=== PATIENT | male | born 1970 | race Caucasian/White ===

== ENCOUNTER 2020-07-15 08:51 | Inpatient (IN) | payer OTHER ==
[~2020-07-15] VITALS: Ht 177.8 cm; Wt 129.4 kg
[2020-07-15] MEDS ORDERED: FLEET ENEMA ADULT 1 EA BTL PR PRN (10:15)
[2020-07-15] MEDS ORDERED: MELATONIN 3 MG TABLET PO PRN (10:15)
[2020-07-15] MEDS ORDERED: LACTULOSE SYRUP 10GM/15ML (ENULOSE) 30ML UDC PO PRN ×2 (10:15→16:30)
[2020-07-15] MEDS ORDERED: ONDANSETRON 4 MG (ZOFRAN) ORAL DISSOLVE TAB PO PRN (10:15)
[2020-07-15] MEDS ORDERED: ALPRAZolam 0.25 MG (XANAX) TAB PO PRN (10:15)
[2020-07-15] MEDS ORDERED: BISACODYL 10 MG SUPP (DULCOLAX) PR PRN (10:15)
[2020-07-15] MEDS ORDERED: diphenhydrAMINE 25 MG TAB (BENADRYL) PO PRN (10:15)
[2020-07-15] MEDS ORDERED: guaiFENesin/CODEINE (ROBITUSSIN AC) 10ML UDC PO PRN (10:15)
[2020-07-15] MEDS ORDERED: ENOXAPARIN 40 MG/0.4 ML (LOVENOX) SYR SC SCH (10:15)
[2020-07-15] MEDS ORDERED: CALCIUM CARBONATE 500 MG (TUMS) TAB.CHEW PO PRN ×2 (10:15→16:00)
[2020-07-15] MEDS ORDERED: LOPERAMIDE 2 MG (IMODIUM) TABLET PO PRN (10:15)
[2020-07-15 12:20] VITALS: BP 133/70
[2020-07-15] MEDS ORDERED: GLUC1VIA4 IM (12:48)
[2020-07-15] MEDS ORDERED: DEXT38GE12 PO (12:48)
[2020-07-15] MEDS ORDERED: ATOR20TA66 PO (12:48)
[2020-07-15] MEDS ORDERED: MELA5TAB14 PO (12:48)
[2020-07-15] MEDS ORDERED: ACET-2650 PO (12:48)
[2020-07-15] MEDS ORDERED: AMLO10TA4 PO (12:48)
[2020-07-15] MEDS ORDERED: PHEN-639 PO (12:48)
[2020-07-15] MEDS ORDERED: IPRA3AMP31 IH (12:48)
[2020-07-15] MEDS ORDERED: APIX2.5T PO (12:48)
[2020-07-15] MEDS ORDERED: LACT1CAP76 PO (12:48)
[2020-07-15] MEDS ORDERED: LISI20TA26 PO (12:48)
[2020-07-15] MEDS ORDERED: AMIO200T6 PO (12:48)
[2020-07-15] MEDS ORDERED: SIME80TA16 PO (12:48)
[2020-07-15] MEDS ORDERED: ASCO100024 PO (12:48)
[2020-07-15] MEDS ORDERED: CHOL500050 PO (12:48)
[2020-07-15] MEDS ORDERED: INSU100V39 SQ (12:48)
[2020-07-15] MEDS ORDERED: CALC-308 PO (12:48)
[2020-07-15] MEDS ORDERED: PANT40TA52 PO (12:48)
[2020-07-15] MEDS ORDERED: LACT10SO3 PO (12:48)
[2020-07-15] MEDS ORDERED: ACHD5005 PO (13:37)
--- NOTE | 2020-07-15 14:08 | Physical Therapy Evaluation ---
PT Evaluation-General Medical Diagnosis Admission Date July 15, 2020 at 13:02 Medical Diagnosis: covid 19 PNA myopathy Onset Date: Jun 10, 2020 Therapy Diagnosis Therapy Diagnosis: impaired mobility, strength, endurance Precautions Precautions/Isolations: Fall Prevention, Standard Precautions Referral Physician: Mai Parry DO Reason for Referral: Evaluation/Treatment Social History Home: Single Level Current Living Status: Significant Other Entry Into Home: Stairs With Railing PT Steps Into Home: 2 Prior Prior Level of Function SCALE: Activities may be completed with or without assistive devices. 7-Akbwseipjn-ooniztu completes the activity by him/herself with no assistance from a helper. 5-Set-up or Clean-up Assistance-helper sets up or cleans up; patient completes activity. [place] assists only prior to or following the activity. 4-Supervision or Touching Assistance-helper provides verbal cues and/or touching/steadying and/or contact guard assistance as patient completes activity. Assistance may be provided throughout the activity or intermittently. 3-Partial/Moderate Assistance-helper does LESS THAN HALF the effort. [place] lifts, holds or supports trunk or limbs, but provides less than half the effort. 2-Substantial/Maximal Assistance-helper does MORE THAN HALF the effort. [place] lifts or holds trunk or limbs and provides more than half the effort. 8-Tdnhroobx-bssnoh does ALL the effort. Patient does none of the effort to complete the activity. Or, the assistance of 2 or more helpers is required for the patient to complete the activity. If activity was not attempted, code reason: 7-Patient Refused. 9-Not Applicable-not attempted and the patient did not perform the activity before the current illness, exacerbation or injury. 10-Not Attempted due to Environmental Limitations-(lack of equipment, weather restraints, etc.). 88-Not Attempted due to Medical Conditions or Safety Concerns. Bed Mobility: 6 Transfers (B,C,W/C): 6 Gait: 6 Stairs: 6 Indoor Mobility (Ambulation): Independent Stairs: Independent PT Evaluation-Current Subjective Patient in bed pre tx, agrees to PT, has no complaints of pain. Will be co- treating with OT due to severe debility, endurance, mobility, coordinate UE and LE during activity, safety and reduce risk of falls. Pt/Family Goals "to get stronger" Objective Patient Orientation: Person, Place, Situation, Normal For Age Attachments: Oxygen ROM/Strength ROM Lower Extremities WNL, dorsiflexion is tight on both sides but he can achieve neutral bilaterally Strength Lower Extremities LLE (hip flexion 2/5, knee flexion 3-/5, knee extension 3/5, dorsiflexion 0/5), RLE (hip flexion 2/5, knee flexion 3-/5, knee extension 3/5, dorsiflexion 3/5) Sensory Vision: Functional Hearing: Functional Sensation Right Lower Extremit: Impaired Sensation Left Lower Extremity: Impaired Transfers Roll Left & Right (QC): 3 Sit to Lying (QC): 2 Lying to Sitting/Side of Bed(Q: 2 Sit to Stand (QC): 1 Chair/Uip-bv-Qjmjj Xfer(QC): 1 Toilet Transfer (QC): 1 Car Transfer (QC): 1 Patient performs bed mobility with mod assist, supine <-> sit max assist, dependent with sit to stand and transfers using a sit to stand machine. Cues for positioning and safety. Patient needed to use the commode and performed a transfer to it with sit to stand machine and then to WC. Propelled WC and then another sit to stand machine transfer to bed. Patient needs min assist for s itting balance until he is positioned correctly and then he can maintain balance on his own. Gait Does the Patient Walk?: No and Walking Goal NOT indicated Walk 10 feet (QC): 88 Walk 50 ft with 2 Turns(QC): 88 Walk 150 ft (QC): 88 Walking 10ft/uneven surface-QC: 88 Wheelchair Training Does the Pt Use a Wheelchair?: Yes Distance: 80' Wheel 50 ft with 2 turns (QC): 3 Wheel 150 ft (QC): 88 Type of Wheelchair: Manual Patient propels WC with both arms, needs frequent rest breaks, very fatigued after 80' Stairs 1 Step (curb) (QC): 88 4 Steps (QC): 88 12 Steps (QC): 88 Balance Sitting Static: Fair Sitting Dynamic: Fair Standing Static: Poor Standing Dynamic: Poor Picking up an Object (QC): 88 Treatment PT performed bed mobility and transfer training, WC mobility, positioning and safety during toileting, OT worked on toileting, UE positioning and safety during activity. Assessment/Needs Patient has impaired mobility, strength, endurance. He requires the sit to stand machine for transfers. Rehab Potential: Fair PT Short Term Goals Short Term Goals Time Frame: July 22, 2020 Roll Left & Right: 4 Sit to lyin Lying to sitting on side of be: 3 PT Dry Cleaning Checker Goals Mcfp Goals PT Dry Cleaning Checker Goals Time Frame: Aug 05, 2020 Roll Left & Right (QC): 4 Sit to Lying (QC): 4 Lying-Sitting on Side/Bed(QC): 4 Sit to Stand (QC): 3 Chair/Vpy-sk-Xbhyr Xfer(QC): 3 Toilet Transfer (QC): 3 Car Transfer (QC): 3 Does the Patient Walk: No and Walking Goal IS indicated Walk 10 feet (QC): 3 Walk 50ft with 2 Turns (QC): 88 Walk 150 ft (QC): 88 Walking 10ft on Uneven Surface: 88 1 Step (curb) (QC): 88 4 Steps (QC): 88 12 Steps (QC): 88 Picking up an Object (QC): 88 Wheel 50 feet with 2 turns (QC: 6 Wheel 150 feet: 6 PT Plan Problem List Problem List: Activity Tolerance, Functional Strength, Safety, Balance, Gait, Transfer, Bed Mobility, ROM Treatment/Plan Treatment Plan: Continue Plan of Care Treatment Plan: Bed Mobility, Education, Functional Activity Cierra, Functional Strength, Group Therapy, Gait, Safety, Therapeutic Exercise, Transfers Treatment Duration: Aug 05, 2020 Frequency: Modified Program (IRF) Estimated Hrs Per Day: 1 hour per day Patient and/or Family Agrees t: Yes Due to a covid 19 viral infection, the patient has deficits that warrant inpatient acute rehab. The patient will clearly benefit from intensive PT and OT, however, due to patient's observed endurance and therapy considerations, he may not be able to tolerate the full 3 hours of scheduled therapy. Therefore, he will be scheduled for as much therapy as he can tolerate with intentional rest breaks, shortened sessions, including providing therapy across 6 to 7 days. As the patient tolerates, the intensity, frequency, and duration of his therapy program will be increased. Safety Risks/Education Patient Education: Transfer Techniques, Correct Positioning, W/C Management, Safety Issues Teaching Recipient: Patient Teaching Methods: Demonstration, Discussion Response to Teaching: Reinforcement Needed Discharge Recommendations Plan Patient will perform bed mobility and transfer training, balance and endurance training, functional strengthening, gait training, and education, to improve functional mobility and independence at home. Therapy Discharge Recommendati: Scheduled Assistance, Home & Family, Post Acute PT Time/GCodes Time In: 1300 Time Out: 1400 Total Billed Treatment Time: 60 Total Billed Treatment 1 visit EVM 10' FA 50' PT eval from [id number], co-treat from [id number] LIZ MI PT July 15, 2020 14:08
--- NOTE | 2020-07-15 14:32 | Occupational Therapy Eval ---
OT Evaluation-General/PLF Medical Diagnosis Admission Date July 15, 2020 at 13:02 Medical Diagnosis: critical illness myopathy Onset Date: Jun 10, 2020 Therapy Diagnosis Therapy Diagnosis: weakness, decreased ADL Status, debility Precautions Precautions/Isolations: Fall Prevention, Standard Precautions Referral Physician: Mai Parry DO Referral Reason: Evaluation/Treatment Medical History Additional Medical History acute respiratory failure, COVID-19, hematuria, hypoxia, obesity, sleep apnea, vitamin D deficiency Current History Presented to the hospital (diagnosed with COVID-19 1 week prior), he was intubated 06/11/20, received PEG/trach. Transferred to [place] for ventilator and medication management. Dx with DM at [place]. transfer to [facility] 07/15/20 for continued medication management and skilled therapy. Social History Home: Single Level Current Living Status: Significant Other Entry Into Home: Stairs With Railing Steps Into Home: 2 ADL-Prior Level of Function SCALE: Activities may be completed with or without assistive devices. 0-Klljavpxqm-xwvpdnu completes the activity by him/herself with no assistance from a helper. 5-Set-up or Clean-up Assistance-helper sets up or cleans up; patient completes activity. [place] assists only prior to or following the activity. 4-Supervision or Touching Assistance-helper provides verbal cues and/or touching/steadying and/or contact guard assistance as patient completes activity. Assistance may be provided throughout the activity or intermittently. 3-Partial/Moderate Assistance-helper does LESS THAN HALF the effort. [place] lifts, holds or supports trunk or limbs, but provides less than half the effort. 2-Substantial/Maximal Assistance-helper does MORE THAN HALF the effort. [place] lifts or holds trunk or limbs and provides more than half the effort. 9-Jcvpaqkxm-thzyuy does ALL the effort. Patient does none of the effort to complete the activity. Or, the assistance of 2 or more helpers is required for the patient to complete the activity. If activity was not attempted, code reason: 7-Patient Refused. 9-Not Applicable-not attempted and the patient did not perform the activity before the current illness, exacerbation or injury. 10-Not Attempted due to Environmental Limitations-(lack of equipment, weather restraints, etc.). 88-Not Attempted due to Medical Conditions or Safety Concerns. ADL PLOF Comments Pt reports IND with all ADLs and functional mobility at PLOF, no AD/AE. 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 Upper Extremity Coordination decreased due to weakness Upper Extremity Sensation WFL Upper Extremity Strength grossly 3/5 BUEs ADL-Treatment Eating (QC): 5 (set up per pt report) Oral Hygiene (QC): 5 (based on clincial judgement) Shower/Bathe Self (QC): 1 (Based on clincial judgement, pt would require use of sit to stand machine to wash buttocks and pericare.) Upper Body Dressing (QC): 2 (based on clinical judgement) Lower Body Dressing (QC): 1 (Based on clincial judgement, pt would requires use of sit to stand transfer in order to complete LE dressing, assist threading over legs and assist with pant hike.) On/Off Footwear (QC): 1 (total assist donning bilateral gripper socks.) Toileting Hygiene (QC): 1 (total assist, assist with hygiene and clothing managment) Other Treatments OT evaluation complete, then OT/PT cotreat due to skill of 2 clinicians required which a cnc technician could not perform in order to coordinate UE/LEs and due to pt's limitations in strength, activity tolerance, mobility, endurance, and transfers. OT focused on UE placement, assist with transfers, ADLs, PT focused on LE placement, transfers/mobility, and overall gross movement. Pt laying supine, transferred supine to sit EOB. At EOB, O2 sat 91% on 1L O2 and BP 150/87. Pt states need to toilet, sit to stand transfer performed from EOB to BSC. Pt completed toileting, assist with managing clothing and with hygiene, then sit to stand transfer to w/c. Pt performed w/c mobility around [facility] common area, then back to room, transferred back to bed using sit to stand machine. Post tx, pt laying in bed, call light in reach and all needs met. Please refer to PT note for QC scores associated with transfers and functional mobility. Education OT Patient Education: Correct positioning, Modified ADL techniques, Progress toward Goal/Update tx plan, Purpose of tx/functional activities, Rehab process, Safety issues, Transfer techniques Teaching Recipient: Patient Teaching Methods: Discussion Response to Teaching: Verbalize Understanding OT Short Term Goals Short Term Goals Time Frame: Aug 05, 2020 Toileting hygiene: 2 Upper body dressin Lower body dressin Putting on/taking off footwear: 2 OT Mcfp Goals Mcfp Goals Time Frame: Aug 13, 2020 Eating (QC): 6 Oral Hygiene (QC): 6 Toileting Hygiene (QC): 6 Shower/Bathe Self (QC): 6 Upper Body Dressing (QC): 6 Lower Body Dressing (QC): 6 On/Off Footwear (QC): 6 Additional Goals: 1-Demonstrate ADL Tasks, 2-Verbalize Understanding, 3- ImproveStrength/Cierra 1=Demonstrate adherence to instructed precautions during ADL tasks. 2=Patient will verbalize/demonstrate understanding of assistive devices/modifications for ADL. 3=Patient will improve strength/tolerance for activity to enable patient to perform ADL's. OT Education/Plan Problem List/Assessment Assessment: Decreased Activ Tolerance, Decreased UE Strength, Dependent Trans fers, Impaired Coordination, Impaired Funct Balance, Impaired I ADL's, Impaired Self-Care Skills, Restricted Funct UE ROM Discharge Recommendations Plan/Recommendations: Continue POC Therapy Discharge Recommendati: Post Acute OT Treatment Plan/Plan of Care Patient would benefit from OT for education, treatment and training to promote independence in ADL's, mobility, safety and/or upper extremity function for ADL's. Plan of Care: ADL Retraining, Functional Mobility, Group Exercise/Act as Ind, UE Funct Exercise/Act Treatment Duration: Aug 13, 2020 Frequency: Modified Program (IRF) Estimated Hrs Per Day: 1 hour per day Rehab Potential: Fair Due to a COVID-19 viral infection, the patient has deficits that warrant inpatient [facility]. The patient will clearly benefit from intensive PT and OT, however, due to patient's observed endurance and therapy considerations, he may not be able to tolerate the full 3 hours of scheduled therapy. Therefore, he will be scheduled for as much therapy as he can tolerate with intentional rest breaks, shortened session, including providing therapy across 6 to 7 days. As the patient tolerates, the intensity, frequency, and duration of his therapy program will be increased. Time/GCodes Start Time: 12:50 Stop Time: 14:00 Total Time Billed (hr/min): 60 Billed Treatment Time [id number] OT evaluation, [id number] PT evaluation, [id number] OT/PT cotreat 1, EVH (10'), ADL 2 (30'), FA (20') HEAVENLY MARQUEZ OT July 15, 2020 14:32
--- NOTE | 2020-07-15 15:49 | PM&R Post Admission Assessment ---
PM&R HP Date of Visit: July 15, 2020 Time of Visit: 13:00 History of Present Illness CC: COVID-19 PNA debility HPI: This is a 49yoWM clinic patient of Dr Vo in [place], [place] who presents from [facility] following a complicated course from respiratory failure from COVID-19 requiring residential vent support with trach placement now in need of recovery and strengthening in order to return to independent living. 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 Patient has very poor reserve currently. 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 He was dx with new onset DM so we will monitor that with insulin. The patient was admitted to the ARU during this COVID-19 emergency. The ARU is the best and most appropriate post-acute setting for this patient at this current time. Patient meets an inpatient Acute Rehab admission criteria, however will be unable to tolerate 3 hours of therapy/5 days per week. This patient's individiualized intensive rehabilitation plan is to receive 2 hours of therapy per day, by receiving 1 hour of PT and 1 hours of OT 5 out of 7 days per the patient's week. As an interdisciplinary team, we will discuss this patient's ability to tolerate an increase in the intensity of thearpy to be provided throughout the patient's stay. 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 Drive Self: Yes Current Level of Fuctioning Roll Left to Right: 3 Sit to Lyin Lying to Sitting/Side of Bed: 2 Sit to Stand: 1 Chair/Iaj-rj-Bollz Xfer: 1 Car Transfer: 1 Does the Patient Walk: No and Walking Goal NOT indicated Walk 10 feet: 88 Walk 50 ft with 2 Turns: 88 Walk 150 ft: 88 Walking 10ft on uneven surface: 88 Does the Pt Use a Wheelchair: Yes Wheelchair Distance: 80' Wheel 50 ft with 2 turns: 3 Wheel 150 ft: 88 Type of Wheelchair: Manual 1 Step (curb): 88 4 Steps: 88 12 Steps: 88 Eatin (set up per pt report) Oral Hygiene: 5 (based on clincial judgement) Shower/Bathe Self: 1 (Based on clincial judgement, pt would require use of sit to stand machine to wash buttocks and pericare.) Upper Body Dressin (based on clinical judgement) Lower Body Dressin (Based on clincial judgement, pt would requires use of sit to stand transfer in order to complete LE dressing, assist threading over legs and assist with pant hike.) On/Off Footwear: 1 (total assist donning bilateral gripper socks.) Toileting Hygiene: 1 (total assist, assist with hygiene and clothing managment) PM&R Allergy/Meds/Data Review Allergies Coded Allergies: No Known Drug Allergies (Unverified , 07/15/20) Home Medications Scheduled Amiodarone HCl (Amiodarone HCl), 200 MG PO DAILY, (Reported) Amlodipine Besylate (Norvasc), 10 MG PO DAILY, (Reported) Apixaban (Eliquis), 2.5 MG PO BID, (Reported) Ascorbic Acid (Vitamin C), 1,000 MG PO DAILY, (Reported) Atorvastatin Calcium (Atorvastatin Calcium), 20 MG PO HS, (Reported) Cholecalciferol (Vitamin D3) (Vitamin D3), 125 MCG PO DAILY, (Reported) Insulin Lispro (Insulin Lispro), UNIT SQ ACHS, (Reported) Lactobacillus Acidophilus/Pect (Acidophilus-Pectin Capsule), 1 EACH PO BID, (Reported) Lisinopril (Lisinopril), 20 MG PO DAILY, (Reported) Melatonin (Melatonin), 5 MG PO HS, (Reported) Pantoprazole Sodium (Pantoprazole Sodium), 40 MG PO DAILY, (Reported) Scheduled PRN Acetaminophen (Tylenol Arthritis), 650 MG PO Q6H PRN for PAIN-MILD (1-4) OR TEMPATURE, (Reported) Calcium Carbonate (Calcium), 500 MG PO Q4H PRN for INDIGESTION, (Reported) Dextrose (Glucose Gel), 15 GM PO PRN PRN for BLOOD GLUCOSE 40-70, (Reported) Hydrocodone/Acetaminophen (Hydrocodone-Acetamin 5-325 mg), 1 TAB PO Q6H PRN for PAIN-MODERATE (5-7), (Reported) Ipratropium/Albuterol Sulfate (Iprat-Albut 0.5-3(2.5) mg/3 ml), 3 ML IH Q4H PRN for SHORTNESS OF BREATH, (Reported) Lactulose (Lactulose), 15 ML PO TID PRN for CONSTIPATION-3RD LINE, (Reported) Phenazopyridine HCl (Pyridium), 200 MG PO Q8H PRN for URINARY PAIN, (Reported) Simethicone (Simethicone), 160 MG PO Q8H PRN for GAS PAIN, (Reported) glucagon HCL (glucagon HCL), 1 MG IM PRN PRN for BG LESS THAN OR EQUAL TO 40, (Reported) Current Medications Current Medications Reviewed Laboratory Data Laboratory Tests 07/15/20 15:45: Glucometer 191H Review of Systems Constitutional: see HPI, dizziness, malaise, weakness EENTM: no symptoms reported Respiratory: dyspnea on exertion, short of breath, wheezing Cardiovascular: no symptoms reported Gastrointestinal: no symptoms reported Genitourinary: no symptoms reported Musculoskeletal: back pain, joint pain Skin: no symptoms reported Psychiatric/Neurological: Anxiety, Depressed, Weakness All Other Systems Reviewed Negative Unless Noted: Yes Physical Exam Physical Exam Vital Signs Vital Signs - First Documented 07/15/20 12:20 Temp 36.6 Pulse 75 Resp 20 B/P (MAP) 133/70 (91) Pulse Ox 93 O2 Delivery Room Air Capillary Refill : Height, Weight, BMI Height: '" Weight: lbs. oz. kg; 40.17 BMI Method: General Appearance: No Apparent Distress, WD/WN, Obese Eyes: Bilateral Eye Normal Inspection, Bilateral Eye PERRL HEENT: PERRL/EOMI, Normal ENT Inspection, Pharynx Normal Neck: Full Range of Motion, Normal Inspection, Non Tender, Supple, Carotid Bruit Respiratory: Chest Non Tender, Lungs Clear, No Accessory Muscle Use, No Respiratory Distress, Decreased Breath Sounds Cardiovascular: Regular Rate, Rhythm, No Edema, No Gallop, No JVD, No Murmur, Normal Peripheral Pulses Gastrointestinal: Normal Bowel Sounds, No Organomegaly, No Pulsatile Mass, Non Tender, Soft Back: Normal Inspection, No CVA Tenderness, No Vertebral Tenderness Extremity: Normal Capillary Refill, Normal Inspection, Normal Range of Motion, Non Tender, No Calf Tenderness, No Pedal Edema Neurologic/Psychiatric: Alert, Oriented x3, No Motor/Sensory Deficits, Normal Mood/Affect, vitamin manager II-XII Norm as Tested, Abnormal Gait (can't ambulate), Motor Weakness (severe 1/5 strength all extremities) Skin: Normal Color, Warm/Dry Lymphatic: No Adenopathy PM&R Medical Assessment & Plan REHAB/MEDICAL ASSESSMENT AND PLAN: REHAB IMPAIRMENT GROUP: COVID-19 PNA ETIOLOGIC DIAGNOSIS: COVID-19 PNA The comorbidities that impact the patients function and/or functional outcome by: severe respiratory compromise, inability to perform any ADL's, obesity, new DM REHAB PLAN: The patient is being admitted to our comprehensive inpatient rehabilitation facility and can tolerate the intensity of service consisting of at least: 180 minutes of therapy a day, 5 out of 7 days a week Rehab treatment will consist of: PT OT will focus on regaining function and ambulatory function while strengthening lungs from COVID The patient/family has a good understanding of our discharge process and will benefit from an interdisciplinary inpatient rehabilitation program. The patient has potential to make improvement and is in need of at least two of the following multidisciplinary therapies including but not limited to physical, occupational, speech, and prosthetics and orthotics. Additionally the patient will need services from respiratory, nutritional services, wound care, psychology, etc. (Customize this to each patient). Given the patients complex condition and risk of further medical complications, rehabilitation services cannot be safely or effectively provided at a lower level of care such as a residential facility. BARRIERS TO DISCHARGE: Severe respiratory compromise from COVID ESTIMATED LOS: 20 days DISPOSITION: Home RELEVANT CHANGES SINCE PREADMISSION SCREENING: I have compared the patients medical and functional status at the time of the preadmission screening and there are: no changes PROGNOSIS: Guarded REHABILITATION GOALS: 1. PT OT will focus on regaining function and ambulatory function while strengthening lungs from COVID All the above goals were reviewed with the patient and he/she is in agreement. By signing this document, I acknowledge that I have personally performed a full physical examination on this patient within 24 hours of admission to this inpatient rehabilitation facility and have determined the patient to be able to tolerate the above course of treatment at an intensive level for a reasonable period of time. I will be completing a detailed individualized Plan of Care for this patient by day #4 of the patients stay based upon the Preadmission Screen, the Post-Admission Evaluation, and the therapy evaluations. Admission Dx/Comorbidities: (1) Myopathy ICD Codes: G72.9 - Myopathy, unspecified (2) COVID-19 ICD Codes: U07.1 - COVID-19 (3) Obesity ICD Codes: E66.9 - Obesity, unspecified (4) Diabetes mellitus ICD Codes: E11.9 - Type 2 diabetes mellitus without complications Assessment/Plan Assessment and Plan Assess & Plan/Chief Complaint Assessment: COVID-19 PNA myopathy Severe poor lung reserve Obesity New onset DM AF? Plan: Insulin Monitor lung function Cardiology consult NATHANAEL HOWE DO July 15, 2020 15:49
[2020-07-15] MEDS ORDERED: LACTULOSE 10 GM/15 ML 30 ML POUR BOTTLE FOR ENEMA PO PRN (16:00)
[2020-07-15] MEDS ORDERED: RT-ALBUTEROL/IPRATROPIUM 3 ML (DUONEB) VIAL IH PRN (16:00)
[2020-07-15] MEDS ORDERED: HYDROcodone/APAP 5 MG/325 MG (LORTAB) TAB PO PRN (16:00)
[2020-07-15] MEDS ORDERED: SIMETHICONE 80 MG (MYLICON) CHEW PO PRN (16:00)
--- NOTE | 2020-07-15 16:27 | Diagnostic Imaging Report ---
INDICATION: Respiratory distress Portable chest 4:13 PM There is diffuse interstitial infiltrate in both lungs with some focal areas of alveolar consolidation. There are no effusions or pneumothoraces. IMPRESSION: Diffuse interstitial infiltrates with focal areas of alveolar consolidation consistent with pneumonia. Dictated by: Dictated on workstation # [id number]
[2020-07-15] MEDS ORDERED: ACETAMINOPHEN 325 MG TABLET PO PRN (16:45)
[2020-07-15 20:30] VITALS: BP 117/75
[2020-07-15] MEDS: inSUlin ASPART (NovoLOG) 1 UNIT/0.01 ML (CHARGE PER UNIT) SC SCH (21:02)
[2020-07-15] MEDS: MELATONIN 10 MG TABLET PO SCH (21:02)
[2020-07-15] MEDS: LACTOBACILLUS ACIDOPHILUS (PROBIOTIC) CAPSULE PO SCH (21:02)
[2020-07-15] MEDS: APIXABAN 2.5 MG (ELIQUIS) TABLET PO SCH (21:03)
[2020-07-15] MEDS: PHENAZOPYRIDINE 100 MG (PYRIDIUM) TABLET PO PRN (21:05)
[2020-07-15] MEDS: DOCUSATE SODIUM 100 MG (COLACE) CAP PO SCH (21:21)
[2020-07-15] MEDS: polyethylene glycoL POWDER 17 GM (MIRALAX) PACK PO SCH (21:22)
[2020-07-15] MEDS: SENNA W/DOCUSATE (SENOKOT S) TABLET PO SCH (21:22)
[2020-07-16] MEDS: inSUlin ASPART (NovoLOG) 1 UNIT/0.01 ML (CHARGE PER UNIT) SC SCH ×4 (04:58→21:49)
[2020-07-16 05:37] LABS: BASOPHILS % (AUTO) 0 % (0-10); EOSINOPHILS # (AUTO) 0.1 10^3/uL (0.0-0.3); EOSINOPHILS % (AUTO) 1 % (0-10); HEMATOCRIT 42 % (40-54); HEMOGLOBIN 13.4 g/dL (13.3-17.7); LYMPHOCYTES # (AUTO) 1.4 10^3/uL (1.0-4.0); LYMPHOCYTES % (AUTO) 16 % (12-44); MEAN CORPUSCULAR HEMOGLOBIN 29 pg (25-34); MEAN CORPUSCULAR HGB CONC 32 g/dL (32-36); MEAN CORPUSCULAR VOLUME 90 fL (80-99); MEAN PLATELET VOLUME 10.6 fL (9.0-12.2); MONOCYTES # (AUTO) 0.6 10^3/uL (0.0-1.0); MONOCYTES % (AUTO) 7 % (0-12); NEUTROPHILS # (AUTO) 6.2 10^3/uL (1.8-7.8); NEUTROPHILS % (AUTO) 74 % (42-75); PLATELET COUNT 237 10^3/uL (130-400); WHITE BLOOD COUNT 8.3 10^3/uL (4.3-11.0)
--- NOTE | 2020-07-16 05:51 | PM&R Progress Note ---
Subjective HPI/CC On Admission Date Seen by Provider: July 16, 2020 Time Seen by Provider: 11:30 Subjective/Events-last exam 07/16/20: Pt doing pretty well Potassium of 2.7 so will initiate supplement Dr. Rinaldi is seeing him in consultation EKG obtained and normal sinus rhythm noted UA ordered for burning sensation on urination Pt very debilitated Review of Systems General: Fatigue, Malaise Genitourinary: Dysuria, Frequency Objective Exam Vital Signs Vital Signs Date Time Temp Pulse Resp B/P (MAP) Pulse Ox O2 Delivery O2 Flow Rate FiO2 07/16/20 21:46 Nasal Cannula 1.00 07/16/20 21:00 97 07/16/20 20:00 36.6 78 18 130/71 (90) Capillary Refill : General Appearance: No Apparent Distress, WD/WN, Obese HEENT: PERRL/EOMI, Normal ENT Inspection, Pharynx Normal Neck: Full Range of Motion, Normal Inspection, Non Tender, Supple, Carotid Bruit Respiratory: Chest Non Tender, Lungs Clear, No Accessory Muscle Use, No Respiratory Distress, Decreased Breath Sounds Cardiovascular: Regular Rate, Rhythm, No Edema, No Gallop, No JVD, No Murmur, Normal Peripheral Pulses Gastrointestinal: Normal Bowel Sounds, No Organomegaly, No Pulsatile Mass, Non Tender, Soft Back: Normal Inspection, No CVA Tenderness, No Vertebral Tenderness Extremity: Normal Capillary Refill, Normal Inspection, Normal Range of Motion, Non Tender, No Calf Tenderness, No Pedal Edema Neurologic/Psychiatric: Alert, Oriented x3, No Motor/Sensory Deficits, Normal Mood/Affect, 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 FIM Transfers Therapy Code Descriptions/Definitions Functional Gaines Measure: 0=Not Assessed/NA 4=Minimal Assistance 1=Total Assistance 5=Supervision or Setup 2=Maximal Assistance 6=Modified Gaines 3=Moderate Assistance 7=Complete IndependenceSCALE: Activities may be completed with or without assistive devices. 5-Dryshfxqjj-zmkpmqo completes the activity by him/herself with no assistance from a helper. 5-Set-up or Clean-up Assistance-helper sets up or cleans up; patient completes activity. Lachine assists only prior to or following the activity. 4-Supervision or Touching Assistance-helper provides verbal cues and/or touching/steadying and/or contact guard assistance as patient completes activity. Assistance may be provided throughout the activity or intermittently. 3-Partial/Moderate Assistance-helper does LESS THAN HALF the effort. Lachine lifts, holds or supports trunk or limbs, but provides less than half the effort. 2-Substantial/Maximal Assistance-helper does MORE THAN HALF the effort. Lachine l ifts or holds trunk or limbs and provides more than half the effort. 1-Yquavmcxq-rjpkln does ALL the effort. Patient does none of the effort to complete the activity. Or, the assistance of 2 or more helpers is required for the patient to complete the activity. If activity was not attempted, code reason: 7-Patient Refused. 9-Not Applicable-not attempted and the patient did not perform the activity before the current illness, exacerbation or injury. 10-Not Attempted due to Environmental Limitations-(lack of equipment, weather restraints, etc.). 88-Not Attempted due to Medical Conditions or Safety Concerns. Roll Left to Right (QC): 3 Sit to Lying (QC): 2 Sit to Stand (QC): 1 Chair/Nqa-ca-Ptmda Xfer(QC): 1 Car Transfer (QC): 1 Gait Training Does the Patient Walk?: No and Walking Goal NOT indicated Walk 10 feet (QC): 88 Walk 50 ft with 2 Turns(QC): 88 Walk 150 ft (QC): 88 Walking 10ft/uneven surface-QC: 88 Wheelchair Training Does the Pt Use a Wheelchair?: Yes Distance: 80' Wheel 50 ft with 2 turns (QC): 3 Wheel 150 ft (QC): 88 Type of Wheelchair: Manual Stair Training 1 Step (curb) (QC): 88 4 Steps (QC): 88 12 Steps (QC): 88 ADL-Treatment Eating (QC): 5 (set up per pt report) Oral Hygiene (QC): 5 (based on clincial judgement) Shower/Bathe Self (QC): 1 (Based on clincial judgement, pt would require use of sit to stand machine to wash buttocks and pericare.) Upper Body Dressing (QC): 2 (based on clinical judgement) Lower Body Dressing (QC): 1 (Based on clincial judgement, pt would requires use of sit to stand transfer in order to complete LE dressing, assist threading over legs and assist with pant hike.) On/Off Footwear (QC): 1 (total assist donning bilateral gripper socks.) Toileting Hygiene (QC): 1 (total assist, assist with hygiene and clothing managment) Assessment/Plan Assessment and Plan Assess & Plan/Chief Complaint Assessment: COVID-19 PNA myopathy Severe poor lung reserve Obesity New onset DM AF? Plan: Insulin Monitor lung function Cardiology consult 07/16/20: UA Replace potassium Slow recovery (1) Myopathy (2) COVID-19 (3) Obesity (4) Diabetes mellitus NATHANAEL HOWE DO July 16, 2020 05:51
--- NOTE | 2020-07-16 05:52 | Individualized Plan of Care ---
Individualized Plan of Care Rehab Nursing IPOC Order Admission Date July 15, 2020 at 13:02 Current Orders Orders Admission Order(Inpt,Obs,Sdc) (07/15/20 10:09) Vital Signs: Per Unit Policy ( ,16,00 (07/15/20 10:09) Tyree Lefty (07/15/20 10:09) Sequential Compression Device .admit (07/15/20 10:09) Liquor Inspector-Inpt Rehab Con (07/15/20 10:09) Rehab Nursing Orders-Ipoc (07/15/20 10:09) Physical Therapy Rehab Orders (07/15/20 10:09) Occupational Therapy Rehab Ord (07/15/20 10:09) Speech Therapy Rehab Orders (07/15/20 10:09) Cbc With Automated Diff (07/16/20 06:00) Comprehensive Metabolic Panel (07/16/20 06:00) Precautions (Aru) (07/15/20 10:09) Rehab-Intensity Of Therapy (07/15/20 10:09) Initiate Admission Nursing Pro .admission (07/15/20 10:09) Acetaminophen Tablet/Caplet (Tylenol T (07/15/20 10:15) Alprazolam Tablet (Xanax Tablet) (07/15/20 10:15) Calcium Carbonate Chew Tablet (Antacid C (07/15/20 10:15) Diphenhydramine Tablet (Benadryl Tablet) (07/15/20 10:15) Docusate Sodium Capsule (Colace Capsule) (07/15/20 21:00) Docusate Sodium Capsule (Colace Capsule) (07/15/20 10:15) Bisacodyl Suppository (Dulcolax Supposit (07/15/20 10:15) Lactulose Oral Solution (Enulose Oral So (07/15/20 10:15) Na Phos/Na Biphos Enema (Fleet Enema Andrzej (07/15/20 10:15) Guaifenesin/Codeine Syrup (Robitussin Ac (07/15/20 10:15) Loperamide Tablet (Imodium Tablet) (07/15/20 10:15) Melatonin Tablet (Melatonin Tablet) (07/15/20 10:15) Polyethylene Glycol Powder Pkt (Miralax (07/15/20 21:00) Ondansetron Oral Dissolve Tab (Zofran (07/15/20 10:15) Senna S Tablet (Senokot S Tablet) (07/15/20 21:00) Code/Resuscitation (07/15/20 10:09) Initiate Admission Nursing Pro .admission (07/15/20 10:09) Admission Arrival Bed Request (07/15/20 12:30) Cho 75g/M 0snack (21-2400 Silver) (07/15/20 Lunch) Patient Visit (07/15/20 ) Pt Eval Moderate Complexity (07/15/20 ) Functional Activities, Ea 15 (07/15/20 ) Amiodarone Tablet (Cordarone Tablet) (07/16/20 09:00) Amlodipine Tablet (Norvasc Tablet) (07/16/20 09:00) Apixaban Tablet (Eliquis Tablet) (07/15/20 21:00) Atorvastatin Tablet (Lipitor Tablet) (07/15/20 21:00) Hydrocodone/Apap 5/325 Tablet (Lortab 5 (07/15/20 16:00) Albuterol/Ipra Inhalation Soln (Duoneb I (07/15/20 16:00) Lactobacillus Acidophilus Cap (Acidophil (07/15/20 21:00) Lactulose Syrup (Pour Bottle) (Cephulac (07/15/20 16:00) Lisinopril Tablet (Zestril Tablet) (07/16/20 09:00) Pantoprazole Tablet (Protonix Tablet) (07/16/20 09:00) Phenazopyridine Tablet (Pyridium Tablet) (07/15/20 16:00) Simethicone Tablet (Mylicon Chewable Tab (07/15/20 16:00) Acetaminophen Tablet/Caplet (Tylenol T (07/15/20 16:45) Ascorbic Acid Tablet (Vitamin C Tablet) (07/16/20 09:00) Calcium Carbonate Chew Tablet (Antacid C (07/15/20 16:00) Cholecalciferol Capsule/Tablet (Vitamin (07/16/20 09:00) Melatonin Tablet (Melatonin Tablet) (07/15/20 21:00) Consult Cardiology (07/15/20 15:49) Ekg Tracing (07/15/20 15:49) Chest 1 View, Ap/Pa Only (07/15/20 15:49) Lactulose Oral Solution (Enulose Oral So (07/15/20 16:30) Accucheck Achs ACHS (07/15/20 18:58) Insulin Aspart (Novolog) (Novolog (Charg (07/15/20 21:00) Insulin Determir (Per Unit) (Levemir (Pe (07/15/20 21:00) Hemoglobin A1c (07/16/20 05:30) Potassium Chloride (Tablet) (K Dur Table (07/16/20 13:00) Potassium Chloride (Tablet) (Klor Con Ta (07/16/20 18:00) Patient Visit (07/16/20 ) Speech Sound Lang Comp (07/16/20 ) Patient Visit (07/16/20 ) Functional Activities, Ea 15 (07/16/20 ) Urinalysis (07/17/20 06:00) Rehab Nursing Orders: Ongoing Assess. of Function Status, Bladder Management, Bladder Scan, Bladder Training, Bowel Management, Bowel Training, Disease Management & Educaiton, DVT Prophylaxis, Fall Prevention, Fluid/Electroly te/Nutrition Mgmt, Infection Prevention, Medication Management & Education, Management of Risks & Complications, Nutrition Management, Pain Management, Patient/Family Support, Safety Management Intensity of Therapy to be met Patient to be seen: Min.3h per day/5 of 7d PT IPOC Problem List: Activity Tolerance, Functional Strength, Safety, Balance, Gait, Transfer, Bed Mobility, ROM Treatment Plan: Continue Plan of Care Bed Mobility, Education, Functional Activity Cierra, Functional Strength, Group Therapy, Gait, Safety, Therapeutic Exercise, Transfers Treatment Duration: Aug 05, 2020 Frequency: Modified Program (IRF) Estimated Hrs Per Day: 1 hour per day OT IPOC Problems: Decreased Activ Tolerance, Decreased UE Strength, Dependent Transfers, Impaired Coordination, Impaired Funct Balance, Impaired I ADL's, Impaired Self-Care Skills, Restricted Funct UE ROM OT Treatment, Training and Edu: Yes Plan of Care: ADL Retraining, Functional Mobility, Group Exercise/Act as Ind, UE Funct Exercise/Act Treatment Duration: Aug 13, 2020 Frequency: Modified Program (IRF) Estimated Hrs Per Day: [address] IPOC Speech Therapy Treatment Plan: Discontinue ST Treatment Duration: July 16, 2020 Frequency: Modified Program (IRF) Estimated Hrs Per Day: Other Liquor Inspector/Case Mgmt Liquor Inspector/Case Managemen: Discharge Planning Dietitian/Brand Ambassador Promotional Model Dietitian/Brand Ambassador Promotional Model to monitor nutritional status and make changes and/or recommendations as needed and work with speech pathology on dietary upgrades as the occur. Physician IPOC Medical Issues being managed closely and that require the 24 hour availability of a physician: Recent COVID-19 PNA with severe debility will require close monitoring for respiratory decompensation Medical Issues: Bowel/Bladder Function, DVT Prophylaxis, Falls Precautions, Fluid/Electrolyte/Nutrition Balance, Infection Protection, Pain Management Brief Synthesis of Preadmission Screen, Post-Admission Evaluation, and Therapy Evaluations: PT OT will focus on regaining stamina and helping ambulation and increase ADL independence in order to recover Medical Prognosis: Guarded Anticipated Length of Stay: 28 days NATHANAEL HOWE DO July 16, 2020 05:52
[2020-07-16 06:09] LABS: ALBUMIN 3.2 GM/DL (3.2-4.5); CHLORIDE 105 MMOL/L (98-107); POTASSIUM 2.7 MMOL/L (3.6-5.0); SODIUM 145 MMOL/L (135-145)
[2020-07-16 06:10] LABS: CALCIUM 8.9 MG/DL (8.5-10.1)
[2020-07-16 06:11] LABS: GLUCOSE 125 MG/DL (70-105)
[2020-07-16 06:12] LABS: TOTAL PROTEIN 5.6 GM/DL (6.4-8.2)
[2020-07-16 06:13] LABS: BILIRUBIN,TOTAL 0.9 MG/DL (0.1-1.0); CARBON DIOXIDE 27 MMOL/L (21-32)
[2020-07-16 06:15] LABS: ALKALINE PHOSPHATASE 101 U/L (40-136); CREATININE SERUM 0.61 MG/DL (0.60-1.30); GFR ESTIMATED > 60
[2020-07-16 06:16] LABS: BUN/CREATININE RATIO 34
[2020-07-16 06:18] LABS: ALANINE AMINOTRANSFERASE 81 U/L (0-55)
[2020-07-16 08:02] VITALS: BP 136/83
[2020-07-16] MEDS: LACTOBACILLUS ACIDOPHILUS (PROBIOTIC) CAPSULE PO SCH ×2 (09:13→21:19)
[2020-07-16] MEDS: VITAMIN D3 125 MCG (5,000 UNITS) CAPSULE PO SCH (09:13)
[2020-07-16] MEDS: lisINopril 20 MG (PRINIVIL) TABLET PO SCH (09:13)
[2020-07-16] MEDS: SENNA W/DOCUSATE (SENOKOT S) TABLET PO SCH ×2 (09:13→21:49)
[2020-07-16] MEDS: PANTOPRAZOLE 40 MG (PROTONIX) TAB PO SCH (09:14)
[2020-07-16] MEDS: amLODIPine 10 MG (NORVASC) TAB PO SCH (09:14)
[2020-07-16] MEDS: ASCORBIC ACID (VIT C) 500 MG TABLET PO SCH (09:14)
[2020-07-16] MEDS: AMIODARONE 200 MG (CORDARONE) TAB PO SCH (09:14)
[2020-07-16] MEDS: DOCUSATE SODIUM 100 MG (COLACE) CAP PO SCH ×2 (09:14→21:48)
[2020-07-16] MEDS: APIXABAN 2.5 MG (ELIQUIS) TABLET PO SCH ×2 (09:18→21:19)
[2020-07-16] MEDS: polyethylene glycoL POWDER 17 GM (MIRALAX) PACK PO SCH ×2 (09:18→21:49)
--- NOTE | 2020-07-16 10:13 | ST Cognitive Linguistic Eval ---
Speech Evaluation-General Medical Diagnosis covid 19 PNA myopathy Onset Date: Jun 10, 2020 Therapy Diagnosis Therapy Diagnosis: Cognitive-communication Precautions Precautions/Isolations: Fall Prevention, Standard Precautions Referral Referring Physician: Dr. 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 Subjective Patient was pleasant and cooperative with the cognitive assessment. Language Eval: Auditory Comprehends Simple Yes/No Ques: Functional Indent/Objects Multiple Dodd: Functional Ident/Pics in Multiple Dodd: Functional Follows 1-Step Commands: Functional Follows Complex Directions: Functional Follows General Conversations: Functional Language Eval: Verbal Language Completes Spontaneous Greeting: Functional Produces Auto, Serial Info: Functional Imitates Simple Words/Phrases: Functional Word Finding: Functional Requests Basic Needs: Functional States Basic Personal Info: Functional Expresses Complex Ideas: Functional Objective Cognitive Domain Attention: WNL Memory: WNL Problem Solving: Functional Executive Functions: WNL Visuospatial Skills: WNL Composite Severity Rating: WNL Clock Drawing Severity Rating: WNL Objective Formal/Standardized Tests [facility] Mental Status ([facility]) Results 29/30, within normal range of function Oral Motor/Speech Production Within Normal Limits Impression The patient is a pleasant 49 y/o male who was admitted to the ARU for continuing COVID 19 recovery. The patient was given the SLUMS at bedside with a score of 29/30 obtained. This score is within the normal range of function and does not indicate the need for further ST services. Speech Patient Assess Expression of Ideas/Wants: Expression (4) Understanding Verbal Content: Understands (4) Brief Interview-Mental Status: Yes Repetition of Three Words: Three (3) Temporal Orientation: Year: Correct (3) Temporal Orientation: Month: Accurate within 5 days(2) Temporal Orientation: Day: Correct (1) Recall : Wear to say "Sock": Yes, no cue required (2) Recall : Color: Yes, no cue required (2) Recall : Bed: Yes, no cue required (2) Memory/Recall Ability: Current season, That he or she is in a hsp/hsp unit Speech-Plan Patient/Family Goals Patient/Family Goals: Patient plans on returning to his home where he lives with his girlfriend. He plans on returning to work [employer]. Treatment Plan Speech Therapy Treatment Plan: Discontinue ST Treatment Duration: July 16, 2020 Frequency: 1 time per week Estimated Hrs Per Day: .5 hour per day Rehab Potential: Fair Barriers to Learning: Patient's medical status Pt/Family Agrees to Plan: Yes Safety Risks/Education Teaching Recipient: Patient Teaching Methods: Discussion Response to Teaching: Verbalize Understanding Education Topics Provided: Safety within his room and communication of wants/needs Time Speech Therapy Time In: 09:30 Speech Therapy Time Out: 10:00 Total Billed Time: 30 Billed Treatment Time 1, SPSNDCOMP SINDI Saldivar July 16, 2020 10:13
--- NOTE | 2020-07-16 10:58 | Physical Therapy Daily Note ---
PT Daily Note-Current Subjective Patient in bed pre tx, agrees to PT, voices no complaints of pain. Will be co- treating with OT due to poor patient mobility, strength, endurance, severe debility, coordinate UE and LE during activity, safety and reduce risk of falls. Appearance Patient in bed post tx with nurse call, phone, tray, all needs met. Mental Status Patient Orientation: Person, Place, Situation Attachments: Oxygen Transfers SCALE: Activities may be completed with or without assistive devices. 5-Wiewejjtzy-pchinwm completes the activity by him/herself with no assistance from a helper. 5-Set-up or Clean-up Assistance-helper sets up or cleans up; patient completes activity. [place] assists only prior to or following the activity. 4-Supervision or Touching Assistance-helper provides verbal cues and/or touching/steadying and/or contact guard assistance as patient completes activity. Assistance may be provided throughout the activity or intermittently. 3-Partial/Moderate Assistance-helper does LESS THAN HALF the effort. [place] lifts, holds or supports trunk or limbs, but provides less than half the effort. 2-Substantial/Maximal Assistance-helper does MORE THAN HALF the effort. [place] lifts or holds trunk or limbs and provides more than half the effort. 6-Xvwejpgdx-nhukkz does ALL the effort. Patient does none of the effort to complete the activity. Or, the assistance of 2 or more helpers is required for the patient to complete the activity. If activity was not attempted, code reason: 7-Patient Refused. 9-Not Applicable-not attempted and the patient did not perform the activity before the current illness, exacerbation or injury. 10-Not Attempted due to Environmental Limitations-(lack of equipment, weather restraints, etc.). 88-Not Attempted due to Medical Conditions or Safety Concerns. Roll Left & Right (QC): 3 Sit to Lying (QC): 2 Lying to Sitting/Side of Bed(Q: 2 Sit to Stand (QC): 1 Chair/Gkb-fd-Yeibn Xfer(QC): 1 Toilet Transfer (QC): 1 Max assist for supine to sit, use sit to stand machine to transfer to shower chair, patient states he has to have a BM, shower chair is set up for a commode so place bucket and patient is able to have a small BM, nurse notified also patient finds shower chair very uncomfortable so he has to stand using the sit to stand machine a couple of times to make changes to shower chair. Transport patient to shower room, showers, transport back to room and sit to stand machine to bed. Treatments PT performed bed mobility and transfers, safety and positioning during bathing and dressing, OT performed bathing and dressing, UE positioning and safety during mobility. Assessment Current Status: Poor Progress no change in functional mobility PT Short Term Goals Short Term Goals Time Frame: July 22, 2020 Roll Left & Right: 4 Sit to lyin Lying to sitting on side of be: 3 PT Detention Goals Wire Tester Goals PT Detention Goals Time Frame: Aug 05, 2020 Roll Left & Right (QC): 4 Sit to Lying (QC): 4 Lying-Sitting on Side/Bed(QC): 4 Sit to Stand (QC): 3 Chair/Vnz-ss-Yggnv Xfer(QC): 3 Toilet Transfer (QC): 3 Car Transfer (QC): 3 Does the Patient Walk: No and Walking Goal IS indicated Walk 10 feet (QC): 3 Walk 50ft with 2 Turns (QC): 88 Walk 150 ft (QC): 88 Walking 10ft on Uneven Surface: 88 1 Step (curb) (QC): 88 4 Steps (QC): 88 12 Steps (QC): 88 Picking up an Object (QC): 88 Wheel 50 feet with 2 turns (QC: 6 Wheel 150 feet: 6 PT Plan Problem List Problem List: Activity Tolerance, Functional Strength, Safety, Balance, Gait, Transfer, Bed Mobility, ROM Treatment/Plan Treatment Plan: Continue Plan of Care Treatment Plan: Bed Mobility, Education, Functional Activity Cierra, Functional Strength, Group Therapy, Gait, Safety, Therapeutic Exercise, Transfers Treatment Duration: Aug 05, 2020 Frequency: Modified Program (IRF) Estimated Hrs Per Day: 1 hour per day Patient and/or Family Agrees t: Yes Safety Risks/Education Patient Education: Steps, Correct Positioning, Safety Issues Teaching Recipient: Patient Teaching Methods: Demonstration, Discussion Response to Teaching: Reinforcement Needed Time/GCodes Time In: 1000 Time Out: 1100 Total Billed Treatment Time: 60 Total Billed Treatment 1 visit FA 60' co-treat with OT for 60' LIZ MI PT July 16, 2020 10:58
--- NOTE | 2020-07-16 12:50 | Occupational Ther Daily Note ---
OT Current Status-Daily Note Subjective Pt alert, lying in bed. Pt agrees to therapy. C/o pain only with sitting on shower chair. Co-treat with PT ([phone]), skills of 2 clinicians due to poor patient mobility, strength, endurance, severe debility, coordinate UE and LE during activity, safety and reduce risk of falls. Mental Status/Objective Patient Orientation: Person, Place, Time, Situation Attachments: Telemetry ADL-Treatment Pt agrees to shower. See PT notes for transfers and bed mobility. Using sit to stand lift, pt transferred to shower chair with cutout. Transported pt to large shower room for shower. Pt able to complete upper body by self, assist to cleanse under abdomen, kasi area and buttocks. Pt used LH sponge to reach B LE's and feet, would not be able to reach without sponge. Pt had BM while on shower chair, assist to cleanse and dependent for transfer. After session, pt lying in bed with call light/phone in reach. Pt increased fatigue during session. Therapy Code Descriptions/Definitions Functional [place] Measure: 0=Not Assessed/NA 4=Minimal Assistance 1=Total Assistance 5=Supervision or Setup 2=Maximal Assistance 6=Modified [place] 3=Moderate Assistance 7=Complete IndependenceSCALE: Activities may be completed with or without assistive devices. 3-Jgrfsqeosk-hvsmdud completes the activity by him/herself with no assistance from a helper. 5-Set-up or Clean-up Assistance-helper sets up or cleans up; patient completes activity. [place] assists only prior to or following the activity. 4-Supervision or Touching Assistance-helper provides verbal cues and/or touching/steadying and/or contact guard assistance as patient completes activity. Assistance may be provided throughout the activity or intermittently. 3-Partial/Moderate Assistance-helper does LESS THAN HALF the effort. [place] lifts, holds or supports trunk or limbs, but provides less than half the effort. 2-Substantial/Maximal Assistance-helper does MORE THAN HALF the effort. [place] lifts or holds trunk or limbs and provides more than half the effort. 7-Awgwemenq-uydqxs does ALL the effort. Patient does none of the effort to complete the activity. Or, the assistance of 2 or more helpers is required for the patient to complete the activity. If activity was not attempted, code reason: 7-Patient Refused. 9-Not Applicable-not attempted and the patient did not perform the activity before the current illness, exacerbation or injury. 10-Not Attempted due to Environmental Limitations-(lack of equipment, weather restraints, etc.). 88-Not Attempted due to Medical Conditions or Safety Concerns. Shower/Bathe Self (QC): 2 Upper Body Dressing (QC): 2 (Assist to doff shirt) Lower Body Dressing (QC): 1 (Using sit to stand lift to manipulate clothing over hips then assist to thread over feet.) On/Off Footwear: 2 (Assist to don/doff socks) Toileting Hygiene (QC): 1 Toilet Transfer (QC): 1 OT Short Term Goals Short Term Goals Time Frame: Aug 05, 2020 Toileting hygiene: 2 Upper body dressin Lower body dressin Putting on/taking off footwear: 2 OT Learning Specialist Goals Senior Care Goals Time Frame: Aug 13, 2020 Eating (QC): 6 Oral Hygiene (QC): 6 Toileting Hygiene (QC): 6 Shower/Bathe Self (QC): 6 Upper Body Dressing (QC): 6 Lower Body Dressing (QC): 6 On/Off Footwear (QC): 6 Additional Goals: 1-Demonstrate ADL Tasks, 2-Verbalize Understanding, 3-Improve Strength/Cierra 1=Demonstrate adherence to instructed precautions during ADL tasks. 2=Patient will verbalize/demonstrate understanding of assistive devices/modifications for ADL. 3=Patient will improve strength/tolerance for activity to enable patient to pe rform ADL's. OT Education/Plan Problem List/Assessment Assessment: Decreased Activ Tolerance, Dependent Transfers, Impaired Coordination, Impaired Self-Care Skills, Restricted Funct UE ROM Discharge Recommendations Plan/Recommendations: Continue POC Treatment Plan/Plan of Care Patient would benefit from OT for education, treatment and training to promote independence in ADL's, mobility, safety and/or upper extremity function for ADL's. Plan of Care: ADL Retraining, Functional Mobility, Group Exercise/Act as Ind, UE Funct Exercise/Act Treatment Duration: Aug 13, 2020 Frequency: Modified Program (IRF) Estimated Hrs Per Day: 1 hour per day Rehab Potential: Fair Time/GCodes Start Time: 10:00 Stop Time: 11:00 Total Time Billed (hr/min): 60 Billed Treatment Time 1 visit-ADL 4 (60 min) TYSON FISHER July 16, 2020 12:50
[2020-07-16] MEDS ORDERED: KCL 20 MEQ TAB (K-DUR) PO NR (13:00)
[2020-07-16] MEDS: PHENAZOPYRIDINE 100 MG (PYRIDIUM) TABLET PO PRN (15:06)
[2020-07-16] MEDS: DOCUSATE SODIUM 100 MG (COLACE) CAP PO PRN (15:07)
[2020-07-16] MEDS ORDERED: IBUP-2473 PO (15:19)
[2020-07-16] MEDS ORDERED: ASPI325T32 PO (15:19)
[2020-07-16] MEDS ORDERED: HYDR25TA4 PO (15:21)
[2020-07-16] MEDS: KCL 10 MEQ TAB (MICRO K) PO SCH (17:40)
[2020-07-16 20:00] VITALS: BP 130/71
[2020-07-16] MEDS: MELATONIN 10 MG TABLET PO SCH (21:49)
[2020-07-17] MEDS: PHENAZOPYRIDINE 100 MG (PYRIDIUM) TABLET PO PRN (03:25)
[2020-07-17] MEDS: inSUlin ASPART (NovoLOG) 1 UNIT/0.01 ML (CHARGE PER UNIT) SC SCH ×4 (06:00→21:00)
--- NOTE | 2020-07-17 06:48 | PM&R Progress Note ---
Subjective HPI/CC On Admission Date Seen by Provider: July 17, 2020 Time Seen by Provider: 12:00 Subjective/Events-last exam 07/17/20: Patient doing well No complaints Awaiting UCx Empiric abx maintained Aunt at bedside O2 at 1L/min Sugar improved 07/16/20: Pt doing pretty well Potassium of 2.7 so will initiate supplement Dr. Rinaldi is seeing him in consultation EKG obtained and normal sinus rhythm noted UA ordered for burning sensation on urination Pt very debilitated Review of Systems General: Fatigue, Malaise Neurological: Weakness, Incoordination Focused Exam Lactate Level 07/17/20 09:29: Lactic Acid Level 1.61 Objective Exam Vital Signs Vital Signs Date Time Temp Pulse Resp B/P (MAP) Pulse Ox O2 Delivery O2 Flow Rate FiO2 07/17/20 20:48 Nasal Cannula 1.50 07/17/20 20:02 36.3 84 17 126/76 (93) 93 Capillary Refill : General Appearance: No Apparent Distress, WD/WN, Obese HEENT: PERRL/EOMI, Normal ENT Inspection, Pharynx Normal Neck: Full Range of Motion, Normal Inspection, Non Tender, Supple, Carotid Bruit Respiratory: Chest Non Tender, Lungs Clear, No Accessory Muscle Use, No Respiratory Distress, Decreased Breath Sounds Cardiovascular: Regular Rate, Rhythm, No Edema, No Gallop, No JVD, No Murmur, Normal Peripheral Pulses Gastrointestinal: Normal Bowel Sounds, No Organomegaly, No Pulsatile Mass, Non Tender, Soft Back: Normal Inspection, No CVA Tenderness, No Vertebral Tenderness Extremity: Normal Capillary Refill, Normal Inspection, Normal Range of Motion, Non Tender, No Calf Tenderness, No Pedal Edema Neurologic/Psychiatric: Alert, Oriented x3, No Motor/Sensory Deficits, Normal Mood/Affect, supervisor area II-XII Norm as Tested, Abnormal Gait (can't ambulate), Motor Weakness (severe 1/5 strength all extremities) Skin: Normal Color, Warm/Dry Lymphatic: No Adenopathy Results/Procedures Lab Laboratory Tests 07/17/20 09:29 Patient resulted labs reviewed. FIM Transfers Therapy Code Descriptions/Definitions Functional [place] Measure: 0=Not Assessed/NA 4=Minimal Assistance 1=Total Assistance 5=Supervision or Setup 2=Maximal Assistance 6=Modified [place] 3=Moderate Assistance 7=Complete IndependenceSCALE: Activities may be completed with or without assistive devices. 5-Rxiremueqd-diofskp completes the activity by him/herself with no assistance from a helper. 5-Set-up or Clean-up Assistance-helper sets up or cleans up; patient completes activity. [place] assists only prior to or following the activity. 4-Supervision or Touching Assistance-helper provides verbal cues and/or touching/steadying and/or contact guard assistance as patient completes activity. Assistance may be provided throughout the activity or intermittently. 3-Partial/Moderate Assistance-helper does LESS THAN HALF the effort. [place] lifts, holds or supports trunk or limbs, but provides less than half the effort. 2-Substantial/Maximal Assistance-helper does MORE THAN HALF the effort. [place] lifts or holds trunk or limbs and provides more than half the effort. 2-Jitjlaoqt-qaztxz does ALL the effort. Patient does none of the effort to complete the activity. Or, the assistance of 2 or more helpers is required for the patient to complete the activity. If activity was not attempted, code reason: 7-Patient Refused. 9-Not Applicable-not attempted and the patient did not perform the activity before the current illness, exacerbation or injury. 10-Not Attempted due to Environmental Limitations-(lack of equipment, weather restraints, etc.). 88-Not Attempted due to Medical Conditions or Safety Concerns. Roll Left to Right (QC): 3 Sit to Lying (QC): 2 Sit to Stand (QC): 1 Chair/Tbu-kc-Ymcra Xfer(QC): 1 Car Transfer (QC): 1 Gait Training Does the Patient Walk?: No and Walking Goal NOT indicated Walk 10 feet (QC): 88 Walk 50 ft with 2 Turns(QC): 88 Walk 150 ft (QC): 88 Walking 10ft/uneven surface-QC: 88 Wheelchair Training Does the Pt Use a Wheelchair?: Yes Distance: 80' Wheel 50 ft with 2 turns (QC): 3 Wheel 150 ft (QC): 88 Type of Wheelchair: Manual Stair Training 1 Step (curb) (QC): 88 4 Steps (QC): 88 12 Steps (QC): 88 Balance Picking up an Object (QC): 88 ADL-Treatment Eating (QC): 5 (set up per pt report) Oral Hygiene (QC): 5 (based on clincial judgement) Shower/Bathe Self (QC): 2 Upper Body Dressing (QC): 2 (Assist to doff shirt) Lower Body Dressing (QC): 1 (Using sit to stand lift to manipulate clothing over hips then assist to thread over feet.) On/Off Footwear (QC): 2 (Assist to don/doff socks) Toileting Hygiene (QC): 1 Toilet Transfer (QC): 1 Assessment/Plan Assessment and Plan Assess & Plan/Chief Complaint Assessment: COVID-19 PNA myopathy Severe poor lung reserve Obesity New onset DM AF? Plan: Insulin Monitor lung function Cardiology consult 07/16/20: UA Replace potassium Slow recovery 07/17/20: IV abx Suspect resistant UTI (1) Myopathy (2) COVID-19 (3) Obesity (4) Diabetes mellitus NATHANAEL HOWE DO July 17, 2020 06:48
[2020-07-17 07:30] VITALS: BP 142/80
[2020-07-17 08:19] LABS: CLARITY,URINE CLOUDY; COLOR,URINE ORANGE; GLUCOSE, URINE (UA) TRACE (NEGATIVE); KETONES,URINE NEGATIVE (NEGATIVE); LEUKOCYTE ESTERASE ,URINE 3+ (NEGATIVE); NITRITE,URINE POSITIVE (NEGATIVE); PROTEIN,URINE 3+ (NEGATIVE)
[2020-07-17 08:27] LABS: BACTERIA,URINE TRACE /HPF; BILIRUBIN,URINE 1+ (NEGATIVE); WBC,URINE TNTC /HPF
[2020-07-17] MEDS: lisINopril 20 MG (PRINIVIL) TABLET PO SCH (08:27)
[2020-07-17] MEDS: amLODIPine 10 MG (NORVASC) TAB PO SCH (08:27)
[2020-07-17] MEDS: LACTOBACILLUS ACIDOPHILUS (PROBIOTIC) CAPSULE PO SCH ×2 (08:27→21:32)
[2020-07-17] MEDS: PANTOPRAZOLE 40 MG (PROTONIX) TAB PO SCH (08:27)
[2020-07-17] MEDS: VITAMIN D3 125 MCG (5,000 UNITS) CAPSULE PO SCH (08:27)
[2020-07-17] MEDS: KCL 10 MEQ TAB (MICRO K) PO SCH ×2 (08:27→18:04)
[2020-07-17] MEDS: APIXABAN 2.5 MG (ELIQUIS) TABLET PO SCH ×2 (08:28→21:32)
[2020-07-17] MEDS: AMIODARONE 200 MG (CORDARONE) TAB PO SCH (08:28)
[2020-07-17] MEDS: ASCORBIC ACID (VIT C) 500 MG TABLET PO SCH (08:28)
[2020-07-17] MEDS: CEFEPIME INJECTION 1,000 MG in WATER (STERILE) FOR INJECTION 10 ML IV SCH ×3 (09:30→17:51)
[2020-07-17] MEDS: DOCUSATE SODIUM 100 MG (COLACE) CAP PO SCH ×2 (09:30→21:00)
[2020-07-17] MEDS: polyethylene glycoL POWDER 17 GM (MIRALAX) PACK PO SCH ×2 (09:30→21:00)
[2020-07-17] MEDS: SENNA W/DOCUSATE (SENOKOT S) TABLET PO SCH ×2 (09:30→21:00)
[2020-07-17 09:39] LABS: BASOPHILS % (AUTO) 0 % (0-10); EOSINOPHILS # (AUTO) 0.1 10^3/uL (0.0-0.3); EOSINOPHILS % (AUTO) 1 % (0-10); HEMATOCRIT 40 % (40-54); HEMOGLOBIN 12.6 g/dL (13.3-17.7); LYMPHOCYTES % (AUTO) 12 % (12-44); MEAN CORPUSCULAR HEMOGLOBIN 28 pg (25-34); MEAN CORPUSCULAR HGB CONC 31 g/dL (32-36); MEAN CORPUSCULAR VOLUME 91 fL (80-99); MEAN PLATELET VOLUME 10.4 fL (9.0-12.2); MONOCYTES # (AUTO) 0.5 10^3/uL (0.0-1.0); MONOCYTES % (AUTO) 6 % (0-12); NEUTROPHILS # (AUTO) 6.4 10^3/uL (1.8-7.8); NEUTROPHILS % (AUTO) 79 % (42-75); PLATELET COUNT 234 10^3/uL (130-400); WHITE BLOOD COUNT 8.1 10^3/uL (4.3-11.0)
[2020-07-17 09:45] LABS: ALBUMIN 3.1 GM/DL (3.2-4.5); CHLORIDE 106 MMOL/L (98-107); POTASSIUM 2.9 MMOL/L (3.6-5.0); SODIUM 145 MMOL/L (135-145)
[2020-07-17 09:47] LABS: CALCIUM 8.8 MG/DL (8.5-10.1)
[2020-07-17 09:48] LABS: GLUCOSE 152 MG/DL (70-105); TOTAL PROTEIN 5.4 GM/DL (6.4-8.2)
[2020-07-17 09:49] LABS: CARBON DIOXIDE 30 MMOL/L (21-32)
[2020-07-17 09:50] LABS: BILIRUBIN,TOTAL 0.8 MG/DL (0.1-1.0)
[2020-07-17 09:51] LABS: ALKALINE PHOSPHATASE 94 U/L (40-136); CREATININE SERUM 0.61 MG/DL (0.60-1.30); GFR ESTIMATED > 60
[2020-07-17 09:52] LABS: BUN/CREATININE RATIO 26
[2020-07-17 09:54] LABS: ALANINE AMINOTRANSFERASE 70 U/L (0-55); MAGNESIUM 1.6 MG/DL (1.6-2.4)
--- NOTE | 2020-07-17 11:23 | Physical Therapy Daily Note ---
PT Daily Note-Current Subjective Pt requests not to get out of bed. He feels like might have GI issues if he gets up. Mental Status Patient Orientation: Normal For Age Attachments: Oxygen Transfers SCALE: Activities may be completed with or without assistive devices. 9-Rqnbymmkah-cwejkhe completes the activity by him/herself with no assistance from a helper. 5-Set-up or Clean-up Assistance-helper sets up or cleans up; patient completes activity. [place] assists only prior to or following the activity. 4-Supervision or Touching Assistance-helper provides verbal cues and/or touching/steadying and/or contact guard assistance as patient completes activity. Assistance may be provided throughout the activity or intermittently. 3-Partial/Moderate Assistance-helper does LESS THAN HALF the effort. [place] lifts, holds or supports trunk or limbs, but provides less than half the effort. 2-Substantial/Maximal Assistance-helper does MORE THAN HALF the effort. [place] lifts or holds trunk or limbs and provides more than half the effort. 0-Wbbdaxpdz-eoyppc does ALL the effort. Patient does none of the effort to complete the activity. Or, the assistance of 2 or more helpers is required for the patient to complete the activity. If activity was not attempted, code reason: 7-Patient Refused. 9-Not Applicable-not attempted and the patient did not perform the activity before the current illness, exacerbation or injury. 10-Not Attempted due to Environmental Limitations-(lack of equipment, weather restraints, etc.). 88-Not Attempted due to Medical Conditions or Safety Concerns. Exercises Supine Ex: Bridging, Ankle pumps, Quad Set, Rolling, Glut sets, Lower trunk rotation, Heel Slides, Knee to chest, Short Arc Quads, Scooting, Resisted fl ex/ext, Hip abd/add Supine Reps: 20 Supine ex 2 sets of 10 reps ea exercise with manual resistance applied to SAQ and hip extension. Passive stretching of gastrocs. Assessment pt showing improved active LE motion. Able to tolerate moderate resistance to glutes. Unable to make a full bridge movement to clear hips for sliding sideways in bed. PT Short Term Goals Short Term Goals Time Frame: July 22, 2020 Roll Left & Right: 4 Sit to lyin Lying to sitting on side of be: 3 PT Technical Services Representative Goals Technical Services Representative Goals PT Longterm Goals Time Frame: Aug 05, 2020 Roll Left & Right (QC): 4 Sit to Lying (QC): 4 Lying-Sitting on Side/Bed(QC): 4 Sit to Stand (QC): 3 Chair/Spz-kb-Efhyl Xfer(QC): 3 Toilet Transfer (QC): 3 Car Transfer (QC): 3 Does the Patient Walk: No and Walking Goal IS indicated Walk 10 feet (QC): 3 Walk 50ft with 2 Turns (QC): 88 Walk 150 ft (QC): 88 Walking 10ft on Uneven Surface: 88 1 Step (curb) (QC): 88 4 Steps (QC): 88 12 Steps (QC): 88 Picking up an Object (QC): 88 Wheel 50 feet with 2 turns (QC: 6 Wheel 150 feet: 6 PT Plan Treatment/Plan Treatment Plan: Continue Plan of Care Treatment Plan: Bed Mobility, Education, Functional Activity Cierra, Functional Strength, Group Therapy, Gait, Safety, Therapeutic Exercise, Transfers Treatment Duration: Aug 05, 2020 Frequency: Modified Program (IRF) Estimated Hrs Per Day: 1 hour per day Patient and/or Family Agrees t: Yes Time/GCodes Time In: 1100 Time Out: 1115 Total Billed Treatment Time: 15 Total Billed Treatment visit, exercise 15 minutes ROGER YOUNG PT July 17, 2020 11:23
[2020-07-17 20:02] VITALS: BP 126/76
[2020-07-17] MEDS: MELATONIN 10 MG TABLET PO SCH (21:00)
[2020-07-18] MEDS: CEFEPIME INJECTION 1,000 MG in WATER (STERILE) FOR INJECTION 10 ML IV SCH ×5 (00:11→23:56)
[2020-07-18] MEDS: inSUlin ASPART (NovoLOG) 1 UNIT/0.01 ML (CHARGE PER UNIT) SC SCH ×4 (06:17→21:39)
--- NOTE | 2020-07-18 06:40 | PM&R Progress Note ---
Subjective HPI/CC On Admission Date Seen by Provider: July 18, 2020 Time Seen by Provider: 11:30 Subjective/Events-last exam 07/18/20: Patient doing well Diarrhea noted UTI treated with IV abx UCx pending 07/17/20: Patient doing well No complaints Awaiting UCx Empiric abx maintained Aunt at bedside O2 at 1L/min Sugar improved 07/16/20: Pt doing pretty well Potassium of 2.7 so will initiate supplement Dr. Rinaldi is seeing him in consultation EKG obtained and normal sinus rhythm noted UA ordered for burning sensation on urination Pt very debilitated Review of Systems General: Fatigue, Malaise Neurological: Weakness Focused Exam Lactate Level 07/17/20 09:29: Lactic Acid Level 1.61 Objective Exam Vital Signs Vital Signs Date Time Temp Pulse Resp B/P (MAP) Pulse Ox O2 Delivery O2 Flow Rate FiO2 07/18/20 19:52 37.1 96 20 130/70 (90) 91 Nasal Cannula 1.50 Capillary Refill : General Appearance: No Apparent Distress, WD/WN, Obese HEENT: PERRL/EOMI, Normal ENT Inspection, Pharynx Normal Neck: Full Range of Motion, Normal Inspection, Non Tender, Supple, Carotid Bruit Respiratory: Chest Non Tender, Lungs Clear, No Accessory Muscle Use, No Respiratory Distress, Decreased Breath Sounds Cardiovascular: Regular Rate, Rhythm, No Edema, No Gallop, No JVD, No Murmur, Normal Peripheral Pulses Gastrointestinal: Normal Bowel Sounds, No Organomegaly, No Pulsatile Mass, Non Tender, Soft Back: Normal Inspection, No CVA Tenderness, No Vertebral Tenderness Extremity: Normal Capillary Refill, Normal Inspection, Normal Range of Motion, Non Tender, No Calf Tenderness, No Pedal Edema Neurologic/Psychiatric: Alert, Oriented x3, No Motor/Sensory Deficits, Normal Mood/Affect, kettle girl II-XII Norm as Tested, Abnormal Gait (can't ambulate), Motor Weakness (severe 1/5 strength all extremities) Skin: Normal Color, Warm/Dry Lymphatic: No Adenopathy Results/Procedures Lab Patient resulted labs reviewed. FIM Transfers Therapy Code Descriptions/Definitions Functional [place] Measure: 0=Not Assessed/NA 4=Minimal Assistance 1=Total Assistance 5=Supervision or Setup 2=Maximal Assistance 6=Modified [place] 3=Moderate Assistance 7=Complete IndependenceSCALE: Activities may be completed with or without assistive devices. 4-Hmofwvubye-bpcwlab completes the activity by him/herself with no assistance from a helper. 5-Set-up or Clean-up Assistance-helper sets up or cleans up; patient completes activity. [place] assists only prior to or following the activity. 4-Supervision or Touching Assistance-helper provides verbal cues and/or touching/steadying and/or contact guard assistance as patient completes activity. Assistance may be provided throughout the activity or intermittently. 3-Partial/Moderate Assistance-helper does LESS THAN HALF the effort. [place] lifts, holds or supports trunk or limbs, but provides less than half the effort. 2-Substantial/Maximal Assistance-helper does MORE THAN HALF the effort. [place] lifts or holds trunk or limbs and provides more than half the effort. 8-Qatvxhiqi-wwqltg does ALL the effort. Patient does none of the effort to complete the activity. Or, the assistance of 2 or more helpers is required for the patient to complete the activity. If activity was not attempted, code reason: 7-Patient Refused. 9-Not Applicable-not attempted and the patient did not perform the activity before the current illness, exacerbation or injury. 10-Not Attempted due to Environmental Limitations-(lack of equipment, weather restraints, etc.). 88-Not Attempted due to Medical Conditions or Safety Concerns. Roll Left to Right (QC): 3 Sit to Lying (QC): 2 Sit to Stand (QC): 1 Chair/Row-pg-Dcbza Xfer(QC): 1 Car Transfer (QC): 1 Gait Training Does the Patient Walk?: No and Walking Goal NOT indicated Walk 10 feet (QC): 88 Walk 50 ft with 2 Turns(QC): 88 Walk 150 ft (QC): 88 Walking 10ft/uneven surface-QC: 88 Wheelchair Training Does the Pt Use a Wheelchair?: Yes Distance: 80' Wheel 50 ft with 2 turns (QC): 3 Wheel 150 ft (QC): 88 Type of Wheelchair: Manual Stair Training 1 Step (curb) (QC): 88 4 Steps (QC): 88 12 Steps (QC): 88 Balance Picking up an Object (QC): 88 ADL-Treatment Eating (QC): 5 (set up per pt report) Oral Hygiene (QC): 5 (based on clincial judgement) Shower/Bathe Self (QC): 2 Upper Body Dressing (QC): 2 (Assist to doff shirt) Lower Body Dressing (QC): 1 (Using sit to stand lift to manipulate clothing over hips then assist to thread over feet.) On/Off Footwear (QC): 2 (Assist to don/doff socks) Toileting Hygiene (QC): 1 Toilet Transfer (QC): 1 Assessment/Plan Assessment and Plan Assess & Plan/Chief Complaint Assessment: COVID-19 PNA myopathy Severe poor lung reserve Obesity New onset DM AF? Plan: Insulin Monitor lung function Cardiology consult 07/16/20: UA Replace potassium Slow recovery 07/17/20: IV abx Suspect resistant UTI 07/18/20: Monitor closely Await Ucx (1) Myopathy (2) COVID-19 (3) Obesity (4) Diabetes mellitus NATHANAEL HOWE DO July 18, 2020 06:40
[2020-07-18 07:30] VITALS: BP 128/75
[2020-07-18] MEDS: APIXABAN 2.5 MG (ELIQUIS) TABLET PO SCH ×2 (07:31→21:38)
[2020-07-18] MEDS: KCL 10 MEQ TAB (MICRO K) PO SCH ×2 (07:31→17:39)
[2020-07-18] MEDS: AMIODARONE 200 MG (CORDARONE) TAB PO SCH (07:31)
[2020-07-18] MEDS: amLODIPine 10 MG (NORVASC) TAB PO SCH (07:31)
[2020-07-18] MEDS: VITAMIN D3 125 MCG (5,000 UNITS) CAPSULE PO SCH (07:31)
[2020-07-18] MEDS: lisINopril 20 MG (PRINIVIL) TABLET PO SCH (07:31)
[2020-07-18] MEDS: LACTOBACILLUS ACIDOPHILUS (PROBIOTIC) CAPSULE PO SCH ×2 (07:31→21:38)
[2020-07-18] MEDS: ASCORBIC ACID (VIT C) 500 MG TABLET PO SCH (07:31)
[2020-07-18] MEDS: PANTOPRAZOLE 40 MG (PROTONIX) TAB PO SCH (07:31)
[2020-07-18] MEDS: DOCUSATE SODIUM 100 MG (COLACE) CAP PO SCH ×2 (08:29→20:09)
[2020-07-18] MEDS: SENNA W/DOCUSATE (SENOKOT S) TABLET PO SCH ×2 (08:29→20:09)
[2020-07-18] MEDS: polyethylene glycoL POWDER 17 GM (MIRALAX) PACK PO SCH ×2 (08:29→20:09)
[2020-07-18] MEDS ORDERED: SALINE NASAL SPRAY (OCEAN) 45 ML BTL PRN (12:00)
[2020-07-18] MEDS ORDERED: ZINC OXIDE 16% OINT (BUTT PASTE) 57 GM TUBE TOP PRN (15:30)
[2020-07-18 19:52] VITALS: BP 130/70
[2020-07-18] MEDS ORDERED: CATHETER FLUSH 10 ML SYR IV PRN (20:30)
[2020-07-18] MEDS: MELATONIN 10 MG TABLET PO SCH (21:38)
[2020-07-18] MEDS: CATHETER FLUSH 10 ML SYR IV SCH (21:39)
[2020-07-19 05:49] LABS: BASOPHILS % (AUTO) 1 % (0-10); EOSINOPHILS # (AUTO) 0.1 10^3/uL (0.0-0.3); EOSINOPHILS % (AUTO) 2 % (0-10); HEMATOCRIT 40 % (40-54); HEMOGLOBIN 12.6 g/dL (13.3-17.7); LYMPHOCYTES % (AUTO) 15 % (12-44); MEAN CORPUSCULAR HEMOGLOBIN 28 pg (25-34); MEAN CORPUSCULAR HGB CONC 31 g/dL (32-36); MEAN CORPUSCULAR VOLUME 91 fL (80-99); MEAN PLATELET VOLUME 10.7 fL (9.0-12.2); MONOCYTES # (AUTO) 0.5 10^3/uL (0.0-1.0); MONOCYTES % (AUTO) 7 % (0-12); NEUTROPHILS # (AUTO) 5.1 10^3/uL (1.8-7.8); NEUTROPHILS % (AUTO) 74 % (42-75); PLATELET COUNT 224 10^3/uL (130-400); WHITE BLOOD COUNT 6.8 10^3/uL (4.3-11.0)
[2020-07-19 06:15] LABS: ALANINE AMINOTRANSFERASE 50 U/L (0-55); ALKALINE PHOSPHATASE 101 U/L (40-136); BILIRUBIN,TOTAL 0.7 MG/DL (0.1-1.0); BUN/CREATININE RATIO 25; CALCIUM 8.5 MG/DL (8.5-10.1); CARBON DIOXIDE 29 MMOL/L (21-32); CHLORIDE 107 MMOL/L (98-107); CREATININE SERUM 0.63 MG/DL (0.60-1.30); GFR ESTIMATED > 60; GLUCOSE 134 MG/DL (70-105); SODIUM 145 MMOL/L (135-145); TOTAL PROTEIN 5.4 GM/DL (6.4-8.2)
[2020-07-19] MEDS: inSUlin ASPART (NovoLOG) 1 UNIT/0.01 ML (CHARGE PER UNIT) SC SCH ×4 (06:15→21:07)
[2020-07-19] MEDS: CEFEPIME INJECTION 1,000 MG in WATER (STERILE) FOR INJECTION 10 ML IV SCH (06:41)
[2020-07-19] MEDS: CATHETER FLUSH 10 ML SYR IV SCH ×3 (06:41→21:47)
--- NOTE | 2020-07-19 07:45 | PM&R Progress Note ---
Subjective HPI/CC On Admission Date Seen by Provider: July 19, 2020 Time Seen by Provider: 09:00 Subjective/Events-last exam 07/19/20: Pt doing pretty well Respiratory therapy tried to wean him off and he became very hypoxic Weakness in hands are a challenge for him to shave DC Cefepime and starting Omnicef Doesnt really like IVs and lab checks and made that pretty clear to me 07/18/20: Patient doing well Diarrhea noted UTI treated with IV abx UCx pending 07/17/20: Patient doing well No complaints Awaiting UCx Empiric abx maintained Aunt at bedside O2 at 1L/min Sugar improved 07/16/20: Pt doing pretty well Potassium of 2.7 so will initiate supplement Dr. Rinaldi is seeing him in consultation EKG obtained and normal sinus rhythm noted UA ordered for burning sensation on urination Pt very debilitated Review of Systems General: Fatigue Pulmonary: Dyspnea Neurological: Weakness Focused Exam Lactate Level 07/17/20 09:29: Lactic Acid Level 1.61 Objective Exam Vital Signs Vital Signs Date Time Temp Pulse Resp B/P (MAP) Pulse Ox O2 Delivery O2 Flow Rate FiO2 07/19/20 20:30 Nasal Cannula 1.50 07/19/20 20:00 36.8 79 20 130/71 (90) 93 Capillary Refill : General Appearance: No Apparent Distress, WD/WN, Obese HEENT: PERRL/EOMI, Normal ENT Inspection, Pharynx Normal Neck: Full Range of Motion, Normal Inspection, Non Tender, Supple, Carotid Bruit Respiratory: Chest Non Tender, Lungs Clear, No Accessory Muscle Use, No Res piratory Distress, Decreased Breath Sounds Cardiovascular: Regular Rate, Rhythm, No Edema, No Gallop, No JVD, No Murmur, Normal Peripheral Pulses Gastrointestinal: Normal Bowel Sounds, No Organomegaly, No Pulsatile Mass, Non Tender, Soft Back: Normal Inspection, No CVA Tenderness, No Vertebral Tenderness Extremity: Normal Capillary Refill, Normal Inspection, Normal Range of Motion, Non Tender, No Calf Tenderness, No Pedal Edema Neurologic/Psychiatric: Alert, Oriented x3, No Motor/Sensory Deficits, Normal Mood/Affect, banking specialist II-XII Norm as Tested, Abnormal Gait (can't ambulate), Motor Weakness (severe 1/5 strength all extremities) Skin: Normal Color, Warm/Dry Lymphatic: No Adenopathy Results/Procedures Lab Patient resulted labs reviewed. FIM Transfers Therapy Code Descriptions/Definitions Functional [place] Measure: 0=Not Assessed/NA 4=Minimal Assistance 1=Total Assistance 5=Supervision or Setup 2=Maximal Assistance 6=Modified [place] 3=Moderate Assistance 7=Complete IndependenceSCALE: Activities may be completed with or without assistive devices. 1-Yqwuxtbfhu-yksyjol completes the activity by him/herself with no assistance from a helper. 5-Set-up or Clean-up Assistance-helper sets up or cleans up; patient completes activity. [place] assists only prior to or following the activity. 4-Supervision or Touching Assistance-helper provides verbal cues and/or touching/steadying and/or contact guard assistance as patient completes activity. Assistance may be provided throughout the activity or intermittently. 3-Partial/Moderate Assistance-helper does LESS THAN HALF the effort. [place] lifts, holds or supports trunk or limbs, but provides less than half the effort. 2-Substantial/Maximal Assistance-helper does MORE THAN HALF the effort. [place] lifts or holds trunk or limbs and provides more than half the effort. 9-Jvbwmbugv-tvhlbi does ALL the effort. Patient does none of the effort to complete the activity. Or, the assistance of 2 or more helpers is required for the patient to complete the activity. If activity was not attempted, code reason: 7-Patient Refused. 9-Not Applicable-not attempted and the patient did not perform the activity before the current illness, exacerbation or injury. 10-Not Attempted due to Environmental Limitations-(lack of equipment, weather restraints, etc.). 88-Not Attempted due to Medical Conditions or Safety Concerns. Roll Left to Right (QC): 3 Sit to Lying (QC): 2 Sit to Stand (QC): 1 Chair/Chl-zw-Hlkxl Xfer(QC): 1 Car Transfer (QC): 1 Gait Training Does the Patient Walk?: No and Walking Goal NOT indicated Walk 10 feet (QC): 88 Walk 50 ft with 2 Turns(QC): 88 Walk 150 ft (QC): 88 Walking 10ft/uneven surface-QC: 88 Wheelchair Training Does the Pt Use a Wheelchair?: Yes Distance: 80' Wheel 50 ft with 2 turns (QC): 3 Wheel 150 ft (QC): 88 Type of Wheelchair: Manual Stair Training 1 Step (curb) (QC): 88 4 Steps (QC): 88 12 Steps (QC): 88 Balance Picking up an Object (QC): 88 ADL-Treatment Eating (QC): 5 (set up per pt report) Oral Hygiene (QC): 5 (based on clincial judgement) Shower/Bathe Self (QC): 2 Upper Body Dressing (QC): 2 (Assist to doff shirt) Lower Body Dressing (QC): 1 (Using sit to stand lift to manipulate clothing over hips then assist to thread over feet.) On/Off Footwear (QC): 2 (Assist to don/doff socks) Toileting Hygiene (QC): 1 Toilet Transfer (QC): 1 Assessment/Plan Assessment and Plan Assess & Plan/Chief Complaint Assessment: COVID-19 PNA myopathy Severe poor lung reserve Obesity New onset DM AF? Plan: Insulin Monitor lung function Cardiology consult 07/16/20: UA Replace potassium Slow recovery 07/17/20: IV abx Suspect resistant UTI 07/18/20: Monitor closely Await Ucx 07/19/20: Reviewed UCx DC Cefepime Irritated with IV's and lab checks (1) Myopathy (2) COVID-19 (3) Obesity (4) Diabetes mellitus NATHANAEL HOWE DO July 19, 2020 07:45
[2020-07-19 07:59] VITALS: BP 131/74
[2020-07-19] MEDS: VITAMIN D3 125 MCG (5,000 UNITS) CAPSULE PO SCH (08:03)
[2020-07-19] MEDS: AMIODARONE 200 MG (CORDARONE) TAB PO SCH (08:03)
[2020-07-19] MEDS: LACTOBACILLUS ACIDOPHILUS (PROBIOTIC) CAPSULE PO SCH ×2 (08:03→21:46)
[2020-07-19] MEDS: lisINopril 20 MG (PRINIVIL) TABLET PO SCH (08:03)
[2020-07-19] MEDS: PANTOPRAZOLE 40 MG (PROTONIX) TAB PO SCH (08:03)
[2020-07-19] MEDS: APIXABAN 2.5 MG (ELIQUIS) TABLET PO SCH ×2 (08:03→21:47)
[2020-07-19] MEDS: amLODIPine 10 MG (NORVASC) TAB PO SCH (08:03)
[2020-07-19] MEDS: ASCORBIC ACID (VIT C) 500 MG TABLET PO SCH (08:04)
[2020-07-19] MEDS: KCL 10 MEQ TAB (MICRO K) PO SCH ×3 (08:04→18:13)
[2020-07-19] MEDS: DOCUSATE SODIUM 100 MG (COLACE) CAP PO SCH ×2 (09:09→20:22)
[2020-07-19] MEDS: polyethylene glycoL POWDER 17 GM (MIRALAX) PACK PO SCH ×2 (09:09→20:22)
[2020-07-19] MEDS: SENNA W/DOCUSATE (SENOKOT S) TABLET PO SCH ×2 (09:10→20:21)
--- NOTE | 2020-07-19 10:56 | Physical Therapy Daily Note ---
PT Daily Note-Current Subjective Patient in bed pre tx, agrees to PT, has unrated pain in his bottom. Will be co-treating with OT due to poor patient mobility, strength, endurance, severe debility, coordinate UE and LE during activity, safety and reduce risk of falls. Appearance Patient in recliner post tx with nurse call, phone, tray, all needs met. Mental Status Patient Orientation: Person, Place, Situation Attachments: Oxygen Transfers SCALE: Activities may be completed with or without assistive devices. 0-Idcblejmjj-pckfwqg completes the activity by him/herself with no assistance from a helper. 5-Set-up or Clean-up Assistance-helper sets up or cleans up; patient completes activity. [place] assists only prior to or following the activity. 4-Supervision or Touching Assistance-helper provides verbal cues and/or touching/steadying and/or contact guard assistance as patient completes activity. Assistance may be provided throughout the activity or intermittently. 3-Partial/Moderate Assistance-helper does LESS THAN HALF the effort. [place] lifts, holds or supports trunk or limbs, but provides less than half the effort. 2-Substantial/Maximal Assistance-helper does MORE THAN HALF the effort. [place] lifts or holds trunk or limbs and provides more than half the effort. 4-Hfdlmavbc-kkocff does ALL the effort. Patient does none of the effort to complete the activity. Or, the assistance of 2 or more helpers is required for the patient to complete the activity. If activity was not attempted, code reason: 7-Patient Refused. 9-Not Applicable-not attempted and the patient did not perform the activity before the current illness, exacerbation or injury. 10-Not Attempted due to Environmental Limitations-(lack of equipment, weather restraints, etc.). 88-Not Attempted due to Medical Conditions or Safety Concerns. Roll Left & Right (QC): 3 Lying to Sitting/Side of Bed(Q: 3 Sit to Stand (QC): 1 Chair/Jjs-ix-Snose Xfer(QC): 1 mod assist for supine to sit, when sitting patient gets dressed and puts shoes on (with OT assist), sit to stand machine to stand and pull up pants and then transfer to , after getting back to room sit to stand transfer to recliner from Wheelchair Training Does the Pt Use a Wheelchair?: Yes Wheel 50 ft with 2 turns (QC): 4 Wheel 150 ft (QC): 4 Type of Wheelchair: Manual SBA, frequent rest breaks Exercises standing in parallel bars x3 for about 10 seconds each time Treatments PT performed bed mobility and transfers, WC mobility, standing, safety and positioning during dressing, OT performed dressing, UE positioning and safety during activity Assessment Current Status: Fair Progress Patient was able to pipelines laborer the parallel bars with assist of 3, stood without the use of a machine for the first time PT Short Term Goals Short Term Goals Time Frame: July 22, 2020 Roll Left & Right: 4 Sit to lyin Lying to sitting on side of be: 3 PT Senior Living Goals Senior Living Goals PT Senior Living Goals Time Frame: Aug 05, 2020 Roll Left & Right (QC): 4 Sit to Lying (QC): 4 Lying-Sitting on Side/Bed(QC): 4 Sit to Stand (QC): 3 Chair/Wjf-yv-Rtjry Xfer(QC): 3 Toilet Transfer (QC): 3 Car Transfer (QC): 3 Does the Patient Walk: No and Walking Goal IS indicated Walk 10 feet (QC): 3 Walk 50ft with 2 Turns (QC): 88 Walk 150 ft (QC): 88 Walking 10ft on Uneven Surface: 88 1 Step (curb) (QC): 88 4 Steps (QC): 88 12 Steps (QC): 88 Picking up an Object (QC): 88 Wheel 50 feet with 2 turns (QC: 6 Wheel 150 feet: 6 PT Plan Problem List Problem List: Activity Tolerance, Functional Strength, Safety, Balance, Gait, Transfer, Bed Mobility, ROM Treatment/Plan Treatment Plan: Continue Plan of Care Treatment Plan: Bed Mobility, Education, Functional Activity Cierra, Functional Strength, Group Therapy, Gait, Safety, Therapeutic Exercise, Transfers Treatment Duration: Aug 05, 2020 Frequency: Modified Program (IRF) Estimated Hrs Per Day: 1 hour per day Patient and/or Family Agrees t: Yes Safety Risks/Education Patient Education: Transfer Techniques, Correct Positioning, W/C Management, Safety Issues Teaching Recipient: Patient Teaching Methods: Demonstration, Discussion Response to Teaching: Reinforcement Needed Time/GCodes Time In: 1000 Time Out: 1100 Total Billed Treatment Time: 60 Total Billed Treatment 1 visit FA 60' co-treated with OT for 60' LIZ MI PT July 19, 2020 10:56
--- NOTE | 2020-07-19 10:56 | Occupational Ther Daily Note ---
OT Current Status-Daily Note Subjective Pt alert, lying in bed. Pt agrees to therapy. Co-treat with PT([id number]) due to increase fall risk, fatigue, SOA and decreased mobility with dependent transfers. Mental Status/Objective Patient Orientation: Person, Place, Time, Situation Attachments: Oxygen (1.5) ADL-Treatment Mod A for supine to EOB. Using sit to stand lift for all transfers. After setu p, pt able to don shirt by self with increased time. Dependent for lower body clothing and footwear. Therapy Code Descriptions/Definitions Functional [place] Measure: 0=Not Assessed/NA 4=Minimal Assistance 1=Total Assistance 5=Supervision or Setup 2=Maximal Assistance 6=Modified [place] 3=Moderate Assistance 7=Complete IndependenceSCALE: Activities may be completed with or without assistive devices. 4-Shezrcmnip-zgowhlk completes the activity by him/herself with no assistance from a helper. 5-Set-up or Clean-up Assistance-helper sets up or cleans up; patient completes activity. [place] assists only prior to or following the activity. 4-Supervision or Touching Assistance-helper provides verbal cues and/or touching/steadying and/or contact guard assistance as patient completes activity. Assistance may be provided throughout the activity or intermittently. 3-Partial/Moderate Assistance-helper does LESS THAN HALF the effort. [place] lifts, holds or supports trunk or limbs, but provides less than half the effort. 2-Substantial/Maximal Assistance-helper does MORE THAN HALF the effort. [place] lifts or holds trunk or limbs and provides more than half the effort. 2-Xvxexieix-xidcnb does ALL the effort. Patient does none of the effort to complete the activity. Or, the assistance of 2 or more helpers is required for the patient to complete the activity. If activity was not attempted, code reason: 7-Patient Refused. 9-Not Applicable-not attempted and the patient did not perform the activity before the current illness, exacerbation or injury. 10-Not Attempted due to Environmental Limitations-(lack of equipment, weather restraints, etc.). 88-Not Attempted due to Medical Conditions or Safety Concerns. Upper Body Dressing (QC): 5 Lower Body Dressing (QC): 1 Other Treatment Pt able to propel w/c with frequent and lengthy recovery breaks around ARU with min A for corners. O2 levels remains at 94-96%. Pt then worked on standing at parallel bars with OT monitoring B UE placement and assisting with sit to stand which requires 3 person assist. After therapy, pt sitting in recliner with call light/phone in reach. All needs met in room. OT Short Term Goals Short Term Goals Time Frame: Aug 05, 2020 Toileting hygiene: 2 Upper body dressin Lower body dressin Putting on/taking off footwear: 2 OT Custodial Goals Custodial Goals Time Frame: Aug 13, 2020 Eating (QC): 6 Oral Hygiene (QC): 6 Toileting Hygiene (QC): 6 Shower/Bathe Self (QC): 6 Upper Body Dressing (QC): 6 Lower Body Dressing (QC): 6 On/Off Footwear (QC): 6 Additional Goals: 1-Demonstrate ADL Tasks, 2-Verbalize Understanding, 3- ImproveStrength/Cierra 1=Demonstrate adherence to instructed precautions during ADL tasks. 2=Patient will verbalize/demonstrate understanding of assistive device s/modifications for ADL. 3=Patient will improve strength/tolerance for activity to enable patient to perform ADL's. OT Education/Plan Problem List/Assessment Assessment: Decreased Activ Tolerance, Decreased UE Strength, Dependent Transfers, Impaired Bed Mobility, Impaired Self-Care Skills Discharge Recommendations Plan/Recommendations: Continue POC Treatment Plan/Plan of Care Patient would benefit from OT for education, treatment and training to promote independence in ADL's, mobility, safety and/or upper extremity function for ADL' s. Plan of Care: ADL Retraining, Functional Mobility, Group Exercise/Act as Ind, UE Funct Exercise/Act Treatment Duration: Aug 13, 2020 Frequency: Modified Program (IRF) Estimated Hrs Per Day: 1 hour per day Rehab Potential: Fair Time/GCodes Start Time: 10:00 Stop Time: 11:00 Total Time Billed (hr/min): 60 Billed Treatment Time 1 visit-ADL 1 (15 min) FA 3 (45 min) co-treat with PT [id number] TYSON FISHER July 19, 2020 10:56
--- NOTE | 2020-07-19 11:57 | Physical Therapy Daily Note ---
PT Daily Note-Current Subjective Patient in bed pre tx, agrees to PT, has no complaints of pain at rest, would like to get his legs stretched out. Appearance Patient in bed post tx with nurse call, phone, tray, all needs met. Mental Status Patient Orientation: Normal For Age Attachments: Oxygen Transfers SCALE: Activities may be completed with or without assistive devices. 8-Yalggnuken-dcgduob completes the activity by him/herself with no assistance from a helper. 5-Set-up or Clean-up Assistance-helper sets up or cleans up; patient completes activity. [place] assists only prior to or following the activity. 4-Supervision or Touching Assistance-helper provides verbal cues and/or touching/steadying and/or contact guard assistance as patient completes activity. Assistance may be provided throughout the activity or intermittently. 3-Partial/Moderate Assistance-helper does LESS THAN HALF the effort. [place] lifts, holds or supports trunk or limbs, but provides less than half the effort. 2-Substantial/Maximal Assistance-helper does MORE THAN HALF the effort. [place] lifts or holds trunk or limbs and provides more than half the effort. 2-Ewkuiftkm-pjccsu does ALL the effort. Patient does none of the effort to complete the activity. Or, the assistance of 2 or more helpers is required for the patient to complete the activity. If activity was not attempted, code reason: 7-Patient Refused. 9-Not Applicable-not attempted and the patient did not perform the activity before the current illness, exacerbation or injury. 10-Not Attempted due to Environmental Limitations-(lack of equipment, weather restraints, etc.). 88-Not Attempted due to Medical Conditions or Safety Concerns. Exercises Supine Ex: Bridging (partial bridges, cant get bottom off of bed), Ankle pumps (can't do on LLE), Quad Set, Glut sets, Heel Slides, Short Arc Quads, Straight leg raise (AAROM), Hip abd/add Supine Reps: 20 BLE gastroc and hamstring stretching Treatments BLE strengthening and stretching Assessment Current Status: Fair Progress patient is weak, needs frequent rest breaks, gets SOB just doing bed exercises PT Short Term Goals Short Term Goals Time Frame: July 22, 2020 Roll Left & Right: 4 Sit to lyin Lying to sitting on side of be: 3 PT Mcc Goals Curt[place] Blindstitch Goals PT Mcc Goals Time Frame: Aug 05, 2020 Roll Left & Right (QC): 4 Sit to Lying (QC): 4 Lying-Sitting on Side/Bed(QC): 4 Sit to Stand (QC): 3 Chair/Fly-oi-Urivl Xfer(QC): 3 Toilet Transfer (QC): 3 Car Transfer (QC): 3 Does the Patient Walk: No and Walking Goal IS indicated Walk 10 feet (QC): 3 Walk 50ft with 2 Turns (QC): 88 Walk 150 ft (QC): 88 Walking 10ft on Uneven Surface: 88 1 Step (curb) (QC): 88 4 Steps (QC): 88 12 Steps (QC): 88 Picking up an Object (QC): 88 Wheel 50 feet with 2 turns (QC: 6 Wheel 150 feet: 6 PT Plan Problem List Problem List: Activity Tolerance, Functional Strength, Safety, Balance, Gait, Transfer, Bed Mobility, ROM Treatment/Plan Treatment Plan: Continue Plan of Care Treatment Plan: Bed Mobility, Education, Functional Activity Cierra, Functional Strength, Group Therapy, Gait, Safety, Therapeutic Exercise, Transfers Treatment Duration: Aug 05, 2020 Frequency: Modified Program (IRF) Estimated Hrs Per Day: 1 hour per day Patient and/or Family Agrees t: Yes Safety Risks/Education Patient Education: Correct Positioning, Safety Issues Teaching Recipient: Patient Teaching Methods: Demonstration, Discussion Response to Teaching: Reinforcement Needed Time/GCodes Time In: 1130 Time Out: 1200 Total Billed Treatment Time: 30 Total Billed Treatment 1 visit EX 30' LIZ MI PT July 19, 2020 11:57
--- NOTE | 2020-07-19 12:18 | Consultation-Cardiology ---
HPI-Cardiology Cardiology Consultation Date of Consultation 07/19/20 Date of Admission Time Seen by Provider: 11:30 Indication: Dyspnea, post COVID myopathy HPI Patient is a 49 y/o male with history of HTN, DM, Obesity. Had COVID-19 illness in May 2020 requiring intubation and transferred to [place]. Currently in rehab for generalized debility/weakness. Denies any chest pain or increased dyspnea. Denies any palpitations. Home Medications & Allergies Allergies: Coded Allergies: No Known Drug Allergies (Unverified , 07/15/20) Home Medication List Reviewed: Yes VWE-Bexplt-Pbfraw Hx Patient Social History Marital Status: Employed/Student: employed Smoking Status: Never a Smoker Past Medical History HTN, DM, COPD/BRANDON Family Medical History Significant Family History: CAD Under 55 Years Old Review of Systems-General Review of Systems Constitutional: see HPI, dizziness, malaise, weakness EENTM: no symptoms reported Respiratory: see HPI, dyspnea on exertion, short of breath, wheezing Cardiovascular: no symptoms reported, see HPI Gastrointestinal: no symptoms reported Genitourinary: no symptoms reported, see HPI Musculoskeletal: see HPI, back pain, joint pain Skin: no symptoms reported, see HPI Psychiatric/Neurological: Anxiety, Depressed, Weakness All Other Systems Reviewed Negative Unless Noted: Yes Reviewed Test Results Reviewed Test Results Lab Laboratory Tests 07/18/20 15:32: Glucometer 173H 07/18/20 20:14: Glucometer 165H 07/19/20 05:26: White Blood Count 6.8, Red Blood Count 4.45, Hemoglobin 12.6L, Hematocrit 40, Mean Corpuscular Volume 91, Mean Corpuscular Hemoglobin 28, Mean Corpuscular Hemoglobin Concent 31L, Red Cell Distribution Width 15.9H, Platelet Count 224, Mean Platelet Volume 10.7, Immature Granulocyte % (Auto) 2, Neutrophils (%) (Auto) 74, Lymphocytes (%) (Auto) 15, Monocytes (%) (Auto) 7, Eosinophils (%) (Auto) 2, Basophils (%) (Auto) 1, Neutrophils # (Auto) 5.1, Lymphocytes # (Auto) 1.0, Monocytes # (Auto) 0.5, Eosinophils # (Auto) 0.1, Basophils # (Auto) 0.0, Immature Granulocyte # (Auto) 0.1, Sodium Level 145, Potassium Level 3.0L, Chloride Level 107, Carbon Dioxide Level 29, Anion Gap 9, Blood Urea Nitrogen 16, Creatinine 0.63, Estimat Glomerular Filtration Rate > 60, BUN/Creatinine Ratio 25, Glucose Level 134H, Calcium Level 8.5, Corrected Calcium 9.3, Total B ilirubin 0.7, Aspartate Amino Transf (AST/SGOT) 19, Alanine Aminotransferase (ALT/SGPT) 50, Alkaline Phosphatase 101, Total Protein 5.4L, Albumin 3.0L 07/19/20 11:28: Glucometer 143H Microbiology 07/17/20 Urine Culture - Preliminary, Resulted Proteus mirabilis Proteus mirabilis#2 ECG Impression ECG Initial ECG Rhythm: Normal Sinus Physical Exam Physical Exam Vital Signs Vital Signs - First Documented 07/15/20 07/15/20 12:20 17:26 Temp 36.6 Pulse 75 Resp 20 B/P (MAP) 133/70 (91) Pulse Ox 93 O2 Delivery Room Air O2 Flow Rate 1.00 Capillary Refill : Height, Weight, BMI Height: '" Weight: lbs. oz. kg; 40.17 BMI Method: General Appearance: No Apparent Distress, WD/WN, Obese Eyes: Bilateral Eye Normal Inspection, Bilateral Eye PERRL HEENT: PERRL/EOMI, Normal ENT Inspection, Pharynx Normal Neck: Full Range of Motion, Normal Inspection, Non Tender, Supple, Carotid Bruit Respiratory: Chest Non Tender, Lungs Clear, No Accessory Muscle Use, No Respiratory Distress, Decreased Breath Sounds Cardiovascular: Regular Rate, Rhythm, No Edema, No Gallop, No JVD, No Murmur, Normal Peripheral Pulses Gastrointestinal: Normal Bowel Sounds, No Organomegaly, No Pulsatile Mass, Non Tender, Soft Back: Normal Inspection, No CVA Tenderness, No Vertebral Tenderness Extremity: Normal Capillary Refill, Normal Inspection, Normal Range of Motion, Non Tender, No Calf Tenderness, No Pedal Edema Neurologic/Psychiatric: Alert, Oriented x3, No Motor/Sensory Deficits, Normal Mood/Affect, court abstractor II-XII Norm as Tested, Abnormal Gait (can't ambulate), Motor Weakness (severe 1/5 strength all extremities) Skin: Normal Color, Warm/Dry Lymphatic: No Adenopathy A/P-Cardiology Admission Diagnosis Generalized debility/weakness HTN COPD/BRANDON Questionable PAF Assessment/Plan S/p COVID-19 illness in May 2020 requiring intubation, was transferred [facility] and transferred to [facility] last week. Continues to have generalized debility and weakness. Continue with PT/OT HTN, controlled, continue to monitor. COPD/BRANDON, maintained on CPAP Questionable PAF, was started on Amiodarone and Eliquis while at [facility]. I will try to obtain records for further review. Hypokalemia, replace and continue to monitor UTI, management per medical services. Obesity Thank you for allowing us to participate in the management of Mr. Henderson. This is Viktoria Yadav PA-C, as a scribe for Dr. Rinaldi. Patient was seen and evaluated with Viktoria, interviewed and physical examination performed Recovering slowly, regaining strength, still having dyspnea on exertion Using oxygen. Had questionable paroxysmal atrial fibrillation, maintained on amiodarone and Eliquis. Will try to obtain copy of the records from [facility] Evaluate 2D echo VIKTORIA CHOPRA July 19, 2020 12:18 KAREN RINALDI MD July 19, 2020 12:49
--- NOTE | 2020-07-19 13:42 | Occupational Ther Daily Note ---
OT Current Status-Daily Note Subjective Pt alert, lying in bed. Family present in room. Pt grudgingly agrees to therapy. ADL-Treatment Pt fatigues quickly during any strenuous tasks. Pt given HEP (2 BUE exercises) and medium resistive theraband to increase strength and activity tolerance for daily functional tasks. Horizontal shldr abd/add 1 set 10 reps. Tricep ext 1 set 10 reps. Pt fatigued quickly, PHAN educated pt on the importance of completing exercises and advised pt to continue to complete exercises throughout the day. After therapy, pt lying in bed with call light/phone in reach. All needs met in room. Therapy Code Descriptions/Definitions Functional [place] Measure: 0=Not Assessed/NA 4=Minimal Assistance 1=Total Assistance 5=Supervision or Setup 2=Maximal Assistance 6=Modified [place] 3=Moderate Assistance 7=Complete IndependenceSCALE: Activities may be completed with or without assistive devices. 0-Tbqodxxpez-udumicn completes the activity by him/herself with no assistance from a helper. 5-Set-up or Clean-up Assistance-helper sets up or cleans up; patient completes activity. [place] assists only prior to or following the activity. 4-Supervision or Touching Assistance-helper provides verbal cues and/or touching/steadying and/or contact guard assistance as patient completes activity. Assistance may be provided throughout the activity or intermittently. 3-Partial/Moderate Assistance-helper does LESS THAN HALF the effort. [place] lifts, holds or supports trunk or limbs, but provides less than half the effort. 2-Substantial/Maximal Assistance-helper does MORE THAN HALF the effort. [place] lifts or holds trunk or limbs and provides more than half the effort. 7-Gnuzxpjzs-eymzqj does ALL the effort. Patient does none of the effort to complete the activity. Or, the assistance of 2 or more helpers is required for the patient to complete the activity. If activity was not attempted, code reason: 7-Patient Refused. 9-Not Applicable-not attempted and the patient did not perform the activity before the current illness, exacerbation or injury. 10-Not Attempted due to Environmental Limitations-(lack of equipment, weather restraints, etc.). 88-Not Attempted due to Medical Conditions or Safety Concerns. OT Short Term Goals Short Term Goals Time Frame: Aug 05, 2020 Toileting hygiene: 2 Upper body dressin Lower body dressin Putting on/taking off footwear: 2 OT Retirement Goals Retirement Goals Time Frame: Aug 13, 2020 Eating (QC): 6 Oral Hygiene (QC): 6 Toileting Hygiene (QC): 6 Shower/Bathe Self (QC): 6 Upper Body Dressing (QC): 6 Lower Body Dressing (QC): 6 On/Off Footwear (QC): 6 Additional Goals: 1-Demonstrate ADL Tasks, 2-Verbalize Understanding, 3- ImproveStrength/Cierra 1=Demonstrate adherence to instructed precautions during ADL tasks. 2=Patient will verbalize/demonstrate understanding of assistive devices/modifications for ADL. 3=Patient will improve strength/tolerance for activity to enable patient to perform ADL's. OT Education/Plan Problem List/Assessment Assessment: Decreased Activ Tolerance, Decreased UE Strength Discharge Recommendations Plan/Recommendations: Continue POC Treatment Plan/Plan of Care Patient would benefit from OT for education, treatment and training to promote independence in ADL's, mobility, safety and/or upper extremity function for A DL's. Plan of Care: ADL Retraining, Functional Mobility, Group Exercise/Act as Ind, UE Funct Exercise/Act Treatment Duration: Aug 13, 2020 Frequency: Modified Program (IRF) Estimated Hrs Per Day: 1 hour per day Rehab Potential: Fair Time/GCodes Start Time: 13:00 Stop Time: 13:10 Total Time Billed (hr/min): 10 Billed Treatment Time 1 visit-EX 1 (10 min) TYSON FISHER July 19, 2020 13:42
[2020-07-19 20:00] VITALS: BP 130/71
[2020-07-19] MEDS: CEFDINIR 300 MG (OMNICEF) CAP PO SCH (21:46)
[2020-07-19] MEDS: MELATONIN 10 MG TABLET PO SCH (21:47)
[2020-07-19] MEDS: MICONAZOLE 2% POWDER (DESENEX AF) 90 GM TOP SCH (21:53)
[2020-07-20] MEDS: CATHETER FLUSH 10 ML SYR IV SCH ×3 (05:12→21:15)
[2020-07-20] MEDS: inSUlin ASPART (NovoLOG) 1 UNIT/0.01 ML (CHARGE PER UNIT) SC SCH ×4 (05:12→20:24)
[2020-07-20 08:00] VITALS: BP 140/73
[2020-07-20] MEDS: LACTOBACILLUS ACIDOPHILUS (PROBIOTIC) CAPSULE PO SCH ×2 (08:30→21:14)
[2020-07-20] MEDS: VITAMIN D3 125 MCG (5,000 UNITS) CAPSULE PO SCH (08:30)
[2020-07-20] MEDS: KCL 10 MEQ TAB (MICRO K) PO SCH ×3 (08:30→18:48)
[2020-07-20] MEDS: amLODIPine 10 MG (NORVASC) TAB PO SCH (08:31)
[2020-07-20] MEDS: SENNA W/DOCUSATE (SENOKOT S) TABLET PO SCH ×3 (08:31→21:19)
[2020-07-20] MEDS: APIXABAN 2.5 MG (ELIQUIS) TABLET PO SCH ×2 (08:31→21:13)
[2020-07-20] MEDS: ASCORBIC ACID (VIT C) 500 MG TABLET PO SCH (08:31)
[2020-07-20] MEDS: polyethylene glycoL POWDER 17 GM (MIRALAX) PACK PO SCH ×2 (08:31→18:48)
[2020-07-20] MEDS: PANTOPRAZOLE 40 MG (PROTONIX) TAB PO SCH (08:31)
[2020-07-20] MEDS: lisINopril 20 MG (PRINIVIL) TABLET PO SCH (08:31)
[2020-07-20] MEDS: CEFDINIR 300 MG (OMNICEF) CAP PO SCH ×2 (08:31→21:14)
[2020-07-20] MEDS: DOCUSATE SODIUM 100 MG (COLACE) CAP PO SCH ×3 (08:35→21:19)
[2020-07-20] MEDS: AMIODARONE 200 MG (CORDARONE) TAB PO SCH (08:35)
--- NOTE | 2020-07-20 09:07 | PM&R Progress Note ---
Subjective HPI/CC On Admission Date Seen by Provider: July 20, 2020 Time Seen by Provider: 09:10 Subjective/Events-last exam 07/20/20: Pt doing pretty well Bowels moved two days ago, doesnt want anything too harsh Oxygen maintained Working hard Progressing nicely 07/19/20: Pt doing pretty well Respiratory therapy tried to wean him off and he became very hypoxic Weakness in hands are a challenge for him to shave DC Cefepime and starting Omnicef Doesnt really like IVs and lab checks and made that pretty clear to me 07/18/20: Patient doing well Diarrhea noted UTI treated with IV abx UCx pending 07/17/20: Patient doing well No complaints Awaiting UCx Empiric abx maintained Aunt at bedside O2 at 1L/min Sugar improved 07/16/20: Pt doing pretty well Potassium of 2.7 so will initiate supplement Dr. Rinaldi is seeing him in consultation EKG obtained and normal sinus rhythm noted UA ordered for burning sensation on urination Pt very debilitated Review of Systems General: Fatigue Pulmonary: Dyspnea Gastrointestinal: Constipation Neurological: Weakness Focused Exam Lactate Level Objective Exam Vital Signs Vital Signs Date Time Temp Pulse Resp B/P (MAP) Pulse Ox O2 Delivery O2 Flow Rate FiO2 07/20/20 21:46 92 Nasal Cannula 1.00 07/20/20 20:00 37.1 81 20 139/79 (99) Capillary Refill : General Appearance: No Apparent Distress, WD/WN, Obese HEENT: PERRL/EOMI, Normal ENT Inspection, Pharynx Normal Neck: Full Range of Motion, Normal Inspection, Non Tender, Supple, Carotid Bruit Respiratory: Chest Non Tender, Lungs Clear, No Accessory Muscle Use, No Respiratory Distress, Decreased Breath Sounds Cardiovascular: Regular Rate, Rhythm, No Edema, No Gallop, No JVD, No Murmur, Normal Peripheral Pulses Gastrointestinal: Normal Bowel Sounds, No Organomegaly, No Pulsatile Mass, Non Tender, Soft Back: Normal Inspection, No CVA Tenderness, No Vertebral Tenderness Extremity: Normal Capillary Refill, Normal Inspection, Normal Range of Motion, Non Tender, No Calf Tenderness, No Pedal Edema Neurologic/Psychiatric: Alert, Oriented x3, No Motor/Sensory Deficits, Normal Mood/Affect, 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 FIM Transfers Therapy Code Descriptions/Definitions Functional [place] Measure: 0=Not Assessed/NA 4=Minimal Assistance 1=Total Assistance 5=Supervision or Setup 2=Maximal Assistance 6=Modified [place] 3=Moderate Assistance 7=Complete IndependenceSCALE: Activities may be completed with or without assistive devices. 2-Xbuxqpzexw-gzaqnzz completes the activity by him/herself with no assistance from a helper. 5-Set-up or Clean-up Assistance-helper sets up or cleans up; patient completes activity. [place] assists only prior to or following the activity. 4-Supervision or Touching Assistance-helper provides verbal cues and/or touching/steadying and/or contact guard assistance as patient completes activity. Assistance may be provided throughout the activity or intermittently. 3-Partial/Moderate Assistance-helper does LESS THAN HALF the effort. [place] lifts, holds or supports trunk or limbs, but provides less than half the effort. 2-Substantial/Maximal Assistance-helper does MORE THAN HALF the effort. [place] lifts or holds trunk or limbs and provides more than half the effort. 0-Vbenkrdml-bghisp does ALL the effort. Patient does none of the effort to complete the activity. Or, the assistance of 2 or more helpers is required for the patient to complete the activity. If activity was not attempted, code reason: 7-Patient Refused. 9-Not Applicable-not attempted and the patient did not perform the activity before the current illness, exacerbation or injury. 10-Not Attempted due to Environmental Limitations-(lack of equipment, weather restraints, etc.). 88-Not Attempted due to Medical Conditions or Safety Concerns. Roll Left to Right (QC): 3 Sit to Lying (QC): 2 Sit to Stand (QC): 1 Chair/Bmk-mn-Wkzbj Xfer(QC): 1 Car Transfer (QC): 1 Gait Training Does the Patient Walk?: No and Walking Goal NOT indicated Walk 10 feet (QC): 88 Walk 50 ft with 2 Turns(QC): 88 Walk 150 ft (QC): 88 Walking 10ft/uneven surface-QC: 88 Wheelchair Training Does the Pt Use a Wheelchair?: Yes Distance: 80' Wheel 50 ft with 2 turns (QC): 4 Wheel 150 ft (QC): 4 Type of Wheelchair: Manual Stair Training 1 Step (curb) (QC): 88 4 Steps (QC): 88 12 Steps (QC): 88 Balance Picking up an Object (QC): 88 ADL-Treatment Eating (QC): 5 (set up per pt report) Oral Hygiene (QC): 5 (based on clincial judgement) Shower/Bathe Self (QC): 2 Upper Body Dressing (QC): 5 Lower Body Dressing (QC): 1 On/Off Footwear (QC): 2 (Assist to don/doff socks) Toileting Hygiene (QC): 1 Toilet Transfer (QC): 1 Assessment/Plan Assessment and Plan Assess & Plan/Chief Complaint Assessment: COVID-19 PNA myopathy Severe poor lung reserve Obesity New onset DM AF? Plan: Insulin Monitor lung function Cardiology consult 07/16/20: UA Replace potassium Slow recovery 07/17/20: IV abx Suspect resistant UTI 07/18/20: Monitor closely Await Ucx 07/19/20: Reviewed UCx DC Cefepime Irritated with IV's and lab checks 07/20/20: Monitor closely Sugars good (1) Myopathy (2) COVID-19 (3) Obesity (4) Diabetes mellitus NATHANAEL HOWE DO July 20, 2020 09:07
[2020-07-20] MEDS: MICONAZOLE 2% POWDER (DESENEX AF) 90 GM TOP SCH ×2 (09:54→21:15)
--- NOTE | 2020-07-20 10:54 | Physical Therapy Daily Note ---
PT Daily Note-Current Subjective Patient in bed pre tx, agrees to PT, voices no complaints of pain. Will be co- treating with OT due to poor patient mobility, strength, endurance, severe debility, coordinate UE and LE during activity, safety and reduce risk of falls. Appearance Patient in bed post tx with nurse call, phone, tray, all needs met. Mental Status Patient Orientation: Person, Place, Situation Transfers SCALE: Activities may be completed with or without assistive devices. 4-Rujoydxmsc-frnoadn completes the activity by him/herself with no assistance from a helper. 5-Set-up or Clean-up Assistance-helper sets up or cleans up; patient completes activity. [place] assists only prior to or following the activity. 4-Supervision or Touching Assistance-helper provides verbal cues and/or touching/steadying and/or contact guard assistance as patient completes activity. Assistance may be provided throughout the activity or intermittently. 3-Partial/Moderate Assistance-helper does LESS THAN HALF the effort. [place] lifts, holds or supports trunk or limbs, but provides less than half the effort. 2-Substantial/Maximal Assistance-helper does MORE THAN HALF the effort. [place] lifts or holds trunk or limbs and provides more than half the effort. 1-Jbnwpojdr-dsxxae does ALL the effort. Patient does none of the effort to complete the activity. Or, the assistance of 2 or more helpers is required for the patient to complete the activity. If activity was not attempted, code reason: 7-Patient Refused. 9-Not Applicable-not attempted and the patient did not perform the activity before the current illness, exacerbation or injury. 10-Not Attempted due to Environmental Limitations-(lack of equipment, weather restraints, etc.). 88-Not Attempted due to Medical Conditions or Safety Concerns. Roll Left & Right (QC): 3 Sit to Lying (QC): 3 Lying to Sitting/Side of Bed(Q: 3 Sit to Stand (QC): 1 Chair/Vpy-ws-Twaxd Xfer(QC): 1 Min assist for rolling, mod for supine <-> sit, sit to stand machine for transfers. Patient performed supine to sit, and then transferred to shower chair, undressed with dependence along the way, taken to shower room, showered, taken back to room and transferred to bed, practiced rolling for dressing Exercises Supine Ex: Ankle pumps (only right side), Quad Set, Glut sets Supine Reps: 20 Treatments PT performed bed mobility and transfers, safety and positioning and balance during bathing and dressing, LE exercise, OT performed bathing and dressing, UE positioning and safety during activity. Assessment Current Status: Fair Progress improved rolling PT Short Term Goals Short Term Goals Time Frame: July 22, 2020 Roll Left & Right: 4 Sit to lyin Lying to sitting on side of be: 3 PT Shelter Goals Shelter Goals PT Cabin Equipment Supervisor Goals Time Frame: Aug 05, 2020 Roll Left & Right (QC): 4 Sit to Lying (QC): 4 Lying-Sitting on Side/Bed(QC): 4 Sit to Stand (QC): 3 Chair/Viu-dd-Hrewc Xfer(QC): 3 Toilet Transfer (QC): 3 Car Transfer (QC): 3 Does the Patient Walk: No and Walking Goal IS indicated Walk 10 feet (QC): 3 Walk 50ft with 2 Turns (QC): 88 Walk 150 ft (QC): 88 Walking 10ft on Uneven Surface: 88 1 Step (curb) (QC): 88 4 Steps (QC): 88 12 Steps (QC): 88 Picking up an Object (QC): 88 Wheel 50 feet with 2 turns (QC: 6 Wheel 150 feet: 6 PT Plan Problem List Problem List: Activity Tolerance, Functional Strength, Safety, Balance, Gait, Transfer, Bed Mobility, ROM Treatment/Plan Treatment Plan: Continue Plan of Care Treatment Plan: Bed Mobility, Education, Functional Activity Cierra, Functional Strength, Group Therapy, Gait, Safety, Therapeutic Exercise, Transfers Treatment Duration: Aug 05, 2020 Frequency: Modified Program (IRF) Estimated Hrs Per Day: 1 hour per day Patient and/or Family Agrees t: Yes Safety Risks/Education Patient Education: Transfer Techniques, Correct Positioning, Safety Issues Teaching Recipient: Patient Teaching Methods: Demonstration, Discussion Response to Teaching: Reinforcement Needed Time/GCodes Time In: 1000 Time Out: 1100 Total Billed Treatment Time: 60 Total Billed Treatment 1 visit FA 60' LIZ MI PT July 20, 2020 10:54
--- NOTE | 2020-07-20 11:00 | Occupational Ther Daily Note ---
OT Current Status-Daily Note Subjective Pt alert, lying in bed. Pt agrees to therapy. No c/o pain at this time. Co- treat with PT ([id number]), skills of 2 clinicians due to poor patient mobility, strength, endurance, severe debility, coordinate UE and LE during activity, safety and reduce risk of falls. Mental Status/Objective Patient Orientation: Person, Place, Time, Situation Attachments: IV, Oxygen ADL-Treatment 1st session([id number]): Pt agrees to shower. See PT notes for transfers and bed mobility. Using sit to stand lift, pt transferred to shower chair with cutout. Transported pt to large shower room for shower. Pt able to complete upper body by self, assist to cleanse under abdomen, kasi area and buttocks. Pt used LH sponge to reach B LE's and feet. Pt transported back to room and used sit to stand lift to transfer to bed. Pt sitting EOB and donned shirt by self after set up. PT assisted pt to go from sitting to supine. Assist to thread legs through underwear then pt able to roll side to side while assist given to hike pants over hips. Verbal cues to scoot self from side to side, pt rolled mod I. After session, pt lying in bed with call light/phone in reach. Pt increased fatigue during session. 2nd session([id number]): After gathering supplies and placed on tray table in front of pt while lying in bed. Pt able to complete oral care by self. After session, pt lying in bed with call light/phone in reach. All needs met in room. Therapy Code Descriptions/Definitions Functional [place] Measure: 0=Not Assessed/NA 4=Minimal Assistance 1=Total Assistance 5=Supervision or Setup 2=Maximal Assistance 6=Modified [place] 3=Moderate Assistance 7=Complete IndependenceSCALE: Activities may be completed with or without assistive devices. 7-Htemtwxpyp-eqckzej completes the activity by him/herself with no assistance from a helper. 5-Set-up or Clean-up Assistance-helper sets up or cleans up; patient completes activity. [place] assists only prior to or following the activity. 4-Supervision or Touching Assistance-helper provides verbal cues and/or touching/steadying and/or contact guard assistance as patient completes activity. Assistance may be provided throughout the activity or intermittently. 3-Partial/Moderate Assistance-helper does LESS THAN HALF the effort. [place] lifts, holds or supports trunk or limbs, but provides less than half the effort. 2-Substantial/Maximal Assistance-helper does MORE THAN HALF the effort. [place] lifts or holds trunk or limbs and provides more than half the effort. 5-Vbnzoeqkb-twibbm does ALL the effort. Patient does none of the effort to complete the activity. Or, the assistance of 2 or more helpers is required for the patient to complete the activity. If activity was not attempted, code reason: 7-Patient Refused. 9-Not Applicable-not attempted and the patient did not perform the activity before the current illness, exacerbation or injury. 10-Not Attempted due to Environmental Limitations-(lack of equipment, weather restraints, etc.). 88-Not Attempted due to Medical Conditions or Safety Concerns. Oral Hygiene (QC): 5 Shower/Bathe Self (QC): 2 Upper Body Dressing (QC): 5 Lower Body Dressing (QC): 2 On/Off Footwear: 2 OT Short Term Goals Short Term Goals Time Frame: Aug 05, 2020 Toileting hygiene: 2 Upper body dressin Lower body dressin Putting on/taking off footwear: 2 OT Correction Goals [employer] Goals Time Frame: Aug 13, 2020 Eating (QC): 6 Oral Hygiene (QC): 6 Toileting Hygiene (QC): 6 Shower/Bathe Self (QC): 6 Upper Body Dressing (QC): 6 Lower Body Dressing (QC): 6 On/Off Footwear (QC): 6 Additional Goals: 1-Demonstrate ADL Tasks, 2-Verbalize Understanding, 3- ImproveStrength/Cierra 1=Demonstrate adherence to instructed precautions during ADL tasks. 2=Patient will verbalize/demonstrate understanding of assistive devices/modifications for ADL. 3=Patient will improve strength/tolerance for activity to enable patient to perform ADL's. OT Education/Plan Problem List/Assessment Assessment: Decreased Activ Tolerance, Decreased UE Strength, Dependent Transfers, Impaired Bed Mobility, Impaired Self-Care Skills, Restricted Funct UE ROM Discharge Recommendations Plan/Recommendations: Continue POC Treatment Plan/Plan of Care Patient would benefit from OT for education, treatment and training to promote independence in ADL's, mobility, safety and/or upper extremity function for ADL's. Plan of Care: ADL Retraining, Functional Mobility, Group Exercise/Act as Ind, UE Funct Exercise/Act Treatment Duration: Aug 13, 2020 Frequency: Modified Program (IRF) Estimated Hrs Per Day: 1 hour per day Rehab Potential: Fair Time/GCodes Start Time: 10:00 (1245) Stop Time: 11:00 (1300) Total Time Billed (hr/min): 75 Billed Treatment Time 1 visit([id number]) ADL 4 (60 min) 1 visit([id number]) ADL 1 (15 min) TYSON FISHER July 20, 2020 11:00
--- NOTE | 2020-07-20 12:09 | Cardiology Progress Note ---
Subjective Date Seen by Provider: July 20, 2020 Time Seen by Provider: 12:08 Subjective/Events-last exam Patient is feeling well. No new complaint. Review of Systems General: No Chills, No Night Sweats; Fatigue, Malaise; No Appetite, No Other HEENT: No Head Aches, No Visual Changes, No Eye Pain, No Ear Pain, No Dysphasia, No Sinus Congestion, No Post Nasal Drip, No Sore Throat, No Other Pulmonary: No Dyspnea, No Cough, No Pleuritic Chest Pain, No Other Cardiovascular: No: Chest Pain, Palpitations, Orthopnea, Paroxysmal Noc. Dyspnea, Edema, Lt Headedness, Other Objective-Cardiology Exam Last Set of Vital Signs Vital Signs 07/20/20 08:00 Temp 35.6 Pulse 81 Resp 20 B/P (MAP) 140/73 (95) Pulse Ox 94 O2 Delivery Nasal Cannula O2 Flow Rate 2.00 Capillary Refill : I&O Intake and Output 07/20/20 00:00 Intake Total 10 ml Balance 10 ml Intake IV Total 10 ml General: Alert, Oriented X3, Cooperative HEENT: Atraumatic, PERRLA Neck: Supple, No JVD, No Thyromegaly Lungs: Clear to Auscultation, Normal Air Movement Heart: Regular Rate, Normal S1, Normal S2, No Murmurs Abdomen: Normal Bowel Sounds, Soft, No Tenderness, No Hepatosplenomegaly, No Masses Extremities: No Clubbing, No Cyanosis, No Edema, Normal Pulses, No Tenderness/Swelling Skin: No Rashes, No Breakdown, No Significant Lesion Neuro: Normal Gait, Normal Speech, Strength at 5/5 X4 Ext, Normal Tone, Sensation Intact Psych/Mental Status: Mental Status NL, Mood NL A/P-Cardiology Admission Diagnosis Generalized debility/weakness HTN COPD/BRANDON Questionable PAF Assessment/Plan S/p COVID-19 illness in May 2020 requiring intubation, was transferred from [facility] to [facility] and transferred to IRF last week. Continues to have generalized debility and weakness. Continue with PT/OT HTN, controlled, continue to monitor. COPD/BRANDON, maintained on CPAP Questionable PAF, was started on Amiodarone and Eliquis while at [place]. I will try to obtain records for further review. Hypokalemia, replace and continue to monitor UTI, management per medical services. Obesity KAREN DENT MD July 20, 2020 12:09
--- NOTE | 2020-07-20 14:24 | Physical Therapy Daily Note ---
PT Daily Note-Current Subjective Patient in bed pre tx, agrees to PT, voices no complaints of pain. Appearance Patient in bed post tx with nurse call, phone, tray, all needs met. Mental Status Patient Orientation: Person, Place, Situation, Normal For Age Attachments: Oxygen Transfers SCALE: Activities may be completed with or without assistive devices. 3-Piuybtlkwk-owjubry completes the activity by him/herself with no assistance from a helper. 5-Set-up or Clean-up Assistance-helper sets up or cleans up; patient completes activity. [place] assists only prior to or following the activity. 4-Supervision or Touching Assistance-helper provides verbal cues and/or touching/steadying and/or contact guard assistance as patient completes activity . Assistance may be provided throughout the activity or intermittently. 3-Partial/Moderate Assistance-helper does LESS THAN HALF the effort. [place] lifts, holds or supports trunk or limbs, but provides less than half the effort. 2-Substantial/Maximal Assistance-helper does MORE THAN HALF the effort. [place] lifts or holds trunk or limbs and provides more than half the effort. 4-Bsijhqxnn-niqtoj does ALL the effort. Patient does none of the effort to complete the activity. Or, the assistance of 2 or more helpers is required for the patient to complete the activity. If activity was not attempted, code reason: 7-Patient Refused. 9-Not Applicable-not attempted and the patient did not perform the activity before the current illness, exacerbation or injury. 10-Not Attempted due to Environmental Limitations-(lack of equipment, weather restraints, etc.). 88-Not Attempted due to Medical Conditions or Safety Concerns. Exercises Supine Ex: Ankle pumps (only RLE), Quad Set, Glut sets, Heel Slides (AAROM), Short Arc Quads, Straight leg raise (AAROM), Hip abd/add (AAROM) Supine Reps: 20 Treatments LE exercise Assessment Current Status: Fair Progress progressing, but patient very fatigued this afternoon PT Short Term Goals Short Term Goals Time Frame: July 22, 2020 Roll Left & Right: 4 Sit to lyin Lying to sitting on side of be: 3 PT [facility] Goals Epic Willow Specialist Goals PT Epic Willow Specialist Goals Time Frame: Aug 05, 2020 Roll Left & Right (QC): 4 Sit to Lying (QC): 4 Lying-Sitting on Side/Bed(QC): 4 Sit to Stand (QC): 3 Chair/Yff-wm-Emoxd Xfer(QC): 3 Toilet Transfer (QC): 3 Car Transfer (QC): 3 Does the Patient Walk: No and Walking Goal IS indicated Walk 10 feet (QC): 3 Walk 50ft with 2 Turns (QC): 88 Walk 150 ft (QC): 88 Walking 10ft on Uneven Surface: 88 1 Step (curb) (QC): 88 4 Steps (QC): 88 12 Steps (QC): 88 Picking up an Object (QC): 88 Wheel 50 feet with 2 turns (QC: 6 Wheel 150 feet: 6 PT Plan Problem List Problem List: Activity Tolerance, Functional Strength, Safety, Balance, Gait, Transfer, Bed Mobility, ROM Treatment/Plan Treatment Plan: Continue Plan of Care Treatment Plan: Bed Mobility, Education, Functional Activity Cierra, Functional Strength, Group Therapy, Gait, Safety, Therapeutic Exercise, Transfers Treatment Duration: Aug 05, 2020 Frequency: Modified Program (IRF) Estimated Hrs Per Day: 1 hour per day Patient and/or Family Agrees t: Yes Safety Risks/Education Patient Education: Correct Positioning, Safety Issues Teaching Recipient: Patient Teaching Methods: Demonstration, Discussion Response to Teaching: Reinforcement Needed Time/GCodes Time In: 1400 Time Out: 1430 Total Billed Treatment Time: 30 Total Billed Treatment 1 visit EX 30 LIZ MI PT July 20, 2020 14:23
[2020-07-20 20:00] VITALS: BP 139/79
[2020-07-20] MEDS: MELATONIN 10 MG TABLET PO SCH (21:13)
--- NOTE | 2020-07-21 05:46 | PM&R Progress Note ---
Subjective HPI/CC On Admission Date Seen by Provider: July 21, 2020 Time Seen by Provider: 10:30 Subjective/Events-last exam 07/21/20: Pt doing pretty well Slow progress Will DC the heplock Sugar changes to twice daily and will give 3 units of Novolog if greater than 160 Trach dressing changed and it is sealing up well Bowels moved yesterday 07/20/20: Pt doing pretty well Bowels moved two days ago, doesnt want anything too harsh Oxygen maintained Working hard Progressing nicely 07/19/20: Pt doing pretty well Respiratory therapy tried to wean him off and he became very hypoxic Weakness in hands are a challenge for him to shave DC Cefepime and starting Omnicef Doesnt really like IVs and lab checks and made that pretty clear to me 07/18/20: Patient doing well Diarrhea noted UTI treated with IV abx UCx pending 07/17/20: Patient doing well No complaints Awaiting UCx Empiric abx maintained Aunt at bedside O2 at 1L/min Sugar improved 07/16/20: Pt doing pretty well Potassium of 2.7 so will initiate supplement Dr. Rinaldi is seeing him in consultation EKG obtained and normal sinus rhythm noted UA ordered for burning sensation on urination Pt very debilitated Review of Systems General: Fatigue, Malaise Pulmonary: Dyspnea Neurological: Weakness Objective Exam Vital Signs Vital Signs Date Time Temp Pulse Resp B/P (MAP) Pulse Ox O2 Delivery O2 Flow Rate FiO2 07/21/20 20:19 37.0 105 16 107/71 (83) 93 Nasal Cannula 1.50 Capillary Refill : General Appearance: No Apparent Distress, WD/WN, Obese HEENT: PERRL/EOMI, Normal ENT Inspection, Pharynx Normal Neck: Full Range of Motion, Normal Inspection, Non Tender, Supple, Carotid Bruit Respiratory: Chest Non Tender, Lungs Clear, No Accessory Muscle Use, No Respiratory Distress, Decreased Breath Sounds Cardiovascular: Regular Rate, Rhythm, No Edema, No Gallop, No JVD, No Murmur, Normal Peripheral Pulses Gastrointestinal: Normal Bowel Sounds, No Organomegaly, No Pulsatile Mass, Non Tender, Soft Back: Normal Inspection, No CVA Tenderness, No Vertebral Tenderness Extremity: Normal Capillary Refill, Normal Inspection, Normal Range of Motion, Non Tender, No Calf Tenderness, No Pedal Edema Neurologic/Psychiatric: Alert, Oriented x3, No Motor/Sensory Deficits, Normal Mood/Affect, beauty advisor II-XII Norm as Tested, Abnormal Gait (can't ambulate), Motor Weakness (severe 1/5 strength all extremities) Skin: Normal Color, Warm/Dry Lymphatic: No Adenopathy Results/Procedures Lab Patient resulted labs reviewed. FIM Transfers Therapy Code Descriptions/Definitions Functional [place] Measure: 0=Not Assessed/NA 4=Minimal Assistance 1=Total Assistance 5=Supervision or Setup 2=Maximal Assistance 6=Modified [place] 3=Moderate Assistance 7=Complete IndependenceSCALE: Activities may be completed with or without assistive devices. 7-Tdcljhoimt-lmzhcig completes the activity by him/herself with no assistance from a helper. 5-Set-up or Clean-up Assistance-helper sets up or cleans up; patient completes activity. [place] assists only prior to or following the activity. 4-Supervision or Touching Assistance-helper provides verbal cues and/or touching/steadying and/or contact guard assistance as patient completes activity. Assistance may be provided throughout the activity or intermittently. 3-Partial/Moderate Assistance-helper does LESS THAN HALF the effort. [place] lifts, holds or supports trunk or limbs, but provides less than half the effort. 2-Substantial/Maximal Assistance-helper does MORE THAN HALF the effort. [place] lifts or holds trunk or limbs and provides more than half the effort. 2-Oiigreqml-mnwfco does ALL the effort. Patient does none of the effort to complete the activity. Or, the assistance of 2 or more helpers is required for the patient to complete the activity. If activity was not attempted, code reason: 7-Patient Refused. 9-Not Applicable-not attempted and the patient did not perform the activity before the current illness, exacerbation or injury. 10-Not Attempted due to Environmental Limitations-(lack of equipment, weather restraints, etc.). 88-Not Attempted due to Medical Conditions or Safety Concerns. Roll Left to Right (QC): 3 Sit to Lying (QC): 3 Sit to Stand (QC): 1 Chair/Xqq-de-Lnrvj Xfer(QC): 1 Car Transfer (QC): 1 Gait Training Does the Patient Walk?: No and Walking Goal NOT indicated Walk 10 feet (QC): 88 Walk 50 ft with 2 Turns(QC): 88 Walk 150 ft (QC): 88 Walking 10ft/uneven surface-QC: 88 Wheelchair Training Does the Pt Use a Wheelchair?: Yes Distance: 80' Wheel 50 ft with 2 turns (QC): 4 Wheel 150 ft (QC): 4 Type of Wheelchair: Manual Stair Training 1 Step (curb) (QC): 88 4 Steps (QC): 88 12 Steps (QC): 88 Balance Picking up an Object (QC): 88 ADL-Treatment Eating (QC): 5 (set up per pt report) Oral Hygiene (QC): 5 Shower/Bathe Self (QC): 2 Upper Body Dressing (QC): 5 Lower Body Dressing (QC): 2 On/Off Footwear (QC): 2 Toileting Hygiene (QC): 1 Toilet Transfer (QC): 1 Assessment/Plan Assessment and Plan Assess & Plan/Chief Complaint Assessment: COVID-19 PNA myopathy Severe poor lung reserve Obesity New onset DM AF? Plan: Insulin Monitor lung function Cardiology consult 07/16/20: UA Replace potassium Slow recovery 07/17/20: IV abx Suspect resistant UTI 07/18/20: Monitor closely Await Ucx 07/19/20: Reviewed UCx DC Cefepime Irritated with IV's and lab checks 07/20/20: Monitor closely Sugars good 07/21/20: DC Heplock (1) Myopathy (2) COVID-19 (3) Obesity (4) Diabetes mellitus NATHANAEL HOWE DO July 21, 2020 05:46
[2020-07-21] MEDS: CATHETER FLUSH 10 ML SYR IV SCH ×2 (05:52→14:41)
[2020-07-21] MEDS: inSUlin ASPART (NovoLOG) 1 UNIT/0.01 ML (CHARGE PER UNIT) SC SCH (05:53)
[2020-07-21 08:00] VITALS: BP 106/58
[2020-07-21] MEDS: amLODIPine 10 MG (NORVASC) TAB PO SCH (08:27)
[2020-07-21] MEDS: VITAMIN D3 125 MCG (5,000 UNITS) CAPSULE PO SCH (08:27)
[2020-07-21] MEDS: LACTOBACILLUS ACIDOPHILUS (PROBIOTIC) CAPSULE PO SCH ×2 (08:27→21:01)
[2020-07-21] MEDS: PANTOPRAZOLE 40 MG (PROTONIX) TAB PO SCH (08:27)
[2020-07-21] MEDS: AMIODARONE 200 MG (CORDARONE) TAB PO SCH (08:27)
[2020-07-21] MEDS: KCL 10 MEQ TAB (MICRO K) PO SCH ×3 (08:27→17:31)
[2020-07-21] MEDS: lisINopril 20 MG (PRINIVIL) TABLET PO SCH (08:27)
[2020-07-21] MEDS: APIXABAN 2.5 MG (ELIQUIS) TABLET PO SCH ×2 (08:27→21:01)
[2020-07-21] MEDS: ASCORBIC ACID (VIT C) 500 MG TABLET PO SCH (08:27)
[2020-07-21] MEDS: CEFDINIR 300 MG (OMNICEF) CAP PO SCH ×2 (08:29→21:01)
[2020-07-21] MEDS: MICONAZOLE 2% POWDER (DESENEX AF) 90 GM TOP SCH ×2 (09:00→21:03)
[2020-07-21] MEDS: DOCUSATE SODIUM 100 MG (COLACE) CAP PO SCH ×2 (09:00→21:02)
[2020-07-21] MEDS: SENNA W/DOCUSATE (SENOKOT S) TABLET PO SCH ×3 (09:00→21:02)
[2020-07-21] MEDS: polyethylene glycoL POWDER 17 GM (MIRALAX) PACK PO SCH ×2 (09:00→21:18)
--- NOTE | 2020-07-21 10:13 | Cardiology Progress Note ---
Subjective Date Seen by Provider: July 21, 2020 Time Seen by Provider: 10:12 Subjective/Events-last exam Patient with PT, no new complaints. Denies any chest pain or dyspnea Review of Systems General: No Chills, No Night Sweats, No Fatigue, No Malaise, No Appetite, No Other HEENT: No Head Aches, No Visual Changes, No Eye Pain, No Ear Pain, No Dysphasia, No Sinus Congestion, No Post Nasal Drip, No Sore Throat, No Other Pulmonary: No Dyspnea, No Cough, No Pleuritic Chest Pain, No Other Cardiovascular: No: Chest Pain, Palpitations, Orthopnea, Paroxysmal Noc. Dyspnea, Edema, Lt Headedness, Other Objective-Cardiology Exam Last Set of Vital Signs Vital Signs 07/21/20 07/21/20 08:00 10:49 Temp 36.0 Pulse 76 Resp 21 B/P (MAP) 106/58 (74) Pulse Ox 94 O2 Delivery Nasal Cannula O2 Flow Rate 1.00 Capillary Refill : General: Alert, Oriented X3, Cooperative HEENT: Atraumatic, PERRLA Neck: Supple, No JVD, No Thyromegaly Lungs: Clear to Auscultation, Normal Air Movement Heart: Regular Rate, Normal S1, Normal S2, No Murmurs Abdomen: Normal Bowel Sounds, Soft, No Tenderness, No Hepatosplenomegaly, No Masses Extremities: No Clubbing, No Cyanosis, No Edema, Normal Pulses, No Tenderness/Swelling Skin: No Rashes, No Breakdown, No Significant Lesion Neuro: Normal Gait, Normal Speech, Strength at 5/5 X4 Ext, Normal Tone, Sensation Intact Psych/Mental Status: Mental Status NL, Mood NL A/P-Cardiology Admission Diagnosis Generalized debility/weakness HTN COPD/BRANDON Questionable PAF Assessment/Plan S/p COVID-19 illness in May 2020 requiring intubation, was transferred from [facility] and transferred to IRF last week. Continues to have generalized debility and weakness. Continue with PT/OT HTN, controlled, continue to monitor. COPD/BRANDON, maintained on CPAP Questionable PAF, was started on Amiodarone and Eliquis while at [place]. I will try to obtain records for further review. Hypokalemia, replaced and continue to monitor UTI, management per medical services. Obesity Supervisory-Addendum Brief Supervisory Addendum Participated in pt care: history, MDM, physical Personally performed: exam, history, MDM Care discussed with: LESTER Notes: Patient was seen and evaluated with Viktoria, examination performed, management plan was discussed, agree with the current scribed note, I made few changes to the note using Italic font VIKTORIA CHOPRA July 21, 2020 10:13 am KAREN DENT MD July 21, 2020 4:44 pm
[2020-07-21] MEDS ORDERED: inSUlin ASPART (NovoLOG) 1 UNIT/0.01 ML (CHARGE PER UNIT) SC PRN (10:30)
--- NOTE | 2020-07-21 10:55 | Occupational Ther Daily Note ---
OT Current Status-Daily Note Subjective Pt alert, lying in bed. Finishing up with PT. Pt agrees to therapy. No c/o pain at this time. Mental Status/Objective Patient Orientation: Person, Place, Time, Situation Attachments: IV, Oxygen (1.5L) ADL-Treatment Pt declined shower or sponge bath. Pt wanted to just wash arm pits, put on deodorant and complete oral care. After set up, pt able to complete all tasks independently. Therapy Code Descriptions/Definitions Functional [place] Measure: 0=Not Assessed/NA 4=Minimal Assistance 1=Total Assistance 5=Supervision or Setup 2=Maximal Assistance 6=Modified [place] 3=Moderate Assistance 7=Complete IndependenceSCALE: Activities may be completed with or without assistive devices. 2-Eczdfhrepm-qiiljao completes the activity by him/herself with no assistance from a helper. 5-Set-up or Clean-up Assistance-helper sets up or cleans up; patient completes activity. [place] assists only prior to or following the activity. 4-Supervision or Touching Assistance-helper provides verbal cues and/or touching/steadying and/or contact guard assistance as patient completes activity. Assistance may be provided throughout the activity or intermittently. 3-Partial/Moderate Assistance-helper does LESS THAN HALF the effort. [place] lifts, holds or supports trunk or limbs, but provides less than half the effort. 2-Substantial/Maximal Assistance-helper does MORE THAN HALF the effort. [place] lifts or holds trunk or limbs and provides more than half the effort. 4-Tatfpslwz-sbtaqk does ALL the effort. Patient does none of the effort to complete the activity. Or, the assistance of 2 or more helpers is required for the patient to complete the activity. If activity was not attempted, code reason: 7-Patient Refused. 9-Not Applicable-not attempted and the patient did not perform the activity before the current illness, exacerbation or injury. 10-Not Attempted due to Environmental Limitations-(lack of equipment, weather restraints, etc.). 88-Not Attempted due to Medical Conditions or Safety Concerns. Oral Hygiene (QC): 5 Other Treatment Pt completed B UE exercises using medium resistance theraband and heavy resistance therapy sponge. Pt only able to complete 3 sets 5 reps of shldr flexion exercises. 3 sets 5 reps of internal and external rotation. 3 sets 10 reps of family services assistant, pinch and thumb flexion. Using elbows to push up from mattress, 3 sets 10 reps. Modified situps in bed, 2 sets 10 reps, HOB raised and pt pulled on bedrails. After therapy, pt lying in bed with call light/phone in reach. All needs met in room. OT Short Term Goals Short Term Goals Time Frame: Aug 05, 2020 Toileting hygiene: 2 Upper body dressin Lower body dressin Putting on/taking off footwear: 2 OT Hair Colorist Goals Halfway Goals Time Frame: Aug 13, 2020 Eating (QC): 6 Oral Hygiene (QC): 6 Toileting Hygiene (QC): 6 Shower/Bathe Self (QC): 6 Upper Body Dressing (QC): 6 Lower Body Dressing (QC): 6 On/Off Footwear (QC): 6 Additional Goals: 1-Demonstrate ADL Tasks, 2-Verbalize Understanding, 3- ImproveStrength/Cierra 1=Demonstrate adherence to instructed precautions during ADL tasks. 2=Patient will verbalize/demonstrate understanding of assistive devices/modific ations for ADL. 3=Patient will improve strength/tolerance for activity to enable patient to perform ADL's. OT Education/Plan Problem List/Assessment Assessment: Decreased Activ Tolerance, Decreased UE Strength, Dependent Transfers, Impaired Self-Care Skills, Restricted Funct UE ROM Discharge Recommendations Plan/Recommendations: Continue POC Treatment Plan/Plan of Care Patient would benefit from OT for education, treatment and training to promote independence in ADL's, mobility, safety and/or upper extremity function for ADL's. Plan of Care: ADL Retraining, Functional Mobility, Group Exercise/Act as Ind, UE Funct Exercise/Act Treatment Duration: Aug 13, 2020 Frequency: Modified Program (IRF) Estimated Hrs Per Day: 1 hour per day Rehab Potential: Fair Time/GCodes Start Time: 10:00 Stop Time: 11:00 Total Time Billed (hr/min): 60 Billed Treatment Time 1 visit-ADL 2 (30 min) EX 2 (30 min) TYSON FISHER July 21, 2020 10:54
--- NOTE | 2020-07-21 11:08 | Physical Therapy Daily Note ---
PT Daily Note-Current Subjective Pt supine in bed. Agrees to get up and participate in PT. Pain Numeric Pain Scale: 0-No Pain Location: No Pain Reported Mental Status Patient Orientation: Normal For Age Attachments: Oxygen (1.5L NC) Transfers SCALE: Activities may be completed with or without assistive devices. 7-Yuvqwyzhrs-hndrdtt completes the activity by him/herself with no assistance from a helper. 5-Set-up or Clean-up Assistance-helper sets up or cleans up; patient completes activity. [place] assists only prior to or following the activity. 4-Supervision or Touching Assistance-helper provides verbal cues and/or touching/steadying and/or contact guard assistance as patient completes activity. Assistance may be provided throughout the activity or intermittently. 3-Partial/Moderate Assistance-helper does LESS THAN HALF the effort. [place] lifts, holds or supports trunk or limbs, but provides less than half the effort. 2-Substantial/Maximal Assistance-helper does MORE THAN HALF the effort. [place] lifts or holds trunk or limbs and provides more than half the effort. 9-Lcawwhnlf-rdhloi does ALL the effort. Patient does none of the effort to complete the activity. Or, the assistance of 2 or more helpers is required for the patient to complete the activity. If activity was not attempted, code reason: 7-Patient Refused. 9-Not Applicable-not attempted and the patient did not perform the activity before the current illness, exacerbation or injury. 10-Not Attempted due to Environmental Limitations-(lack of equipment, weather restraints, etc.). 88-Not Attempted due to Medical Conditions or Safety Concerns. Roll Left & Right (QC): 3 Sit to Lying (QC): 3 Lying to Sitting/Side of Bed(Q: 3 Sit to Stand (QC): 1 Chair/Gje-gg-Qdbdg Xfer(QC): 1 Pt requires sit<>stand lift for all transfers outside of PT tx and MaxA x1-2 during PT tx. Exercises Supine Ex: Ankle pumps, Quad Set, Glut sets, Heel Slides, Straight leg raise, Hip abd/add Supine Reps: 10 Standing: Sit to Stand (3) Treatments Pt completes supine ex in bed; requires AAROM w/ LLE. Requires MaxA w/ dressing. Pt completes supine<>sit w/ ModA (supine to sit pt has difficulty bring upper body to sitting and sitting to supine pt has difficulty bringing LE's onto bed). Pt sits EOB w/out UE support. Pt transfers EOB <> w/c via sit<>stand lift. Pt sit<>stands in //bars, from w/c, w/ MaxA x1-2. VC's for pt to scoot towards edge of chair and proper sequencing of sit<>stand. SPINE SUPERVISOR and Tech have to assist w/ locking pt BLE's into correct position d/t weak ADD. Pt completes 3 sit<>stands in //bars and stands w/ BUE support and CGA for less than 10 secs. Rest breaks required between standing trials d/t pt fatigue. Pt returns to room, returns to bed and has call light, bedside table and all needs met at end of tx. OT entering room as SPINE SUPERVISOR leaving room. Assessment Current Status: Fair Progress Pt limits self. SPINE SUPERVISOR educated pt on importance of pushing self each day and completing therapy. Pt educated on breathing techniques. PT Short Term Goals Short Term Goals Time Frame: July 22, 2020 Roll Left & Right: 4 Sit to lyin Lying to sitting on side of be: 3 PT [place] Goals [place] Goals PT [facility] Goals Time Frame: Aug 05, 2020 Roll Left & Right (QC): 4 Sit to Lying (QC): 4 Lying-Sitting on Side/Bed(QC): 4 Sit to Stand (QC): 3 Chair/Btd-bz-Kwrdq Xfer(QC): 3 Toilet Transfer (QC): 3 Car Transfer (QC): 3 Does the Patient Walk: No and Walking Goal IS indicated Walk 10 feet (QC): 3 Walk 50ft with 2 Turns (QC): 88 Walk 150 ft (QC): 88 Walking 10ft on Uneven Surface: 88 1 Step (curb) (QC): 88 4 Steps (QC): 88 12 Steps (QC): 88 Picking up an Object (QC): 88 Wheel 50 feet with 2 turns (QC: 6 Wheel 150 feet: 6 PT Plan Problem List Problem List: Activity Tolerance, Functional Strength, Safety, Balance, Gait, Transfer, Bed Mobility, ROM Treatment/Plan Treatment Plan: Continue Plan of Care Treatment Plan: Bed Mobility, Education, Functional Activity Cierra, Functional Strength, Group Therapy, Gait, Safety, Therapeutic Exercise, Transfers Treatment Duration: Aug 05, 2020 Frequency: Modified Program (IRF) Estimated Hrs Per Day: 1 hour per day Patient and/or Family Agrees t: Yes Safety Risks/Education Patient Education: Transfer Techniques, Correct Positioning, Safety Issues Teaching Recipient: Patient Teaching Methods: Discussion Response to Teaching: Verbalize Understanding, Reinforcement Needed Time/GCodes Time In: 0900 Time Out: 1000 Total Billed Treatment Time: 60 Total Billed Treatment 1, NM (15m), Ex (15m), FA x2 (30m) MAX BRANCH SPINE SUPERVISOR July 21, 2020 11:08
[2020-07-21] MEDS: DOCUSATE SODIUM 100 MG (COLACE) CAP PO PRN (14:51)
[2020-07-21] MEDS: MELATONIN 10 MG TABLET PO SCH (19:35)
[2020-07-21 20:19] VITALS: BP 107/71
--- NOTE | 2020-07-22 06:07 | PM&R Progress Note ---
Subjective HPI/CC On Admission Date Seen by Provider: July 22, 2020 Time Seen by Provider: 11:00 Subjective/Events-last exam 07/22/20: Patient doing well Baseline flat affect assessed Had complete bowel evacuation yesterday after Fleets after supp EKG today per Dr Rinaldi Monitored closely 07/21/20: Pt doing pretty well Slow progress Will DC the heplock Sugar changes to twice daily and will give 3 units of Novolog if greater than 160 Trach dressing changed and it is sealing up well Bowels moved yesterday 07/20/20: Pt doing pretty well Bowels moved two days ago, doesnt want anything too harsh Oxygen maintained Working hard Progressing nicely 07/19/20: Pt doing pretty well Respiratory therapy tried to wean him off and he became very hypoxic Weakness in hands are a challenge for him to shave DC Cefepime and starting Omnicef Doesnt really like IVs and lab checks and made that pretty clear to me 07/18/20: Patient doing well Diarrhea noted UTI treated with IV abx UCx pending 07/17/20: Patient doing well No complaints Awaiting UCx Empiric abx maintained Aunt at bedside O2 at 1L/min Sugar improved 07/16/20: Pt doing pretty well Potassium of 2.7 so will initiate supplement Dr. Rinaldi is seeing him in consultation EKG obtained and normal sinus rhythm noted UA ordered for burning sensation on urination Pt very debilitated Review of Systems General: Fatigue, Malaise Neurological: Weakness Objective Exam Vital Signs Vital Signs Date Time Temp Pulse Resp B/P (MAP) Pulse Ox O2 Delivery O2 Flow Rate FiO2 07/22/20 20:30 Nasal Cannula 1.50 07/22/20 20:00 36.6 79 20 119/70 (86) 95 Capillary Refill : General Appearance: No Apparent Distress, WD/WN, Obese HEENT: PERRL/EOMI, Normal ENT Inspection, Pharynx Normal Neck: Full Range of Motion, Normal Inspection, Non Tender, Supple, Carotid Bruit Respiratory: Chest Non Tender, Lungs Clear, No Accessory Muscle Use, No Respiratory Distress, Decreased Breath Sounds Cardiovascular: Regular Rate, Rhythm, No Edema, No Gallop, No JVD, No Murmur, Normal Peripheral Pulses Gastrointestinal: Normal Bowel Sounds, No Organomegaly, No Pulsatile Mass, Non Tender, Soft Back: Normal Inspection, No CVA Tenderness, No Vertebral Tenderness Extremity: Normal Capillary Refill, Normal Inspection, Normal Range of Motion, Non Tender, No Calf Tenderness, No Pedal Edema Neurologic/Psychiatric: Alert, Oriented x3, No Motor/Sensory Deficits, Normal Mood/Affect, operators school manager II-XII Norm as Tested, Abnormal Gait (can't ambulate), Motor Weakness (severe 1/5 strength all extremities) Skin: Normal Color, Warm/Dry Lymphatic: No Adenopathy Results/Procedures Lab Patient resulted labs reviewed. FIM Transfers Therapy Code Descriptions/Definitions Functional [place] Measure: 0=Not Assessed/NA 4=Minimal Assistance 1=Total Assistance 5=Supervision or Setup 2=Maximal Assistance 6=Modified [place] 3=Moderate Assistance 7=Complete IndependenceSCALE: Activities may be completed with or without assistive devices. 0-Nxuacuxgoe-mpbnlga completes the activity by him/herself with no assistance from a helper. 5-Set-up or Clean-up Assistance-helper sets up or cleans up; patient completes activity. [place] assists only prior to or following the activity. 4-Supervision or Touching Assistance-helper provides verbal cues and/or touching/steadying and/or contact guard assistance as patient completes activit y. Assistance may be provided throughout the activity or intermittently. 3-Partial/Moderate Assistance-helper does LESS THAN HALF the effort. [place] lifts, holds or supports trunk or limbs, but provides less than half the effort. 2-Substantial/Maximal Assistance-helper does MORE THAN HALF the effort. [place] lifts or holds trunk or limbs and provides more than half the effort. 7-Wjdfzfnxa-exrnuv does ALL the effort. Patient does none of the effort to complete the activity. Or, the assistance of 2 or more helpers is required for the patient to complete the activity. If activity was not attempted, code reason: 7-Patient Refused. 9-Not Applicable-not attempted and the patient did not perform the activity before the current illness, exacerbation or injury. 10-Not Attempted due to Environmental Limitations-(lack of equipment, weather restraints, etc.). 88-Not Attempted due to Medical Conditions or Safety Concerns. Roll Left to Right (QC): 3 Sit to Lying (QC): 3 Sit to Stand (QC): 1 Chair/Ojz-ra-Mmxnd Xfer(QC): 1 Car Transfer (QC): 1 Gait Training Does the Patient Walk?: No and Walking Goal NOT indicated Walk 10 feet (QC): 88 Walk 50 ft with 2 Turns(QC): 88 Walk 150 ft (QC): 88 Walking 10ft/uneven surface-QC: 88 Wheelchair Training Does the Pt Use a Wheelchair?: Yes Distance: 80' Wheel 50 ft with 2 turns (QC): 4 Wheel 150 ft (QC): 4 Type of Wheelchair: Manual Stair Training 1 Step (curb) (QC): 88 4 Steps (QC): 88 12 Steps (QC): 88 Balance Picking up an Object (QC): 88 ADL-Treatment Eating (QC): 5 (set up per pt report) Oral Hygiene (QC): 5 Shower/Bathe Self (QC): 2 Upper Body Dressing (QC): 5 Lower Body Dressing (QC): 2 On/Off Footwear (QC): 2 Toileting Hygiene (QC): 1 Toilet Transfer (QC): 1 Assessment/Plan Assessment and Plan Assess & Plan/Chief Complaint Assessment: COVID-19 PNA myopathy Severe poor lung reserve Obesity New onset DM AF? Plan: Insulin Monitor lung function Cardiology consult 07/16/20: UA Replace potassium Slow recovery 07/17/20: IV abx Suspect resistant UTI 07/18/20: Monitor closely Await Ucx 07/19/20: Reviewed UCx DC Cefepime Irritated with IV's and lab checks 07/20/20: Monitor closely Sugars good 07/21/20: DC Heplock 07/22/20: Monitored closely BP ok (1) Myopathy (2) COVID-19 (3) Obesity (4) Diabetes mellitus NATHANAEL HOWE DO July 22, 2020 06:07
[2020-07-22] MEDS: VITAMIN D3 125 MCG (5,000 UNITS) CAPSULE PO SCH (07:43)
[2020-07-22] MEDS: amLODIPine 10 MG (NORVASC) TAB PO SCH (07:43)
[2020-07-22] MEDS: CEFDINIR 300 MG (OMNICEF) CAP PO SCH ×2 (07:43→21:01)
[2020-07-22] MEDS: ASCORBIC ACID (VIT C) 500 MG TABLET PO SCH (07:44)
[2020-07-22] MEDS: LACTOBACILLUS ACIDOPHILUS (PROBIOTIC) CAPSULE PO SCH ×2 (07:44→21:01)
[2020-07-22] MEDS: APIXABAN 2.5 MG (ELIQUIS) TABLET PO SCH ×2 (07:44→21:02)
[2020-07-22] MEDS: PANTOPRAZOLE 40 MG (PROTONIX) TAB PO SCH (07:44)
[2020-07-22] MEDS: SENNA W/DOCUSATE (SENOKOT S) TABLET PO SCH ×2 (07:44→21:01)
[2020-07-22] MEDS: KCL 10 MEQ TAB (MICRO K) PO SCH ×3 (07:44→17:22)
[2020-07-22] MEDS: AMIODARONE 200 MG (CORDARONE) TAB PO SCH (07:45)
[2020-07-22] MEDS: polyethylene glycoL POWDER 17 GM (MIRALAX) PACK PO SCH ×2 (07:45→21:03)
[2020-07-22] MEDS: MICONAZOLE 2% POWDER (DESENEX AF) 90 GM TOP SCH ×2 (07:45→21:02)
[2020-07-22] MEDS: lisINopril 20 MG (PRINIVIL) TABLET PO SCH (07:45)
[2020-07-22] MEDS: DOCUSATE SODIUM 100 MG (COLACE) CAP PO SCH ×2 (07:45→21:02)
[2020-07-22 08:00] VITALS: BP 127/66
--- NOTE | 2020-07-22 11:09 | Physical Therapy Daily Note ---
PT Daily Note-Current Subjective Patient in bed pre tx, agrees to PT, is on bedpan, will be co-treating with OT due to poor patient mobility, strength, endurance, severe debility, safety and reduce risk of falls, coordinate UE and LE during activity. Appearance Patient in bed post tx with nurse call, phone, tray, all needs met. Mental Status Patient Orientation: Normal For Age Attachments: Oxygen Transfers SCALE: Activities may be completed with or without assistive devices. 7-Mxgzqvyiom-iijvkgn completes the activity by him/herself with no assistance from a helper. 5-Set-up or Clean-up Assistance-helper sets up or cleans up; patient completes activity. [place] assists only prior to or following the activity. 4-Supervision or Touching Assistance-helper provides verbal cues and/or touching/steadying and/or contact guard assistance as patient completes activity. Assistance may be provided throughout the activity or intermittently. 3-Partial/Moderate Assistance-helper does LESS THAN HALF the effort. [place] lifts, holds or supports trunk or limbs, but provides less than half the effort. 2-Substantial/Maximal Assistance-helper does MORE THAN HALF the effort. [place] lifts or holds trunk or limbs and provides more than half the effort. 6-Ocobkgmoa-cfoiix does ALL the effort. Patient does none of the effort to complete the activity. Or, the assistance of 2 or more helpers is required for the patient to complete the activity. If activity was not attempted, code reason: 7-Patient Refused. 9-Not Applicable-not attempted and the patient did not perform the activity before the current illness, exacerbation or injury. 10-Not Attempted due to Environmental Limitations-(lack of equipment, weather restraints, etc.). 88-Not Attempted due to Medical Conditions or Safety Concerns. Roll Left & Right (QC): 4 Sit to Lying (QC): 2 Lying to Sitting/Side of Bed(Q: 2 Sit to Stand (QC): 1 After cleaning from BM patient sat on the side of the bed with max assist, then sit to stand machine to , taken to shower room, sit to stand transfer to [facility] bedside commode in shower room (because patient has had stood softeners and has been having a lot of BM's), bathed, dressed, sit to stand transfer to , taken back to his room, sit to stand transfer back to bed and then lay down. Exercises Supine Ex: Quad Set, Glut sets Supine Reps: 20 Seated Therapy Exercises: Ankle pumps (only right side), Long arc quads, Hip flexion Seated Reps: 20 Treatments PT performed LE exercise, bed mobility and transfers, positioning and safety during bathing and dressing, OT performed bathing and dressing and UE positioning and safety during activity. Assessment Current Status: Fair Progress Patient seems to have slightly improved AROM of lower extremities but still lacks left side dorsiflexion PT Short Term Goals Short Term Goals Time Frame: July 22, 2020 Roll Left & Right: 4 Sit to lyin Lying to sitting on side of be: 3 PT Classification Officer Goals Classification Officer Goals PT Classification Officer Goals Time Frame: Aug 05, 2020 Roll Left & Right (QC): 4 Sit to Lying (QC): 4 Lying-Sitting on Side/Bed(QC): 4 Sit to Stand (QC): 3 Chair/Qyp-ld-Zpdrh Xfer(QC): 3 Toilet Transfer (QC): 3 Car Transfer (QC): 3 Does the Patient Walk: No and Walking Goal IS indicated Walk 10 feet (QC): 3 Walk 50ft with 2 Turns (QC): 88 Walk 150 ft (QC): 88 Walking 10ft on Uneven Surface: 88 1 Step (curb) (QC): 88 4 Steps (QC): 88 12 Steps (QC): 88 Picking up an Object (QC): 88 Wheel 50 feet with 2 turns (QC: 6 Wheel 150 feet: 6 PT Plan Problem List Problem List: Activity Tolerance, Functional Strength, Safety, Balance, Gait, Transfer, Bed Mobility, ROM Treatment/Plan Treatment Plan: Continue Plan of Care Treatment Plan: Bed Mobility, Education, Functional Activity Cierra, Functional Strength, Group Therapy, Gait, Safety, Therapeutic Exercise, Transfers Treatment Duration: Aug 05, 2020 Frequency: Modified Program (IRF) Estimated Hrs Per Day: 1 hour per day Patient and/or Family Agrees t: Yes Safety Risks/Education Patient Education: Transfer Techniques, Correct Positioning, Safety Issues Teaching Recipient: Patient Teaching Methods: Demonstration, Discussion Response to Teaching: Reinforcement Needed Time/GCodes Time In: 1000 Time Out: 1115 Total Billed Treatment Time: 75 Total Billed Treatment 1 visit EX 10' FA 65' co-treated with OT for 75' LIZ MI PT July 22, 2020 11:09
--- NOTE | 2020-07-22 11:11 | Occupational Ther Daily Note ---
OT Current Status-Daily Note Subjective Pt alert, lying in bed. Pt fatigued today due to multiple BMs throughout the morning. Co-treat with PT ([id number]), skills of 2 clinicians due to poor patient mobility, strength, endurance, severe debility, coordinate UE and LE during activity, safety and reduce risk of falls. Mental Status/Objective Patient Orientation: Person, Place, Time, Situation Attachments: Oxygen (1L) ADL-Treatment Pt agrees to shower. See PT notes for transfers and bed mobility. Using sit to stand lift, pt transferred to w/c then transported pt to large shower room for shower. Using sit to stand lift, transferred from w/c to [facility]. Pt able to complete upper body by self, assist to cleanse under abdomen, kasi area and buttocks. Pt used LH sponge to reach B LE's and feet. Pt transported back to room and used sit to stand lift to transfer to bed. Pt sitting EOB and trang ed shirt by self after set up. PT assisted pt to go from sitting to supine. Pt rolled mod I. PT completed B LE strengthening exercises sitting EOB and in supine. After session, pt lying in bed with call light/phone in reach. Pt increased fatigue during session. Therapy Code Descriptions/Definitions Functional [place] Measure: 0=Not Assessed/NA 4=Minimal Assistance 1=Total Assistance 5=Supervision or Setup 2=Maximal Assistance 6=Modified [place] 3=Moderate Assistance 7=Complete IndependenceSCALE: Activities may be completed with or without assistive devices. 1-Gqfgwquawu-ohppfgu completes the activity by him/herself with no assistance from a helper. 5-Set-up or Clean-up Assistance-helper sets up or cleans up; patient completes activity. [place] assists only prior to or following the activity. 4-Supervision or Touching Assistance-helper provides verbal cues and/or touching/steadying and/or contact guard assistance as patient completes activity. Assistance may be provided throughout the activity or intermittently. 3-Partial/Moderate Assistance-helper does LESS THAN HALF the effort. [place] lifts, holds or supports trunk or limbs, but provides less than half the effort. 2-Substantial/Maximal Assistance-helper does MORE THAN HALF the effort. [place] lifts or holds trunk or limbs and provides more than half the effort. 6-Shycmbcdx-islroh does ALL the effort. Patient does none of the effort to c omplete the activity. Or, the assistance of 2 or more helpers is required for the patient to complete the activity. If activity was not attempted, code reason: 7-Patient Refused. 9-Not Applicable-not attempted and the patient did not perform the activity before the current illness, exacerbation or injury. 10-Not Attempted due to Environmental Limitations-(lack of equipment, weather restraints, etc.). 88-Not Attempted due to Medical Conditions or Safety Concerns. Shower/Bathe Self (QC): 3 Upper Body Dressing (QC): 5 Lower Body Dressing (QC): 2 On/Off Footwear: 2 Toileting Hygiene (QC): 1 Toilet Transfer (QC): 1 OT Short Term Goals Short Term Goals Time Frame: Aug 05, 2020 Toileting hygiene: 2 Upper body dressin Lower body dressin Putting on/taking off footwear: 2 OT Senior Care Goals Terminal System Operator Goals Time Frame: Aug 13, 2020 Eating (QC): 6 Oral Hygiene (QC): 6 Toileting Hygiene (QC): 6 Shower/Bathe Self (QC): 6 Upper Body Dressing (QC): 6 Lower Body Dressing (QC): 6 On/Off Footwear (QC): 6 Additional Goals: 1-Demonstrate ADL Tasks, 2-Verbalize Understanding, 3- ImproveStrength/Cierra 1=Demonstrate adherence to instructed precautions during ADL tasks. 2=Patient will verbalize/demonstrate understanding of assistive devices/modifications for ADL. 3=Patient will improve strength/tolerance for activity to enable patient to perform ADL's. OT Education/Plan Problem List/Assessment Assessment: Decreased Activ Tolerance, Decreased UE Strength, Dependent Transfers, Impaired Self-Care Skills Discharge Recommendations Plan/Recommendations: Continue POC Treatment Plan/Plan of Care Patient would benefit from OT for education, treatment and training to promote independence in ADL's, mobility, safety and/or upper extremity function for ADL's. Plan of Care: ADL Retraining, Functional Mobility, Group Exercise/Act as Ind, UE Funct Exercise/Act Treatment Duration: Aug 13, 2020 Frequency: Modified Program (IRF) Estimated Hrs Per Day: 1 hour per day Rehab Potential: Fair Time/GCodes Start Time: 10:00 Stop Time: 11:15 Total Time Billed (hr/min): 75 Billed Treatment Time 1 visit-ADL 4 (60 min) FA 1 (15 min) co-treat with PT ([id number]) TYSON FISHER July 22, 2020 11:11
[2020-07-22 20:00] VITALS: BP 119/70
[2020-07-22] MEDS: MELATONIN 10 MG TABLET PO SCH (21:03)
--- NOTE | 2020-07-23 06:40 | PM&R Progress Note ---
Subjective HPI/CC On Admission Date Seen by Provider: July 23, 2020 Time Seen by Provider: 10:00 Subjective/Events-last exam 07/23/20: Pt up in a chair and appears to be much stronger 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 in a chair for very long Blood sugar 141 Left foot drop is an issue 07/22/20: Patient doing well Baseline flat affect assessed Had complete bowel evacuation yesterday after Fleets after supp EKG today per Dr Rinaldi Monitored closely 07/21/20: Pt doing pretty well Slow progress Will DC the heplock Sugar changes to twice daily and will give 3 units of Novolog if greater than 160 Trach dressing changed and it is sealing up well Bowels moved yesterday 07/20/20: Pt doing pretty well Bowels moved two days ago, doesnt want anything too harsh Oxygen maintained Working hard Progressing nicely 07/19/20: Pt doing pretty well Respiratory therapy tried to wean him off and he became very hypoxic Weakness in hands are a challenge for him to shave DC Cefepime and starting Omnicef Doesnt really like IVs and lab checks and made that pretty clear to me 07/18/20: Patient doing well Diarrhea noted UTI treated with IV abx UCx pending 07/17/20: Patient doing well No complaints Awaiting UCx Empiric abx maintained Aunt at bedside O2 at 1L/min Sugar improved 07/16/20: Pt doing pretty well Potassium of 2.7 so will initiate supplement Dr. Rinaldi is seeing him in consultation EKG obtained and normal sinus rhythm noted UA ordered for burning sensation on urination Pt very debilitated Review of Systems General: Fatigue, Malaise Pulmonary: Dyspnea Objective Exam Vital Signs Vital Signs Date Time Temp Pulse Resp B/P (MAP) Pulse Ox O2 Delivery O2 Flow Rate FiO2 07/23/20 20:20 Nasal Cannula 1.50 07/23/20 19:35 36.6 80 16 134/81 (98) 95 Capillary Refill : General Appearance: No Apparent Distress, WD/WN, Obese HEENT: PERRL/EOMI, Normal ENT Inspection, Pharynx Normal Neck: Full Range of Motion, Normal Inspection, Non Tender, Supple, Carotid Bruit Respiratory: Chest Non Tender, Lungs Clear, No Accessory Muscle Use, No Respiratory Distress, Decreased Breath Sounds Cardiovascular: Regular Rate, Rhythm, No Edema, No Gallop, No JVD, No Murmur, Normal Peripheral Pulses Gastrointestinal: Normal Bowel Sounds, No Organomegaly, No Pulsatile Mass, Non Tender, Soft Back: Normal Inspection, No CVA Tenderness, No Vertebral Tenderness Extremity: Normal Capillary Refill, Normal Inspection, Normal Range of Motion, Non Tender, No Calf Tenderness, No Pedal Edema Neurologic/Psychiatric: Alert, Oriented x3, No Motor/Sensory Deficits, Normal Mood/Affect, string cutter II-XII Norm as Tested, Abnormal Gait (can't ambulate), Motor Weakness (severe 1/5 strength all extremities) Skin: Normal Color, Warm/Dry Lymphatic: No Adenopathy Results/Procedures Lab Patient resulted labs reviewed. FIM Transfers Therapy Code Descriptions/Definitions Functional [place] Measure: 0=Not Assessed/NA 4=Minimal Assistance 1=Total Assistance 5=Supervision or Setup 2=Maximal Assistance 6=Modified [place] 3=Moderate Assistance 7=Complete IndependenceSCALE: Activities may be completed with or without assistive devices. 3-Keibnjkqnn-fcrpmjs completes the activity by him/herself with no assistance from a helper. 5-Set-up or Clean-up Assistance-helper sets up or cleans up; patient completes activity. [place] assists only prior to or following the activity. 4-Supervision or Touching Assistance-helper provides verbal cues and/or touching/steadying and/or contact guard assistance as patient completes activity. Assistance may be provided throughout the activity or intermittently. 3-Partial/Moderate Assistance-helper does LESS THAN HALF the effort. [place] lifts, holds or supports trunk or limbs, but provides less than half the effort. 2-Substantial/Maximal Assistance-helper does MORE THAN HALF the effort. [place] lifts or holds trunk or limbs and provides more than half the effort. 2-Nhxyddffy-fibhrw does ALL the effort. Patient does none of the effort to complete the activity. Or, the assistance of 2 or more helpers is required for the patient to complete the activity. If activity was not attempted, code reason: 7-Patient Refused. 9-Not Applicable-not attempted and the patient did not perform the activity be fore the current illness, exacerbation or injury. 10-Not Attempted due to Environmental Limitations-(lack of equipment, weather restraints, etc.). 88-Not Attempted due to Medical Conditions or Safety Concerns. Roll Left to Right (QC): 4 Sit to Lying (QC): 2 Sit to Stand (QC): 1 Chair/Rpv-kt-Kdons Xfer(QC): 1 Car Transfer (QC): 1 Gait Training Does the Patient Walk?: No and Walking Goal NOT indicated Walk 10 feet (QC): 88 Walk 50 ft with 2 Turns(QC): 88 Walk 150 ft (QC): 88 Walking 10ft/uneven surface-QC: 88 Wheelchair Training Does the Pt Use a Wheelchair?: Yes Distance: 80' Wheel 50 ft with 2 turns (QC): 4 Wheel 150 ft (QC): 4 Type of Wheelchair: Manual Stair Training 1 Step (curb) (QC): 88 4 Steps (QC): 88 12 Steps (QC): 88 Balance Picking up an Object (QC): 88 ADL-Treatment Eating (QC): 5 (set up per pt report) Oral Hygiene (QC): 5 Shower/Bathe Self (QC): 3 Upper Body Dressing (QC): 5 Lower Body Dressing (QC): 2 On/Off Footwear (QC): 2 Toileting Hygiene (QC): 1 Toilet Transfer (QC): 1 Assessment/Plan Assessment and Plan Assess & Plan/Chief Complaint Assessment: COVID-19 PNA myopathy Severe poor lung reserve Obesity New onset DM AF? Plan: Insulin Monitor lung function Cardiology consult 07/16/20: UA Replace potassium Slow recovery 07/17/20: IV abx Suspect resistant UTI 07/18/20: Monitor closely Await Ucx 07/19/20: Reviewed UCx DC Cefepime Irritated with IV's and lab checks 07/20/20: Monitor closely Sugars good 07/21/20: DC Heplock 07/22/20: Monitored closely BP ok 07/23/20: Monitor O2 Improved status now (1) Myopathy (2) COVID-19 (3) Obesity (4) Diabetes mellitus NATHANAEL HOWE DO July 23, 2020 06:40
[2020-07-23] MEDS: SENNA W/DOCUSATE (SENOKOT S) TABLET PO SCH ×2 (07:43→20:37)
[2020-07-23] MEDS: amLODIPine 10 MG (NORVASC) TAB PO SCH (07:43)
[2020-07-23] MEDS: DOCUSATE SODIUM 100 MG (COLACE) CAP PO SCH ×2 (07:43→20:36)
[2020-07-23] MEDS: ASCORBIC ACID (VIT C) 500 MG TABLET PO SCH (07:43)
[2020-07-23] MEDS: KCL 10 MEQ TAB (MICRO K) PO SCH ×3 (07:43→17:13)
[2020-07-23] MEDS: CEFDINIR 300 MG (OMNICEF) CAP PO SCH (07:43)
[2020-07-23] MEDS: VITAMIN D3 125 MCG (5,000 UNITS) CAPSULE PO SCH (07:43)
[2020-07-23] MEDS: PANTOPRAZOLE 40 MG (PROTONIX) TAB PO SCH (07:43)
[2020-07-23] MEDS: APIXABAN 2.5 MG (ELIQUIS) TABLET PO SCH ×2 (07:43→20:31)
[2020-07-23] MEDS: AMIODARONE 200 MG (CORDARONE) TAB PO SCH (07:43)
[2020-07-23] MEDS: LACTOBACILLUS ACIDOPHILUS (PROBIOTIC) CAPSULE PO SCH ×2 (07:43→20:31)
[2020-07-23] MEDS: lisINopril 20 MG (PRINIVIL) TABLET PO SCH (07:44)
[2020-07-23] MEDS: MICONAZOLE 2% POWDER (DESENEX AF) 90 GM TOP SCH ×2 (07:44→20:37)
[2020-07-23] MEDS: polyethylene glycoL POWDER 17 GM (MIRALAX) PACK PO SCH ×2 (07:44→20:37)
[2020-07-23 08:00] VITALS: BP 131/77
--- NOTE | 2020-07-23 09:40 | Cardiology Progress Note ---
Subjective Date Seen by Provider: July 23, 2020 Time Seen by Provider: 09:40 Subjective/Events-last exam Patient is laying down in bed, feeling better today. No new Review of Systems General: No Chills, No Night Sweats, No Fatigue, No Malaise, No Appetite, No Other HEENT: No Head Aches, No Visual Changes, No Eye Pain, No Ear Pain, No Dysphasia, No Sinus Congestion, No Post Nasal Drip, No Sore Throat, No Other Pulmonary: No Dyspnea, No Cough, No Pleuritic Chest Pain, No Other Cardiovascular: No: Chest Pain, Palpitations, Orthopnea, Paroxysmal Noc. Dyspnea, Edema, Lt Headedness, Other Objective-Cardiology Exam Last Set of Vital Signs Vital Signs 07/22/20 07/22/20 20:00 20:30 Temp 36.6 Pulse 79 Resp 20 B/P (MAP) 119/70 (86) Pulse Ox 95 O2 Delivery Nasal Cannula O2 Flow Rate 1.50 Capillary Refill : General: Alert, Oriented X3, Cooperative HEENT: Atraumatic, PERRLA Neck: Supple, No JVD, No Thyromegaly Lungs: Clear to Auscultation, Normal Air Movement Heart: Regular Rate, Normal S1, Normal S2, No Murmurs Abdomen: Normal Bowel Sounds, Soft, No Tenderness, No Hepatosplenomegaly, No Masses Extremities: No Clubbing, No Cyanosis, No Edema, Normal Pulses, No Tenderness/Swelling Skin: No Rashes, No Breakdown, No Significant Lesion Neuro: Normal Gait, Normal Speech, Strength at 5/5 X4 Ext, Normal Tone, Sens ation Intact Psych/Mental Status: Mental Status NL, Mood NL Results Lab Laboratory Tests Test 07/22/20 15:19 07/23/20 05:51 Range/Units Glucometer 131 H 141 H 70-110 MG/DL A/P-Cardiology Admission Diagnosis Generalized debility/weakness HTN COPD/[place] Questionable PAF Assessment/Plan S/p COVID-19 illness in May 2020 requiring intubation, was transferred from [facility] and transferred to [facility] last week. Continues to have generalized debility and weakness. Continue with PT/OT HTN, controlled, continue to monitor. COPD/BRANDON, maintained on CPAP Questionable PAF, was started on Amiodarone and Eliquis while at [place]. I will try to obtain records for further review. Hypokalemia, replaced and continue to monitor UTI, management per medical services. Obesity KAREN DENT MD July 23, 2020 09:40
--- NOTE | 2020-07-23 10:18 | Physical Therapy Daily Note ---
PT Daily Note-Current Subjective Patient in bed pre tx, agrees to PT, has no complaints of pain, will be co- treating with OT due to poor patient mobility, strength, endurance, severe debility, coordinate UE and LE during activity, safety and reduce risk of falls. Appearance Patient in recliner post tx with nurse call, phone, tray, all needs met. Mental Status Patient Orientation: Normal For Age Attachments: Oxygen Transfers SCALE: Activities may be completed with or without assistive devices. 2-Ypzfyukccd-hjbmryy completes the activity by him/herself with no assistance from a helper. 5-Set-up or Clean-up Assistance-helper sets up or cleans up; patient completes activity. [place] assists only prior to or following the activity. 4-Supervision or Touching Assistance-helper provides verbal cues and/or touching/steadying and/or contact guard assistance as patient completes activity. Assistance may be provided throughout the activity or intermittently. 3-Partial/Moderate Assistance-helper does LESS THAN HALF the effort. [place] lifts, holds or supports trunk or limbs, but provides less than half the effort. 2-Substantial/Maximal Assistance-helper does MORE THAN HALF the effort. [place] lifts or holds trunk or limbs and provides more than half the effort. 6-Kgnvobgvy-eftuwo does ALL the effort. Patient does none of the effort to complete the activity. Or, the assistance of 2 or more helpers is required for the patient to complete the activity. If activity was not attempted, code reason: 7-Patient Refused. 9-Not Applicable-not attempted and the patient did not perform the activity before the current illness, exacerbation or injury. 10-Not Attempted due to Environmental Limitations-(lack of equipment, weather restraints, etc.). 88-Not Attempted due to Medical Conditions or Safety Concerns. Roll Left & Right (QC): 5 Lying to Sitting/Side of Bed(Q: 3 Sit to Stand (QC): 1 Chair/Ypa-al-Khlcz Xfer(QC): 1 Patient rolled from side to side to get his underwear and shorts on , supine to sit with mod assist, puts shirt on, sit to stand machine to WC, go to gym, when he came back sit to stand machine to recliner. Wheelchair Training Does the Pt Use a Wheelchair?: Yes Wheel 50 ft with 2 turns (QC): 5 Type of Wheelchair: Manual 120'x2 Exercises Seated Therapy Exercises: Long arc quads Seated Reps: 20 Patient stood x3 in the parallel bars for about 20 sec each time, he was able to take one step with right foot but could not take a step with the other, on another stand he was able to perform 10 reps of mini-squats (very minimal) Treatments PT performed bed mobility and transfers, standing, LE exercise, positioning and safety during dressing, OT performed dressing, UE positioning and safety during standing and mobility Assessment Current Status: Fair Progress slowly improving strength PT Short Term Goals Short Term Goals Time Frame: July 22, 2020 Roll Left & Right: 4 Sit to lyin Lying to sitting on side of be: 3 PT Business Development Intern Goals Business Development Intern Goals PT Business Development Intern Goals Time Frame: Aug 05, 2020 Roll Left & Right (QC): 4 Sit to Lying (QC): 4 Lying-Sitting on Side/Bed(QC): 4 Sit to Stand (QC): 3 Chair/Dbr-ya-Nntbu Xfer(QC): 3 Toilet Transfer (QC): 3 Car Transfer (QC): 3 Does the Patient Walk: No and Walking Goal IS indicated Walk 10 feet (QC): 3 Walk 50ft with 2 Turns (QC): 88 Walk 150 ft (QC): 88 Walking 10ft on Uneven Surface: 88 1 Step (curb) (QC): 88 4 Steps (QC): 88 12 Steps (QC): 88 Picking up an Object (QC): 88 Wheel 50 feet with 2 turns (QC: 6 Wheel 150 feet: 6 PT Plan Problem List Problem List: Activity Tolerance, Functional Strength, Safety, Balance, Gait, Transfer, Bed Mobility, ROM Treatment/Plan Treatment Plan: Continue Plan of Care Treatment Plan: Bed Mobility, Education, Functional Activity Cierra, Functional Strength, Group Therapy, Gait, Safety, Therapeutic Exercise, Transfers Treatment Duration: Aug 05, 2020 Frequency: Modified Program (IRF) Estimated Hrs Per Day: 1 hour per day Patient and/or Family Agrees t: Yes Safety Risks/Education Patient Education: Transfer Techniques, Correct Positioning, W/C Management, Safety Issues Teaching Recipient: Patient Teaching Methods: Demonstration, Discussion Response to Teaching: Reinforcement Needed Time/GCodes Time In: 0900 Time Out: 1000 Total Billed Treatment Time: 60 Total Billed Treatment 1 visit FA 60' co-treated with OT for 60' SMITHA MIIS PT July 23, 2020 10:18
--- NOTE | 2020-07-23 12:02 | Occupational Ther Daily Note ---
OT Current Status-Daily Note Subjective Pt. does not report pain, but does report fatigue. Mental Status/Objective Patient Orientation: Person, Place, Time, Situation ADL-Treatment Therapy Code Descriptions/Definitions Functional [place] Measure: 0=Not Assessed/NA 4=Minimal Assistance 1=Total Assistance 5=Supervision or Setup 2=Maximal Assistance 6=Modified [place] 3=Moderate Assistance 7=Complete IndependenceSCALE: Activities may be completed with or without assistive devices. 2-Kuuzyzsqkn-yiosrat completes the activity by him/herself with no assistance from a helper. 5-Set-up or Clean-up Assistance-helper sets up or cleans up; patient completes activity. [place] assists only prior to or following the activity. 4-Supervision or Touching Assistance-helper provides verbal cues and/or touching/steadying and/or contact guard assistance as patient completes activity. Assistance may be provided throughout the activity or intermittently. 3-Partial/Moderate Assistance-helper does LESS THAN HALF the effort. [place] lifts, holds or supports trunk or limbs, but provides less than half the effort. 2-Substantial/Maximal Assistance-helper does MORE THAN HALF the effort. [place] lifts or holds trunk or limbs and provides more than half the effort. 0-Dswdrjcpb-jbxedb does ALL the effort. Patient does none of the effort to complete the activity. Or, the assistance of 2 or more helpers is required for the patient to complete the activity. If activity was not attempted, code reason: 7-Patient Refused. 9-Not Applicable-not attempted and the patient did not perform the activity be fore the current illness, exacerbation or injury. 10-Not Attempted due to Environmental Limitations-(lack of equipment, weather restraints, etc.). 88-Not Attempted due to Medical Conditions or Safety Concerns. Oral Hygiene (QC): 5 (Set up seated in chair to brush teeth.) Upper Body Dressing (QC): 5 (Seated on side of bed.) Lower Body Dressing (QC): 3 (Min assist at bed level.) On/Off Footwear: 2 (Seated on side of bed.) Other Treatment Pt. seen for co-treatment with PT due to poor endurance overall and need of two skilled clinicians for needs. Pt. dressed at bed level, with assist to thread feet into shorts/underwear. Transferred supine-sit with min assist. Pt. transferred to wheelchair via sit-stand lift. Pt. able to self propel wheelchair to gym, but requests for oxygen to be raised to 4 L. Pt. practices standing 3 times in parallel bars, with max x 2 each time. Able to stand approximately 1-2 minutes each time before requesting to sit. Increased rest break each time. Pt. attempts UE exercises with 2 lb. dumbbell x 15 reps each arm. Able to do one exercise but fatigues easily. Pt. self propels back to room, and is transferred to reclining chair. All needs met. Pt. completes grooming tasks at chair level. Education OT Patient Education: Correct positioning, Exercise program, Modified ADL techniques, Progress toward Goal/Update tx plan, Purpose of tx/functional activities, Reviewed precautions, Rehab process, Transfer techniques Teaching Recipient: Patient Teaching Methods: Demonstration, Discussion Response to Teaching: Verbalize Understanding, Return Demonstration OT Short Term Goals Short Term Goals Time Frame: Aug 05, 2020 Toileting hygiene: 2 Upper body dressin Lower body dressin Putting on/taking off footwear: 2 OT Form Setter/Driver Goals [facility] Goals Time Frame: Aug 13, 2020 Eating (QC): 6 Oral Hygiene (QC): 6 Toileting Hygiene (QC): 6 Shower/Bathe Self (QC): 6 Upper Body Dressing (QC): 6 Lower Body Dressing (QC): 6 On/Off Footwear (QC): 6 Additional Goals: 1-Demonstrate ADL Tasks, 2-Verbalize Understanding, 3- ImproveStrength/Cierra 1=Demonstrate adherence to instructed precautions during ADL tasks. 2=Patient will verbalize/demonstrate understanding of assistive devices/modifications for ADL. 3=Patient will improve strength/tolerance for activity to enable patient to perform ADL's. OT Education/Plan Problem List/Assessment Assessment: Decreased Activ Tolerance, Decreased UE Strength, Dependent Tr ansfers, Impaired I ADL's, Impaired Self-Care Skills Discharge Recommendations Plan/Recommendations: Continue POC Therapy Discharge Recommendati: Post Acute OT Treatment Plan/Plan of Care Treatment,Training & Education: Yes Patient would benefit from OT for education, treatment and training to promote independence in ADL's, mobility, safety and/or upper extremity function for ADL's. Plan of Care: ADL Retraining, Functional Mobility, Group Exercise/Act as Ind, UE Funct Exercise/Act Treatment Duration: Aug 13, 2020 Frequency: Modified Program (IRF) Estimated Hrs Per Day: 1 hour per day Agreement: Yes Rehab Potential: Fair Time/GCodes Start Time: 09:00 Stop Time: 10:15 Total Time Billed (hr/min): 75 Billed Treatment Time 3218-2361 1, FA x 60minutes- Co-treatment with PT [id number] Ex x 15minutes RAÚL BLANCHARD OT July 23, 2020 12:02
--- NOTE | 2020-07-23 13:19 | Physical Therapy Daily Note ---
PT Daily Note-Current Subjective Patient in bed pre tx, agrees to PT, has no complaints of pain. Appearance Patient in bed post tx with nurse call, phone, tray, all needs met. Mental Status Patient Orientation: Normal For Age Attachments: Oxygen Transfers SCALE: Activities may be completed with or without assistive devices. 6-Qjmnqyyvvc-fvbyuia completes the activity by him/herself with no assistance from a helper. 5-Set-up or Clean-up Assistance-helper sets up or cleans up; patient completes activity. [place] assists only prior to or following the activity. 4-Supervision or Touching Assistance-helper provides verbal cues and/or touching/steadying and/or contact guard assistance as patient completes activity. Assistance may be provided throughout the activity or intermittently. 3-Partial/Moderate Assistance-helper does LESS THAN HALF the effort. [place] li fts, holds or supports trunk or limbs, but provides less than half the effort. 2-Substantial/Maximal Assistance-helper does MORE THAN HALF the effort. [place] lifts or holds trunk or limbs and provides more than half the effort. 2-Abzfrezif-nnkqog does ALL the effort. Patient does none of the effort to complete the activity. Or, the assistance of 2 or more helpers is required for the patient to complete the activity. If activity was not attempted, code reason: 7-Patient Refused. 9-Not Applicable-not attempted and the patient did not perform the activity before the current illness, exacerbation or injury. 10-Not Attempted due to Environmental Limitations-(lack of equipment, weather restraints, etc.). 88-Not Attempted due to Medical Conditions or Safety Concerns. Exercises Supine Ex: Ankle pumps (only RLE), Quad Set, Glut sets, Heel Slides, Short Arc Quads, Straight leg raise (AAROM), Hip abd/add Supine Reps: 20 Treatments LE exercise Assessment Current Status: Fair Progress slowly progressing LE strength PT Short Term Goals Short Term Goals Time Frame: July 22, 2020 Roll Left & Right: 4 Sit to lyin Lying to sitting on side of be: 3 PT Senior Living Goals Senior Living Goals PT Senior Living Goals Time Frame: Aug 05, 2020 Roll Left & Right (QC): 4 Sit to Lying (QC): 4 Lying-Sitting on Side/Bed(QC): 4 Sit to Stand (QC): 3 Chair/Iso-vc-Zsfze Xfer(QC): 3 Toilet Transfer (QC): 3 Car Transfer (QC): 3 Does the Patient Walk: No and Walking Goal IS indicated Walk 10 feet (QC): 3 Walk 50ft with 2 Turns (QC): 88 Walk 150 ft (QC): 88 Walking 10ft on Uneven Surface: 88 1 Step (curb) (QC): 88 4 Steps (QC): 88 12 Steps (QC): 88 Picking up an Object (QC): 88 Wheel 50 feet with 2 turns (QC: 6 Wheel 150 feet: 6 PT Plan Problem List Problem List: Activity Tolerance, Functional Strength, Safety, Balance, Gait, Transfer, Bed Mobility, ROM Treatment/Plan Treatment Plan: Continue Plan of Care Treatment Plan: Bed Mobility, Education, Functional Activity Cierra, Functional Strength, Group Therapy, Gait, Safety, Therapeutic Exercise, Transfers Treatment Duration: Aug 05, 2020 Frequency: Modified Program (IRF) Estimated Hrs Per Day: 1 hour per day Patient and/or Family Agrees t: Yes Safety Risks/Education Patient Education: Correct Positioning, Safety Issues Teaching Recipient: Patient Teaching Methods: Demonstration, Discussion Response to Teaching: Reinforcement Needed Time/GCodes Time In: 1300 Time Out: 1315 Total Billed Treatment Time: 15 Total Billed Treatment 1 visit EX 15' LIZ MI PT July 23, 2020 13:19
[2020-07-23 19:35] VITALS: BP 134/81
[2020-07-23] MEDS: MELATONIN 10 MG TABLET PO SCH (20:37)
--- NOTE | 2020-07-24 08:08 | PM&R Progress Note ---
Subjective HPI/CC On Admission Date Seen by Provider: July 24, 2020 Time Seen by Provider: 13:00 Subjective/Events-last exam 07/24/2020: Patient doing really well today On oxygen at 1.5 L/min Had a large bowel movement Sugars are okay Hates the carb limitations Girlfriend and his mother at the bedside today 07/23/20: Pt up in a chair and appears to be much stronger 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 in a chair for very long Blood sugar 141 Left foot drop is an issue 07/22/20: Patient doing well Baseline flat affect assessed Had complete bowel evacuation yesterday after Fleets after supp EKG today per Dr Rinaldi Monitored closely 07/21/20: Pt doing pretty well Slow progress Will DC the heplock Sugar changes to twice daily and will give 3 units of Novolog if greater than 160 Trach dressing changed and it is sealing up well Bowels moved yesterday 07/20/20: Pt doing pretty well Bowels moved two days ago, doesnt want anything too harsh Oxygen maintained Working hard Progressing nicely 07/19/20: Pt doing pretty well Respiratory therapy tried to wean him off and he became very hypoxic Weakness in hands are a challenge for him to shave DC Cefepime and starting Omnicef Doesnt really like IVs and lab checks and made that pretty clear to me 07/18/20: Patient doing well Diarrhea noted UTI treated with IV abx UCx pending 07/17/20: Patient doing well No complaints Awaiting UCx Empiric abx maintained Aunt at bedside O2 at 1L/min Sugar improved 07/16/20: Pt doing pretty well Potassium of 2.7 so will initiate supplement Dr. Rinaldi is seeing him in consultation EKG obtained and normal sinus rhythm noted UA ordered for burning sensation on urination Pt very debilitated Review of Systems General: Fatigue, Malaise Pulmonary: Dyspnea Objective Exam Vital Signs Vital Signs Date Time Temp Pulse Resp B/P (MAP) Pulse Ox O2 Delivery O2 Flow Rate FiO2 07/24/20 09:00 Nasal Cannula 1.50 07/24/20 08:28 36.3 86 18 124/73 (90) 95 Capillary Refill : General Appearance: No Apparent Distress, WD/WN, Obese HEENT: PERRL/EOMI, Normal ENT Inspection, Pharynx Normal Neck: Full Range of Motion, Normal Inspection, Non Tender, Supple, Carotid Bruit Respiratory: Chest Non Tender, Lungs Clear, No Accessory Muscle Use, No Respiratory Distress, Decreased Breath Sounds Cardiovascular: Regular Rate, Rhythm, No Edema, No Gallop, No JVD, No Murmur, Normal Peripheral Pulses Gastrointestinal: Normal Bowel Sounds, No Organomegaly, No Pulsatile Mass, Non Tender, Soft Back: Normal Inspection, No CVA Tenderness, No Vertebral Tenderness Extremity: Normal Capillary Refill, Normal Inspection, Normal Range of Motion, Non Tender, No Calf Tenderness, No Pedal Edema Neurologic/Psychiatric: Alert, Oriented x3, No Motor/Sensory Deficits, Normal Mood/Affect, retread 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 FIM Transfers Therapy Code Descriptions/Definitions Functional [place] Measure: 0=Not Assessed/NA 4=Minimal Assistance 1=Total Assistance 5=Supervision or Setup 2=Maximal Assistance 6=Modified [place] 3=Moderate Assistance 7=Complete IndependenceSCALE: Activities may be completed with or without assistive devices. 3-Gecdkvkkfb-gmvzrxa completes the activity by him/herself with no assistance from a helper. 5-Set-up or Clean-up Assistance-helper sets up or cleans up; patient completes activity. [place] assists only prior to or following the activity. 4-Supervision or Touching Assistance-helper provides verbal cues and/or touching/steadying and/or contact guard assistance as patient completes activity. Assistance may be provided throughout the activity or intermittently. 3-Partial/Moderate Assistance-helper does LESS THAN HALF the effort. [place] lifts, holds or supports trunk or limbs, but provides less than half the effort. 2-Substantial/Maximal Assistance-helper does MORE THAN HALF the effort. [place] lifts or holds trunk or limbs and provides more than half the effort. 3-Ysactalku-uylmyr does ALL the effort. Patient does none of the effort to complete the activity. Or, the assistance of 2 or more helpers is required for the patient to complete the activity. If activity was not attempted, code reason: 7-Patient Refused. 9-Not Applicable-not attempted and the patient did not perform the activity before the current illness, exacerbation or injury. 10-Not Attempted due to Environmental Limitations-(lack of equipment, weather restraints, etc.). 88-Not Attempted due to Medical Conditions or Safety Concerns. Roll Left to Right (QC): 5 Sit to Lying (QC): 2 Sit to Stand (QC): 1 Chair/Wuf-jx-Yndsk Xfer(QC): 1 Car Transfer (QC): 1 Gait Training Does the Patient Walk?: No and Walking Goal NOT indicated Walk 10 feet (QC): 88 Walk 50 ft with 2 Turns(QC): 88 Walk 150 ft (QC): 88 Walking 10ft/uneven surface-QC: 88 Wheelchair Training Does the Pt Use a Wheelchair?: Yes Distance: 80' Wheel 50 ft with 2 turns (QC): 5 Wheel 150 ft (QC): 4 Type of Wheelchair: Manual Stair Training 1 Step (curb) (QC): 88 4 Steps (QC): 88 12 Steps (QC): 88 Balance Picking up an Object (QC): 88 ADL-Treatment Eating (QC): 5 (set up per pt report) Oral Hygiene (QC): 5 (Set up seated in chair to brush teeth.) Shower/Bathe Self (QC): 3 Upper Body Dressing (QC): 5 (Seated on side of bed.) Lower Body Dressing (QC): 3 (Min assist at bed level.) On/Off Footwear (QC): 2 (Seated on side of bed.) Toileting Hygiene (QC): 1 Toilet Transfer (QC): 1 Assessment/Plan Assessment and Plan Assess & Plan/Chief Complaint Assessment: COVID-19 PNA myopathy Severe poor lung reserve Obesity New onset DM AF? Plan: Insulin Monitor lung function Cardiology consult 07/16/20: UA Replace potassium Slow recovery 07/17/20: IV abx Suspect resistant UTI 07/18/20: Monitor closely Await Ucx 07/19/20: Reviewed UCx DC Cefepime Irritated with IV's and lab checks 07/20/20: Monitor closely Sugars good 07/21/20: DC Heplock 07/22/20: Monitored closely BP ok 07/23/20: Monitor O2 Improved status now 07/24/2020: Continue limitation of carbs to decrease sugar Monitor oxygen level (1) Myopathy (2) COVID-19 (3) Obesity (4) Diabetes mellitus NATHANAEL HOWE DO July 24, 2020 08:08
--- NOTE | 2020-07-24 08:20 | Physical Therapy Daily Note ---
PT Daily Note-Current Subjective Pt. declines sitting up in chair at this time. Pt. states he had an uncomfortable night . Pt. agrees to bed exercises and rolling and bed mobility. States his back and a "rash" on his back are causing him the most discomfort, requests Ibuprofen of nursing Pain Numeric Pain Scale: 4 Location: Medial Location Body Site: Back Pain Description: Ache, Pricking Appearance foot drop L>R, Mental Status Patient Orientation: Normal For Age Transfers SCALE: Activities may be completed with or without assistive devices. 3-Pjxpculkmt-ifpxriy completes the activity by him/herself with no assistance from a helper. 5-Set-up or Clean-up Assistance-helper sets up or cleans up; patient completes activity. [place] assists only prior to or following the activity. 4-Supervision or Touching Assistance-helper provides verbal cues and/or touching/steadying and/or contact guard assistance as patient completes activity. Assistance may be provided throughout the activity or intermittently. 3-Partial/Moderate Assistance-helper does LESS THAN HALF the effort. [place] lifts, holds or supports trunk or limbs, but provides less than half the effort. 2-Substantial/Maximal Assistance-helper does MORE THAN HALF the effort. [place] lifts or holds trunk or limbs and provides more than half the effort. 6-Ommimolca-zunebj does ALL the effort. Patient does none of the effort to complete the activity. Or, the assistance of 2 or more helpers is required for the patient to complete the activity. If activity was not attempted, code reason: 7-Patient Refused. 9-Not Applicable-not attempted and the patient did not perform the activity before the current illness, exacerbation or injury. 10-Not Attempted due to Environmental Limitations-(lack of equipment, weather restraints, etc.). 88-Not Attempted due to Medical Conditions or Safety Concerns. Roll Left & Right (QC): 6 (uses rails) Exercises Supine Ex: Bridging, Ankle pumps (HC stretches left with assist 4 x 20 sec), Quad Set, Rolling, Glut sets, Heel Slides, Short Arc Quads, Scooting (up in bed with assist to stabilize feet/LEs ), Straight leg raise, Hip abd/add Supine Reps: 12 (x2) Assessment Current Status: Good Progress pt. declines up in recliner at this time PT Short Term Goals Short Term Goals Time Frame: July 22, 2020 Roll Left & Right: 4 Sit to lyin Lying to sitting on side of be: 3 PT [employer] Goals M[facility] Goals PT Mcc Goals Time Frame: Aug 05, 2020 Roll Left & Right (QC): 4 Sit to Lying (QC): 4 Lying-Sitting on Side/Bed(QC): 4 Sit to Stand (QC): 3 Chair/Qra-wv-Xrpls Xfer(QC): 3 Toilet Transfer (QC): 3 Car Transfer (QC): 3 Does the Patient Walk: No and Walking Goal IS indicated Walk 10 feet (QC): 3 Walk 50ft with 2 Turns (QC): 88 Walk 150 ft (QC): 88 Walking 10ft on Uneven Surface: 88 1 Step (curb) (QC): 88 4 Steps (QC): 88 12 Steps (QC): 88 Picking up an Object (QC): 88 Wheel 50 feet with 2 turns (QC: 6 Wheel 150 feet: 6 PT Plan Treatment/Plan Treatment Plan: Continue Plan of Care Treatment Plan: Bed Mobility, Education, Functional Activity Cierra, Functional Strength, Group Therapy, Gait, Safety, Therapeutic Exercise, Transfers Treatment Duration: Aug 05, 2020 Frequency: Modified Program (IRF) Estimated Hrs Per Day: 1 hour per day Patient and/or Family Agrees t: Yes Safety Risks/Education Patient Education: Correct Positioning, Disease Process Time/GCodes Time In: 800 Time Out: 815 Total Billed Treatment Time: 15 Total Billed Treatment 1,EX15m NALDO SHERMAN STORE SALES MANAGER July 24, 2020 08:20
[2020-07-24 08:28] VITALS: BP 124/73
[2020-07-24] MEDS: AMIODARONE 200 MG (CORDARONE) TAB PO SCH (08:30)
[2020-07-24] MEDS: VITAMIN D3 125 MCG (5,000 UNITS) CAPSULE PO SCH (08:30)
[2020-07-24] MEDS: amLODIPine 10 MG (NORVASC) TAB PO SCH (08:30)
[2020-07-24] MEDS: lisINopril 20 MG (PRINIVIL) TABLET PO SCH (08:30)
[2020-07-24] MEDS: APIXABAN 2.5 MG (ELIQUIS) TABLET PO SCH ×2 (08:30→20:48)
[2020-07-24] MEDS: KCL 10 MEQ TAB (MICRO K) PO SCH ×3 (08:30→18:14)
[2020-07-24] MEDS: LACTOBACILLUS ACIDOPHILUS (PROBIOTIC) CAPSULE PO SCH ×2 (08:30→20:48)
[2020-07-24] MEDS: PANTOPRAZOLE 40 MG (PROTONIX) TAB PO SCH (08:30)
[2020-07-24] MEDS: ACETAMINOPHEN 325 MG TABLET PO PRN (08:31)
[2020-07-24] MEDS: DOCUSATE SODIUM 100 MG (COLACE) CAP PO SCH ×2 (08:31→20:48)
[2020-07-24] MEDS: SENNA W/DOCUSATE (SENOKOT S) TABLET PO SCH ×2 (08:31→20:48)
[2020-07-24] MEDS: ASCORBIC ACID (VIT C) 500 MG TABLET PO SCH (08:32)
[2020-07-24] MEDS: MICONAZOLE 2% POWDER (DESENEX AF) 90 GM TOP SCH ×2 (08:32→20:28)
[2020-07-24] MEDS: polyethylene glycoL POWDER 17 GM (MIRALAX) PACK PO SCH ×2 (08:39→20:27)
[2020-07-24 19:56] VITALS: BP 138/82
[2020-07-24] MEDS: MELATONIN 10 MG TABLET PO SCH (20:27)
--- NOTE | 2020-07-25 06:58 | PM&R Progress Note ---
Subjective HPI/CC On Admission Date Seen by Provider: July 25, 2020 Time Seen by Provider: 12:30 Subjective/Events-last exam 07/25/2020 Patient denies any issues Improving strength by the day Due for labs tomorrow Family at bedside 07/24/2020: Patient doing really well today On oxygen at 1.5 L/min Had a large bowel movement Sugars are okay Hates the carb limitations Girlfriend and his mother at the bedside today 07/23/20: Pt up in a chair and appears to be much stronger 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 in a chair for very long Blood sugar 141 Left foot drop is an issue 07/22/20: Patient doing well Baseline flat affect assessed Had complete bowel evacuation yesterday after Fleets after supp EKG today per Dr Rinaldi Monitored closely 07/21/20: Pt doing pretty well Slow progress Will DC the heplock Sugar changes to twice daily and will give 3 units of Novolog if greater than 160 Trach dressing changed and it is sealing up well Bowels moved yesterday 07/20/20: Pt doing pretty well Bowels moved two days ago, doesnt want anything too harsh Oxygen maintained Working hard Progressing nicely 07/19/20: Pt doing pretty well Respiratory therapy tried to wean him off and he became very hypoxic Weakness in hands are a challenge for him to shave DC Cefepime and starting Omnicef Doesnt really like IVs and lab checks and made that pretty clear to me 07/18/20: Patient doing well Diarrhea noted UTI treated with IV abx UCx pending 07/17/20: Patient doing well No complaints Awaiting UCx Empiric abx maintained Aunt at bedside O2 at 1L/min Sugar improved 07/16/20: Pt doing pretty well Potassium of 2.7 so will initiate supplement Dr. Rinaldi is seeing him in consultation EKG obtained and normal sinus rhythm noted UA ordered for burning sensation on urination Pt very debilitated Review of Systems General: Fatigue Pulmonary: Dyspnea Objective Exam Vital Signs Vital Signs Date Time Temp Pulse Resp B/P (MAP) Pulse Ox O2 Delivery O2 Flow Rate FiO2 07/25/20 09:14 Nasal Cannula 1.50 07/25/20 08:28 36.1 79 20 135/81 (99) 95 Capillary Refill : General Appearance: No Apparent Distress, WD/WN, Obese HEENT: PERRL/EOMI, Normal ENT Inspection, Pharynx Normal Neck: Full Range of Motion, Normal Inspection, Non Tender, Supple, Carotid Bruit Respiratory: Chest Non Tender, Lungs Clear, No Accessory Muscle Use, No Respiratory Distress, Decreased Breath Sounds Cardiovascular: Regular Rate, Rhythm, No Edema, No Gallop, No JVD, No Murmur, Normal Peripheral Pulses Gastrointestinal: Normal Bowel Sounds, No Organomegaly, No Pulsatile Mass, Non Tender, Soft Back: Normal Inspection, No CVA Tenderness, No Vertebral Tenderness Extremity: Normal Capillary Refill, Normal Inspection, Normal Range of Motion, Non Tender, No Calf Tenderness, No Pedal Edema Neurologic/Psychiatric: Alert, Oriented x3, No Motor/Sensory Deficits, Normal Mood/Affect, clinical laboratory 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 FIM Transfers Therapy Code Descriptions/Definitions Functional [place] Measure: 0=Not Assessed/NA 4=Minimal Assistance 1=Total Assistance 5=Supervision or Setup 2=Maximal Assistance 6=Modified [place] 3=Moderate Assistance 7=Complete IndependenceSCALE: Activities may be completed with or without assistive devices. 7-Naeivvglhe-koncfjj completes the activity by him/herself with no assistance from a helper. 5-Set-up or Clean-up Assistance-helper sets up or cleans up; patient completes activity. [place] assists only prior to or following the activity. 4-Supervision or Touching Assistance-helper provides verbal cues and/or touching /steadying and/or contact guard assistance as patient completes activity. Assistance may be provided throughout the activity or intermittently. 3-Partial/Moderate Assistance-helper does LESS THAN HALF the effort. [place] lifts, holds or supports trunk or limbs, but provides less than half the effort. 2-Substantial/Maximal Assistance-helper does MORE THAN HALF the effort. [place] lifts or holds trunk or limbs and provides more than half the effort. 4-Trrgwuolk-crlmxf does ALL the effort. Patient does none of the effort to complete the activity. Or, the assistance of 2 or more helpers is required for the patient to complete the activity. If activity was not attempted, code reason: 7-Patient Refused. 9-Not Applicable-not attempted and the patient did not perform the activity before the current illness, exacerbation or injury. 10-Not Attempted due to Environmental Limitations-(lack of equipment, weather restraints, etc.). 88-Not Attempted due to Medical Conditions or Safety Concerns. Roll Left to Right (QC): 6 (uses rails) Sit to Lying (QC): 2 Sit to Stand (QC): 1 Chair/Grb-ei-Ilxov Xfer(QC): 1 Car Transfer (QC): 1 Gait Training Does the Patient Walk?: No and Walking Goal NOT indicated Walk 10 feet (QC): 88 Walk 50 ft with 2 Turns(QC): 88 Walk 150 ft (QC): 88 Walking 10ft/uneven surface-QC: 88 Wheelchair Training Does the Pt Use a Wheelchair?: Yes Distance: 80' Wheel 50 ft with 2 turns (QC): 5 Wheel 150 ft (QC): 4 Type of Wheelchair: Manual Stair Training 1 Step (curb) (QC): 88 4 Steps (QC): 88 12 Steps (QC): 88 Balance Picking up an Object (QC): 88 ADL-Treatment Eating (QC): 5 (set up per pt report) Oral Hygiene (QC): 5 (Set up seated in chair to brush teeth.) Shower/Bathe Self (QC): 3 Upper Body Dressing (QC): 5 (Seated on side of bed.) Lower Body Dressing (QC): 3 (Min assist at bed level.) On/Off Footwear (QC): 2 (Seated on side of bed.) Toileting Hygiene (QC): 1 Toilet Transfer (QC): 1 Assessment/Plan Assessment and Plan Assess & Plan/Chief Complaint Assessment: COVID-19 PNA myopathy Severe poor lung reserve Obesity New onset DM AF? Plan: Insulin Monitor lung function Cardiology consult 07/16/20: UA Replace potassium Slow recovery 07/17/20: IV abx Suspect resistant UTI 07/18/20: Monitor closely Await Ucx 07/19/20: Reviewed UCx DC Cefepime Irritated with IV's and lab checks 07/20/20: Monitor closely Sugars good 07/21/20: DC Heplock 07/22/20: Monitored closely BP ok 07/23/20: Monitor O2 Improved status now 07/24/2020: Continue limitation of carbs to decrease sugar Monitor oxygen level 07/25/2020 Check labs in the morning Monitor closely (1) Myopathy (2) COVID-19 (3) Obesity (4) Diabetes mellitus NATHANAEL HOWE DO July 25, 2020 06:58
[2020-07-25 08:28] VITALS: BP 135/81
[2020-07-25] MEDS: AMIODARONE 200 MG (CORDARONE) TAB PO SCH (08:30)
[2020-07-25] MEDS: KCL 10 MEQ TAB (MICRO K) PO SCH ×3 (08:31→17:54)
[2020-07-25] MEDS: APIXABAN 2.5 MG (ELIQUIS) TABLET PO SCH ×2 (08:31→21:56)
[2020-07-25] MEDS: LACTOBACILLUS ACIDOPHILUS (PROBIOTIC) CAPSULE PO SCH ×2 (08:31→21:56)
[2020-07-25] MEDS: ASCORBIC ACID (VIT C) 500 MG TABLET PO SCH (08:31)
[2020-07-25] MEDS: amLODIPine 10 MG (NORVASC) TAB PO SCH (08:31)
[2020-07-25] MEDS: VITAMIN D3 125 MCG (5,000 UNITS) CAPSULE PO SCH (08:31)
[2020-07-25] MEDS: lisINopril 20 MG (PRINIVIL) TABLET PO SCH (08:31)
[2020-07-25] MEDS: PANTOPRAZOLE 40 MG (PROTONIX) TAB PO SCH (08:31)
[2020-07-25] MEDS: MICONAZOLE 2% POWDER (DESENEX AF) 90 GM TOP SCH ×2 (09:12→19:30)
[2020-07-25] MEDS: SENNA W/DOCUSATE (SENOKOT S) TABLET PO SCH ×2 (09:12→21:56)
[2020-07-25] MEDS: DOCUSATE SODIUM 100 MG (COLACE) CAP PO SCH ×2 (09:12→21:56)
[2020-07-25] MEDS: polyethylene glycoL POWDER 17 GM (MIRALAX) PACK PO SCH ×2 (09:12→19:29)
[2020-07-25] MEDS: MELATONIN 10 MG TABLET PO SCH (19:29)
[2020-07-25 19:46] VITALS: BP 133/82
[2020-07-26 05:43] LABS: BASOPHILS # (AUTO) 0.1 10^3/uL (0.0-0.1); BASOPHILS % (AUTO) 1 % (0-10); EOSINOPHILS # (AUTO) 0.2 10^3/uL (0.0-0.3); EOSINOPHILS % (AUTO) 2 % (0-10); HEMATOCRIT 43 % (40-54); HEMOGLOBIN 13.3 g/dL (13.3-17.7); LYMPHOCYTES # (AUTO) 1.5 10^3/uL (1.0-4.0); LYMPHOCYTES % (AUTO) 19 % (12-44); MEAN CORPUSCULAR HEMOGLOBIN 29 pg (25-34); MEAN CORPUSCULAR HGB CONC 31 g/dL (32-36); MEAN CORPUSCULAR VOLUME 91 fL (80-99); MEAN PLATELET VOLUME 10.6 fL (9.0-12.2); MONOCYTES # (AUTO) 0.6 10^3/uL (0.0-1.0); MONOCYTES % (AUTO) 7 % (0-12); NEUTROPHILS # (AUTO) 5.5 10^3/uL (1.8-7.8); NEUTROPHILS % (AUTO) 69 % (42-75); PLATELET COUNT 283 10^3/uL (130-400)
[2020-07-26 05:56] LABS: ALBUMIN 3.2 GM/DL (3.2-4.5)
[2020-07-26 05:57] LABS: CHLORIDE 107 MMOL/L (98-107); POTASSIUM 3.5 MMOL/L (3.6-5.0); SODIUM 145 MMOL/L (135-145)
[2020-07-26 05:59] LABS: GLUCOSE 139 MG/DL (70-105); TOTAL PROTEIN 5.7 GM/DL (6.4-8.2)
[2020-07-26 06:00] LABS: CARBON DIOXIDE 25 MMOL/L (21-32)
[2020-07-26 06:01] LABS: BILIRUBIN,TOTAL 0.5 MG/DL (0.1-1.0)
[2020-07-26 06:03] LABS: ALKALINE PHOSPHATASE 100 U/L (40-136); CREATININE SERUM 0.62 MG/DL (0.60-1.30); GFR ESTIMATED > 60
[2020-07-26 06:04] LABS: BUN/CREATININE RATIO 21
[2020-07-26 06:06] LABS: ALANINE AMINOTRANSFERASE 42 U/L (0-55)
[2020-07-26 07:53] VITALS: BP 139/82
[2020-07-26] MEDS: amLODIPine 10 MG (NORVASC) TAB PO SCH (08:58)
[2020-07-26] MEDS: LACTOBACILLUS ACIDOPHILUS (PROBIOTIC) CAPSULE PO SCH ×2 (08:58→21:14)
[2020-07-26] MEDS: VITAMIN D3 125 MCG (5,000 UNITS) CAPSULE PO SCH (08:58)
[2020-07-26] MEDS: lisINopril 20 MG (PRINIVIL) TABLET PO SCH (08:58)
[2020-07-26] MEDS: KCL 10 MEQ TAB (MICRO K) PO SCH ×3 (08:58→17:27)
[2020-07-26] MEDS: PANTOPRAZOLE 40 MG (PROTONIX) TAB PO SCH (08:58)
[2020-07-26] MEDS: AMIODARONE 200 MG (CORDARONE) TAB PO SCH (08:58)
[2020-07-26] MEDS: ASCORBIC ACID (VIT C) 500 MG TABLET PO SCH (08:58)
[2020-07-26] MEDS: APIXABAN 2.5 MG (ELIQUIS) TABLET PO SCH ×2 (08:58→21:14)
[2020-07-26] MEDS: SENNA W/DOCUSATE (SENOKOT S) TABLET PO SCH ×2 (09:00→19:53)
[2020-07-26] MEDS: DOCUSATE SODIUM 100 MG (COLACE) CAP PO SCH ×2 (09:00→19:53)
[2020-07-26] MEDS: polyethylene glycoL POWDER 17 GM (MIRALAX) PACK PO SCH ×2 (09:00→19:53)
[2020-07-26] MEDS: MICONAZOLE 2% POWDER (DESENEX AF) 90 GM TOP SCH ×2 (09:00→19:54)
--- NOTE | 2020-07-26 09:51 | Physical Therapy Daily Note ---
PT Daily Note-Current Subjective Patient in bed pre tx, agrees to PT, has no complaints of pain at rest. Will be co-treating with OT due to poor patient mobility, strength, endurance, severe debility, coordinate UE and LE during activity, safety and reduce risk of falls. Appearance Patient in bed post tx with nurse call, phone, tray, all needs met. Mental Status Patient Orientation: Normal For Age Attachments: Oxygen Transfers SCALE: Activities may be completed with or without assistive devices. 3-Xygstycxyl-yewrqvq completes the activity by him/herself with no assistance from a helper. 5-Set-up or Clean-up Assistance-helper sets up or cleans up; patient completes activity. [place] assists only prior to or following the activity. 4-Supervision or Touching Assistance-helper provides verbal cues and/or touching/steadying and/or contact guard assistance as patient completes activity. Assistance may be provided throughout the activity or intermittently. 3-Partial/Moderate Assistance-helper does LESS THAN HALF the effort. [place] lifts, holds or supports trunk or limbs, but provides less than half the effort. 2-Substantial/Maximal Assistance-helper does MORE THAN HALF the effort. [place] lifts or holds trunk or limbs and provides more than half the effort. 5-Oruzethdh-kjexkl does ALL the effort. Patient does none of the effort to complete the activity. Or, the assistance of 2 or more helpers is required for the patient to complete the activity. If activity was not attempted, code reason: 7-Patient Refused. 9-Not Applicable-not attempted and the patient did not perform the activity before the current illness, exacerbation or injury. 10-Not Attempted due to Environmental Limitations-(lack of equipment, weather restraints, etc.). 88-Not Attempted due to Medical Conditions or Safety Concerns. Roll Left & Right (QC): 6 Sit to Lying (QC): 4 Lying to Sitting/Side of Bed(Q: 4 Sit to Stand (QC): 1 Chair/Zez-od-Aqjch Xfer(QC): 1 sit to stand machine for transfers and standing from bed Gait Training Distance: 2' Gait Assistive Device: Parallel Bars Patient was able to ambulate 2' or 2 steps, one with each leg in the parallel bars with assist of 2 Wheelchair Training Does the Pt Use a Wheelchair?: Yes Wheel 50 ft with 2 turns (QC): 5 Wheel 150 ft (QC): 5 Type of Wheelchair: Manual 120', 300' Exercises Patient stood in the parallel bars x3 with mod assist, after standing the second time he was able to take a couple of steps but couldn't the third time. Treatments PT worked on bed mobility and transfers, ambulation, WC mobility, standing, OT worked on UE positioning and safety during activity Assessment Current Status: Fair Progress very slow progress, patient's O2 remained at 90-91% with activity, it did drop to 89% at one point but came back up within seconds of resting, nurse notified and patient in bed without O2 per nurse to see how he tolerates it. PT Short Term Goals Short Term Goals Time Frame: July 22, 2020 Roll Left & Right: 4 Sit to lyin Lying to sitting on side of be: 3 PT Magazine Worker Goals Magazine Worker Goals PT Half-Way Goals Time Frame: Aug 05, 2020 Roll Left & Right (QC): 4 Sit to Lying (QC): 4 Lying-Sitting on Side/Bed(QC): 4 Sit to Stand (QC): 3 Chair/Jfx-vx-Vrfby Xfer(QC): 3 Toilet Transfer (QC): 3 Car Transfer (QC): 3 Does the Patient Walk: No and Walking Goal IS indicated Walk 10 feet (QC): 3 Walk 50ft with 2 Turns (QC): 88 Walk 150 ft (QC): 88 Walking 10ft on Uneven Surface: 88 1 Step (curb) (QC): 88 4 Steps (QC): 88 12 Steps (QC): 88 Picking up an Object (QC): 88 Wheel 50 feet with 2 turns (QC: 6 Wheel 150 feet: 6 PT Plan Problem List Problem List: Activity Tolerance, Functional Strength, Safety, Balance, Gait, Transfer, Bed Mobility, ROM Treatment/Plan Treatment Plan: Continue Plan of Care Treatment Plan: Bed Mobility, Education, Functional Activity Cierra, Functional Strength, Group Therapy, Gait, Safety, Therapeutic Exercise, Transfers Treatment Duration: Aug 05, 2020 Frequency: Modified Program (IRF) Estimated Hrs Per Day: 1 hour per day Patient and/or Family Agrees t: Yes Safety Risks/Education Patient Education: Gait Training, Transfer Techniques, Correct Positioning, W/C Management, Safety Issues Teaching Recipient: Patient Teaching Methods: Demonstration, Discussion Response to Teaching: Reinforcement Needed Time/GCodes Time In: 0900 Time Out: 1000 Total Billed Treatment Time: 60 Total Billed Treatment 1 visit FA 60' co-treated with OT for 60' LIZ MI PT July 26, 2020 09:50
--- NOTE | 2020-07-26 09:55 | Occupational Ther Daily Note ---
OT Current Status-Daily Note Subjective Pt alert, lying in bed. Pt agrees to therapy. Pt c/o fatigue. Co-treat with PT ([id number]), skills of 2 clinicians due to poor patient mobility, strength, endurance, severe debility, coordinate UE and LE during activity, safety and reduce risk of falls. Mental Status/Objective Patient Orientation: Person, Place, Time, Situation ADL-Treatment Therapy Code Descriptions/Definitions Functional [place] Measure: 0=Not Assessed/NA 4=Minimal Assistance 1=Total Assistance 5=Supervision or Setup 2=Maximal Assistance 6=Modified [place] 3=Moderate Assistance 7=Complete IndependenceSCALE: Activities may be completed with or without assistive devices. 3-Fvwmtkymkd-lloofbk completes the activity by him/herself with no assistance from a helper. 5-Set-up or Clean-up Assistance-helper sets up or cleans up; patient completes activity. [place] assists only prior to or following the activity. 4-Supervision or Touching Assistance-helper provides verbal cues and/or touching/steadying and/or contact guard assistance as patient completes activity. Assistance may be provided throughout the activity or intermittently. 3-Partial/Moderate Assistance-helper does LESS THAN HALF the effort. [place] lifts, holds or supports trunk or limbs, but provides less than half the effort. 2-Substantial/Maximal Assistance-helper does MORE THAN HALF the effort. [place] lifts or holds trunk or limbs and provides more than half the effort. 0-Euxuyvooh-gkxiom does ALL the effort. Patient does none of the effort to complete the activity. Or, the assistance of 2 or more helpers is required for the patient to complete the activity. If activity was not attempted, code reason: 7-Patient Refused. 9-Not Applicable-not attempted and the patient did not perform the activity before the current illness, exacerbation or injury. 10-Not Attempted due to Environmental Limitations-(lack of equipment, weather restraints, etc.). 88-Not Attempted due to Medical Conditions or Safety Concerns. Monitored O2 sats throughout session 90% and above without O2 on. Other Treatment Supine to EOB with HOB raised by self with SBA for safety. EOB to supine independently. Pt continues to use sit to stand lift for all transfers. Prior to OT/PT session, pt using bedpan for toileting and assist by nrsg for hygiene. Sitting in w/c, pt is able to propel self to therapy gym with one recovery break. Pt then stood at parallel bars with assist x2 min to mod A. With assist x2 pt able to take 2 1/2 steps before fatigue. Then to work on increasing strength and activity tolerance, pt propelled w/c around ARU with 3 recovery breaks. After therapy, pt sitting in recliner with call light/phone in reach. All needs met in room. OT Short Term Goals Short Term Goals Time Frame: Aug 05, 2020 Toileting hygiene: 2 Upper body dressin Lower body dressin Putting on/taking off footwear: 2 OT Intermediate Goals Wordpress Developer Goals Time Frame: Aug 13, 2020 Eating (QC): 6 Oral Hygiene (QC): 6 Toileting Hygiene (QC): 6 Shower/Bathe Self (QC): 6 Upper Body Dressing (QC): 6 Lower Body Dressing (QC): 6 On/Off Footwear (QC): 6 Additional Goals: 1-Demonstrate ADL Tasks, 2-Verbalize Understanding, 3- ImproveStrength/Cierra 1=Demonstrate adherence to instructed precautions during ADL tasks. 2=Patient will verbalize/demonstrate understanding of assistive devices/modifications for ADL. 3=Patient will improve strength/tolerance for activity to enable patient to perform ADL's. OT Education/Plan Problem List/Assessment Assessment: Decreased Activ Tolerance, Decreased UE Strength, Dependent Tr ansfers, Impaired Self-Care Skills Discharge Recommendations Plan/Recommendations: Continue POC Treatment Plan/Plan of Care Patient would benefit from OT for education, treatment and training to promote independence in ADL's, mobility, safety and/or upper extremity function for ADL's. Plan of Care: ADL Retraining, Functional Mobility, Group Exercise/Act as Ind, UE Funct Exercise/Act Treatment Duration: Aug 13, 2020 Frequency: Modified Program (IRF) Estimated Hrs Per Day: 1 hour per day Agreement: Yes Rehab Potential: Fair Time/GCodes Start Time: 09:00 Stop Time: 10:00 Total Time Billed (hr/min): 60 Billed Treatment Time 1 visit-FA 4 (60 min) TYSON FISHER July 26, 2020 09:55
--- NOTE | 2020-07-26 11:37 | PM&R Progress Note ---
Subjective HPI/CC On Admission Date Seen by Provider: July 26, 2020 Time Seen by Provider: 11:45 Subjective/Events-last exam 07/26/2020: Patient doing really well Potassium 3.5 usually refusing to take it Sugars are doing well He is running 90% off oxygen Dramatic improvement 07/25/2020 Patient denies any issues Improving strength by the day Due for labs tomorrow Family at bedside 07/24/2020: Patient doing really well today On oxygen at 1.5 L/min Had a large bowel movement Sugars are okay Hates the carb limitations Girlfriend and his mother at the bedside today 07/23/20: Pt up in a chair and appears to be much stronger 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 in a chair for very long Blood sugar 141 Left foot drop is an issue 07/22/20: Patient doing well Baseline flat affect assessed Had complete bowel evacuation yesterday after Fleets after supp EKG today per Dr Rinaldi Monitored closely 07/21/20: Pt doing pretty well Slow progress Will DC the heplock Sugar changes to twice daily and will give 3 units of Novolog if greater than 160 Trach dressing changed and it is sealing up well Bowels moved yesterday 07/20/20: Pt doing pretty well Bowels moved two days ago, doesnt want anything too harsh Oxygen maintained Working hard Progressing nicely 07/19/20: Pt doing pretty well Respiratory therapy tried to wean him off and he became very hypoxic Weakness in hands are a challenge for him to shave DC Cefepime and starting Omnicef Doesnt really like IVs and lab checks and made that pretty clear to me 07/18/20: Patient doing well Diarrhea noted UTI treated with IV abx UCx pending 07/17/20: Patient doing well No complaints Awaiting UCx Empiric abx maintained Aunt at bedside O2 at 1L/min Sugar improved 07/16/20: Pt doing pretty well Potassium of 2.7 so will initiate supplement Dr. Rinaldi is seeing him in consultation EKG obtained and normal sinus rhythm noted UA ordered for burning sensation on urination Pt very debilitated Review of Systems General: Fatigue Pulmonary: Dyspnea Objective Exam Vital Signs Vital Signs Date Time Temp Pulse Resp B/P (MAP) Pulse Ox O2 Delivery O2 Flow Rate FiO2 07/26/20 10:14 91 Room Air 07/26/20 08:38 1.50 07/26/20 07:53 35.8 81 20 139/82 (101) Capillary Refill : General Appearance: No Apparent Distress, WD/WN, Obese HEENT: PERRL/EOMI, Normal ENT Inspection, Pharynx Normal Neck: Full Range of Motion, Normal Inspection, Non Tender, Supple, Carotid Bruit Respiratory: Chest Non Tender, Lungs Clear, No Accessory Muscle Use, No Respiratory Distress, Decreased Breath Sounds Cardiovascular: Regular Rate, Rhythm, No Edema, No Gallop, No JVD, No Murmur, Normal Peripheral Pulses Gastrointestinal: Normal Bowel Sounds, No Organomegaly, No Pulsatile Mass, Non Tender, Soft Back: Normal Inspection, No CVA Tenderness, No Vertebral Tenderness Extremity: Normal Capillary Refill, Normal Inspection, Normal Range of Motion, Non Tender, No Calf Tenderness, No Pedal Edema Neurologic/Psychiatric: Alert, Oriented x3, No Motor/Sensory Deficits, Normal Mood/Affect, machine hostler II-XII Norm as Tested, Abnormal Gait (can't ambulate), Motor Weakness (severe 1/5 strength all extremities) Skin: Normal Color, Warm/Dry Lymphatic: No Adenopathy Results/Procedures Lab Laboratory Tests 07/26/20 05:25 Patient resulted labs reviewed. FIM Transfers Therapy Code Descriptions/Definitions Functional [place] Measure: 0=Not Assessed/NA 4=Minimal Assistance 1=Total Assistance 5=Supervision or Setup 2=Maximal Assistance 6=Modified [place] 3=Moderate Assistance 7=Complete IndependenceSCALE: Activities may be completed with or without assistive devices. 3-Yilvqrxksp-dojrgfs completes the activity by him/herself with no assistance from a helper. 5-Set-up or Clean-up Assistance-helper sets up or cleans up; patient completes activity. [place] assists only prior to or following the activity. 4-Supervision or Touching Assistance-helper provides verbal cues and/or touching/steadying and/or contact guard assistance as patient completes activity. Assistance may be provided throughout the activity or intermittently. 3-Partial/Moderate Assistance-helper does LESS THAN HALF the effort. [place] lifts, holds or supports trunk or limbs, but provides less than half the effort. 2-Substantial/Maximal Assistance-helper does MORE THAN HALF the effort. [place] lifts or holds trunk or limbs and provides more than half the effort. 8-Hgyrrgchb-rbbfqa does ALL the effort. Patient does none of the effort to complete the activity. Or, the assistance of 2 or more helpers is required for the patient to complete the activity. If activity was not attempted, code reason: 7-Patient Refused. 9-Not Applicable-not attempted and the patient did not perform the activity before the current illness, exacerbation or injury. 10-Not Attempted due to Environmental Limitations-(lack of equipment, weather restraints, etc.). 88-Not Attempted due to Medical Conditions or Safety Concerns. Roll Left to Right (QC): 6 Sit to Lying (QC): 4 Sit to Stand (QC): 1 Chair/Tcd-oq-Rtqzw Xfer(QC): 1 Car Transfer (QC): 1 Gait Training Does the Patient Walk?: No and Walking Goal NOT indicated Distance: 2' Walk 10 feet (QC): 88 Walk 50 ft with 2 Turns(QC): 88 Walk 150 ft (QC): 88 Walking 10ft/uneven surface-QC: 88 Gait Assistive Device: Parallel Bars Wheelchair Training Does the Pt Use a Wheelchair?: Yes Distance: 80' Wheel 50 ft with 2 turns (QC): 5 Wheel 150 ft (QC): 5 Type of Wheelchair: Manual Stair Training 1 Step (curb) (QC): 88 4 Steps (QC): 88 12 Steps (QC): 88 Balance Picking up an Object (QC): 88 ADL-Treatment Eating (QC): 5 (set up per pt report) Oral Hygiene (QC): 5 (Set up seated in chair to brush teeth.) Shower/Bathe Self (QC): 3 Upper Body Dressing (QC): 5 (Seated on side of bed.) Lower Body Dressing (QC): 3 (Min assist at bed level.) On/Off Footwear (QC): 2 (Seated on side of bed.) Toileting Hygiene (QC): 1 Toilet Transfer (QC): 1 Assessment/Plan Assessment and Plan Assess & Plan/Chief Complaint Assessment: COVID-19 PNA myopathy Severe poor lung reserve Obesity New onset DM AF? Plan: Insulin Monitor lung function Cardiology consult 07/16/20: UA Replace potassium Slow recovery 07/17/20: IV abx Suspect resistant UTI 07/18/20: Monitor closely Await Ucx 07/19/20: Reviewed UCx DC Cefepime Irritated with IV's and lab checks 07/20/20: Monitor closely Sugars good 07/21/20: DC Heplock 07/22/20: Monitored closely BP ok 07/23/20: Monitor O2 Improved status now 07/24/2020: Continue limitation of carbs to decrease sugar Monitor oxygen level 07/25/2020 Check labs in the morning Monitor closely 07/26/2020: Discharge planned after review on Sunday Dramatic improvement Wean oxygen (1) Myopathy (2) COVID-19 (3) Obesity (4) Diabetes mellitus NATHANAEL HOWE DO July 26, 2020 11:37
[2020-07-26] MEDS: MELATONIN 10 MG TABLET PO SCH (19:54)
[2020-07-26 20:00] VITALS: BP 125/79
--- NOTE | 2020-07-27 06:08 | PM&R Progress Note ---
Subjective HPI/CC On Admission Date Seen by Provider: Jul 27, 2020 Time Seen by Provider: 11:00 Subjective/Events-last exam 07/27/20: Pt doing a lot better Bowels moving today Off O2 and running 91% Overall much improved 07/26/2020: Patient doing really well Potassium 3.5 usually refusing to take it Sugars are doing well He is running 90% off oxygen Dramatic improvement 07/25/2020 Patient denies any issues Improving strength by the day Due for labs tomorrow Family at bedside 07/24/2020: Patient doing really well today On oxygen at 1.5 L/min Had a large bowel movement Sugars are okay Hates the carb limitations Girlfriend and his mother at the bedside today 07/23/20: Pt up in a chair and appears to be much stronger 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 in a chair for very long Blood sugar 141 Left foot drop is an issue 07/22/20: Patient doing well Baseline flat affect assessed Had complete bowel evacuation yesterday after Fleets after supp EKG today per Dr Rinaldi Monitored closely 07/21/20: Pt doing pretty well Slow progress Will DC the heplock Sugar changes to twice daily and will give 3 units of Novolog if greater than 160 Trach dressing changed and it is sealing up well Bowels moved yesterday 07/20/20: Pt doing pretty well Bowels moved two days ago, doesnt want anything too harsh Oxygen maintained Working hard Progressing nicely 07/19/20: Pt doing pretty well Respiratory therapy tried to wean him off and he became very hypoxic Weakness in hands are a challenge for him to shave DC Cefepime and starting Omnicef Doesnt really like IVs and lab checks and made that pretty clear to me 07/18/20: Patient doing well Diarrhea noted UTI treated with IV abx UCx pending 07/17/20: Patient doing well No complaints Awaiting UCx Empiric abx maintained Aunt at bedside O2 at 1L/min Sugar improved 07/16/20: Pt doing pretty well Potassium of 2.7 so will initiate supplement Dr. Rinaldi is seeing him in consultation EKG obtained and normal sinus rhythm noted UA ordered for burning sensation on urination Pt very debilitated Review of Systems General: Fatigue, Malaise Pulmonary: Dyspnea Objective Exam Vital Signs Vital Signs Date Time Temp Pulse Resp B/P (MAP) Pulse Ox O2 Delivery O2 Flow Rate FiO2 07/27/20 21:00 Nasal Cannula 1.50 07/27/20 20:57 36.2 07/27/20 20:00 90 20 115/63 (80) 91 Capillary Refill : General Appearance: No Apparent Distress, WD/WN, Obese HEENT: PERRL/EOMI, Normal ENT Inspection, Pharynx Normal Neck: Full Range of Motion, Normal Inspection, Non Tender, Supple, Carotid Bruit Respiratory: Chest Non Tender, Lungs Clear, No Accessory Muscle Use, No Respiratory Distress, Decreased Breath Sounds Cardiovascular: Regular Rate, Rhythm, No Edema, No Gallop, No JVD, No Murmur, Normal Peripheral Pulses Gastrointestinal: Normal Bowel Sounds, No Organomegaly, No Pulsatile Mass, Non Tender, Soft Back: Normal Inspection, No CVA Tenderness, No Vertebral Tenderness Extremity: Normal Capillary Refill, Normal Inspection, Normal Range of Motion, Non Tender, No Calf Tenderness, No Pedal Edema Neurologic/Psychiatric: Alert, Oriented x3, No Motor/Sensory Deficits, Normal Mood/Affect, suspender cutter II-XII Norm as Tested, Abnormal Gait (can't ambulate), Motor Weakness (severe 1/5 strength all extremities) Skin: Normal Color, Warm/Dry Lymphatic: No Adenopathy Results/Procedures Lab Patient resulted labs reviewed. FIM Transfers Therapy Code Descriptions/Definitions Functional [place] Measure: 0=Not Assessed/NA 4=Minimal Assistance 1=Total Assistance 5=Supervision or Setup 2=Maximal Assistance 6=Modified [place] 3=Moderate Assistance 7=Complete IndependenceSCALE: Activities may be completed with or without assistive devices. 8-Laoinwdhbw-umtndgy completes the activity by him/herself with no assistance from a helper. 5-Set-up or Clean-up Assistance-helper sets up or cleans up; patient completes a ctivity. [place] assists only prior to or following the activity. 4-Supervision or Touching Assistance-helper provides verbal cues and/or touching/steadying and/or contact guard assistance as patient completes activity. Assistance may be provided throughout the activity or intermittently. 3-Partial/Moderate Assistance-helper does LESS THAN HALF the effort. [place] lifts, holds or supports trunk or limbs, but provides less than half the effort. 2-Substantial/Maximal Assistance-helper does MORE THAN HALF the effort. [place] lifts or holds trunk or limbs and provides more than half the effort. 9-Mtvianuva-slgpyq does ALL the effort. Patient does none of the effort to complete the activity. Or, the assistance of 2 or more helpers is required for the patient to complete the activity. If activity was not attempted, code reason: 7-Patient Refused. 9-Not Applicable-not attempted and the patient did not perform the activity before the current illness, exacerbation or injury. 10-Not Attempted due to Environmental Limitations-(lack of equipment, weather restraints, etc.). 88-Not Attempted due to Medical Conditions or Safety Concerns. Roll Left to Right (QC): 6 Sit to Lying (QC): 4 Sit to Stand (QC): 1 Chair/Tvh-us-Rtsvt Xfer(QC): 1 Car Transfer (QC): 1 Gait Training Does the Patient Walk?: No and Walking Goal NOT indicated Distance: 2' Walk 10 feet (QC): 88 Walk 50 ft with 2 Turns(QC): 88 Walk 150 ft (QC): 88 Walking 10ft/uneven surface-QC: 88 Gait Assistive Device: Parallel Bars Wheelchair Training Does the Pt Use a Wheelchair?: Yes Distance: 80' Wheel 50 ft with 2 turns (QC): 5 Wheel 150 ft (QC): 5 Type of Wheelchair: Manual Stair Training 1 Step (curb) (QC): 88 4 Steps (QC): 88 12 Steps (QC): 88 Balance Picking up an Object (QC): 88 ADL-Treatment Eating (QC): 5 (set up per pt report) Oral Hygiene (QC): 5 (Set up seated in chair to brush teeth.) Shower/Bathe Self (QC): 3 Upper Body Dressing (QC): 5 (Seated on side of bed.) Lower Body Dressing (QC): 3 (Min assist at bed level.) On/Off Footwear (QC): 2 (Seated on side of bed.) Toileting Hygiene (QC): 1 Toilet Transfer (QC): 1 Assessment/Plan Assessment and Plan Assess & Plan/Chief Complaint Assessment: COVID-19 PNA myopathy Severe poor lung reserve Obesity New onset DM AF? Plan: Insulin Monitor lung function Cardiology consult 07/16/20: UA Replace potassium Slow recovery 07/17/20: IV abx Suspect resistant UTI 07/18/20: Monitor closely Await Ucx 07/19/20: Reviewed UCx DC Cefepime Irritated with IV's and lab checks 07/20/20: Monitor closely Sugars good 07/21/20: DC Heplock 07/22/20: Monitored closely BP ok 07/23/20: Monitor O2 Improved status now 07/24/2020: Continue limitation of carbs to decrease sugar Monitor oxygen level 07/25/2020 Check labs in the morning Monitor closely 07/26/2020: Discharge planned after review on Sunday Dramatic improvement Wean oxygen 07/27/20: Improved Weaned O2 (1) Myopathy (2) COVID-19 (3) Obesity (4) Diabetes mellitus NATHANAEL HOWE DO Jul 27, 2020 06:07
[2020-07-27 08:19] VITALS: BP 132/83
[2020-07-27] MEDS: AMIODARONE 200 MG (CORDARONE) TAB PO SCH (08:27)
[2020-07-27] MEDS: KCL 10 MEQ TAB (MICRO K) PO SCH ×3 (08:27→18:36)
[2020-07-27] MEDS: lisINopril 20 MG (PRINIVIL) TABLET PO SCH (08:27)
[2020-07-27] MEDS: ASCORBIC ACID (VIT C) 500 MG TABLET PO SCH (08:27)
[2020-07-27] MEDS: APIXABAN 2.5 MG (ELIQUIS) TABLET PO SCH ×2 (08:27→20:26)
[2020-07-27] MEDS: LACTOBACILLUS ACIDOPHILUS (PROBIOTIC) CAPSULE PO SCH ×2 (08:27→20:26)
[2020-07-27] MEDS: PANTOPRAZOLE 40 MG (PROTONIX) TAB PO SCH (08:27)
[2020-07-27] MEDS: amLODIPine 10 MG (NORVASC) TAB PO SCH (08:27)
[2020-07-27] MEDS: VITAMIN D3 125 MCG (5,000 UNITS) CAPSULE PO SCH (08:27)
[2020-07-27] MEDS: SENNA W/DOCUSATE (SENOKOT S) TABLET PO SCH ×2 (08:28→20:26)
[2020-07-27] MEDS: polyethylene glycoL POWDER 17 GM (MIRALAX) PACK PO SCH ×2 (08:28→20:56)
[2020-07-27] MEDS: DOCUSATE SODIUM 100 MG (COLACE) CAP PO SCH ×2 (08:28→20:26)
[2020-07-27] MEDS: MICONAZOLE 2% POWDER (DESENEX AF) 90 GM TOP SCH ×2 (08:28→20:57)
--- NOTE | 2020-07-27 08:40 | Cardiology Progress Note ---
Subjective Date Seen by Provider: Jul 27, 2020 Time Seen by Provider: 08:39 Subjective/Events-last exam Patient is laying down in bed, feeling better. No new complaint Review of Systems General: No Chills, No Night Sweats, No Fatigue, No Malaise, No Appetite, No Other HEENT: No Head Aches, No Visual Changes, No Eye Pain, No Ear Pain, No Dysphasia, No Sinus Congestion, No Post Nasal Drip, No Sore Throat, No Other Pulmonary: No Dyspnea, No Cough, No Pleuritic Chest Pain, No Other Cardiovascular: No: Chest Pain, Palpitations, Orthopnea, Paroxysmal Noc. Dyspnea, Edema, Lt Headedness, Other Objective-Cardiology Exam Last Set of Vital Signs Vital Signs 07/26/20 07/27/20 21:00 08:19 Temp 36.2 Pulse 78 Resp 18 B/P (MAP) 132/83 (99) Pulse Ox 93 O2 Delivery Room Air O2 Flow Rate 1.50 Capillary Refill : General: Alert, Oriented X3, Cooperative HEENT: Atraumatic, PERRLA Neck: Supple, No JVD, No Thyromegaly Lungs: Clear to Auscultation, Normal Air Movement Heart: Regular Rate, Normal S1, Normal S2, No Murmurs Abdomen: Normal Bowel Sounds, Soft, No Tenderness, No Hepatosplenomegaly, No Masses Extremities: No Clubbing, No Cyanosis, No Edema, Normal Pulses, No Tenderness/Swelling Skin: No Rashes, No Breakdown, No Significant Lesion Neuro: Normal Gait, Normal Speech, Strength at 5/5 X4 Ext, Normal Tone, Sensati on Intact Psych/Mental Status: Mental Status NL, Mood NL Results Lab Laboratory Tests Test 07/26/20 16:24 07/27/20 06:12 Range/Units Glucometer 139 H 139 H 70-110 MG/DL A/P-Cardiology Admission Diagnosis Generalized debility/weakness HTN COPD/BRANDON Questionable PAF Assessment/Plan S/p COVID-19 illness in May 2020 requiring intubation, was transferred from [facility] to [facility] and transferred to [facility] last week. Continues to have generalized debility and weakness. Continue with PT/OT HTN, controlled, continue to monitor. COPD/BRANDON, maintained on CPAP Questionable PAF, was started on Amiodarone and Eliquis while at [place]. I will try to obtain records for further review. UTI, management per medical services. Obesity KAREN DENT MD Jul 27, 2020 08:40
--- NOTE | 2020-07-27 10:11 | Occupational Ther Daily Note ---
OT Current Status-Daily Note Subjective Pt alert, lying in bed. Pt agrees to therapy. No c/o pain only fatigue. Co- treat with PT ([id number]), skills of 2 clinicians due to poor patient mobility, strength, endurance, severe debility, coordinate UE and LE during activity, safety and reduce risk of falls. Mental Status/Objective Patient Orientation: Person, Place, Time, Situation ADL-Treatment Pt agrees to shower. See PT notes for transfers and bed mobility. Using sit to stand lift, pt transferred to [facility] then transported pt to large shower room for shower. Using sit to stand lift, transferred from [facility] to [facility]. Pt able to complete upper body, kasi area, B LE using LH sponge, assist to cleanse buttocks while using sit to stand lift. Using dressing stick, pt able to thread feet into pant legs with min A then using sit to stand lift assist to hike over hips. Pt sat at sink to complete oral care and grooming independently. Pt was transferred from / to bed using sit to stand lift. After session, pt lying in bed with call light/phone in reach. Pt increased fatigue during session. O2 sats at 91% during therapy. Therapy Code Descriptions/Definitions Functional [place] Measure: 0=Not Assessed/NA 4=Minimal Assistance 1=Total Assistance 5=Supervision or Setup 2=Maximal Assistance 6=Modified [place] 3=Moderate Assistance 7=Complete IndependenceSCALE: Activities may be completed with or without assistive devices. 7-Ovzbijtifh-ntnttwn completes the activity by him/herself with no assistance from a helper. 5-Set-up or Clean-up Assistance-helper sets up or cleans up; patient completes activity. [place] assists only prior to or following the activity. 4-Supervision or Touching Assistance-helper provides verbal cues and/or touching/steadying and/or contact guard assistance as patient completes activity. Assistance may be provided throughout the activity or intermittently. 3-Partial/Moderate Assistance-helper does LESS THAN HALF the effort. [place] lifts, holds or supports trunk or limbs, but provides less than half the effort. 2-Substantial/Maximal Assistance-helper does MORE THAN HALF the effort. [place] lifts or holds trunk or limbs and provides more than half the effort. 2-Xjbqcssjk-ixgktm does ALL the effort. Patient does none of the effort to complete the activity. Or, the assistance of 2 or more helpers is required for the patient to complete the activity. If activity was not attempted, code reason: 7-Patient Refused. 9-Not Applicable-not attempted and the patient did not perform the activity before the current illness, exacerbation or injury. 10-Not Attempted due to Environmental Limitations-(lack of equipment, weather restraints, etc.). 88-Not Attempted due to Medical Conditions or Safety Concerns. Oral Hygiene (QC): 6 Shower/Bathe Self (QC): 3 Upper Body Dressing (QC): 5 Lower Body Dressing (QC): 1 (hiked pants using sit to stand lift) On/Off Footwear: 2 Other Treatment Pt standing at parallel bars 2x's with assist x2. Was able to ambulate in parallel bars, assist x2, taking 4 steps. See PT notes for progress. OT Short Term Goals Short Term Goals Time Frame: Aug 05, 2020 Toileting hygiene: 2 Upper body dressin Lower body dressin Putting on/taking off footwear: 2 OT Route Sales Associate Goals Route Sales Associate Goals Time Frame: Aug 13, 2020 Eating (QC): 6 Oral Hygiene (QC): 6 Toileting Hygiene (QC): 6 Shower/Bathe Self (QC): 6 Upper Body Dressing (QC): 6 Lower Body Dressing (QC): 6 On/Off Footwear (QC): 6 Additional Goals: 1-Demonstrate ADL Tasks, 2-Verbalize Understanding, 3- ImproveStrength/Cierra 1=Demonstrate adherence to instructed precautions during ADL tasks. 2=Patient will verbalize/demonstrate understanding of assistive devices/modifications for ADL. 3=Patient will improve strength/tolerance for activity to enable patient to perform ADL's. OT Education/Plan Problem List/Assessment Assessment: Decreased Activ Tolerance, Decreased UE Strength, Dependent Transfers, Impaired Coordination, Impaired Self-Care Skills Discharge Recommendations Plan/Recommendations: Continue POC Treatment Plan/Plan of Care Patient would benefit from OT for education, treatment and training to promote independence in ADL's, mobility, safety and/or upper extremity function for ADL's. Plan of Care: ADL Retraining, Functional Mobility, Group Exercise/Act as Ind, UE Funct Exercise/Act Treatment Duration: Aug 13, 2020 Frequency: Modified Program (IRF) Estimated Hrs Per Day: 1 hour per day Agreement: Yes Rehab Potential: Fair Time/GCodes Start Time: 09:00 Stop Time: 10:00 Total Time Billed (hr/min): 60 Billed Treatment Time 1 visit-ADL 3 (45 min) FA 1 (15 min) co-treat with PT [id number] TYSON FISHER Jul 27, 2020 10:11
--- NOTE | 2020-07-27 11:18 | Physical Therapy Daily Note ---
PT Daily Note-Current Subjective Patient in bed pre tx, agrees to PT, no complaints of pain. Will be co-treating with OT due to poor patient mobility, strength, endurance, severe debility, coordinate UE and LE during activity, safety and reduce risk of fall. Appearance Patient in bed post tx with nurse call, phone, tray, all needs met. Mental Status Patient Orientation: Normal For Age Transfers SCALE: Activities may be completed with or without assistive devices. 1-Ictjqxffzs-mvwwhsc completes the activity by him/herself with no assistance from a helper. 5-Set-up or Clean-up Assistance-helper sets up or cleans up; patient completes activity. [place] assists only prior to or following the activity. 4-Supervision or Touching Assistance-helper provides verbal cues and/or touching/steadying and/or contact guard assistance as patient completes activity. Assistance may be provided throughout the activity or intermittently. 3-Partial/Moderate Assistance-helper does LESS THAN HALF the effort. [place] lifts, holds or supports trunk or limbs, but provides less than half the effort. 2-Substantial/Maximal Assistance-helper does MORE THAN HALF the effort. [place] lifts or holds trunk or limbs and provides more than half the effort. 7-Xmvwqwpxq-eznfmy does ALL the effort. Patient does none of the effort to complete the activity. Or, the assistance of 2 or more helpers is required for the patient to complete the activity. If activity was not attempted, code reason: 7-Patient Refused. 9-Not Applicable-not attempted and the patient did not perform the activity before the current illness, exacerbation or injury. 10-Not Attempted due to Environmental Limitations-(lack of equipment, weather restraints, etc.). 88-Not Attempted due to Medical Conditions or Safety Concerns. Roll Left & Right (QC): 6 Sit to Lying (QC): 4 Lying to Sitting/Side of Bed(Q: 4 Sit to Stand (QC): 1 Chair/Esa-mv-Dtjkb Xfer(QC): 1 Patient supine to sit, sit to stand machine transfer to , propel to shower room, sit to stand machine transfer to shower chair and undress on the way, shower, dress, sit to stand machine transfer back to and complete dressing along the way, WC to therapy gym, when done WC to room and sit to stand machine transfer to bed. Gait Training Distance: 3' Gait Assistive Device: Parallel Bars Wheelchair Training Does the Pt Use a Wheelchair?: Yes Wheel 50 ft with 2 turns (QC): 4 Type of Wheelchair: Manual 120'x3 Exercises Patient stood x2 in parallel bars with mod assist, ambulated 3' on the first time with min assist, couldn't ambulate the second time but stood for about 10- 15 sec. Treatments PT performed bed mobility and transfers, ambulation, standing, positioning and safety during shower and dressing, OT performed shower and dressing and ADL's, UE positioning and safety during activity Assessment Current Status: Fair Progress slowly improving LE strength and endurance PT Short Term Goals Short Term Goals Time Frame: July 22, 2020 Roll Left & Right: 4 Sit to lyin Lying to sitting on side of be: 3 PT Manager Medicare Marketing Goals Manager Medicare Marketing Goals PT Skilled Nursing Goals Time Frame: Aug 05, 2020 Roll Left & Right (QC): 4 Sit to Lying (QC): 4 Lying-Sitting on Side/Bed(QC): 4 Sit to Stand (QC): 3 Chair/Yqg-je-Eepil Xfer(QC): 3 Toilet Transfer (QC): 3 Car Transfer (QC): 3 Does the Patient Walk: No and Walking Goal IS indicated Walk 10 feet (QC): 3 Walk 50ft with 2 Turns (QC): 88 Walk 150 ft (QC): 88 Walking 10ft on Uneven Surface: 88 1 Step (curb) (QC): 88 4 Steps (QC): 88 12 Steps (QC): 88 Picking up an Object (QC): 88 Wheel 50 feet with 2 turns (QC: 6 Wheel 150 feet: 6 PT Plan Problem List Problem List: Activity Tolerance, Functional Strength, Safety, Balance, Gait, Transfer, Bed Mobility, ROM Treatment/Plan Treatment Plan: Continue Plan of Care Treatment Plan: Bed Mobility, Education, Functional Activity Cierra, Functional Strength, Group Therapy, Gait, Safety, Therapeutic Exercise, Transfers Treatment Duration: Aug 05, 2020 Frequency: Modified Program (IRF) Estimated Hrs Per Day: 1 hour per day Patient and/or Family Agrees t: Yes Safety Risks/Education Patient Education: Gait Training, Transfer Techniques, Correct Positioning, W/C Management, Safety Issues Teaching Recipient: Patient Teaching Methods: Demonstration, Discussion Response to Teaching: Reinforcement Needed Time/GCodes Time In: 0900 Time Out: 1000 Total Billed Treatment Time: 60 Total Billed Treatment 1 visit FA 60' co-treated with OT for 60' LIZ MI PT Jul 27, 2020 11:18
--- NOTE | 2020-07-27 11:54 | Occupational Ther Daily Note ---
OT Current Status-Daily Note Subjective Pt alert, lying in bed. Pt agrees to therapy. No c/o pain. Mental Status/Objective Patient Orientation: Person, Place, Time, Situation ADL-Treatment After supplies gathered, pt able to shave self with electric razor. Arm fatigued but pt was able to keep arms up without support against gravity. Therapy Code Descriptions/Definitions Functional [place] Measure: 0=Not Assessed/NA 4=Minimal Assistance 1=Total Assistance 5=Supervision or Setup 2=Maximal Assistance 6=Modified [place] 3=Moderate Assistance 7=Complete IndependenceSCALE: Activities may be completed with or without assistive devices. 9-Pbkdtkamei-cecgoai completes the activity by him/herself with no assistance from a helper. 5-Set-up or Clean-up Assistance-helper sets up or cleans up; patient completes activity. [place] assists only prior to or following the activity. 4-Supervision or Touching Assistance-helper provides verbal cues and/or touching/steadying and/or contact guard assistance as patient completes activity. Assistance may be provided throughout the activity or intermittently. 3-Partial/Moderate Assistance-helper does LESS THAN HALF the effort. [place] lifts, holds or supports trunk or limbs, but provides less than half the effort. 2-Substantial/Maximal Assistance-helper does MORE THAN HALF the effort. [place] lifts or holds trunk or limbs and provides more than half the effort. 2-Zmukhxxak-xtuaxn does ALL the effort. Patient does none of the effort to complete the activity. Or, the assistance of 2 or more helpers is required for the patient to complete the activity. If activity was not attempted, code reason: 7-Patient Refused. 9-Not Applicable-not attempted and the patient did not perform the activity before the current illness, exacerbation or injury. 10-Not Attempted due to Environmental Limitations-(lack of equipment, weather restraints, etc.). 88-Not Attempted due to Medical Conditions or Safety Concerns. Other Treatment Pt completed 2 dowel becki exercises before fatiguing. Chest press and full shldr flexion exercises, 1 set 30 reps. Encouraged pt to sit up for lunch, pt declined. After therapy, pt lying in bed with call light/phone in reach. All needs met in room. OT Short Term Goals Short Term Goals Time Frame: Aug 05, 2020 Toileting hygiene: 2 Upper body dressin Lower body dressin Putting on/taking off footwear: 2 OT Mcfp Goals Property Management Assistant Goals Time Frame: Aug 13, 2020 Eating (QC): 6 Oral Hygiene (QC): 6 Toileting Hygiene (QC): 6 Shower/Bathe Self (QC): 6 Upper Body Dressing (QC): 6 Lower Body Dressing (QC): 6 On/Off Footwear (QC): 6 Additional Goals: 1-Demonstrate ADL Tasks, 2-Verbalize Understanding, 3- ImproveStrength/Cierra 1=Demonstrate adherence to instructed precautions during ADL tasks. 2=Patient will verbalize/demonstrate understanding of assistive devices/modifications for ADL. 3=Patient will improve strength/tolerance for activity to enable patient to perform ADL's. OT Education/Plan Problem List/Assessment Assessment: Decreased Activ Tolerance, Decreased UE Strength Discharge Recommendations Plan/Recommendations: Continue POC Treatment Plan/Plan of Care Patient would benefit from OT for education, treatment and training to promote independence in ADL's, mobility, safety and/or upper extremity function for ADL's. Plan of Care: ADL Retraining, Functional Mobility, Group Exercise/Act as Ind, UE Funct Exercise/Act Treatment Duration: Aug 13, 2020 Frequency: Modified Program (IRF) Estimated Hrs Per Day: 1 hour per day Agreement: Yes Rehab Potential: Fair Time/GCodes Start Time: 11:30 Stop Time: 11:53 Total Time Billed (hr/min): 23 Billed Treatment Time 1 visit-ADL 1 (13 min) EX 1 (10 min) TYSON FISHER Jul 27, 2020 11:54
--- NOTE | 2020-07-27 13:17 | Physical Therapy Daily Note ---
PT Daily Note-Current Subjective Patient in bed pre tx, agrees to PT, has no complaints of pain. Appearance Patient in bed post tx with nurse call, phone, tray, all needs met. Mental Status Patient Orientation: Normal For Age Transfers SCALE: Activities may be completed with or without assistive devices. 9-Dnqszisnhn-reklbnx completes the activity by him/herself with no assistance from a helper. 5-Set-up or Clean-up Assistance-helper sets up or cleans up; patient completes activity. [place] assists only prior to or following the activity. 4-Supervision or Touching Assistance-helper provides verbal cues and/or touching/steadying and/or contact guard assistance as patient completes activity. Assistance may be provided throughout the activity or intermittently. 3-Partial/Moderate Assistance-helper does LESS THAN HALF the effort. [place] lifts, holds or supports trunk or limbs, but provides less than half the effort. 2-Substantial/Maximal Assistance-helper does MORE THAN HALF the effort. [place] lifts or holds trunk or limbs and provides more than half the effort. 0-Ahytutoiu-waotjv does ALL the effort. Patient does none of the effort to complete the activity. Or, the assistance of 2 or more helpers is required for the patient to complete the activity. If activity was not attempted, code reason: 7-Patient Refused. 9-Not Applicable-not attempted and the patient did not perform the activity before the current illness, exacerbation or injury. 10-Not Attempted due to Environmental Limitations-(lack of equipment, weather restraints, etc.). 88-Not Attempted due to Medical Conditions or Safety Concerns. Exercises Supine Ex: Bridging, Ankle pumps (LLE only), Quad Set, Glut sets, Heel Slides, Short Arc Quads, Straight leg raise (AAROM), Hip abd/add Supine Reps: 20 Treatments LE exercise Assessment Current Status: Fair Progress occasional rest break, improving LE strength PT Short Term Goals Short Term Goals Time Frame: July 22, 2020 Roll Left & Right: 4 Sit to lyin Lying to sitting on side of be: 3 PT Regulatory Affairs Associate Goals Regulatory Affairs Associate Goals PT Nursing Home Goals Time Frame: Aug 05, 2020 Roll Left & Right (QC): 4 Sit to Lying (QC): 4 Lying-Sitting on Side/Bed(QC): 4 Sit to Stand (QC): 3 Chair/Keq-pj-Ogupz Xfer(QC): 3 Toilet Transfer (QC): 3 Car Transfer (QC): 3 Does the Patient Walk: No and Walking Goal IS indicated Walk 10 feet (QC): 3 Walk 50ft with 2 Turns (QC): 88 Walk 150 ft (QC): 88 Walking 10ft on Uneven Surface: 88 1 Step (curb) (QC): 88 4 Steps (QC): 88 12 Steps (QC): 88 Picking up an Object (QC): 88 Wheel 50 feet with 2 turns (QC: 6 Wheel 150 feet: 6 PT Plan Problem List Problem List: Activity Tolerance, Functional Strength, Safety, Balance, Gait, Transfer, Bed Mobility, ROM Treatment/Plan Treatment Plan: Continue Plan of Care Treatment Plan: Bed Mobility, Education, Functional Activity Cierra, Functional Strength, Group Therapy, Gait, Safety, Therapeutic Exercise, Transfers Treatment Duration: Aug 05, 2020 Frequency: Modified Program (IRF) Estimated Hrs Per Day: 1 hour per day Patient and/or Family Agrees t: Yes Safety Risks/Education Patient Education: Correct Positioning, Safety Issues Teaching Recipient: Patient Teaching Methods: Demonstration, Discussion Response to Teaching: Reinforcement Needed Time/GCodes Time In: 1300 Time Out: 1315 Total Billed Treatment Time: 15 Total Billed Treatment 1 visit EX LIZ SALAMANCA PT Jul 27, 2020 13:17
[2020-07-27 20:00] VITALS: BP 115/63
[2020-07-27] MEDS: ACETAMINOPHEN 325 MG TABLET PO PRN (20:26)
[2020-07-27] MEDS: MELATONIN 10 MG TABLET PO SCH (20:56)
--- NOTE | 2020-07-28 06:29 | PM&R Progress Note ---
Subjective HPI/CC On Admission Date Seen by Provider: Jul 28, 2020 Time Seen by Provider: 11:45 Subjective/Events-last exam 07/28/20: Pt dong pretty well Took eight steps today No oxygen now Steroid cream to be placed on psoriasis initiated 07/27/20: Pt doing a lot better Bowels moving today Off O2 and running 91% Overall much improved 07/26/2020: Patient doing really well Potassium 3.5 usually refusing to take it Sugars are doing well He is running 90% off oxygen Dramatic improvement 07/25/2020 Patient denies any issues Improving strength by the day Due for labs tomorrow Family at bedside 07/24/2020: Patient doing really well today On oxygen at 1.5 L/min Had a large bowel movement Sugars are okay Hates the carb limitations Girlfriend and his mother at the bedside today 07/23/20: Pt up in a chair and appears to be much stronger 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 in a chair for very long Blood sugar 141 Left foot drop is an issue 07/22/20: Patient doing well Baseline flat affect assessed Had complete bowel evacuation yesterday after Fleets after supp EKG today per Dr Rinaldi Monitored closely 07/21/20: Pt doing pretty well Slow progress Will DC the heplock Sugar changes to twice daily and will give 3 units of Novolog if greater than 160 Trach dressing changed and it is sealing up well Bowels moved yesterday 07/20/20: Pt doing pretty well Bowels moved two days ago, doesnt want anything too harsh Oxygen maintained Working hard Progressing nicely 07/19/20: Pt doing pretty well Respiratory therapy tried to wean him off and he became very hypoxic Weakness in hands are a challenge for him to shave DC Cefepime and starting Omnicef Doesnt really like IVs and lab checks and made that pretty clear to me 07/18/20: Patient doing well Diarrhea noted UTI treated with IV abx UCx pending 07/17/20: Patient doing well No complaints Awaiting UCx Empiric abx maintained Aunt at bedside O2 at 1L/min Sugar improved 07/16/20: Pt doing pretty well Potassium of 2.7 so will initiate supplement Dr. Rinaldi is seeing him in consultation EKG obtained and normal sinus rhythm noted UA ordered for burning sensation on urination Pt very debilitated Review of Systems General: Fatigue, Malaise Pulmonary: Dyspnea Objective Exam Vital Signs Vital Signs Date Time Temp Pulse Resp B/P (MAP) Pulse Ox O2 Delivery O2 Flow Rate FiO2 07/28/20 21:51 36.8 07/28/20 21:00 Nasal Cannula 1.50 07/28/20 20:00 90 20 137/84 (101) 94 Capillary Refill : General Appearance: No Apparent Distress, WD/WN, Obese HEENT: PERRL/EOMI, Normal ENT Inspection, Pharynx Normal Neck: Full Range of Motion, Normal Inspection, Non Tender, Supple, Carotid Brui t Respiratory: Chest Non Tender, Lungs Clear, No Accessory Muscle Use, No Respiratory Distress, Decreased Breath Sounds Cardiovascular: Regular Rate, Rhythm, No Edema, No Gallop, No JVD, No Murmur, Normal Peripheral Pulses Gastrointestinal: Normal Bowel Sounds, No Organomegaly, No Pulsatile Mass, Non Tender, Soft Back: Normal Inspection, No CVA Tenderness, No Vertebral Tenderness Extremity: Normal Capillary Refill, Normal Inspection, Normal Range of Motion, Non Tender, No Calf Tenderness, No Pedal Edema Neurologic/Psychiatric: Alert, Oriented x3, No Motor/Sensory Deficits, Normal Mood/Affect, chief of harbor patrol II-XII Norm as Tested, Abnormal Gait (can't ambulate), Motor Weakness (severe 1/5 strength all extremities) Skin: Normal Color, Warm/Dry Lymphatic: No Adenopathy Results/Procedures Lab Patient resulted labs reviewed. FIM Transfers Therapy Code Descriptions/Definitions Functional [place] Measure: 0=Not Assessed/NA 4=Minimal Assistance 1=Total Assistance 5=Supervision or Setup 2=Maximal Assistance 6=Modified [place] 3=Moderate Assistance 7=Complete IndependenceSCALE: Activities may be completed with or without assistive devices. 3-Xdmxexrpge-zbcesbr completes the activity by him/herself with no assistance from a helper. 5-Set-up or Clean-up Assistance-helper sets up or cleans up; patient completes activity. [place] assists only prior to or following the activity. 4-Supervision or Touching Assistance-helper provides verbal cues and/or touching/steadying and/or contact guard assistance as patient completes activity. Assistance may be provided throughout the activity or intermittently. 3-Partial/Moderate Assistance-helper does LESS THAN HALF the effort. [place] lifts, holds or supports trunk or limbs, but provides less than half the effort. 2-Substantial/Maximal Assistance-helper does MORE THAN HALF the effort. [place] lifts or holds trunk or limbs and provides more than half the effort. 8-Ukxgtrnpo-gjzuvy does ALL the effort. Patient does none of the effort to complete the activity. Or, the assistance of 2 or more helpers is required for the patient to complete the activity. If activity was not attempted, code reason: 7-Patient Refused. 9-Not Applicable-not attempted and the patient did not perform the activity before the current illness, exacerbation or injury. 10-Not Attempted due to Environmental Limitations-(lack of equipment, weather restraints, etc.). 88-Not Attempted due to Medical Conditions or Safety Concerns. Roll Left to Right (QC): 6 Sit to Lying (QC): 4 Sit to Stand (QC): 1 Chair/Lod-jf-Hdoqh Xfer(QC): 1 Car Transfer (QC): 1 Gait Training Does the Patient Walk?: No and Walking Goal NOT indicated Distance: 3' Walk 10 feet (QC): 88 Walk 50 ft with 2 Turns(QC): 88 Walk 150 ft (QC): 88 Walking 10ft/uneven surface-QC: 88 Gait Assistive Device: Parallel Bars Wheelchair Training Does the Pt Use a Wheelchair?: Yes Distance: 80' Wheel 50 ft with 2 turns (QC): 4 Wheel 150 ft (QC): 5 Type of Wheelchair: Manual Stair Training 1 Step (curb) (QC): 88 4 Steps (QC): 88 12 Steps (QC): 88 Balance Picking up an Object (QC): 88 ADL-Treatment Eating (QC): 5 (set up per pt report) Oral Hygiene (QC): 6 Shower/Bathe Self (QC): 3 Upper Body Dressing (QC): 5 Lower Body Dressing (QC): 1 (hiked pants using sit to stand lift) On/Off Footwear (QC): 2 Toileting Hygiene (QC): 1 Toilet Transfer (QC): 1 Assessment/Plan Assessment and Plan Assess & Plan/Chief Complaint Assessment: COVID-19 PNA myopathy Severe poor lung reserve Obesity New onset DM AF? Psoriasis of buttocks Plan: Insulin Monitor lung function Cardiology consult 07/16/20: UA Replace potassium Slow recovery 07/17/20: IV abx Suspect resistant UTI 07/18/20: Monitor closely Await Ucx 07/19/20: Reviewed UCx DC Cefepime Irritated with IV's and lab checks 07/20/20: Monitor closely Sugars good 07/21/20: DC Heplock 07/22/20: Monitored closely BP ok 07/23/20: Monitor O2 Improved status now 07/24/2020: Continue limitation of carbs to decrease sugar Monitor oxygen level 07/25/2020 Check labs in the morning Monitor closely 07/26/2020: Discharge planned after review on Sunday Dramatic improvement Wean oxygen 07/27/20: Improved Weaned O2 07/28/20: Steroid cream for psoriasis Doing much better (1) Myopathy (2) COVID-19 (3) Obesity (4) Diabetes mellitus NATHANAEL HOWE DO Jul 28, 2020 06:29
[2020-07-28 08:00] VITALS: BP 130/78
[2020-07-28] MEDS: ASCORBIC ACID (VIT C) 500 MG TABLET PO SCH (08:28)
[2020-07-28] MEDS: AMIODARONE 200 MG (CORDARONE) TAB PO SCH (08:28)
[2020-07-28] MEDS: VITAMIN D3 125 MCG (5,000 UNITS) CAPSULE PO SCH (08:28)
[2020-07-28] MEDS: APIXABAN 2.5 MG (ELIQUIS) TABLET PO SCH (08:28)
[2020-07-28] MEDS: DOCUSATE SODIUM 100 MG (COLACE) CAP PO SCH ×2 (08:28→21:03)
[2020-07-28] MEDS: lisINopril 20 MG (PRINIVIL) TABLET PO SCH (08:28)
[2020-07-28] MEDS: amLODIPine 10 MG (NORVASC) TAB PO SCH (08:28)
[2020-07-28] MEDS: KCL 10 MEQ TAB (MICRO K) PO SCH ×3 (08:28→18:40)
[2020-07-28] MEDS: LACTOBACILLUS ACIDOPHILUS (PROBIOTIC) CAPSULE PO SCH ×2 (08:28→21:03)
[2020-07-28] MEDS: PANTOPRAZOLE 40 MG (PROTONIX) TAB PO SCH (08:28)
[2020-07-28] MEDS: SENNA W/DOCUSATE (SENOKOT S) TABLET PO SCH ×2 (08:29→21:02)
[2020-07-28] MEDS: polyethylene glycoL POWDER 17 GM (MIRALAX) PACK PO SCH ×2 (08:29→19:48)
[2020-07-28] MEDS: MICONAZOLE 2% POWDER (DESENEX AF) 90 GM TOP SCH ×2 (08:29→21:04)
--- NOTE | 2020-07-28 09:29 | Cardiology Progress Note ---
Subjective Date Seen by Provider: Jul 28, 2020 Time Seen by Provider: 08:50 Subjective/Events-last exam Patient is sitting up at bedside, denies any chest pain or dyspnea. Objective-Cardiology Exam Last Set of Vital Signs Vital Signs 07/27/20 07/28/20 07/28/20 21:00 08:00 09:11 Temp 36.4 Pulse 90 Resp 20 B/P (MAP) 130/78 (95) Pulse Ox 94 O2 Delivery Room Air O2 Flow Rate 1.50 Capillary Refill : General: Alert, Oriented X3, Cooperative HEENT: Atraumatic, PERRLA Neck: Supple, No JVD, No Thyromegaly Lungs: Clear to Auscultation, Normal Air Movement Heart: Regular Rate, Normal S1, Normal S2, No Murmurs Abdomen: Normal Bowel Sounds, Soft, No Tenderness, No Hepatosplenomegaly, No Masses Extremities: No Clubbing, No Cyanosis, No Edema, Normal Pulses, No Tenderness/Swelling Skin: No Rashes, No Breakdown, No Significant Lesion Neuro: Normal Gait, Normal Speech, Strength at 5/5 X4 Ext, Normal Tone, Sensation Intact Psych/Mental Status: Mental Status NL, Mood NL A/P-Cardiology Admission Diagnosis Generalized debility/weakness HTN COPD/BRANDON Questionable PAF Assessment/Plan S/p COVID-19 illness in May 2020 requiring intubation, was [facility] last week. Continues to have generalized debility and weakness. Continue with PT/OT HTN, controlled, continue to monitor. COPD/BRANDON, maintained on CPAP PAF, had AF with [facility] on 06/11/20 at [place], started on Amiodarone, continue on Amiodarone and Eliquis UTI, management per medical services. Obesity Supervisory-Addendum Brief Supervisory Addendum Participated in pt care: history, MDM, physical Personally performed: exam, history, MDM Care discussed with: PA Notes: Discussed the management plan, will discontinue amiodarone, place the patient on telemetry and monitor. PAMELA CHOPRA Jul 28, 2020 9:29 am KAREN DENT MD Jul 28, 2020 6:02 pm
--- NOTE | 2020-07-28 10:21 | Occupational Ther Daily Note ---
OT Current Status-Daily Note Subjective Pt alert, lying in bed. Pt agrees to therapy. No c/o pain only fatigue. Co- treat with PT ([id number]), skills of 2 clinicians due to poor patient mobility, strength, endurance, severe debility, coordinate UE and LE during activity, safety and reduce risk of falls. Mental Status/Objective Patient Orientation: Person, Place, Time, Situation ADL-Treatment After set up for lower body dressing in bed, pt able to don/doff by self. HOB raised and using bed rails, pt able to go from supine to sitting with SBA for safety. Sit to supine using bed rails independently. Pt educated on using sock aide to don socks, after socks placed on sock aide pt able to don socks by self. PT placed AFO in L shoe then assist to don shoes. PHAN assisted to doff shoes due to AFO then placed elastic shoe laces in shoes. Sitting at sink, pt completes oral care and grooming by self. Therapy Code Descriptions/Definitions Functional [place] Measure: 0=Not Assessed/NA 4=Minimal Assistance 1=Total Assistance 5=Supervision or Setup 2=Maximal Assistance 6=Modified [place] 3=Moderate Assistance 7=Complete IndependenceSCALE: Activities may be completed with or without assistive devices. 5-Dexicchxdh-zlesrxo completes the activity by him/herself with no assistance from a helper. 5-Set-up or Clean-up Assistance-helper sets up or cleans up; patient completes activity. [place] assists only prior to or following the activity. 4-Supervision or Touching Assistance-helper provides verbal cues and/or touching/steadying and/or contact guard assistance as patient completes activity. Assistance may be provided throughout the activity or intermittently. 3-Partial/Moderate Assistance-helper does LESS THAN HALF the effort. [place] lifts, holds or supports trunk or limbs, but provides less than half the effort. 2-Substantial/Maximal Assistance-helper does MORE THAN HALF the effort. [place] lifts or holds trunk or limbs and provides more than half the effort. 7-Gccotlamv-uqspug does ALL the effort. Patient does none of the effort to complete the activity. Or, the assistance of 2 or more helpers is required for the patient to complete the activity. If activity was not attempted, code reason: 7-Patient Refused. 9-Not Applicable-not attempted and the patient did not perform the activity before the current illness, exacerbation or injury. 10-Not Attempted due to Environmental Limitations-(lack of equipment, weather restraints, etc.). 88-Not Attempted due to Medical Conditions or Safety Concerns. Oral Hygiene (QC): 6 Upper Body Dressing (QC): 5 Lower Body Dressing (QC): 5 On/Off Footwear: 2 Other Treatment All transfers continue to use sit to stand. Pt propelled w/c to therapy gym, required extended recovery break. After each task pt requires extended recovery break, at one point pt states that he feels 'oxygen starved'. When asked if he felt like he needed his O2, pt declined. Min A x2 to stand at parallel bars then assist x2 to ambulate 3x's the length of bars. In standing pt stood less than 1 min. PT completed B LE exercises with pt. PHAN had pt toss ball back and forth for 5 min without break while sitting in w/c to increase activity tolerance and B UE strength. OT Short Term Goals Short Term Goals Time Frame: Aug 05, 2020 Toileting hygiene: 2 Upper body dressin Lower body dressin Putting on/taking off footwear: 2 OT Skilled Nursing Goals Skilled Nursing Goals Time Frame: Aug 13, 2020 Eating (QC): 6 Oral Hygiene (QC): 6 Toileting Hygiene (QC): 6 Shower/Bathe Self (QC): 6 Upper Body Dressing (QC): 6 Lower Body Dressing (QC): 6 On/Off Footwear (QC): 6 Additional Goals: 1-Demonstrate ADL Tasks, 2-Verbalize Understanding, 3- ImproveStrength/Cierra 1=Demonstrate adherence to instructed precautions during ADL tasks. 2=Patient will verbalize/demonstrate understanding of assistive devices/modifications for ADL. 3=Patient will improve strength/tolerance for activity to enable patient to perform ADL's. OT Education/Plan Problem List/Assessment Assessment: Decreased Activ Tolerance, Decreased UE Strength, Dependent Transfers, Impaired Self-Care Skills Discharge Recommendations Plan/Recommendations: Continue POC Treatment Plan/Plan of Care Patient would benefit from OT for education, treatment and training to promote independence in ADL's, mobility, safety and/or upper extremity function for ADL's. Plan of Care: ADL Retraining, Functional Mobility, Group Exercise/Act as Ind, UE Funct Exercise/Act Treatment Duration: Aug 13, 2020 Frequency: Modified Program (IRF) Estimated Hrs Per Day: 1 hour per day Agreement: Yes Rehab Potential: Fair Time/GCodes Start Time: 09:00 Stop Time: 10:15 Total Time Billed (hr/min): 75 Billed Treatment Time 1 visit-ADL 2 (30 min) FA 3 (45 min) co-treat with PT [id number], individual [id number] TYSON FISHER Jul 28, 2020 10:21
--- NOTE | 2020-07-28 10:24 | Physical Therapy Daily Note ---
PT Daily Note-Current Subjective Patient in bed pre tx, agrees to PT, has no complaints of pain. Will be co- treating with OT due to poor patient mobility, strength, endurance, severe debility, coordinate UE and LE during activity, safety and reduce risk of falls. Appearance Patient in bed post tx with nurse call, phone, tray, all needs met. Mental Status Patient Orientation: Person, Place, Situation, Normal For Age Transfers SCALE: Activities may be completed with or without assistive devices. 0-Kbymlmwcjq-ehvfxvj completes the activity by him/herself with no assistance from a helper. 5-Set-up or Clean-up Assistance-helper sets up or cleans up; patient completes activity. [place] assists only prior to or following the activity. 4-Supervision or Touching Assistance-helper provides verbal cues and/or touching/steadying and/or contact guard assistance as patient completes activity. Assistance may be provided throughout the activity or intermittently. 3-Partial/Moderate Assistance-helper does LESS THAN HALF the effort. [place] lifts, holds or supports trunk or limbs, but provides less than half the effort. 2-Substantial/Maximal Assistance-helper does MORE THAN HALF the effort. [place] lifts or holds trunk or limbs and provides more than half the effort. 4-Zjnoycgzz-ruwhsd does ALL the effort. Patient does none of the effort to complete the activity. Or, the assistance of 2 or more helpers is required for the patient to complete the activity. If activity was not attempted, code reason: 7-Patient Refused. 9-Not Applicable-not attempted and the patient did not perform the activity before the current illness, exacerbation or injury. 10-Not Attempted due to Environmental Limitations-(lack of equipment, weather restraints, etc.). 88-Not Attempted due to Medical Conditions or Safety Concerns. Roll Left & Right (QC): 6 Sit to Lying (QC): 4 Lying to Sitting/Side of Bed(Q: 4 Sit to Stand (QC): 1 Chair/Ybl-iy-Bqkiz Xfer(QC): 1 Patient dresses in bed and shirt while sitting on the side of the bed. Sit to stand machine transfer to , propel to therapy gym, afterwards comes back to room, sit to stand transfer back to bed and lay down. Gait Training Distance: 4'x2 Gait Assistive Device: Parallel Bars mod assist, used AFO on left side, able to clear foot much better Wheelchair Training Does the Pt Use a Wheelchair?: Yes Wheel 50 ft with 2 turns (QC): 5 Wheel 150 ft (QC): 5 Exercises Seated Therapy Exercises: Long arc quads, Hip flexion Seated Reps: 20 Patient stood in the parallel bars x3, ambulates after 2 of those times, on the third attempt he could not ambulate but stood for about 20 sec., also performed seated ball throw to work on core and cardiovascular endurance Treatments PT worked on bed mobility and transfers, LE exercise, ambulation, standing, positioning and safety during activity, OT worked on dressing and ADL's, UE ac tivity, UE positioning and safety during activity. Assessment Current Status: Fair Progress slowly progressing LE strength PT Short Term Goals Short Term Goals Time Frame: July 22, 2020 Roll Left & Right: 4 Sit to lyin Lying to sitting on side of be: 3 PT Level Vial Grinder Goals Level Vial Grinder Goals PT Level Vial Grinder Goals Time Frame: Aug 05, 2020 Roll Left & Right (QC): 4 Sit to Lying (QC): 4 Lying-Sitting on Side/Bed(QC): 4 Sit to Stand (QC): 3 Chair/Iwp-ro-Ydpop Xfer(QC): 3 Toilet Transfer (QC): 3 Car Transfer (QC): 3 Does the Patient Walk: No and Walking Goal IS indicated Walk 10 feet (QC): 3 Walk 50ft with 2 Turns (QC): 88 Walk 150 ft (QC): 88 Walking 10ft on Uneven Surface: 88 1 Step (curb) (QC): 88 4 Steps (QC): 88 12 Steps (QC): 88 Picking up an Object (QC): 88 Wheel 50 feet with 2 turns (QC: 6 Wheel 150 feet: 6 PT Plan Problem List Problem List: Activity Tolerance, Functional Strength, Safety, Balance, Gait, Transfer, Bed Mobility, ROM Treatment/Plan Treatment Plan: Continue Plan of Care Treatment Plan: Bed Mobility, Education, Functional Activity Cierra, Functional Strength, Group Therapy, Gait, Safety, Therapeutic Exercise, Transfers Treatment Duration: Aug 05, 2020 Frequency: Modified Program (IRF) Estimated Hrs Per Day: 1 hour per day Patient and/or Family Agrees t: Yes Safety Risks/Education Patient Education: Gait Training, Transfer Techniques, Correct Positioning, W/C Management, Safety Issues Teaching Recipient: Patient Teaching Methods: Demonstration, Discussion Response to Teaching: Reinforcement Needed Time/GCodes Time In: 0900 Time Out: 1000 Total Billed Treatment Time: 60 Total Billed Treatment 1 visit FA 60' co-treated for 60' LIZ MI PT Jul 28, 2020 10:24
[2020-07-28] MEDS: TRIAMCINOLONE 0.1% CR (KENALOG) 15 GM TUBE TOP SCH ×2 (13:24→21:04)
[2020-07-28] MEDS: MELATONIN 10 MG TABLET PO SCH (19:48)
[2020-07-28 20:00] VITALS: BP 137/84
[2020-07-28] MEDS ORDERED: APIXABAN 2.5 MG (ELIQUIS) TABLET PO SCH (21:00)
[2020-07-28] MEDS: APIXABAN 5 MG (ELIQUIS) TABLET PO SCH (21:03)
[2020-07-28] MEDS: ACETAMINOPHEN 325 MG TABLET PO PRN (21:03)
[2020-07-29 08:30] VITALS: BP 134/83
--- NOTE | 2020-07-29 08:42 | Cardiology Progress Note ---
Subjective Date Seen by Provider: Jul 29, 2020 Time Seen by Provider: 08:41 Subjective/Events-last exam Patient was laying down in bed, feeling better. No new complaint Review of Systems General: No Chills, No Night Sweats; Fatigue; No Malaise, No Appetite, No Other HEENT: No Head Aches, No Visual Changes, No Eye Pain, No Ear Pain, No Dysphasia, No Sinus Congestion, No Post Nasal Drip, No Sore Throat, No Other Pulmonary: No Dyspnea, No Cough, No Pleuritic Chest Pain, No Other Cardiovascular: No: Chest Pain, Palpitations, Orthopnea, Paroxysmal Noc. Dyspnea, Edema, Lt Headedness, Other Objective-Cardiology Exam Last Set of Vital Signs Vital Signs 07/28/20 07/28/20 07/28/20 20:00 21:00 21:51 Temp 36.8 Pulse 90 Resp 20 B/P (MAP) 137/84 (101) Pulse Ox 94 O2 Delivery Nasal Cannula O2 Flow Rate 1.50 Capillary Refill : General: Alert, Oriented X3, Cooperative HEENT: Atraumatic, PERRLA Neck: Supple, No JVD, No Thyromegaly Lungs: Clear to Auscultation, Normal Air Movement Heart: Regular Rate, Normal S1, Normal S2, No Murmurs Abdomen: Normal Bowel Sounds, Soft, No Tenderness, No Hepatosplenomegaly, No Masses Extremities: No Clubbing, No Cyanosis, No Edema, Normal Pulses, No Tenderness/Swelling Skin: No Rashes, No Breakdown, No Significant Lesion Neuro: Normal Gait, Normal Speech, Strength at 5/5 X4 Ext, Normal Tone, Sensation Intact Psych/Mental Status: Mental Status NL, Mood NL Results Lab Laboratory Tests Test 07/28/20 16:49 07/29/20 06:20 Range/Units Glucometer 130 H 127 H 70-110 MG/DL A/P-Cardiology Admission Diagnosis Generalized debility/weakness HTN COPD/BRANDON Questionable PAF Assessment/Plan S/p COVID-19 illness in May 2020 requiring intubation, was [facility] and transferred to [facility] last week. Continues to have generalized debility and weakness. Continue with PT/OT HTN, controlled, continue to monitor. COPD/BRANDON, maintained on CPAP PAF, had AF with RVR on 06/11/20 at [place], started on Amiodarone, continue on Amiodarone and Eliquis UTI, management per medical services. Obesity KAREN DENT MD Jul 29, 2020 8:42 am
[2020-07-29] MEDS: ASCORBIC ACID (VIT C) 500 MG TABLET PO SCH (09:04)
[2020-07-29] MEDS: LACTOBACILLUS ACIDOPHILUS (PROBIOTIC) CAPSULE PO SCH ×2 (09:04→21:06)
[2020-07-29] MEDS: PANTOPRAZOLE 40 MG (PROTONIX) TAB PO SCH (09:04)
[2020-07-29] MEDS: APIXABAN 5 MG (ELIQUIS) TABLET PO SCH ×2 (09:04→21:06)
[2020-07-29] MEDS: lisINopril 20 MG (PRINIVIL) TABLET PO SCH (09:04)
[2020-07-29] MEDS: amLODIPine 10 MG (NORVASC) TAB PO SCH (09:04)
[2020-07-29] MEDS: VITAMIN D3 125 MCG (5,000 UNITS) CAPSULE PO SCH (09:04)
[2020-07-29] MEDS: KCL 10 MEQ TAB (MICRO K) PO SCH ×3 (09:04→18:51)
[2020-07-29] MEDS: TRIAMCINOLONE 0.1% CR (KENALOG) 15 GM TUBE TOP SCH ×2 (09:06→21:06)
[2020-07-29] MEDS: SENNA W/DOCUSATE (SENOKOT S) TABLET PO SCH ×2 (09:07→21:05)
[2020-07-29] MEDS: polyethylene glycoL POWDER 17 GM (MIRALAX) PACK PO SCH ×2 (09:07→20:03)
[2020-07-29] MEDS: DOCUSATE SODIUM 100 MG (COLACE) CAP PO SCH ×2 (09:07→21:06)
[2020-07-29] MEDS: MICONAZOLE 2% POWDER (DESENEX AF) 90 GM TOP SCH ×2 (09:08→20:03)
--- NOTE | 2020-07-29 10:14 | Occupational Ther Daily Note ---
OT Current Status-Daily Note Subjective Pt alert, lying in bed. Pt agrees to therapy. No c/o pain at this time. Co- treat with PT [id number]), skills of 2 clinicians due to poor patient mobility, strength, endurance, severe debility, coordinate UE and LE during activity, safety and reduce risk of falls. Mental Status/Objective Patient Orientation: Person, Place, Time, Situation ADL-Treatment Pt agrees to shower. Using sit to stand lift, pt transferred to w/c then transported pt to large shower room for shower. Using grabbars in corner of janay wer, pt able to pull to stand with min A x2 while w/c <--> BSC was exchanged. Pt able to complete upper body, kasi area, B LE using LH sponge, assist to dry buttocks when pull to stand min A x2 using grabbars. Using dressing stick, pt able to thread feet into pant legs with AE then pulled to stand (min A x2) assist to hike over hips. Pt was transferred from w/c to bed using using FWW for SPT, min A x2 (max A x2 for sit to stand). After session, pt lying in bed with call light/phone in reach. Therapy Code Descriptions/Definitions Functional [place] Measure: 0=Not Assessed/NA 4=Minimal Assistance 1=Total Assistance 5=Supervision or Setup 2=Maximal Assistance 6=Modified [place] 3=Moderate Assistance 7=Complete IndependenceSCALE: Activities may be completed with or without assistive devices. 8-Zarlvsfoln-tkamtbn completes the activity by him/herself with no assistance from a helper. 5-Set-up or Clean-up Assistance-helper sets up or cleans up; patient completes activity. [place] assists only prior to or following the activity. 4-Supervision or Touching Assistance-helper provides verbal cues and/or touching/steadying and/or contact guard assistance as patient completes activity. Assistance may be provided throughout the activity or intermittently. 3-Partial/Moderate Assistance-helper does LESS THAN HALF the effort. [place] lifts, holds or supports trunk or limbs, but provides less than half the effort. 2-Substantial/Maximal Assistance-helper does MORE THAN HALF the effort. [place] lifts or holds trunk or limbs and provides more than half the effort. 4-Roxdddqnw-ddnlwe does ALL the effort. Patient does none of the effort to complete the activity. Or, the assistance of 2 or more helpers is required for the patient to complete the activity. If activity was not attempted, code reason: 7-Patient Refused. 9-Not Applicable-not attempted and the patient did not perform the activity before the current illness, exacerbation or injury. 10-Not Attempted due to Environmental Limitations-(lack of equipment, weather restraints, etc.). 88-Not Attempted due to Medical Conditions or Safety Concerns. Shower/Bathe Self (QC): 1 (Assist x2 to complete cleansing/drying buttocks, able to complete all other steps by self.) Upper Body Dressing (QC): 5 Lower Body Dressing (QC): 1 Other Treatment See PT notes for ambulation using FWW. Pt ambulated with FWW assist x2 for safety 3x's. OT Short Term Goals Short Term Goals Time Frame: Aug 05, 2020 Toileting hygiene: 2 Upper body dressin Lower body dressin Putting on/taking off footwear: 2 OT Custodial Goals Custodial Goals Time Frame: Aug 13, 2020 Eating (QC): 6 Oral Hygiene (QC): 6 Toileting Hygiene (QC): 6 Shower/Bathe Self (QC): 6 Upper Body Dressing (QC): 6 Lower Body Dressing (QC): 6 On/Off Footwear (QC): 6 Additional Goals: 1-Demonstrate ADL Tasks, 2-Verbalize Understanding, 3- ImproveStrength/Cierra 1=Demonstrate adherence to instructed precautions during ADL tasks. 2=Patient will verbalize/demonstrate understanding of assistive devices/modifications for ADL. 3=Patient will improve strength/tolerance for activity to enable patient to perform ADL's. OT Education/Plan Problem List/Assessment Assessment: Decreased Activ Tolerance, Dependent Transfers, Impaired Coordination, Impaired Self-Care Skills Discharge Recommendations Plan/Recommendations: Continue POC Treatment Plan/Plan of Care Patient would benefit from OT for education, treatment and training to promote independence in ADL's, mobility, safety and/or upper extremity function for ADL's. Plan of Care: ADL Retraining, Functional Mobility, Group Exercise/Act as Ind, UE Funct Exercise/Act Treatment Duration: Aug 13, 2020 Frequency: Modified Program (IRF) Estimated Hrs Per Day: 1 hour per day Agreement: Yes Rehab Potential: Fair Time/GCodes Start Time: 08:45 Stop Time: 10:15 Total Time Billed (hr/min): 90 Billed Treatment Time 1 visit-ADL 4 (60 min) FA 2 (30 min) co-treat with PT [id number], individual 08 [id number] TYSON FISHER Jul 29, 2020 10:14
--- NOTE | 2020-07-29 12:35 | Physical Therapy Daily Note ---
PT Daily Note-Current Subjective Patient in WC pre tx, agrees to PT, has no complaints of pain at rest. Will be co-treating with OT due to poor patient mobility, strength, endurance, severe debility, coordinate UE and LE during activity, safety and reduce risk of falls. Appearance Patient back to bed post tx with nurse call, phone, tray, all needs met. Mental Status Patient Orientation: Normal For Age Transfers SCALE: Activities may be completed with or without assistive devices. 7-Vczkhhbszd-mdzqbfa completes the activity by him/herself with no assistance from a helper. 5-Set-up or Clean-up Assistance-helper sets up or cleans up; patient completes activity. [place] assists only prior to or following the activity. 4-Supervision or Touching Assistance-helper provides verbal cues and/or touching/steadying and/or contact guard assistance as patient completes activity. Assistance may be provided throughout the activity or intermittently. 3-Partial/Moderate Assistance-helper does LESS THAN HALF the effort. [place] lifts, holds or supports trunk or limbs, but provides less than half the effort. 2-Substantial/Maximal Assistance-helper does MORE THAN HALF the effort. [place] lifts or holds trunk or limbs and provides more than half the effort. 7-Laecwoecr-fbzlkn does ALL the effort. Patient does none of the effort to complete the activity. Or, the assistance of 2 or more helpers is required for the patient to complete the activity. If activity was not attempted, code reason: 7-Patient Refused. 9-Not Applicable-not attempted and the patient did not perform the activity before the current illness, exacerbation or injury. 10-Not Attempted due to Environmental Limitations-(lack of equipment, weather restraints, etc.). 88-Not Attempted due to Medical Conditions or Safety Concerns. Roll Left & Right (QC): 6 Sit to Lying (QC): 6 Sit to Stand (QC): 3 Chair/Qgi-yi-Nyddu Xfer(QC): 3 Patient wheeled his WC to the shower room, wheeled to the corner and used two handrails and mod assist to stand, got shower chair behind him, pulled down pants and sat, undressed the rest of the way, showered, dressed partially, stood to dry off bottom, sat again, stood and pulled up pants and sat in WC. Propelled to therapy gym, ambulated, wheeled back to room, stood from WC with mod assist and used walker to transfer to bed. Gait Training Does the Patient Walk?: Yes Distance: 10'x2, 15' Walk 10 feet (QC): 3 Gait Assistive Device: FWW WC follow, unsteady, close guarding but no assist after standing Wheelchair Training Does the Pt Use a Wheelchair?: Yes Wheel 50 ft with 2 turns (QC): 5 Wheel 150 ft (QC): 5 Treatments PT worked on bed mobility and transfers, ambulation, WC mobility, safety and positioning and standing during bathing, OT worked on bathing, dressing, ADL's, UE positioning and safety during activity. Assessment Current Status: Fair Progress improving ambulation PT Short Term Goals Short Term Goals Time Frame: July 22, 2020 Roll Left & Right: 4 Sit to lyin Lying to sitting on side of be: 3 PT Assisted Goals Chiropractic Doctor Goals PT Assisted Goals Time Frame: Aug 05, 2020 Roll Left & Right (QC): 4 Sit to Lying (QC): 4 Lying-Sitting on Side/Bed(QC): 4 Sit to Stand (QC): 3 Chair/Jay-xy-Cpjvl Xfer(QC): 3 Toilet Transfer (QC): 3 Car Transfer (QC): 3 Does the Patient Walk: No and Walking Goal IS indicated Walk 10 feet (QC): 3 Walk 50ft with 2 Turns (QC): 88 Walk 150 ft (QC): 88 Walking 10ft on Uneven Surface: 88 1 Step (curb) (QC): 88 4 Steps (QC): 88 12 Steps (QC): 88 Picking up an Object (QC): 88 Wheel 50 feet with 2 turns (QC: 6 Wheel 150 feet: 6 PT Plan Problem List Problem List: Activity Tolerance, Functional Strength, Safety, Balance, Gait, Transfer, Bed Mobility, ROM Treatment/Plan Treatment Plan: Continue Plan of Care Treatment Plan: Bed Mobility, Education, Functional Activity Cierra, Functional Strength, Group Therapy, Gait, Safety, Therapeutic Exercise, Transfers Treatment Duration: Aug 05, 2020 Frequency: Modified Program (IRF) Estimated Hrs Per Day: 1 hour per day Patient and/or Family Agrees t: Yes Safety Risks/Education Patient Education: Gait Training, Transfer Techniques, Correct Positioning, W/C Management, Safety Issues Teaching Recipient: Patient Teaching Methods: Demonstration, Discussion Response to Teaching: Reinforcement Needed Time/GCodes Time In: 0900 Time Out: 1015 Total Billed Treatment Time: 75 Total Billed Treatment 1 visit FA 75' co-treated with OT for 75' LIZ MI PT Jul 29, 2020 12:35
[2020-07-29] MEDS: MELATONIN 10 MG TABLET PO SCH (20:03)
[2020-07-29 20:42] VITALS: BP 119/74
[2020-07-29] MEDS: ACETAMINOPHEN 325 MG TABLET PO PRN (21:05)
--- NOTE | 2020-07-30 06:44 | PM&R Progress Note ---
Subjective HPI/CC On Admission Date Seen by Provider: Jul 29, 2020 Time Seen by Provider: 12:00 Subjective/Events-last exam Missed completing note yesterday late entry 07/29/20 note 07/29/20: Ambulating more O2 sats 90% Left foot drop discussed Declines xray since no pain when walking on it 07/28/20: Pt dong pretty well Took eight steps today No oxygen now Steroid cream to be placed on psoriasis initiated 07/27/20: Pt doing a lot better Bowels moving today Off O2 and running 91% Overall much improved 07/26/2020: Patient doing really well Potassium 3.5 usually refusing to take it Sugars are doing well He is running 90% off oxygen Dramatic improvement 07/25/2020 Patient denies any issues Improving strength by the day Due for labs tomorrow Family at bedside 07/24/2020: Patient doing really well today On oxygen at 1.5 L/min Had a large bowel movement Sugars are okay Hates the carb limitations Girlfriend and his mother at the bedside today 07/23/20: Pt up in a chair and appears to be much stronger 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 in a chair for very long Blood sugar 141 Left foot drop is an issue 07/22/20: Patient doing well Baseline flat affect assessed Had complete bowel evacuation yesterday after Fleets after supp EKG today per Dr Rinaldi Monitored closely 07/21/20: Pt doing pretty well Slow progress Will DC the heplock Sugar changes to twice daily and will give 3 units of Novolog if greater than 160 Trach dressing changed and it is sealing up well Bowels moved yesterday 07/20/20: Pt doing pretty well Bowels moved two days ago, doesnt want anything too harsh Oxygen maintained Working hard Progressing nicely 07/19/20: Pt doing pretty well Respiratory therapy tried to wean him off and he became very hypoxic Weakness in hands are a challenge for him to shave DC Cefepime and starting Omnicef Doesnt really like IVs and lab checks and made that pretty clear to me 07/18/20: Patient doing well Diarrhea noted UTI treated with IV abx UCx pending 07/17/20: Patient doing well No complaints Awaiting UCx Empiric abx maintained Aunt at bedside O2 at 1L/min Sugar improved 07/16/20: Pt doing pretty well Potassium of 2.7 so will initiate supplement Dr. Rinaldi is seeing him in consultation EKG obtained and normal sinus rhythm noted UA ordered for burning sensation on urination Pt very debilitated Review of Systems General: Fatigue Pulmonary: Dyspnea Musculoskeletal: leg pain Objective Exam Vital Signs Vital Signs Date Time Temp Pulse Resp B/P (MAP) Pulse Ox O2 Delivery O2 Flow Rate FiO2 07/30/20 09:00 Room Air 07/30/20 08:00 36.3 80 25 120/76 (91) 94 07/28/20 21:00 1.50 Capillary Refill : General Appearance: No Apparent Distress, WD/WN, Obese HEENT: PERRL/EOMI, Normal ENT Inspection, Pharynx Normal Neck: Full Range of Motion, Normal Inspection, Non Tender, Supple, Carotid Bruit Respiratory: Chest Non Tender, Lungs Clear, No Accessory Muscle Use, No Respiratory Distress, Decreased Breath Sounds Cardiovascular: Regular Rate, Rhythm, No Edema, No Gallop, No JVD, No Murmur, Normal Peripheral Pulses Gastrointestinal: Normal Bowel Sounds, No Organomegaly, No Pulsatile Mass, Non Tender, Soft Back: Normal Inspection, No CVA Tenderness, No Vertebral Tenderness Extremity: Normal Capillary Refill, Normal Inspection, Normal Range of Motion, Non Tender, No Calf Tenderness, No Pedal Edema Neurologic/Psychiatric: Alert, Oriented x3, No Motor/Sensory Deficits, 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 FIM Transfers Therapy Code Descriptions/Definitions Functional [place] Measure: 0=Not Assessed/NA 4=Minimal Assistance 1=Total Assistance 5=Supervision or Setup 2=Maximal Assistance 6=Modified [place] 3=Moderate Assistance 7=Complete IndependenceSCALE: Activities may be completed with or without assistive devices. 7-Lragvaushq-nycwycf completes the activity by him/herself with no assistance from a helper. 5-Set-up or Clean-up Assistance-helper sets up or cleans up; patient completes activity. [place] assists only prior to or following the activity. 4-Supervision or Touching Assistance-helper provides verbal cues and/or touching/steadying and/or contact guard assistance as patient completes activity. Assistance may be provided throughout the activity or intermittently. 3-Partial/Moderate Assistance-helper does LESS THAN HALF the effort. [place] lifts, holds or supports trunk or limbs, but provides less than half the effort. 2-Substantial/Maximal Assistance-helper does MORE THAN HALF the effort. [place] lifts or holds trunk or limbs and provides more than half the effort. 5-Uzpqtnasd-llpfyh does ALL the effort. Patient does none of the effort to complete the activity. Or, the assistance of 2 or more helpers is required for the patient to complete the activity. If activity was not attempted, code reason: 7-Patient Refused. 9-Not Applicable-not attempted and the patient did not perform the activity before the current illness, exacerbation or injury. 10-Not Attempted due to Environmental Limitations-(lack of equipment, weather restraints, etc.). 88-Not Attempted due to Medical Conditions or Safety Concerns. Roll Left to Right (QC): 6 Sit to Lying (QC): 6 Sit to Stand (QC): 3 Chair/Fuh-pt-Wpzwi Xfer(QC): 3 Car Transfer (QC): 1 Gait Training Does the Patient Walk?: Yes Distance: 10'x2, 15' Walk 10 feet (QC): 3 Walk 50 ft with 2 Turns(QC): 88 Walk 150 ft (QC): 88 Walking 10ft/uneven surface-QC: 88 Gait Assistive Device: FWW Wheelchair Training Does the Pt Use a Wheelchair?: Yes Distance: 80' Wheel 50 ft with 2 turns (QC): 5 Wheel 150 ft (QC): 5 Type of Wheelchair: Manual Stair Training 1 Step (curb) (QC): 88 4 Steps (QC): 88 12 Steps (QC): 88 Balance Picking up an Object (QC): 88 ADL-Treatment Eating (QC): 5 (set up per pt report) Oral Hygiene (QC): 6 Shower/Bathe Self (QC): 1 (Assist x2 to complete cleansing/drying buttocks, able to complete all other steps by self.) Upper Body Dressing (QC): 5 Lower Body Dressing (QC): 1 On/Off Footwear (QC): 2 Toileting Hygiene (QC): 1 Toilet Transfer (QC): 1 Assessment/Plan Assessment and Plan Assess & Plan/Chief Complaint Assessment: COVID-19 PNA myopathy Severe poor lung reserve Obesity New onset DM AF? Psoriasis of buttocks Plan: Insulin Monitor lung function Cardiology consult 07/16/20: UA Replace potassium Slow recovery 07/17/20: IV abx Suspect resistant UTI 07/18/20: Monitor closely Await Ucx 07/19/20: Reviewed UCx DC Cefepime Irritated with IV's and lab checks 07/20/20: Monitor closely Sugars good 07/21/20: DC Heplock 07/22/20: Monitored closely BP ok 07/23/20: Monitor O2 Improved status now 07/24/2020: Continue limitation of carbs to decrease sugar Monitor oxygen level 07/25/2020 Check labs in the morning Monitor closely 07/26/2020: Discharge planned after review on Sunday Dramatic improvement Wean oxygen 07/27/20: Improved Weaned O2 07/28/20: Steroid cream for psoriasis Doing much better 07/29/20:L Missed noted from yesterday Left foot assessment Monitor closely (1) Myopathy (2) COVID-19 (3) Obesity (4) Diabetes mellitus NATHANAEL HOWE DO Jul 30, 2020 06:44
[2020-07-30 08:00] VITALS: BP 120/76
--- NOTE | 2020-07-30 08:54 | Cardiology Progress Note ---
Subjective Date Seen by Provider: Jul 30, 2020 Time Seen by Provider: 08:53 Subjective/Events-last exam Patient is laying down in bed, having slightly worse hypoxemia, appears to be more dyspneic today Review of Systems General: No Chills, No Night Sweats; Fatigue; No Malaise, No Appetite, No Other HEENT: No Head Aches, No Visual Changes, No Eye Pain, No Ear Pain, No Dysphasia, No Sinus Congestion, No Post Nasal Drip, No Sore Throat, No Other Pulmonary: Dyspnea; No Cough, No Pleuritic Chest Pain, No Other Cardiovascular: No: Chest Pain, Palpitations, Orthopnea, Paroxysmal Noc. Dyspnea, Edema, Lt Headedness, Other Objective-Cardiology Exam Last Set of Vital Signs Vital Signs 07/28/20 07/30/20 21:00 08:00 Temp 36.3 Pulse 80 Resp 25 B/P (MAP) 120/76 (91) Pulse Ox 94 O2 Delivery Room Air O2 Flow Rate 1.50 Capillary Refill : General: Alert, Oriented X3, Cooperative HEENT: Atraumatic, PERRLA Neck: Supple, No JVD, No Thyromegaly Lungs: Clear to Auscultation, Normal Air Movement Heart: Regular Rate, Normal S1, Normal S2, No Murmurs Abdomen: Normal Bowel Sounds, Soft, No Tenderness, No Hepatosplenomegaly, No Masses Extremities: No Clubbing, No Cyanosis, No Edema, Normal Pulses, No Tenderness/Swelling Skin: No Rashes, No Breakdown, No Significant Lesion Neuro: Normal Gait, Normal Speech, Strength at 5/5 X4 Ext, Normal Tone, Sensation Intact Psych/Mental Status: Mental Status NL, Mood NL Results Lab Laboratory Tests Test 07/29/20 17:05 07/30/20 05:37 Range/Units Glucometer 121 H 122 H 70-110 MG/DL A/P-Cardiology Admission Diagnosis Generalized debility/weakness HTN COPD/BRANDON Questionable PAF Assessment/Plan S/p COVID-19 illness in May 2020 requiring intubation, was transferred from [facility] and transferred to [facility] last week. Continues to have generalized debility and weakness. Continue with PT/OT Dyspnea, slightly worse today, I will evaluate chest x-ray HTN, controlled, continue to monitor. COPD/BRANDON, using CPAP at night, more dyspneic today. PAF, had AF with RVR on 06/11/20 at [place], started on Amiodarone, continue on Amiodarone and Eliquis UTI, management per medical services. Obesity KAREN DENT MD Jul 30, 2020 08:54
[2020-07-30] MEDS: SENNA W/DOCUSATE (SENOKOT S) TABLET PO SCH ×2 (09:06→20:07)
[2020-07-30] MEDS: polyethylene glycoL POWDER 17 GM (MIRALAX) PACK PO SCH ×2 (09:06→19:01)
[2020-07-30] MEDS: DOCUSATE SODIUM 100 MG (COLACE) CAP PO SCH ×2 (09:06→20:11)
[2020-07-30] MEDS: VITAMIN D3 125 MCG (5,000 UNITS) CAPSULE PO SCH (09:07)
[2020-07-30] MEDS: APIXABAN 5 MG (ELIQUIS) TABLET PO SCH ×2 (09:07→20:07)
[2020-07-30] MEDS: LACTOBACILLUS ACIDOPHILUS (PROBIOTIC) CAPSULE PO SCH ×2 (09:07→20:07)
[2020-07-30] MEDS: KCL 10 MEQ TAB (MICRO K) PO SCH ×3 (09:07→17:18)
[2020-07-30] MEDS: ASCORBIC ACID (VIT C) 500 MG TABLET PO SCH (09:07)
[2020-07-30] MEDS: PANTOPRAZOLE 40 MG (PROTONIX) TAB PO SCH (09:07)
[2020-07-30] MEDS: amLODIPine 10 MG (NORVASC) TAB PO SCH (09:09)
[2020-07-30] MEDS: lisINopril 20 MG (PRINIVIL) TABLET PO SCH (09:09)
[2020-07-30] MEDS: MICONAZOLE 2% POWDER (DESENEX AF) 90 GM TOP SCH ×2 (09:11→20:11)
[2020-07-30] MEDS: TRIAMCINOLONE 0.1% CR (KENALOG) 15 GM TUBE TOP SCH ×2 (09:12→20:09)
--- NOTE | 2020-07-30 10:55 | PM&R Progress Note ---
Subjective HPI/CC On Admission Date Seen by Provider: Jul 30, 2020 Time Seen by Provider: 11:30 Subjective/Events-last exam 07/30/20: Patient doing pretty well Ambulating around a little more Chest x-ray pending 91% on room air 07/28/20: Pt dong pretty well Took eight steps today No oxygen now Steroid cream to be placed on psoriasis initiated 07/27/20: Pt doing a lot better Bowels moving today Off O2 and running 91% Overall much improved 07/26/2020: Patient doing really well Potassium 3.5 usually refusing to take it Sugars are doing well He is running 90% off oxygen Dramatic improvement 07/25/2020 Patient denies any issues Improving strength by the day Due for labs tomorrow Family at bedside 07/24/2020: Patient doing really well today On oxygen at 1.5 L/min Had a large bowel movement Sugars are okay Hates the carb limitations Girlfriend and his mother at the bedside today 07/23/20: Pt up in a chair and appears to be much stronger 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 in a chair for very long Blood sugar 141 Left foot drop is an issue 07/22/20: Patient doing well Baseline flat affect assessed Had complete bowel evacuation yesterday after Fleets after supp EKG today per Dr Rinaldi Monitored closely 07/21/20: Pt doing pretty well Slow progress Will DC the heplock Sugar changes to twice daily and will give 3 units of Novolog if greater than 160 Trach dressing changed and it is sealing up well Bowels moved yesterday 07/20/20: Pt doing pretty well Bowels moved two days ago, doesnt want anything too harsh Oxygen maintained Working hard Progressing nicely 07/19/20: Pt doing pretty well Respiratory therapy tried to wean him off and he became very hypoxic Weakness in hands are a challenge for him to shave DC Cefepime and starting Omnicef Doesnt really like IVs and lab checks and made that pretty clear to me 07/18/20: Patient doing well Diarrhea noted UTI treated with IV abx UCx pending 07/17/20: Patient doing well No complaints Awaiting UCx Empiric abx maintained Aunt at bedside O2 at 1L/min Sugar improved 07/16/20: Pt doing pretty well Potassium of 2.7 so will initiate supplement Dr. Rinaldi is seeing him in consultation EKG obtained and normal sinus rhythm noted UA ordered for burning sensation on urination Pt very debilitated Review of Systems General: Fatigue, Malaise Pulmonary: Dyspnea Objective Exam Vital Signs Vital Signs Date Time Temp Pulse Resp B/P (MAP) Pulse Ox O2 Delivery O2 Flow Rate FiO2 07/30/20 20:20 37.2 80 16 130/77 (94) 91 Room Air 07/28/20 21:00 1.50 Capillary Refill : General Appearance: No Apparent Distress, WD/WN, Obese HEENT: PERRL/EOMI, Normal ENT Inspection, Pharynx Normal Neck: Full Range of Motion, Normal Inspection, Non Tender, Supple, Carotid Bruit Respiratory: Chest Non Tender, Lungs Clear, No Accessory Muscle Use, No Respiratory Distress, Decreased Breath Sounds Cardiovascular: Regular Rate, Rhythm, No Edema, No Gallop, No JVD, No Murmur, Normal Peripheral Pulses Gastrointestinal: Normal Bowel Sounds, No Organomegaly, No Pulsatile Mass, Non Tender, Soft Back: Normal Inspection, No CVA Tenderness, No Vertebral Tenderness Extremity: Normal Capillary Refill, Normal Inspection, Normal Range of Motion, Non Tender, No Calf Tenderness, No Pedal Edema Neurologic/Psychiatric: Alert, Oriented x3, No Motor/Sensory Deficits, 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 FIM Transfers Therapy Code Descriptions/Definitions Functional [place] Measure: 0=Not Assessed/NA 4=Minimal Assistance 1=Total Assistance 5=Supervision or Setup 2=Maximal Assistance 6=Modified [place] 3=Moderate Assistance 7=Complete IndependenceSCALE: Activities may be completed with or without assistive devices. 6-Xyunijiecw-zylmrpb completes the activity by him/herself with no assistance from a helper. 5-Set-up or Clean-up Assistance-helper sets up or cleans up; patient completes activity. [place] assists only prior to or following the activity. 4-Supervision or Touching Assistance-helper provides verbal cues and/or touching/steadying and/or contact guard assistance as patient completes activity. Assistance may be provided throughout the activity or intermittently. 3-Partial/Moderate Assistance-helper does LESS THAN HALF the effort. [place] lifts, holds or supports trunk or limbs, but provides less than half the effort. 2-Substantial/Maximal Assistance-helper does MORE THAN HALF the effort. [place] lifts or holds trunk or limbs and provides more than half the effort. 0-Myntnwrln-fjcnyl does ALL the effort. Patient does none of the effort to complete the activity. Or, the assistance of 2 or more helpers is required for the patient to complete the activity. If activity was not attempted, code reason: 7-Patient Refused. 9-Not Applicable-not attempted and the patient did not perform the activity before the current illness, exacerbation or injury. 10-Not Attempted due to Environmental Limitations-(lack of equipment, weather restraints, etc.). 88-Not Attempted due to Medical Conditions or Safety Concerns. Roll Left to Right (QC): 6 Sit to Lying (QC): 6 Sit to Stand (QC): 3 Chair/Arb-ej-Qhfbv Xfer(QC): 3 Car Transfer (QC): 1 Gait Training Does the Patient Walk?: Yes Distance: 10'x2, 15' Walk 10 feet (QC): 3 Walk 50 ft with 2 Turns(QC): 88 Walk 150 ft (QC): 88 Walking 10ft/uneven surface-QC: 88 Gait Assistive Device: FWW Wheelchair Training Does the Pt Use a Wheelchair?: Yes Distance: 80' Wheel 50 ft with 2 turns (QC): 5 Wheel 150 ft (QC): 5 Type of Wheelchair: Manual Stair Training 1 Step (curb) (QC): 88 4 Steps (QC): 88 12 Steps (QC): 88 Balance Picking up an Object (QC): 88 ADL-Treatment Eating (QC): 5 (set up per pt report) Oral Hygiene (QC): 6 Shower/Bathe Self (QC): 1 (Assist x2 to complete cleansing/drying buttocks, able to complete all other steps by self.) Upper Body Dressing (QC): 5 Lower Body Dressing (QC): 1 On/Off Footwear (QC): 2 Toileting Hygiene (QC): 1 Toilet Transfer (QC): 1 Assessment/Plan Assessment and Plan Assess & Plan/Chief Complaint Assessment: COVID-19 PNA myopathy Severe poor lung reserve Obesity New onset DM AF? Psoriasis of buttocks Plan: Insulin Monitor lung function Cardiology consult 07/16/20: UA Replace potassium Slow recovery 07/17/20: IV abx Suspect resistant UTI 07/18/20: Monitor closely Await Ucx 07/19/20: Reviewed UCx DC Cefepime Irritated with IV's and lab checks 07/20/20: Monitor closely Sugars good 07/21/20: DC Heplock 07/22/20: Monitored closely BP ok 07/23/20: Monitor O2 Improved status now 07/24/2020: Continue limitation of carbs to decrease sugar Monitor oxygen level 07/25/2020 Check labs in the morning Monitor closely 07/26/2020: Discharge planned after review on Sunday Dramatic improvement Wean oxygen 07/27/20: Improved Weaned O2 07/28/20: Steroid cream for psoriasis Doing much better 07/30/2020: Chest x-ray reviewed Continue aggressive therapy (1) Myopathy (2) COVID-19 (3) Obesity (4) Diabetes mellitus NATHANAEL HOWE DO Jul 30, 2020 10:55
--- NOTE | 2020-07-30 11:52 | Occupational Ther Daily Note ---
OT Current Status-Daily Note Subjective Pt alert, lying in bed. Pt agrees to therapy. No c/o pain. Co-treat with PT for skilled instruction and modifications due to increased fall risk, decreased mobility, increased SOA and fatigue. Mental Status/Objective Patient Orientation: Person, Place, Time, Situation ADL-Treatment Supine to EOB with HOB raised by self. After set up, pt donned/doffed R sock/shoe by self then donned L sock by self and assist with L shoe due to AFO. Pt utilized sock aide, reach and LH shoe horn for footwear. Using sit to stand lift, pt transferred to w/c. Pt sat at sink to complete oral care and grooming Therapy Code Descriptions/Definitions Functional [place] Measure: 0=Not Assessed/NA 4=Minimal Assistance 1=Total Assistance 5=Supervision or Setup 2=Maximal Assistance 6=Modified [place] 3=Moderate Assistance 7=Complete IndependenceSCALE: Activities may be completed with or without assistive devices. 4-Rtyhfjcfwc-lanzoum completes the activity by him/herself with no assistance from a helper. 5-Set-up or Clean-up Assistance-helper sets up or cleans up; patient completes activity. [place] assists only prior to or following the activity. 4-Supervision or Touching Assistance-helper provides verbal cues and/or touching/steadying and/or contact guard assistance as patient completes activit y. Assistance may be provided throughout the activity or intermittently. 3-Partial/Moderate Assistance-helper does LESS THAN HALF the effort. [place] lifts, holds or supports trunk or limbs, but provides less than half the effort. 2-Substantial/Maximal Assistance-helper does MORE THAN HALF the effort. [place] lifts or holds trunk or limbs and provides more than half the effort. 6-Ehrwiguxt-erzjyb does ALL the effort. Patient does none of the effort to complete the activity. Or, the assistance of 2 or more helpers is required for the patient to complete the activity. If activity was not attempted, code reason: 7-Patient Refused. 9-Not Applicable-not attempted and the patient did not perform the activity before the current illness, exacerbation or injury. 10-Not Attempted due to Environmental Limitations-(lack of equipment, weather restraints, etc.). 88-Not Attempted due to Medical Conditions or Safety Concerns. Oral Hygiene (QC): 6 On/Off Footwear: 3 Other Treatment PT focusing on ambulation, mobility and transfers while OT focused on ADLs, functional transfers and B UE placement. See PT notes for progress on ambulation and transfers. Pt ambulated 3x's increasing distance each time. Propelled w/c forward and backward to increase activity tolerance and B UE strength. Working on sit to stands from elevated surface 3 sets 5 reps. After session, pt lying in bed with call light/phone in reach. All needs met in room. 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 2=Patient will verbalize/demonstrate understanding of assistive devices/modifications for ADL. 3=Patient will improve strength/tolerance for activity to enable patient to perform ADL's. OT Education/Plan Problem List/Assessment Assessment: Decreased Activ Tolerance, Decreased UE Strength, Impaired Funct Balance, Impaired Self-Care Skills Discharge Recommendations Plan/Recommendations: Continue POC Treatment Plan/Plan of Care Patient would benefit from OT for education, treatment and training to promote independence in ADL's, mobility, safety and/or upper extremity function for ADL's. Plan of Care: ADL Retraining, Functional Mobility, Group Exercise/Act as Ind, UE Funct Exercise/Act Treatment Duration: Aug 13, 2020 Frequency: Modified Program (IRF) Estimated Hrs Per Day: 1 hour per day Agreement: Yes Rehab Potential: Fair Time/GCodes Start Time: 10:40 Stop Time: 12:00 Total Time Billed (hr/min): 80 Billed Treatment Time 1 visit-ADL 1 (20 min) FA 4 (60 min) co-treat with PT [id number], individual [id number] TYSON FISHER Jul 30, 2020 11:52
--- NOTE | 2020-07-30 11:59 | Physical Therapy Daily Note ---
PT Daily Note-Current Subjective Patient in WC on room pre tx, agrees to PT, voices no complaints of pain. Will be co-treating with OT due to poor patient mobility, strength, endurance, severe debility, coordinate UE and LE during activity, safety and reduce risk of falls. Appearance Patient in bed post tx with nurse call, phone, tray, all needs met. Mental Status Patient Orientation: Normal For Age Transfers SCALE: Activities may be completed with or without assistive devices. 0-Cbkraevxuq-prsvfoz completes the activity by him/herself with no assistance from a helper. 5-Set-up or Clean-up Assistance-helper sets up or cleans up; patient completes activity. [place] assists only prior to or following the activity. 4-Supervision or Touching Assistance-helper provides verbal cues and/or touching/steadying and/or contact guard assistance as patient completes activity. Assistance may be provided throughout the activity or intermittently. 3-Partial/Moderate Assistance-helper does LESS THAN HALF the effort. [place] lifts, holds or supports trunk or limbs, but provides less than half the effort. 2-Substantial/Maximal Assistance-helper does MORE THAN HALF the effort. [place] lifts or holds trunk or limbs and provides more than half the effort. 4-Kyubwazhh-jkwnnl does ALL the effort. Patient does none of the effort to complete the activity. Or, the assistance of 2 or more helpers is required for the patient to complete the activity. If activity was not attempted, code reason: 7-Patient Refused. 9-Not Applicable-not attempted and the patient did not perform the activity before the current illness, exacerbation or injury. 10-Not Attempted due to Environmental Limitations-(lack of equipment, weather restraints, etc.). 88-Not Attempted due to Medical Conditions or Safety Concerns. Roll Left & Right (QC): 6 Sit to Lying (QC): 6 Sit to Stand (QC): 3 Chair/Gvm-vn-Fdnbs Xfer(QC): 3 Gait Training Distance: 15', 25' Walk 10 feet (QC): 4 Gait Persons Needed: 1 Gait Assistive Device: FWW WC follow, unsteady but no LOB, no knee buckling, very SOB after ambulation and needs significant rest break Wheelchair Training Does the Pt Use a Wheelchair?: Yes Wheel 50 ft with 2 turns (QC): 5 Wheel 150 ft (QC): 5 Type of Wheelchair: Manual 300', 150' Exercises sit to stand from elevated therapy table 3 sets of 5 Treatments PT performed bed mobility and transfers, ambulation, functional strengthening, WC mobility, OT performed UE positioning and safety during activity Assessment Current Status: Fair Progress improving strength, but patient still gets severely SOB with activity, O2 however stays at around 91% with activity, needs a lot of time to recover from activity PT Short Term Goals Short Term Goals Time Frame: July 22, 2020 Roll Left & Right: 4 Sit to lyin Lying to sitting on side of be: 3 PT Residential Goals Residential Goals PT Floor Worker Transfer [place] Goals Time Frame: Aug 05, 2020 Roll Left & Right (QC): 4 Sit to Lying (QC): 4 Lying-Sitting on Side/Bed(QC): 4 Sit to Stand (QC): 3 Chair/Nqu-vp-Kupwt Xfer(QC): 3 Toilet Transfer (QC): 3 Car Transfer (QC): 3 Does the Patient Walk: No and Walking Goal IS indicated Walk 10 feet (QC): 3 Walk 50ft with 2 Turns (QC): 88 Walk 150 ft (QC): 88 Walking 10ft on Uneven Surface: 88 1 Step (curb) (QC): 88 4 Steps (QC): 88 12 Steps (QC): 88 Picking up an Object (QC): 88 Wheel 50 feet with 2 turns (QC: 6 Wheel 150 feet: 6 PT Plan Problem List Problem List: Activity Tolerance, Functional Strength, Safety, Balance, Gait, Transfer, Bed Mobility, ROM Treatment/Plan Treatment Plan: Continue Plan of Care Treatment Plan: Bed Mobility, Education, Functional Activity Cierra, Functional Strength, Group Therapy, Gait, Safety, Therapeutic Exercise, Transfers Treatment Duration: Aug 05, 2020 Frequency: Modified Program (IRF) Estimated Hrs Per Day: 1 hour per day Patient and/or Family Agrees t: Yes Safety Risks/Education Patient Education: Gait Training, Transfer Techniques, Correct Positioning, W/C Management, Safety Issues Teaching Recipient: Patient Teaching Methods: Demonstration, Discussion Response to Teaching: Reinforcement Needed Time/GCodes Time In: 1100 Time Out: 1200 Total Billed Treatment Time: 60 Total Billed Treatment 1 visit GT 20' EX 10' FA 30' LIZ MI PT Jul 30, 2020 11:59
--- NOTE | 2020-07-30 13:49 | Diagnostic Imaging Report ---
EXAMINATION: PA and lateral chest at 1:20 p.m. INDICATION: Dyspnea. FINDINGS: The heart is stable in size when compared to the prior exam of 07/15/2020. As on the previous date there are diffuse interstitial infiltrates involving both lungs. These findings seem similar to the prior study. There is no new area of consolidation identified nor is there any sign of a significant pleural effusion. The mediastinum is not widened. The osseous structures are intact. IMPRESSION: 1. There are persistent alveolar/interstitial infiltrates involving both lungs. When compared to the prior study there does not appear to have been any significant change. 2. If further imaging is desired, then CT of the chest would be recommended. Dictated by: Dictated on workstation # [id number]
[2020-07-30] MEDS: MELATONIN 10 MG TABLET PO SCH (19:00)
[2020-07-30] MEDS: ACETAMINOPHEN 325 MG TABLET PO PRN (20:08)
[2020-07-30 20:20] VITALS: BP 130/77
[2020-07-31 07:30] VITALS: BP 112/72
--- NOTE | 2020-07-31 07:47 | PM&R Progress Note ---
Subjective HPI/CC On Admission Date Seen by Provider: Jul 31, 2020 Time Seen by Provider: 12:15 Subjective/Events-last exam 07/31/20: Patient doing really well No major concerns Slowly progressing Bowels are moving pretty well 07/30/20: Patient doing pretty well Ambulating around a little more Chest x-ray pending 91% on room air 07/28/20: Pt dong pretty well Took eight steps today No oxygen now Steroid cream to be placed on psoriasis initiated 07/27/20: Pt doing a lot better Bowels moving today Off O2 and running 91% Overall much improved 07/26/2020: Patient doing really well Potassium 3.5 usually refusing to take it Sugars are doing well He is running 90% off oxygen Dramatic improvement 07/25/2020 Patient denies any issues Improving strength by the day Due for labs tomorrow Family at bedside 07/24/2020: Patient doing really well today On oxygen at 1.5 L/min Had a large bowel movement Sugars are okay Hates the carb limitations Girlfriend and his mother at the bedside today 07/23/20: Pt up in a chair and appears to be much stronger 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 in a chair for very long Blood sugar 141 Left foot drop is an issue 07/22/20: Patient doing well Baseline flat affect assessed Had complete bowel evacuation yesterday after Fleets after supp EKG today per Dr Rinaldi Monitored closely 07/21/20: Pt doing pretty well Slow progress Will DC the heplock Sugar changes to twice daily and will give 3 units of Novolog if greater than 160 Trach dressing changed and it is sealing up well Bowels moved yesterday 07/20/20: Pt doing pretty well Bowels moved two days ago, doesnt want anything too harsh Oxygen maintained Working hard Progressing nicely 07/19/20: Pt doing pretty well Respiratory therapy tried to wean him off and he became very hypoxic Weakness in hands are a challenge for him to shave DC Cefepime and starting Omnicef Doesnt really like IVs and lab checks and made that pretty clear to me 07/18/20: Patient doing well Diarrhea noted UTI treated with IV abx UCx pending 07/17/20: Patient doing well No complaints Awaiting UCx Empiric abx maintained Aunt at bedside O2 at 1L/min Sugar improved 07/16/20: Pt doing pretty well Potassium of 2.7 so will initiate supplement Dr. Rinaldi is seeing him in consultation EKG obtained and normal sinus rhythm noted UA ordered for burning sensation on urination Pt very debilitated Review of Systems General: Fatigue Pulmonary: Dyspnea Neurological: Weakness Objective Exam Vital Signs Vital Signs Date Time Temp Pulse Resp B/P (MAP) Pulse Ox O2 Delivery O2 Flow Rate FiO2 07/31/20 09:00 Room Air 07/31/20 07:30 36.4 83 20 112/72 (85) 93 07/28/20 21:00 1.50 Capillary Refill : General Appearance: No Apparent Distress, WD/WN, Obese HEENT: PERRL/EOMI, Normal ENT Inspection, Pharynx Normal Neck: Full Range of Motion, Normal Inspection, Non Tender, Supple, Carotid Bruit Respiratory: Chest Non Tender, Lungs Clear, No Accessory Muscle Use, No Respiratory Distress, Decreased Breath Sounds Cardiovascular: Regular Rate, Rhythm, No Edema, No Gallop, No JVD, No Murmur, Normal Peripheral Pulses Gastrointestinal: Normal Bowel Sounds, No Organomegaly, No Pulsatile Mass, Non Tender, Soft Back: Normal Inspection, No CVA Tenderness, No Vertebral Tenderness Extremity: Normal Capillary Refill, Normal Inspection, Normal Range of Motion, Non Tender, No Calf Tenderness, No Pedal Edema Neurologic/Psychiatric: Alert, Oriented x3, No Motor/Sensory Deficits, Normal Mood/Affect, transitional living specialist II-XII Norm as Tested, Abnormal Gait (can't ambulate), Motor Weakness (severe 1/5 strength all extremities) Skin: Normal Color, Warm/Dry Lymphatic: No Adenopathy Results/Procedures Lab Patient resulted labs reviewed. FIM Transfers Therapy Code Descriptions/Definitions Functional [place] Measure: 0=Not Assessed/NA 4=Minimal Assistance 1=Total Assistance 5=Supervision or Setup 2=Maximal Assistance 6=Modified [place] 3=Moderate Assistance 7=Complete IndependenceSCALE: Activities may be completed with or without assistive devices. 0-Vgaiqgcqak-grmvkiz completes the activity by him/herself with no assistance from a helper. 5-Set-up or Clean-up Assistance-helper sets up or cleans up; patient completes activity. [place] assists only prior to or following the activity. 4-Supervision or Touching Assistance-helper provides verbal cues and/or touching/steadying and/or contact guard assistance as patient completes activity. Assistance may be provided throughout the activity or intermittently. 3-Partial/Moderate Assistance-helper does LESS THAN HALF the effort. [place] lifts, holds or supports trunk or limbs, but provides less than half the effort. 2-Substantial/Maximal Assistance-helper does MORE THAN HALF the effort. [place] lifts or holds trunk or limbs and provides more than half the effort. 3-[place] does ALL the effort. Patient does none of the effort to complete the activity. Or, the assistance of 2 or more helpers is required for the patient to complete the activity. If activity was not attempted, code reason: 7-Patient Refused. 9-Not Applicable-not attempted and the patient did not perform the activity before the current illness, exacerbation or injury. 10-Not Attempted due to Environmental Limitations-(lack of equipment, weather restraints, etc.). 88-Not Attempted due to Medical Conditions or Safety Concerns. Roll Left to Right (QC): 6 Sit to Lying (QC): 6 Sit to Stand (QC): 3 Chair/Nct-vr-Nvqsz Xfer(QC): 3 Car Transfer (QC): 1 Gait Training Does the Patient Walk?: Yes Distance: 15', 25' Walk 10 feet (QC): 4 Walk 50 ft with 2 Turns(QC): 88 Walk 150 ft (QC): 88 Walking 10ft/uneven surface-QC: 88 Gait Persons Needed: 1 Gait Assistive Device: FWW Wheelchair Training Does the Pt Use a Wheelchair?: Yes Distance: 80' Wheel 50 ft with 2 turns (QC): 5 Wheel 150 ft (QC): 5 Type of Wheelchair: Manual Stair Training 1 Step (curb) (QC): 88 4 Steps (QC): 88 12 Steps (QC): 88 Balance Picking up an Object (QC): 88 ADL-Treatment Eating (QC): 5 (set up per pt report) Oral Hygiene (QC): 6 Shower/Bathe Self (QC): 1 (Assist x2 to complete cleansing/drying buttocks, able to complete all other steps by self.) Upper Body Dressing (QC): 5 Lower Body Dressing (QC): 1 On/Off Footwear (QC): 3 Toileting Hygiene (QC): 1 Toilet Transfer (QC): 1 Assessment/Plan Assessment and Plan Assess & Plan/Chief Complaint Assessment: COVID-19 PNA myopathy Severe poor lung reserve Obesity New onset DM AF? Psoriasis of buttocks Plan: Insulin Monitor lung function Cardiology consult 07/16/20: UA Replace potassium Slow recovery 07/17/20: IV abx Suspect resistant UTI 07/18/20: Monitor closely Await Ucx 07/19/20: Reviewed UCx DC Cefepime Irritated with IV's and lab checks 07/20/20: Monitor closely Sugars good 07/21/20: DC Heplock 07/22/20: Monitored closely BP ok 07/23/20: Monitor O2 Improved status now 07/24/2020: Continue limitation of carbs to decrease sugar Monitor oxygen level 07/25/2020 Check labs in the morning Monitor closely 07/26/2020: Discharge planned after review on Sunday Dramatic improvement Wean oxygen 07/27/20: Improved Weaned O2 07/28/20: Steroid cream for psoriasis Doing much better 07/30/2020: Chest x-ray reviewed Continue aggressive therapy 07/31/2020: Monitor closely Maintain oxygen (1) Myopathy (2) COVID-19 (3) Obesity (4) Diabetes mellitus NATHANAEL HOWE DO Jul 31, 2020 07:47
[2020-07-31] MEDS: LACTOBACILLUS ACIDOPHILUS (PROBIOTIC) CAPSULE PO SCH ×2 (08:54→21:01)
[2020-07-31] MEDS: polyethylene glycoL POWDER 17 GM (MIRALAX) PACK PO SCH ×2 (08:54→21:12)
[2020-07-31] MEDS: DOCUSATE SODIUM 100 MG (COLACE) CAP PO SCH ×2 (08:54→21:01)
[2020-07-31] MEDS: KCL 10 MEQ TAB (MICRO K) PO SCH ×3 (08:54→17:32)
[2020-07-31] MEDS: TRIAMCINOLONE 0.1% CR (KENALOG) 15 GM TUBE TOP SCH ×2 (08:55→21:01)
[2020-07-31] MEDS: APIXABAN 5 MG (ELIQUIS) TABLET PO SCH ×2 (08:55→21:01)
[2020-07-31] MEDS: ASCORBIC ACID (VIT C) 500 MG TABLET PO SCH (08:55)
[2020-07-31] MEDS: PANTOPRAZOLE 40 MG (PROTONIX) TAB PO SCH (08:55)
[2020-07-31] MEDS: lisINopril 20 MG (PRINIVIL) TABLET PO SCH (08:55)
[2020-07-31] MEDS: MICONAZOLE 2% POWDER (DESENEX AF) 90 GM TOP SCH ×2 (08:55→21:12)
[2020-07-31] MEDS: SENNA W/DOCUSATE (SENOKOT S) TABLET PO SCH ×2 (08:55→21:01)
[2020-07-31] MEDS: amLODIPine 10 MG (NORVASC) TAB PO SCH (08:55)
[2020-07-31] MEDS: VITAMIN D3 125 MCG (5,000 UNITS) CAPSULE PO SCH (08:58)
--- NOTE | 2020-07-31 11:49 | Physical Therapy Daily Note ---
PT Daily Note-Current Subjective Pt supine in bed; Nursing exiting room. Pt agrees to PT tx. Pain Numeric Pain Scale: 0-No Pain Location: No Pain Reported Mental Status Patient Orientation: Normal For Age Transfers SCALE: Activities may be completed with or without assistive devices. 3-Ontgnfbwqt-nflhnja completes the activity by him/herself with no assistance from a helper. 5-Set-up or Clean-up Assistance-helper sets up or cleans up; patient completes activity. [place] assists only prior to or following the activity. 4-Supervision or Touching Assistance-helper provides verbal cues and/or touching/steadying and/or contact guard assistance as patient completes activity. Assistance may be provided throughout the activity or intermittently. 3-Partial/Moderate Assistance-helper does LESS THAN HALF the effort. [place] lifts, holds or supports trunk or limbs, but provides less than half the effort. 2-Substantial/Maximal Assistance-helper does MORE THAN HALF the effort. [place] lifts or holds trunk or limbs and provides more than half the effort. 1-Cftgsqnfe-unubec does ALL the effort. Patient does none of the effort to complete the activity. Or, the assistance of 2 or more helpers is required for the patient to complete the activity. If activity was not attempted, code reason: 7-Patient Refused. 9-Not Applicable-not attempted and the patient did not perform the activity before the current illness, exacerbation or injury. 10-Not Attempted due to Environmental Limitations-(lack of equipment, weather restraints, etc.). 88-Not Attempted due to Medical Conditions or Safety Concerns. Roll Left & Right (QC): 4 Lying to Sitting/Side of Bed(Q: 4 Sit to Stand (QC): 3 Exercises Seated Therapy Exercises: Sit to stand (10) Treatments Pt completes bed mobility w/ supervision. Worked on transfer training w/ FWW at EOB. Pt unable to complete sit<>stand from EOB w/ B knees at 90 degrees. Pt completes sit<>stands from EOB w/ bed slightly elevated. Pt stands w/ FWW working on postural control and WB tolerance. Pt sitting EOB w/ call light and bedside table w/in reach and all needs met at end of tx. TRANSPORTATION SUPERVISOR informed UNDERGROUND PRODUCTION FOREPERSON that pt prefers to remain sitting EOB at end of tx. Assessment Current Status: Fair Progress Pt motivated and pushes self. PT Short Term Goals Short Term Goals Time Frame: July 22, 2020 Roll Left & Right: 4 Sit to lyin Lying to sitting on side of be: 3 PT Parking Lot Spotter Goals Detention Goals PT Detention Goals Time Frame: Aug 05, 2020 Roll Left & Right (QC): 4 Sit to Lying (QC): 4 Lying-Sitting on Side/Bed(QC): 4 Sit to Stand (QC): 3 Chair/Vrp-ce-Vgeji Xfer(QC): 3 Toilet Transfer (QC): 3 Car Transfer (QC): 3 Does the Patient Walk: No and Walking Goal IS indicated Walk 10 feet (QC): 3 Walk 50ft with 2 Turns (QC): 88 Walk 150 ft (QC): 88 Walking 10ft on Uneven Surface: 88 1 Step (curb) (QC): 88 4 Steps (QC): 88 12 Steps (QC): 88 Picking up an Object (QC): 88 Wheel 50 feet with 2 turns (QC: 6 Wheel 150 feet: 6 PT Plan Problem List Problem List: Activity Tolerance, Functional Strength, Safety, Balance, Gait, Transfer, Bed Mobility, ROM Treatment/Plan Treatment Plan: Continue Plan of Care Treatment Plan: Bed Mobility, Education, Functional Activity Cierra, Functional Strength, Group Therapy, Gait, Safety, Therapeutic Exercise, Transfers Treatment Duration: Aug 05, 2020 Frequency: Modified Program (IRF) Estimated Hrs Per Day: 1 hour per day Patient and/or Family Agrees t: Yes Safety Risks/Education Patient Education: Transfer Techniques, Correct Positioning, Safety Issues Teaching Recipient: Patient Teaching Methods: Discussion Response to Teaching: Verbalize Understanding Time/GCodes Time In: 1010 Time Out: 1043 Total Billed Treatment Time: 33 Total Billed Treatment 1, FA x2 (33m) MAX BRANCH TRANSPORTATION SUPERVISOR Jul 31, 2020 11:49
--- NOTE | 2020-07-31 15:01 | Progress Note - Cardiology ---
Cardiology SOAP Progress Note Subjective: Gen weakness and malaise Shortness of breath with mod exertion No cp or palp or syncope No n/v/d Objective: I&O/Vital Signs 07/31/20 07/31/20 07:30 09:00 Temp 36.4 Pulse 83 Resp 20 B/P (MAP) 112/72 (85) Pulse Ox 93 O2 Delivery Room Air Room Air Constitutional: AAO x 3, well-developed, well-nourished Respiratory: No accessory muscle use; other (good, bilateral air entry that is diminished at the bases; basal coarse crackles) Cardiovascular: regular rate-rhythm, S1 and S2, systolic murmur (soft CA at card base) Gastrointestional: No tender; soft; No guarding, No rebound; audible bowel sounds Extremities: No clubbing, No cyanosis, No significant edema Skin: warm/dry; No cool, No diaphoresis; other (brownish discoloration of the skin of both lower legs) Results/Procedures: Labs Laboratory Tests 07/30/20 15:47: Glucometer 130H 07/31/20 05:06: Glucometer 129H Microbiology 07/17/20 Urine Culture - Final, Complete Proteus mirabilis Proteus mirabilis#2 A/P: Assessment: COVID-19 in May 2020 requiring intubation, now recovered and undergoing inpt rehab Pulmonary infiltrates, being managed by Dr Parry. CXR of 07/30/20: There are persistent alveolar/interstitial infiltrates involving both lungs. When compared to the prior study there does not appear to have been any significant change HTN, controlled COPD/BRANDON, using CPAP at night PAF with RVR during hospitalization on 06/11/20 at [place], on amiodarone and El iquis UTI, management per Medical services. Elevated BMI of approx 41 Plan: * Continue apixaban for stroke prophylaxis * Continue antihypertensive regimen * Monitor labs from time to time ARTURO RASHID MD FACP FAC CCDS Jul 31, 2020 15:01
[2020-07-31 20:29] VITALS: BP 126/82
[2020-07-31] MEDS: MELATONIN 10 MG TABLET PO SCH (21:11)
[2020-07-31] MEDS: ACETAMINOPHEN 325 MG TABLET PO PRN (23:07)
[2020-08-01 07:30] VITALS: BP 121/77
--- NOTE | 2020-08-01 08:21 | PM&R Progress Note ---
Subjective HPI/CC On Admission Date Seen by Provider: Aug 01, 2020 Time Seen by Provider: 12:30 Subjective/Events-last exam 08/01/2020: Patient has no major concerns Pain meds are tolerated Still using sit to stand Overall feels like he is improving 07/31/20: Patient doing really well No major concerns Slowly progressing Bowels are moving pretty well 07/30/20: Patient doing pretty well Ambulating around a little more Chest x-ray pending 91% on room air 07/28/20: Pt dong pretty well Took eight steps today No oxygen now Steroid cream to be placed on psoriasis initiated 07/27/20: Pt doing a lot better Bowels moving today Off O2 and running 91% Overall much improved 07/26/2020: Patient doing really well Potassium 3.5 usually refusing to take it Sugars are doing well He is running 90% off oxygen Dramatic improvement 07/25/2020 Patient denies any issues Improving strength by the day Due for labs tomorrow Family at bedside 07/24/2020: Patient doing really well today On oxygen at 1.5 L/min Had a large bowel movement Sugars are okay Hates the carb limitations Girlfriend and his mother at the bedside today 07/23/20: Pt up in a chair and appears to be much stronger 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 in a chair for very long Blood sugar 141 Left foot drop is an issue 07/22/20: Patient doing well Baseline flat affect assessed Had complete bowel evacuation yesterday after Fleets after supp EKG today per Dr Rinaldi Monitored closely 07/21/20: Pt doing pretty well Slow progress Will DC the heplock Sugar changes to twice daily and will give 3 units of Novolog if greater than 160 Trach dressing changed and it is sealing up well Bowels moved yesterday 07/20/20: Pt doing pretty well Bowels moved two days ago, doesnt want anything too harsh Oxygen maintained Working hard Progressing nicely 07/19/20: Pt doing pretty well Respiratory therapy tried to wean him off and he became very hypoxic Weakness in hands are a challenge for him to shave DC Cefepime and starting Omnicef Doesnt really like IVs and lab checks and made that pretty clear to me 07/18/20: Patient doing well Diarrhea noted UTI treated with IV abx UCx pending 07/17/20: Patient doing well No complaints Awaiting UCx Empiric abx maintained Aunt at bedside O2 at 1L/min Sugar improved 07/16/20: Pt doing pretty well Potassium of 2.7 so will initiate supplement Dr. Rinaldi is seeing him in consultation EKG obtained and normal sinus rhythm noted UA ordered for burning sensation on urination Pt very debilitated Review of Systems General: Fatigue Pulmonary: Dyspnea Objective Exam Vital Signs Vital Signs Date Time Temp Pulse Resp B/P (MAP) Pulse Ox O2 Delivery O2 Flow Rate FiO2 08/01/20 09:00 Room Air 08/01/20 07:30 36.6 86 20 121/77 (92) 94 07/28/20 21:00 1.50 Capillary Refill : General Appearance: No Apparent Distress, WD/WN, Obese HEENT: PERRL/EOMI, Normal ENT Inspection, Pharynx Normal Neck: Full Range of Motion, Normal Inspection, Non Tender, Supple, Carotid Bruit Respiratory: Chest Non Tender, Lungs Clear, No Accessory Muscle Use, No Respiratory Distress, Decreased Breath Sounds Cardiovascular: Regular Rate, Rhythm, No Edema, No Gallop, No JVD, No Murmur, Normal Peripheral Pulses Gastrointestinal: Normal Bowel Sounds, No Organomegaly, No Pulsatile Mass, Non Tender, Soft Back: Normal Inspection, No CVA Tenderness, No Vertebral Tenderness Extremity: Normal Capillary Refill, Normal Inspection, Normal Range of Motion, Non Tender, No Calf Tenderness, No Pedal Edema Neurologic/Psychiatric: Alert, Oriented x3, No Motor/Sensory Deficits, Normal Mood/Affect, 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 FIM Transfers Therapy Code Descriptions/Definitions Functional [place] Measure: 0=Not Assessed/NA 4=Minimal Assistance 1=Total Assistance 5=Supervision or Setup 2=Maximal Assistance 6=Modified [place] 3=Moderate Assistance 7=Complete IndependenceSCALE: Activities may be completed with or without assistive devices. 2-Jbsvosoced-tsqxzci completes the activity by him/herself with no assistance from a helper. 5-Set-up or Clean-up Assistance-helper sets up or cleans up; patient completes activity. [place] assists only prior to or following the activity. 4-Supervision or Touching Assistance-helper provides verbal cues and/or touching/steadying and/or contact guard assistance as patient completes activity. Assistance may be provided throughout the activity or intermittently. 3-Partial/Moderate Assistance-helper does LESS THAN HALF the effort. [place] lifts, holds or supports trunk or limbs, but provides less than half the effort. 2-Substantial/Maximal Assistance-helper does MORE THAN HALF the effort. [place] lifts or holds trunk or limbs and provides more than half the effort. 0-Anzbgxsjg-nejapn does ALL the effort. Patient does none of the effort to complete the activity. Or, the assistance of 2 or more helpers is required for the patient to complete the activity. If activity was not attempted, code reason: 7-Patient Refused. 9-Not Applicable-not attempted and the patient did not perform the activity before the current illness, exacerbation or injury. 10-Not Attempted due to Environmental Limitations-(lack of equipment, weather restraints, etc.). 88-Not Attempted due to Medical Conditions or Safety Concerns. Roll Left to Right (QC): 4 Sit to Lying (QC): 6 Sit to Stand (QC): 3 Chair/Gwr-np-Uhawq Xfer(QC): 3 Car Transfer (QC): 1 Gait Training Does the Patient Walk?: Yes Distance: 15', 25' Walk 10 feet (QC): 4 Walk 50 ft with 2 Turns(QC): 88 Walk 150 ft (QC): 88 Walking 10ft/uneven surface-QC: 88 Gait Persons Needed: 1 Gait Assistive Device: FWW Wheelchair Training Does the Pt Use a Wheelchair?: Yes Distance: 80' Wheel 50 ft with 2 turns (QC): 5 Wheel 150 ft (QC): 5 Type of Wheelchair: Manual Stair Training 1 Step (curb) (QC): 88 4 Steps (QC): 88 12 Steps (QC): 88 Balance Picking up an Object (QC): 88 ADL-Treatment Eating (QC): 5 (set up per pt report) Oral Hygiene (QC): 6 Shower/Bathe Self (QC): 1 (Assist x2 to complete cleansing/drying buttocks, able to complete all other steps by self.) Upper Body Dressing (QC): 5 Lower Body Dressing (QC): 1 On/Off Footwear (QC): 3 Toileting Hygiene (QC): 1 Toilet Transfer (QC): 1 Assessment/Plan Assessment and Plan Assess & Plan/Chief Complaint Assessment: COVID-19 PNA myopathy Severe poor lung reserve Obesity New onset DM AF? Psoriasis of buttocks Plan: Insulin Monitor lung function Cardiology consult 07/16/20: UA Replace potassium Slow recovery 07/17/20: IV abx Suspect resistant UTI 07/18/20: Monitor closely Await Ucx 07/19/20: Reviewed UCx DC Cefepime Irritated with IV's and lab checks 07/20/20: Monitor closely Sugars good 07/21/20: DC Heplock 07/22/20: Monitored closely BP ok 07/23/20: Monitor O2 Improved status now 07/24/2020: Continue limitation of carbs to decrease sugar Monitor oxygen level 07/25/2020 Check labs in the morning Monitor closely 07/26/2020: Discharge planned after review on Sunday Dramatic improvement Wean oxygen 07/27/20: Improved Weaned O2 07/28/20: Steroid cream for psoriasis Doing much better 07/30/2020: Chest x-ray reviewed Continue aggressive therapy 07/31/2020: Monitor closely Maintain oxygen 08/01/2020: Psoriasis treatment Monitor blood pressure Check labs in the morning (1) Myopathy (2) COVID-19 (3) Obesity (4) Diabetes mellitus NATHANAEL HOWE DO Aug 01, 2020 08:21
[2020-08-01] MEDS: APIXABAN 5 MG (ELIQUIS) TABLET PO SCH ×2 (08:38→20:02)
[2020-08-01] MEDS: amLODIPine 10 MG (NORVASC) TAB PO SCH (08:38)
[2020-08-01] MEDS: LACTOBACILLUS ACIDOPHILUS (PROBIOTIC) CAPSULE PO SCH ×2 (08:38→20:02)
[2020-08-01] MEDS: DOCUSATE SODIUM 100 MG (COLACE) CAP PO SCH ×2 (08:38→20:02)
[2020-08-01] MEDS: VITAMIN D3 125 MCG (5,000 UNITS) CAPSULE PO SCH (08:38)
[2020-08-01] MEDS: KCL 10 MEQ TAB (MICRO K) PO SCH ×3 (08:38→17:52)
[2020-08-01] MEDS: PANTOPRAZOLE 40 MG (PROTONIX) TAB PO SCH (08:39)
[2020-08-01] MEDS: lisINopril 20 MG (PRINIVIL) TABLET PO SCH (08:39)
[2020-08-01] MEDS: polyethylene glycoL POWDER 17 GM (MIRALAX) PACK PO SCH ×2 (08:39→19:20)
[2020-08-01] MEDS: ACETAMINOPHEN 325 MG TABLET PO PRN (08:39)
[2020-08-01] MEDS: SENNA W/DOCUSATE (SENOKOT S) TABLET PO SCH ×2 (08:39→20:02)
[2020-08-01] MEDS: ASCORBIC ACID (VIT C) 500 MG TABLET PO SCH (08:39)
[2020-08-01] MEDS: TRIAMCINOLONE 0.1% CR (KENALOG) 15 GM TUBE TOP SCH ×2 (08:41→20:17)
[2020-08-01] MEDS: MICONAZOLE 2% POWDER (DESENEX AF) 90 GM TOP SCH ×2 (08:41→20:17)
[2020-08-01] MEDS: MELATONIN 10 MG TABLET PO SCH (19:20)
[2020-08-01 20:00] VITALS: BP 123/74
[2020-08-02] MEDS: ACETAMINOPHEN 325 MG TABLET PO PRN (04:30)
[2020-08-02 05:33] LABS: BASOPHILS # (AUTO) 0.1 10^3/uL (0.0-0.1); BASOPHILS % (AUTO) 1 % (0-10); EOSINOPHILS # (AUTO) 0.3 10^3/uL (0.0-0.3); EOSINOPHILS % (AUTO) 4 % (0-10); HEMATOCRIT 44 % (40-54); HEMOGLOBIN 14.1 g/dL (13.3-17.7); LYMPHOCYTES # (AUTO) 1.4 10^3/uL (1.0-4.0); LYMPHOCYTES % (AUTO) 19 % (12-44); MEAN CORPUSCULAR HEMOGLOBIN 29 pg (25-34); MEAN CORPUSCULAR HGB CONC 32 g/dL (32-36); MEAN CORPUSCULAR VOLUME 89 fL (80-99); MEAN PLATELET VOLUME 10.5 fL (9.0-12.2); MONOCYTES # (AUTO) 0.5 10^3/uL (0.0-1.0); MONOCYTES % (AUTO) 7 % (0-12); NEUTROPHILS # (AUTO) 5.1 10^3/uL (1.8-7.8); NEUTROPHILS % (AUTO) 68 % (42-75); PLATELET COUNT 265 10^3/uL (130-400); WHITE BLOOD COUNT 7.5 10^3/uL (4.3-11.0)
[2020-08-02 05:40] LABS: ALBUMIN 3.4 GM/DL (3.2-4.5); CHLORIDE 107 MMOL/L (98-107); POTASSIUM 3.6 MMOL/L (3.6-5.0); SODIUM 143 MMOL/L (135-145)
[2020-08-02 05:42] LABS: GLUCOSE 140 MG/DL (70-105)
[2020-08-02 05:43] LABS: TOTAL PROTEIN 6.2 GM/DL (6.4-8.2)
[2020-08-02 05:44] LABS: BILIRUBIN,TOTAL 0.5 MG/DL (0.1-1.0); CARBON DIOXIDE 25 MMOL/L (21-32)
[2020-08-02 05:46] LABS: ALKALINE PHOSPHATASE 94 U/L (40-136); CREATININE SERUM 0.68 MG/DL (0.60-1.30); GFR ESTIMATED > 60
[2020-08-02 05:47] LABS: BUN/CREATININE RATIO 21
[2020-08-02 05:49] LABS: ALANINE AMINOTRANSFERASE 26 U/L (0-55)
--- NOTE | 2020-08-02 06:57 | PM&R Progress Note ---
Subjective HPI/CC On Admission Date Seen by Provider: Aug 02, 2020 Time Seen by Provider: 09:00 Subjective/Events-last exam 08/02/2020: Patient doing pretty well Steroid cream on psoriasis on buttocks Area on back really bothers him when I assessed it today because it was just a very subtle pink patch now it has blisters consistent with shingles We will start on Valtrex Had a good bowel movement today 08/01/2020: Patient has no major concerns Pain meds are tolerated Still using sit to stand Overall feels like he is improving 07/31/20: Patient doing really well No major concerns Slowly progressing Bowels are moving pretty well 07/30/20: Patient doing pretty well Ambulating around a little more Chest x-ray pending 91% on room air 07/28/20: Pt dong pretty well Took eight steps today No oxygen now Steroid cream to be placed on psoriasis initiated 07/27/20: Pt doing a lot better Bowels moving today Off O2 and running 91% Overall much improved 07/26/2020: Patient doing really well Potassium 3.5 usually refusing to take it Sugars are doing well He is running 90% off oxygen Dramatic improvement 07/25/2020 Patient denies any issues Improving strength by the day Due for labs tomorrow Family at bedside 07/24/2020: Patient doing really well today On oxygen at 1.5 L/min Had a large bowel movement Sugars are okay Hates the carb limitations Girlfriend and his mother at the bedside today 07/23/20: Pt up in a chair and appears to be much stronger 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 in a chair for very long Blood sugar 141 Left foot drop is an issue 07/22/20: Patient doing well Baseline flat affect assessed Had complete bowel evacuation yesterday after Fleets after supp EKG today per Dr Rinaldi Monitored closely 07/21/20: Pt doing pretty well Slow progress Will DC the heplock Sugar changes to twice daily and will give 3 units of Novolog if greater than 160 Trach dressing changed and it is sealing up well Bowels moved yesterday 07/20/20: Pt doing pretty well Bowels moved two days ago, doesnt want anything too harsh Oxygen maintained Working hard Progressing nicely 07/19/20: Pt doing pretty well Respiratory therapy tried to wean him off and he became very hypoxic Weakness in hands are a challenge for him to shave DC Cefepime and starting Omnicef Doesnt really like IVs and lab checks and made that pretty clear to me 07/18/20: Patient doing well Diarrhea noted UTI treated with IV abx UCx pending 07/17/20: Patient doing well No complaints Awaiting UCx Empiric abx maintained Aunt at bedside O2 at 1L/min Sugar improved 07/16/20: Pt doing pretty well Potassium of 2.7 so will initiate supplement Dr. Rinaldi is seeing him in consultation EKG obtained and normal sinus rhythm noted UA ordered for burning sensation on urination Pt very debilitated Review of Systems General: Fatigue Pulmonary: Dyspnea Neurological: Weakness Objective Exam Vital Signs Vital Signs Date Time Temp Pulse Resp B/P (MAP) Pulse Ox O2 Delivery O2 Flow Rate FiO2 08/02/20 21:00 Room Air 08/02/20 20:00 36.8 92 18 123/71 (88) 92 07/28/20 21:00 1.50 Capillary Refill : General Appearance: No Apparent Distress, WD/WN, Obese HEENT: PERRL/EOMI, Normal ENT Inspection, Pharynx Normal Neck: Full Range of Motion, Normal Inspection, Non Tender, Supple, Carotid Bruit Respiratory: Chest Non Tender, Lungs Clear, No Accessory Muscle Use, No Respiratory Distress, Decreased Breath Sounds Cardiovascular: Regular Rate, Rhythm, No Edema, No Gallop, No JVD, No Murmur, Normal Peripheral Pulses Gastrointestinal: Normal Bowel Sounds, No Organomegaly, No Pulsatile Mass, Non Tender, Soft Back: Normal Inspection, No CVA Tenderness, No Vertebral Tenderness Extremity: Normal Capillary Refill, Normal Inspection, Normal Range of Motion, Non Tender, No Calf Tenderness, No Pedal Edema Neurologic/Psychiatric: Alert, Oriented x3, No Motor/Sensory Deficits, Normal Mood/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 FIM Transfers Therapy Code Descriptions/Definitions Functional [place] Measure: 0=Not Assessed/NA 4=Minimal Assistance 1=Total Assistance 5=Supervision or Setup 2=Maximal Assistance 6=Modified [place] 3=Moderate Assistance 7=Complete IndependenceSCALE: Activities may be completed with or without assistive devices. 6-Gwtmehqhuo-jxqcwey completes the activity by him/herself with no assistance from a helper. 5-Set-up or Clean-up Assistance-helper sets up or cleans up; patient completes activity. [place] assists only prior to or following the activity. 4-Supervision or Touching Assistance-helper provides verbal cues and/or touching/steadying and/or contact guard assistance as patient completes activity. Assistance may be provided throughout the activity or intermittently. 3-Partial/Moderate Assistance-helper does LESS THAN HALF the effort. [place] lifts, holds or supports trunk or limbs, but provides less than half the effort. 2-Substantial/Maximal Assistance-helper does MORE THAN HALF the effort. [place] lifts or holds trunk or limbs and provides more than half the effort. 5-Kmhdzqfjj-xrbamg does ALL the effort. Patient does none of the effort to complete the activity. Or, the assistance of 2 or more helpers is required for the patient to complete the activity. If activity was not attempted, code reason: 7-Patient Refused. 9-Not Applicable-not attempted and the patient did not perform the activity before the current illness, exacerbation or injury. 10-Not Attempted due to Environmental Limitations-(lack of equipment, weather restraints, etc.). 88-Not Attempted due to Medical Conditions or Safety Concerns. Roll Left to Right (QC): 4 Sit to Lying (QC): 6 Sit to Stand (QC): 3 Chair/Klh-ch-Fviay Xfer(QC): 3 Car Transfer (QC): 1 Gait Training Does the Patient Walk?: Yes Distance: 15', 25' Walk 10 feet (QC): 4 Walk 50 ft with 2 Turns(QC): 88 Walk 150 ft (QC): 88 Walking 10ft/uneven surface-QC: 88 Gait Persons Needed: 1 Gait Assistive Device: FWW Wheelchair Training Does the Pt Use a Wheelchair?: Yes Distance: 80' Wheel 50 ft with 2 turns (QC): 5 Wheel 150 ft (QC): 5 Type of Wheelchair: Manual Stair Training 1 Step (curb) (QC): 88 4 Steps (QC): 88 12 Steps (QC): 88 Balance Picking up an Object (QC): 88 ADL-Treatment Eating (QC): 5 (set up per pt report) Oral Hygiene (QC): 6 Shower/Bathe Self (QC): 1 (Assist x2 to complete cleansing/drying buttocks, able to complete all other steps by self.) Upper Body Dressing (QC): 5 Lower Body Dressing (QC): 1 On/Off Footwear (QC): 3 Toileting Hygiene (QC): 1 Toilet Transfer (QC): 1 Assessment/Plan Assessment and Plan Assess & Plan/Chief Complaint Assessment: COVID-19 PNA myopathy Severe poor lung reserve Obesity New onset DM AF? Psoriasis of buttocks Shingles right flank 08/02/2020 Plan: Insulin Monitor lung function Cardiology consult 07/16/20: UA Replace potassium Slow recovery 07/17/20: IV abx Suspect resistant UTI 07/18/20: Monitor closely Await Ucx 07/19/20: Reviewed UCx DC Cefepime Irritated with IV's and lab checks 07/20/20: Monitor closely Sugars good 07/21/20: DC Heplock 07/22/20: Monitored closely BP ok 07/23/20: Monitor O2 Improved status now 07/24/2020: Continue limitation of carbs to decrease sugar Monitor oxygen level 07/25/2020 Check labs in the morning Monitor closely 07/26/2020: Discharge planned after review on Sunday Dramatic improvement Wean oxygen 07/27/20: Improved Weaned O2 07/28/20: Steroid cream for psoriasis Doing much better 07/30/2020: Chest x-ray reviewed Continue aggressive therapy 07/31/2020: Monitor closely Maintain oxygen 08/01/2020: Psoriasis treatment Monitor blood pressure Check labs in the morning 08/02/2020: Shingles treatment Monitor closely (1) Myopathy (2) COVID-19 (3) Obesity (4) Diabetes mellitus NATHANAEL HOWE DO Aug 02, 2020 06:57
[2020-08-02] MEDS: SENNA W/DOCUSATE (SENOKOT S) TABLET PO SCH ×2 (07:47→23:05)
[2020-08-02] MEDS: ASCORBIC ACID (VIT C) 500 MG TABLET PO SCH (07:47)
[2020-08-02] MEDS: APIXABAN 5 MG (ELIQUIS) TABLET PO SCH ×2 (07:47→23:06)
[2020-08-02] MEDS: VITAMIN D3 125 MCG (5,000 UNITS) CAPSULE PO SCH (07:47)
[2020-08-02] MEDS: DOCUSATE SODIUM 100 MG (COLACE) CAP PO SCH ×2 (07:48→23:06)
[2020-08-02] MEDS: KCL 10 MEQ TAB (MICRO K) PO SCH ×3 (07:48→17:40)
[2020-08-02] MEDS: amLODIPine 10 MG (NORVASC) TAB PO SCH (07:48)
[2020-08-02] MEDS: lisINopril 20 MG (PRINIVIL) TABLET PO SCH (07:48)
[2020-08-02] MEDS: LACTOBACILLUS ACIDOPHILUS (PROBIOTIC) CAPSULE PO SCH ×2 (07:48→23:05)
[2020-08-02] MEDS: PANTOPRAZOLE 40 MG (PROTONIX) TAB PO SCH (07:48)
[2020-08-02 08:00] VITALS: BP 138/88
[2020-08-02] MEDS: polyethylene glycoL POWDER 17 GM (MIRALAX) PACK PO SCH ×2 (08:57→20:42)
--- NOTE | 2020-08-02 09:17 | Cardiology Progress Note ---
Subjective Date Seen by Provider: Aug 02, 2020 Time Seen by Provider: 09:15 Subjective/Events-last exam Laboratory Tests 08/01/20 15:49: Glucometer 140H 08/02/20 05:22: White Blood Count 7.5, Red Blood Count 4.89, Hemoglobin 14.1, Hematocrit 44, Mean Corpuscular Volume 89, Mean Corpuscular Hemoglobin 29, Mean Corpuscular Hemoglobin Concent 32, Red Cell Distribution Width 15.3H, Platelet Count 265, Mean Platelet Volume 10.5, Immature Granulocyte % (Auto) 2, Neutrophils (%) (Auto) 68, Lymphocytes (%) (Auto) 19, Monocytes (%) (Auto) 7, Eosinophils (%) (Auto) 4, Basophils (%) (Auto) 1, Neutrophils # (Auto) 5.1, Lymphocytes # (Auto) 1.4, Monocytes # (Auto) 0.5, Eosinophils # (Auto) 0.3, Basophils # (Auto) 0.1, Immature Granulocyte # (Auto) 0.1, Sodium Level 143, Potassium Level 3.6, Chloride Level 107, Carbon Dioxide Level 25, Anion Gap 11, Blood Urea Nitrogen 14, Creatinine 0.68, Estimat Glomerular Filtration Rate > 60, BUN/Creatinine Ratio 21, Glucose Level 140H, Calcium Level 9.0, Corrected Calcium 9.5, Total Bilirubin 0.5, Aspartate Amino Transf (AST/SGOT) 13, Alanine Aminotransferase (ALT/SGPT) 26, Alkaline Phosphatase 94, Total Protein 6.2L, Albumin 3.4 Microbiology 07/17/20 Urine Culture - Final, Complete Proteus mirabilis Proteus mirabilis#2 Review of Systems General: No Chills, No Night Sweats; Fatigue; No Malaise, No Appetite, No Other HEENT: No Head Aches, No Visual Changes, No Eye Pain, No Ear Pain, No Dysphasia, No Sinus Congestion, No Post Nasal Drip, No Sore Throat, No Other Pulmonary: No Dyspnea, No Cough, No Pleuritic Chest Pain, No Other Cardiovascular: No: Chest Pain, Palpitations, Orthopnea, Paroxysmal Noc. Dyspnea, Edema, Lt Headedness, Other Objective-Cardiology Exam Last Set of Vital Signs Vital Signs 07/28/20 08/02/20 08/02/20 21:00 08:00 09:00 Temp 36.0 Pulse 91 Resp 18 B/P (MAP) 138/88 (105) Pulse Ox 96 O2 Delivery Room Air O2 Flow Rate 1.50 Capillary Refill : General: Alert, Oriented X3, Cooperative HEENT: Atraumatic, PERRLA Neck: Supple, No JVD, No Thyromegaly Lungs: Clear to Auscultation, Normal Air Movement Heart: Regular Rate, Normal S1, Normal S2, No Murmurs Abdomen: Normal Bowel Sounds, Soft, No Tenderness, No Hepatosplenomegaly, No Masses Extremities: No Clubbing, No Cyanosis, No Edema, Normal Pulses, No Tenderness/Swelling Skin: No Rashes, No Breakdown, No Significant Lesion Neuro: Normal Gait, Normal Speech, Strength at 5/5 X4 Ext, Normal Tone, S ensation Intact Psych/Mental Status: Mental Status NL, Mood NL Results Lab Laboratory Tests 08/02/20 05:22 A/P-Cardiology Admission Diagnosis Generalized debility/weakness HTN COPD/BRANDON Questionable PAF Assessment/Plan S/p COVID-19 illness in May 2020 requiring intubation, was transferred from [facility] to [facility] and transferred to IRF last week. Continues to have generalized debility and weakness. Continue with PT/OT Dyspnea, improved, continue to monitor. HTN, controlled, continue to monitor. COPD/BRANDON, using CPAP at night, more dyspneic today. PAF, had AF with RVR on 06/11/20 at [place], started on Amiodarone. Amiodarone d/c'd, continue on Eliquis. UTI, management per medical services. Obesity Patient was seen and evaluated with Viktoria, examination performed, management plan was discussed, agree with the current scribed note, I made few changes to the note using Italic font Patient was seen at bedside, laying down comfortably, no new complaint Still complain of generalized fatigue and loss of energy Events from the weekend were reviewed Chest x-ray report was reviewed I discontinued amiodarone during this admission, continue to monitor for any arrhythmia, continue on Eliquis Monitor blood pressure and lipids VIKTORIA CHOPRA Aug 02, 2020 9:17 am KAREN DENT MD Aug 02, 2020 11:51 am
--- NOTE | 2020-08-02 09:47 | Occupational Ther Daily Note ---
OT Current Status-Daily Note Subjective Pt alert, lying in bed. Pt agrees to therapy. No c/o pain. Co-treat with PT for skilled instruction and modifications due to increased fall risk, decreased mobility, increased SOA and fatigue. Mental Status/Objective Patient Orientation: Person, Place, Time, Situation ADL-Treatment Pt on bedpan when PHAN entered room. Pt required max A to cleanse after BM and to remove bedpan. After set up, pt able to don/doff lower body clothing by self. SBA for safety and HOB slightly elevated to go from supine to sitting EOB. After set up, pt able to don socks with sock aid. Assist to don shoes due to AFO in L shoe. Min to Mod A depending on height of surface for sit to stand. Began co-treat with PT ([id number]), PT focusing on transfers, ambulation and mobility while OT focusing on ADLs, functional standing and mobility. Sitting at sink, pt able to complete oral care independently. Pt able to propel w/c to/from room to/from therapy gym. Therapy Code Descriptions/Definitions Functional [place] Measure: 0=Not Assessed/NA 4=Minimal Assistance 1=Total Assistance 5=Supervision or Setup 2=Maximal Assistance 6=Modified [place] 3=Moderate Assistance 7=Complete IndependenceSCALE: Activities may be completed with or without assistive devices. 4-Tyutqvmuyk-qenyzfj completes the activity by him/herself with no assistance from a helper. 5-Set-up or Clean-up Assistance-helper sets up or cleans up; patient completes a ctivity. [place] assists only prior to or following the activity. 4-Supervision or Touching Assistance-helper provides verbal cues and/or touching/steadying and/or contact guard assistance as patient completes activity. Assistance may be provided throughout the activity or intermittently. 3-Partial/Moderate Assistance-helper does LESS THAN HALF the effort. [place] lifts, holds or supports trunk or limbs, but provides less than half the effort. 2-Substantial/Maximal Assistance-helper does MORE THAN HALF the effort. [place] lifts or holds trunk or limbs and provides more than half the effort. 9-Lbcyjqwfp-xjagew does ALL the effort. Patient does none of the effort to complete the activity. Or, the assistance of 2 or more helpers is required for the patient to complete the activity. If activity was not attempted, code reason: 7-Patient Refused. 9-Not Applicable-not attempted and the patient did not perform the activity before the current illness, exacerbation or injury. 10-Not Attempted due to Environmental Limitations-(lack of equipment, weather restraints, etc.). 88-Not Attempted due to Medical Conditions or Safety Concerns. Oral Hygiene (QC): 6 Upper Body Dressing (QC): 5 Lower Body Dressing (QC): 5 On/Off Footwear: 2 Toileting Hygiene (QC): 2 Other Treatment See PT notes for ambulation and transfer progress. Pt ambulated the length of gym 4x's with assist x2 for safety. Pt stood in parallel bars to work on balance by standing without B UE and touching shldrs 25x's then back 25x's. Pt SOA with all activity requiring lengthy recovery breaks. After session, pt sitting EOB. Nrsg on room. All needs met in room. OT Short Term Goals Short Term Goals Time Frame: Aug 05, 2020 Toileting hygiene: 2 Upper body dressin Lower body dressin Putting on/taking off footwear: 2 OT Mcfp Goals Mcfp Goals Time Frame: Aug 13, 2020 Eating (QC): 6 Oral Hygiene (QC): 6 Toileting Hygiene (QC): 6 Shower/Bathe Self (QC): 6 Upper Body Dressing (QC): 6 Lower Body Dressing (QC): 6 On/Off Footwear (QC): 6 Additional Goals: 1-Demonstrate ADL Tasks, 2-Verbalize Understanding, 3- ImproveStrength/Cierra 1=Demonstrate adherence to instructed precautions during ADL tasks. 2=Patient will verbalize/demonstrate understanding of assistive devices/modifications for ADL. 3=Patient will improve strength/tolerance for activity to enable patient to perform ADL's. OT Education/Plan Problem List/Assessment Assessment: Decreased Activ Tolerance, Decreased UE Strength, Impaired Funct Balance, Impaired Self-Care Skills Discharge Recommendations Plan/Recommendations: Continue POC Treatment Plan/Plan of Care Patient would benefit from OT for education, treatment and training to promote independence in ADL's, mobility, safety and/or upper extremity function for ADL's. Plan of Care: ADL Retraining, Functional Mobility, Group Exercise/Act as Ind, UE Funct Exercise/Act Treatment Duration: Aug 13, 2020 Frequency: Modified Program (IRF) Estimated Hrs Per Day: 1 hour per day Agreement: Yes Rehab Potential: Fair Time/GCodes Start Time: 08:30 Stop Time: 09:45 Total Time Billed (hr/min): 75 Billed Treatment Time 1 visit-ADL 2 (30 min) FA 3 (45 min) TYSON FISHER Aug 02, 2020 09:47
--- NOTE | 2020-08-02 10:33 | Physical Therapy Daily Note ---
PT Daily Note-Current Subjective Patient in bed pre tx, agrees to PT, has no complaints of pain, will be co- treating with OT due to poor patient mobility, strength, endurance, severe debility, coordinate UE and LE during activity, safety and reduce risk of falls. After getting to WC patient performs some ADL's Appearance Patient seated EOB post tx with nurse call, OT to continue for a bit with patient. Mental Status Patient Orientation: Normal For Age Transfers SCALE: Activities may be completed with or without assistive devices. 7-Yyfosmizst-iippulj completes the activity by him/herself with no assistance from a helper. 5-Set-up or Clean-up Assistance-helper sets up or cleans up; patient completes activity. [place] assists only prior to or following the activity. 4-Supervision or Touching Assistance-helper provides verbal cues and/or touching/steadying and/or contact guard assistance as patient completes activity. Assistance may be provided throughout the activity or intermittently. 3-Partial/Moderate Assistance-helper does LESS THAN HALF the effort. [place] lifts, holds or supports trunk or limbs, but provides less than half the effort. 2-Substantial/Maximal Assistance-helper does MORE THAN HALF the effort. [place] lifts or holds trunk or limbs and provides more than half the effort. 0-Ipllnklhu-eixoiu does ALL the effort. Patient does none of the effort to complete the activity. Or, the assistance of 2 or more helpers is required for the patient to complete the activity. If activity was not attempted, code reason: 7-Patient Refused. 9-Not Applicable-not attempted and the patient did not perform the activity before the current illness, exacerbation or injury. 10-Not Attempted due to Environmental Limitations-(lack of equipment, weather restraints, etc.). 88-Not Attempted due to Medical Conditions or Safety Concerns. Sit to Stand (QC): 3 Chair/Dxo-ed-Iabxo Xfer(QC): 3 Gait Training Distance: 20'x2, 40' Walk 10 feet (QC): 3 Gait Assistive Device: FWW WC follow, unsteady but no LOB Wheelchair Training Does the Pt Use a Wheelchair?: Yes Wheel 50 ft with 2 turns (QC): 5 Wheel 150 ft (QC): 5 Type of Wheelchair: Manual 300', 120' Exercises standing in parallel bars x1 for about 2 min performing reaching activity Treatments PT performed bed mobility and transfers, ambulation, WC mobility, standing balance, positioning and safety during activity and ADL's, OT performed ADL's, UE positioning and safety during activity, balance activity Assessment Current Status: Fair Progress slow, steady progress but patient still gets very SOB with minimal activity and needs many rest breaks PT Short Term Goals Short Term Goals Time Frame: July 22, 2020 Roll Left & Right: 4 Sit to lyin Lying to sitting on side of be: 3 PT Training Professional Goals Training Professional Goals PT Detention Goals Time Frame: Aug 05, 2020 Roll Left & Right (QC): 4 Sit to Lying (QC): 4 Lying-Sitting on Side/Bed(QC): 4 Sit to Stand (QC): 3 Chair/Vds-av-Zfhvz Xfer(QC): 3 Toilet Transfer (QC): 3 Car Transfer (QC): 3 Does the Patient Walk: No and Walking Goal IS indicated Walk 10 feet (QC): 3 Walk 50ft with 2 Turns (QC): 88 Walk 150 ft (QC): 88 Walking 10ft on Uneven Surface: 88 1 Step (curb) (QC): 88 4 Steps (QC): 88 12 Steps (QC): 88 Picking up an Object (QC): 88 Wheel 50 feet with 2 turns (QC: 6 Wheel 150 feet: 6 PT Plan Problem List Problem List: Activity Tolerance, Functional Strength, Safety, Balance, Gait, Transfer, Bed Mobility, ROM Treatment/Plan Treatment Plan: Continue Plan of Care Treatment Plan: Bed Mobility, Education, Functional Activity Cierra, Functional Strength, Group Therapy, Gait, Safety, Therapeutic Exercise, Transfers Treatment Duration: Aug 05, 2020 Frequency: Modified Program (IRF) Estimated Hrs Per Day: 1 hour per day Patient and/or Family Agrees t: Yes Safety Risks/Education Patient Education: Gait Training, Transfer Techniques, Correct Positioning, W/C Management, Safety Issues Teaching Recipient: Patient Teaching Methods: Demonstration, Discussion Response to Teaching: Reinforcement Needed Time/GCodes Time In: 0845 Time Out: 944 Total Billed Treatment Time: 60 Total Billed Treatment 1 visit FA 60' co-treated for 60' LIZ MI PT Aug 02, 2020 10:33
[2020-08-02] MEDS: MICONAZOLE 2% POWDER (DESENEX AF) 90 GM TOP SCH ×2 (11:11→23:06)
[2020-08-02] MEDS: VALACYCLOVIR 500 MG TAB (VALTREX) PO SCH ×3 (12:04→23:06)
[2020-08-02] MEDS: TRIAMCINOLONE 0.1% CR (KENALOG) 15 GM TUBE TOP SCH ×2 (12:05→23:05)
[2020-08-02] MEDS ORDERED: DOCOSANOL 10 % CREAM (ABREVA) 2 GM TP SCH (13:00)
[2020-08-02] MEDS: DOCOSANOL 10 % CREAM (ABREVA) 2 GM TP SCH ×3 (13:54→23:07)
[2020-08-02 20:00] VITALS: BP 123/71
[2020-08-02] MEDS: MELATONIN 10 MG TABLET PO SCH (20:41)
[2020-08-03] MEDS: DOCOSANOL 10 % CREAM (ABREVA) 2 GM TP SCH ×5 (06:32→22:33)
[2020-08-03 08:18] VITALS: BP 137/80
[2020-08-03] MEDS: VITAMIN D3 125 MCG (5,000 UNITS) CAPSULE PO SCH (08:19)
[2020-08-03] MEDS: PANTOPRAZOLE 40 MG (PROTONIX) TAB PO SCH (08:19)
[2020-08-03] MEDS: VALACYCLOVIR 500 MG TAB (VALTREX) PO SCH ×3 (08:19→22:23)
[2020-08-03] MEDS: amLODIPine 10 MG (NORVASC) TAB PO SCH (08:20)
[2020-08-03] MEDS: LACTOBACILLUS ACIDOPHILUS (PROBIOTIC) CAPSULE PO SCH ×2 (08:20→22:24)
[2020-08-03] MEDS: ASCORBIC ACID (VIT C) 500 MG TABLET PO SCH (08:20)
[2020-08-03] MEDS: APIXABAN 5 MG (ELIQUIS) TABLET PO SCH ×2 (08:20→22:24)
[2020-08-03] MEDS: KCL 10 MEQ TAB (MICRO K) PO SCH ×3 (08:20→17:06)
[2020-08-03] MEDS: lisINopril 20 MG (PRINIVIL) TABLET PO SCH (08:20)
[2020-08-03] MEDS: ACETAMINOPHEN 325 MG TABLET PO PRN (08:22)
[2020-08-03] MEDS: TRIAMCINOLONE 0.1% CR (KENALOG) 15 GM TUBE TOP SCH ×2 (08:24→22:33)
--- NOTE | 2020-08-03 08:24 | Cardiology Progress Note ---
Subjective Date Seen by Provider: Aug 03, 2020 Time Seen by Provider: 08:23 Subjective/Events-last exam Patient is sitting up in bed, c/o pain at shingles site. Objective-Cardiology Exam Last Set of Vital Signs Vital Signs 07/28/20 08/03/20 21:00 08:18 Temp 37.0 Pulse 85 Resp 19 B/P (MAP) 137/80 (99) Pulse Ox 94 O2 Delivery Room Air O2 Flow Rate 1.50 Capillary Refill : General: Alert, Oriented X3, Cooperative HEENT: Atraumatic, PERRLA Neck: Supple, No JVD, No Thyromegaly Lungs: Clear to Auscultation, Normal Air Movement Heart: Regular Rate, Normal S1, Normal S2, No Murmurs Abdomen: Normal Bowel Sounds, Soft, No Tenderness, No Hepatosplenomegaly, No Masses Extremities: No Clubbing, No Cyanosis, No Edema, Normal Pulses, No Tenderness/Swelling Skin: No Rashes, No Breakdown, No Significant Lesion Neuro: Normal Gait, Normal Speech, Strength at 5/5 X4 Ext, Normal Tone, Sensation Intact Psych/Mental Status: Mental Status NL, Mood NL A/P-Cardiology Admission Diagnosis Generalized debility/weakness HTN COPD/BRANDON Questionable PAF Assessment/Plan S/p COVID-19 illness in May 2020 requiring intubation, was transferred from [facility] to [facility] and transferred to IRF last week. Continues to have generalized debility and weakness. Continue with PT/OT Dyspnea, improved, continue to monitor. HTN, controlled, continue to monitor. COPD/BRANDON, using CPAP at night PAF, had AF with RVR on 06/11/20 at [place], started on Amiodarone. Amiodarone d/c'd, continue on Eliquis. UTI, improved, management per medical services. 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
--- NOTE | 2020-08-03 09:59 | Physical Therapy Daily Note ---
PT Daily Note-Current Subjective Patient in bed pre tx, agrees to PT, has no complaints of pain. Will be co- treating with OT due to poor patient mobility, strength, endurance, severe debility, coordinate UE and LE during activity, safety and reduce risk of falls. Appearance Patient sitting EOB post tx with nurse call, phone, tray, all needs met. Mental Status Patient Orientation: Normal For Age Transfers SCALE: Activities may be completed with or without assistive devices. 1-Htolhvimkr-azwterm completes the activity by him/herself with no assistance from a helper. 5-Set-up or Clean-up Assistance-helper sets up or cleans up; patient completes activity. [place] assists only prior to or following the activity. 4-Supervision or Touching Assistance-helper provides verbal cues and/or touching/steadying and/or contact guard assistance as patient completes activity. Assistance may be provided throughout the activity or intermittently. 3-Partial/Moderate Assistance-helper does LESS THAN HALF the effort. [place] lifts, holds or supports trunk or limbs, but provides less than half the effort. 2-Substantial/Maximal Assistance-helper does MORE THAN HALF the effort. [place] lifts or holds trunk or limbs and provides more than half the effort. 7-Rfpolnoui-ufmcom does ALL the effort. Patient does none of the effort to complete the activity. Or, the assistance of 2 or more helpers is required for the patient to complete the activity. If activity was not attempted, code reason: 7-Patient Refused. 9-Not Applicable-not attempted and the patient did not perform the activity before the current illness, exacerbation or injury. 10-Not Attempted due to Environmental Limitations-(lack of equipment, weather restraints, etc.). 88-Not Attempted due to Medical Conditions or Safety Concerns. Roll Left & Right (QC): 6 Lying to Sitting/Side of Bed(Q: 3 Sit to Stand (QC): 3 mod assist for sit to stand. Patient stands from bed and ambulates to the restroom about 10' and into the shower, pants are pulled down and he sits on shower chair, patient undressed the rest of the way and showers, when done he stands with mod assist, and sits on WC, dresses, wheels out into his room to stand and complete dressing lowers. Then, patient ambulates. Gait Training Distance: 10', 40', 100' Walk 10 feet (QC): 4 Walk 50 ft with 2 Turns(QC): 4 Gait Persons Needed: 1 Gait Assistive Device: FWW WC follow, patient ambulates at a fair pace but gets very SOB, he still has pretty weak legs and the speed of ambulation is on the verge of dangerous should he have issues with his foot drop or knee buckling, patient wears a left AFO Treatments PT performed bed mobility and transfers, standing and positioning during bathing and dressing, ambulation, OT worked on bathing and dressing, UE positioning and safety during activity Assessment Current Status: Fair Progress improving endurance but still continues to get very SOB with activity and needs many rest breaks PT Short Term Goals Short Term Goals Time Frame: July 22, 2020 Roll Left & Right: 4 Sit to lyin Lying to sitting on side of be: 3 PT Assisted Goals Assisted Goals PT Assisted Goals Time Frame: Aug 05, 2020 Roll Left & Right (QC): 4 Sit to Lying (QC): 4 Lying-Sitting on Side/Bed(QC): 4 Sit to Stand (QC): 3 Chair/Tap-ss-Eynld Xfer(QC): 3 Toilet Transfer (QC): 3 Car Transfer (QC): 3 Does the Patient Walk: No and Walking Goal IS indicated Walk 10 feet (QC): 3 Walk 50ft with 2 Turns (QC): 88 Walk 150 ft (QC): 88 Walking 10ft on Uneven Surface: 88 1 Step (curb) (QC): 88 4 Steps (QC): 88 12 Steps (QC): 88 Picking up an Object (QC): 88 Wheel 50 feet with 2 turns (QC: 6 Wheel 150 feet: 6 PT Plan Problem List Problem List: Activity Tolerance, Functional Strength, Safety, Balance, Gait, Transfer, Bed Mobility, ROM Treatment/Plan Treatment Plan: Continue Plan of Care Treatment Plan: Bed Mobility, Education, Functional Activity Cierra, Functional Strength, Group Therapy, Gait, Safety, Therapeutic Exercise, Transfers Treatment Duration: Aug 05, 2020 Frequency: Modified Program (IRF) Estimated Hrs Per Day: 1 hour per day Patient and/or Family Agrees t: Yes Safety Risks/Education Patient Education: Gait Training, Transfer Techniques, Correct Positioning, Safety Issues Teaching Recipient: Patient Teaching Methods: Demonstration, Discussion Response to Teaching: Reinforcement Needed Time/GCodes Time In: 0900 Time Out: 1000 Total Billed Treatment Time: 60 Total Billed Treatment 1 visit GT 15' FA 45' LIZ MI PT Aug 03, 2020 09:59
--- NOTE | 2020-08-03 10:05 | Occupational Ther Daily Note ---
OT Current Status-Daily Note Subjective Pt alert, lying in bed. Pt agrees to therapy. No c/o pain. Co-treat with PT for skilled instruction and modifications due to increased fall risk, decreased mobility, increased SOA and fatigue. Mental Status/Objective Patient Orientation: Person, Place, Time, Situation Attachments: Other-See Comments (L AFO) ADL-Treatment Pt agrees to shower. PT focusing on ambulation, transfers and sit to stands while OT focusing on ADLs, functional transfers and assisting with sit to stands/ambulation. With bed elevated, pt able to sit to stand with CGA then assist x2 to ambulate to bathroom for safety. Pt ambulated into shower and shower chair placed for pt to sit. Pt then completed shower sitting on shower bench by self, PT assist to fish hatchery inspector shower while pt using grabbars to pull to stand, PHAN cleansed and dried buttocks. Donned/doffed shirt by self with set up. Assist x2 to hike pants over hips, using AE to thread feet into pant legs. Using sock aid pt able to don socks, using dressing stick to doff socks. Assist to don shoes due to limited time and pt's increased fatigue. Pt doffed shoes by self. After therapy, pt sitting EOB with call light/phone in reach. All needs met in room. Therapy Code Descriptions/Definitions Functional [place] Measure: 0=Not Assessed/NA 4=Minimal Assistance 1=Total Assistance 5=Supervision or Setup 2=Maximal Assistance 6=Modified [place] 3=Moderate Assistance 7=Complete IndependenceSCALE: Activities may be completed with or without assistive devices. 0-Eeucvaxube-btcnxmz completes the activity by him/herself with no assistance from a helper. 5-Set-up or Clean-up Assistance-helper sets up or cleans up; patient completes activity. [place] assists only prior to or following the activity. 4-Supervision or Touching Assistance-helper provides verbal cues and/or touching/steadying and/or contact guard assistance as patient completes activity. Assistance may be provided throughout the activity or intermittently. 3-Partial/Moderate Assistance-helper does LESS THAN HALF the effort. [place] lifts, holds or supports trunk or limbs, but provides less than half the effort. 2-Substantial/Maximal Assistance-helper does MORE THAN HALF the effort. [place] lifts or holds trunk or limbs and provides more than half the effort. 4-Zwvbmcppu-wrulvh does ALL the effort. Patient does none of the effort to complete the activity. Or, the assistance of 2 or more helpers is required for the patient to complete the activity. If activity was not attempted, code reason: 7-Patient Refused. 9-Not Applicable-not attempted and the patient did not perform the activity before the current illness, exacerbation or injury. 10-Not Attempted due to Environmental Limitations-(lack of equipment, weather restraints, etc.). 88-Not Attempted due to Medical Conditions or Safety Concerns. Eating (QC): 6 (Per clinical judgment, pt able to complete own set up and use regular utensils to eat.) Shower/Bathe Self (QC): 1 (Assist x2 to sit to stand and cleanse buttocks.) Upper Body Dressing (QC): 5 Lower Body Dressing (QC): 1 (Sit to stand x2 then one person to assist in stance while 2nd person assists with manipulating pants.) On/Off Footwear: 3 OT Short Term Goals Short Term Goals Time Frame: Aug 05, 2020 Toileting hygiene: 2 Upper body dressin Lower body dressin Putting on/taking off footwear: 2 OT [facility] Goals Panel Raiser Operator Goals Time Frame: Aug 13, 2020 Eating (QC): 6 Oral Hygiene (QC): 6 Toileting Hygiene (QC): 6 Shower/Bathe Self (QC): 6 Upper Body Dressing (QC): 6 Lower Body Dressing (QC): 6 On/Off Footwear (QC): 6 Additional Goals: 1-Demonstrate ADL Tasks, 2-Verbalize Understanding, 3- ImproveStrength/Cierra 1=Demonstrate adherence to instructed precautions during ADL tasks. 2=Patient will verbalize/demonstrate understanding of assistive devices/modifications for ADL. 3=Patient will improve strength/tolerance for activity to enable patient to perform ADL's. OT Education/Plan Problem List/Assessment Assessment: Decreased Activ Tolerance, Decreased UE Strength, Impaired Funct Balance, Impaired Self-Care Skills Discharge Recommendations Plan/Recommendations: Continue POC Treatment Plan/Plan of Care Patient would benefit from OT for education, treatment and training to promote independence in ADL's, mobility, safety and/or upper extremity function for ADL's. Plan of Care: ADL Retraining, Functional Mobility, Group Exercise/Act as Ind, UE Funct Exercise/Act Treatment Duration: Aug 13, 2020 Frequency: Modified Program (IRF) Estimated Hrs Per Day: 1 hour per day Agreement: Yes Rehab Potential: Fair Time/GCodes Start Time: 09:00 Stop Time: 10:00 Total Time Billed (hr/min): 60 Billed Treatment Time 1 visit-ADL 3 (40 min) FA 1 (20 min) TYSON FISHER Aug 03, 2020 10:05
[2020-08-03] MEDS: DOCUSATE SODIUM 100 MG (COLACE) CAP PO SCH ×2 (10:27→22:24)
[2020-08-03] MEDS: polyethylene glycoL POWDER 17 GM (MIRALAX) PACK PO SCH ×2 (10:27→19:38)
[2020-08-03] MEDS: MICONAZOLE 2% POWDER (DESENEX AF) 90 GM TOP SCH ×2 (10:28→19:39)
[2020-08-03] MEDS: SENNA W/DOCUSATE (SENOKOT S) TABLET PO SCH ×2 (10:28→22:24)
--- NOTE | 2020-08-03 10:58 | PM&R Progress Note ---
Subjective HPI/CC On Admission Date Seen by Provider: Aug 03, 2020 Time Seen by Provider: 11:00 Subjective/Events-last exam 08/03/2020: Patient doing really well today Shingles much improved Bowels moved yesterday and it was large Standing a bit more 08/02/2020: Patient doing pretty well Steroid cream on psoriasis on buttocks Area on back really bothers him when I assessed it today because it was just a very subtle pink patch now it has blisters consistent with shingles We will start on Valtrex Had a good bowel movement today 08/01/2020: Patient has no major concerns Pain meds are tolerated Still using sit to stand Overall feels like he is improving 07/31/20: Patient doing really well No major concerns Slowly progressing Bowels are moving pretty well 07/30/20: Patient doing pretty well Ambulating around a little more Chest x-ray pending 91% on room air 07/28/20: Pt dong pretty well Took eight steps today No oxygen now Steroid cream to be placed on psoriasis initiated 07/27/20: Pt doing a lot better Bowels moving today Off O2 and running 91% Overall much improved 07/26/2020: Patient doing really well Potassium 3.5 usually refusing to take it Sugars are doing well He is running 90% off oxygen Dramatic improvement 07/25/2020 Patient denies any issues Improving strength by the day Due for labs tomorrow Family at bedside 07/24/2020: Patient doing really well today On oxygen at 1.5 L/min Had a large bowel movement Sugars are okay Hates the carb limitations Girlfriend and his mother at the bedside today 07/23/20: Pt up in a chair and appears to be much stronger 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 in a chair for very long Blood sugar 141 Left foot drop is an issue 07/22/20: Patient doing well Baseline flat affect assessed Had complete bowel evacuation yesterday after Fleets after supp EKG today per Dr Rinaldi Monitored closely 07/21/20: Pt doing pretty well Slow progress Will DC the heplock Sugar changes to twice daily and will give 3 units of Novolog if greater than 160 Trach dressing changed and it is sealing up well Bowels moved yesterday 07/20/20: Pt doing pretty well Bowels moved two days ago, doesnt want anything too harsh Oxygen maintained Working hard Progressing nicely 07/19/20: Pt doing pretty well Respiratory therapy tried to wean him off and he became very hypoxic Weakness in hands are a challenge for him to shave DC Cefepime and starting Omnicef Doesnt really like IVs and lab checks and made that pretty clear to me 07/18/20: Patient doing well Diarrhea noted UTI treated with IV abx UCx pending 07/17/20: Patient doing well No complaints Awaiting UCx Empiric abx maintained Aunt at bedside O2 at 1L/min Sugar improved 07/16/20: Pt doing pretty well Potassium of 2.7 so will initiate supplement Dr. Rinaldi is seeing him in consultation EKG obtained and normal sinus rhythm noted UA ordered for burning sensation on urination Pt very debilitated Review of Systems General: Fatigue, Malaise Neurological: Weakness Objective Exam Vital Signs Vital Signs Date Time Temp Pulse Resp B/P (MAP) Pulse Ox O2 Delivery O2 Flow Rate FiO2 08/03/20 20:20 Room Air 08/03/20 20:00 37.3 91 16 133/84 (100) 92 Capillary Refill : General Appearance: No Apparent Distress, WD/WN, Obese HEENT: PERRL/EOMI, Normal ENT Inspection, Pharynx Normal Neck: Full Range of Motion, Normal Inspection, Non Tender, Supple, Carotid Bruit Respiratory: Chest Non Tender, Lungs Clear, No Accessory Muscle Use, No Respiratory Distress, Decreased Breath Sounds Cardiovascular: Regular Rate, Rhythm, No Edema, No Gallop, No JVD, No Murmur, Normal Peripheral Pulses Gastrointestinal: Normal Bowel Sounds, No Organomegaly, No Pulsatile Mass, Non Tender, Soft Back: Normal Inspection, No CVA Tenderness, No Vertebral Tenderness Extremity: Normal Capillary Refill, Normal Inspection, Normal Range of Motion, Non Tender, No Calf Tenderness, No Pedal Edema Neurologic/Psychiatric: Alert, Oriented x3, No Motor/Sensory Deficits, Normal Mood/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 FIM Transfers Therapy Code Descriptions/Definitions Functional [place] Measure: 0=Not Assessed/NA 4=Minimal Assistance 1=Total Assistance 5=Supervision or Setup 2=Maximal Assistance 6=Modified [place] 3=Moderate Assistance 7=Complete IndependenceSCALE: Activities may be completed with or without assistive devices. 4-Vjbvimpiof-odewnpt completes the activity by him/herself with no assistance from a helper. 5-Set-up or Clean-up Assistance-helper sets up or cleans up; patient completes activity. [place] assists only prior to or following the activity. 4-Supervision or Touching Assistance-helper provides verbal cues and/or touching/steadying and/or contact guard assistance as patient completes activity. Assistance may be provided throughout the activity or intermittently. 3-Partial/Moderate Assistance-helper does LESS THAN HALF the effort. [place] lifts, holds or supports trunk or limbs, but provides less than half the effort. 2-Substantial/Maximal Assistance-helper does MORE THAN HALF the effort. [place] lifts or holds trunk or limbs and provides more than half the effort. 8-Mwwzvncfx-eyyatc does ALL the effort. Patient does none of the effort to complete the activity. Or, the assistance of 2 or more helpers is required for the patient to complete the activity. If activity was not attempted, code reason: 7-Patient Refused. 9-Not Applicable-not attempted and the patient did not perform the activity before the current illness, exacerbation or injury. 10-Not Attempted due to Environmental Limitations-(lack of equipment, weather restraints, etc.). 88-Not Attempted due to Medical Conditions or Safety Concerns. Roll Left to Right (QC): 6 Sit to Lying (QC): 6 Sit to Stand (QC): 3 Chair/Umd-ic-Jvjbz Xfer(QC): 3 Car Transfer (QC): 1 Gait Training Does the Patient Walk?: Yes Distance: 10', 40', 100' Walk 10 feet (QC): 4 Walk 50 ft with 2 Turns(QC): 4 Walk 150 ft (QC): 88 Walking 10ft/uneven surface-QC: 88 Gait Persons Needed: 1 Gait Assistive Device: FWW Wheelchair Training Does the Pt Use a Wheelchair?: Yes Distance: 80' Wheel 50 ft with 2 turns (QC): 5 Wheel 150 ft (QC): 5 Type of Wheelchair: Manual Stair Training 1 Step (curb) (QC): 88 4 Steps (QC): 88 12 Steps (QC): 88 Balance Picking up an Object (QC): 88 ADL-Treatment Eating (QC): 6 Oral Hygiene (QC): 6 Shower/Bathe Self (QC): 1 Upper Body Dressing (QC): 5 Lower Body Dressing (QC): 1 On/Off Footwear (QC): 3 Toileting Hygiene (QC): 2 Toilet Transfer (QC): 1 Assessment/Plan Assessment and Plan Assess & Plan/Chief Complaint Assessment: COVID-19 PNA myopathy Severe poor lung reserve Obesity New onset DM AF? Psoriasis of buttocks Shingles right flank 08/02/2020 Plan: Insulin Monitor lung function Cardiology consult 07/16/20: UA Replace potassium Slow recovery 07/17/20: IV abx Suspect resistant UTI 07/18/20: Monitor closely Await Ucx 07/19/20: Reviewed UCx DC Cefepime Irritated with IV's and lab checks 07/20/20: Monitor closely Sugars good 07/21/20: DC Heplock 07/22/20: Monitored closely BP ok 07/23/20: Monitor O2 Improved status now 07/24/2020: Continue limitation of carbs to decrease sugar Monitor oxygen level 07/25/2020 Check labs in the morning Monitor closely 07/26/2020: Discharge planned after review on Sunday Dramatic improvement Wean oxygen 07/27/20: Improved Weaned O2 07/28/20: Steroid cream for psoriasis Doing much better 07/30/2020: Chest x-ray reviewed Continue aggressive therapy 07/31/2020: Monitor closely Maintain oxygen 08/01/2020: Psoriasis treatment Monitor blood pressure Check labs in the morning 08/02/2020: Shingles treatment Monitor closely 08/03/2020: Continue shingles treatment Monitor closely Improved (1) Myopathy (2) COVID-19 (3) Obesity (4) Diabetes mellitus NATHANAEL HOWE DO Aug 03, 2020 10:58
--- NOTE | 2020-08-03 11:18 | Physical Therapy Daily Note ---
PT Daily Note-Current Subjective Patient in bed pre tx, agrees to PT, has no complaints of pain at rest. Appearance Patient in bed post tx with nurse call, phone, tray, all needs met. Mental Status Patient Orientation: Normal For Age Transfers SCALE: Activities may be completed with or without assistive devices. 9-Imgbennrix-sfxcjfj completes the activity by him/herself with no assistance from a helper. 5-Set-up or Clean-up Assistance-helper sets up or cleans up; patient completes activity. [place] assists only prior to or following the activity. 4-Supervision or Touching Assistance-helper provides verbal cues and/or touching/steadying and/or contact guard assistance as patient completes activity. Assistance may be provided throughout the activity or intermittently. 3-Partial/Moderate Assistance-helper does LESS THAN HALF the effort. [place] lifts, holds or supports trunk or limbs, but provides less than half the effort. 2-Substantial/Maximal Assistance-helper does MORE THAN HALF the effort. [place] lifts or holds trunk or limbs and provides more than half the effort. 3-Komiomxjh-sxkswp does ALL the effort. Patient does none of the effort to complete the activity. Or, the assistance of 2 or more helpers is required for the patient to complete the activity. If activity was not attempted, code reason: 7-Patient Refused. 9-Not Applicable-not attempted and the patient did not perform the activity before the current illness, exacerbation or injury. 10-Not Attempted due to Environmental Limitations-(lack of equipment, weather restraints, etc.). 88-Not Attempted due to Medical Conditions or Safety Concerns. Exercises Supine Ex: Bridging, Ankle pumps, Quad Set, Glut sets, Heel Slides, Short Arc Quads, Straight leg raise, Hip abd/add Supine Reps: 20 Treatments LE strengthening Assessment Current Status: Fair Progress continuing slowly progressing strength, patient performed all exercises AROM without assist, he did need many rest breaks due to fatigue and SOB PT Short Term Goals Short Term Goals Time Frame: July 22, 2020 Roll Left & Right: 4 Sit to lyin Lying to sitting on side of be: 3 PT Correction Goals Correction Goals PT Seat Mender Goals Time Frame: Aug 05, 2020 Roll Left & Right (QC): 4 Sit to Lying (QC): 4 Lying-Sitting on Side/Bed(QC): 4 Sit to Stand (QC): 3 Chair/Hqc-ks-Sgtvv Xfer(QC): 3 Toilet Transfer (QC): 3 Car Transfer (QC): 3 Does the Patient Walk: No and Walking Goal IS indicated Walk 10 feet (QC): 3 Walk 50ft with 2 Turns (QC): 88 Walk 150 ft (QC): 88 Walking 10ft on Uneven Surface: 88 1 Step (curb) (QC): 88 4 Steps (QC): 88 12 Steps (QC): 88 Picking up an Object (QC): 88 Wheel 50 feet with 2 turns (QC: 6 Wheel 150 feet: 6 PT Plan Problem List Problem List: Activity Tolerance, Functional Strength, Safety, Balance, Gait, Transfer, Bed Mobility, ROM Treatment/Plan Treatment Plan: Continue Plan of Care Treatment Plan: Bed Mobility, Education, Functional Activity Cierra, Functional Strength, Group Therapy, Gait, Safety, Therapeutic Exercise, Transfers Treatment Duration: Aug 05, 2020 Frequency: Modified Program (IRF) Estimated Hrs Per Day: 1 hour per day Patient and/or Family Agrees t: Yes Safety Risks/Education Patient Education: Correct Positioning, Safety Issues Teaching Recipient: Patient Teaching Methods: Demonstration, Discussion Response to Teaching: Reinforcement Needed Time/GCodes Time In: 1100 Time Out: 1115 Total Billed Treatment Time: 15 Total Billed Treatment 1 visit EX LIZ SALAMANCA PT Aug 03, 2020 11:18
--- NOTE | 2020-08-03 14:51 | Occupational Ther Daily Note ---
OT Current Status-Daily Note Subjective Pt alert, lying in bed. Pt agrees to therapy. No c/o pain. Mental Status/Objective Patient Orientation: Person, Place, Time, Situation ADL-Treatment Pt able to set up own meal and use regular utensils to eat. Therapy Code Descriptions/Definitions Functional [place] Measure: 0=Not Assessed/NA 4=Minimal Assistance 1=Total Assistance 5=Supervision or Setup 2=Maximal Assistance 6=Modified [place] 3=Moderate Assistance 7=Complete IndependenceSCALE: Activities may be completed with or without assistive devices. 7-Jysipmldif-lckrhyh completes the activity by him/herself with no assistance from a helper. 5-Set-up or Clean-up Assistance-helper sets up or cleans up; patient completes activity. [place] assists only prior to or following the activity. 4-Supervision or Touching Assistance-helper provides verbal cues and/or touching/steadying and/or contact guard assistance as patient completes activity. Assistance may be provided throughout the activity or intermittently. 3-Partial/Moderate Assistance-helper does LESS THAN HALF the effort. [place] lifts, holds or supports trunk or limbs, but provides less than half the effort. 2-Substantial/Maximal Assistance-helper does MORE THAN HALF the effort. [place] lifts or holds trunk or limbs and provides more than half the effort. 0-Sgdevbjgh-bnotyq does ALL the effort. Patient does none of the effort to complete the activity. Or, the assistance of 2 or more helpers is required for the patient to complete the activity. If activity was not attempted, code reason: 7-Patient Refused. 9-Not Applicable-not attempted and the patient did not perform the activity before the current illness, exacerbation or injury. 10-Not Attempted due to Environmental Limitations-(lack of equipment, weather restraints, etc.). 88-Not Attempted due to Medical Conditions or Safety Concerns. Eating (QC): 6 Other Treatment Pt completed B UE strengthening with 3# wt 3 sets 10 reps. After therapy, pt lying in bed with call light/phone in reach. All needs met. OT Short Term Goals Short Term Goals Time Frame: Aug 05, 2020 Toileting hygiene: 2 Upper body dressin Lower body dressin Putting on/taking off footwear: 2 OT Art Installer Goals Art Installer Goals Time Frame: Aug 13, 2020 Eating (QC): 6 Oral Hygiene (QC): 6 Toileting Hygiene (QC): 6 Shower/Bathe Self (QC): 6 Upper Body Dressing (QC): 6 Lower Body Dressing (QC): 6 On/Off Footwear (QC): 6 Additional Goals: 1-Demonstrate ADL Tasks, 2-Verbalize Understanding, 3- ImproveStrength/[place] 1=Demonstrate adherence to instructed precautions during ADL tasks. 2=Patient will verbalize/demonstrate understanding of assistive devices/modifications for ADL. 3=Patient will improve strength/tolerance for activity to enable patient to perform ADL's. OT Education/Plan Problem List/Assessment Assessment: Decreased Activ Tolerance, Decreased UE Strength, Impaired Self- Care Skills Discharge Recommendations Plan/Recommendations: Continue POC Treatment Plan/Plan of Care Patient would benefit from OT for education, treatment and training to promote independence in ADL's, mobility, safety and/or upper extremity function for ADL's. Plan of Care: ADL Retraining, Functional Mobility, Group Exercise/Act as Ind, UE Funct Exercise/Act Treatment Duration: Aug 13, 2020 Frequency: Modified Program (IRF) Estimated Hrs Per Day: 1 hour per day Agreement: Yes Rehab Potential: Fair Time/GCodes Start Time: 12:45 Stop Time: 13:00 Total Time Billed (hr/min): 15 Billed Treatment Time 1 visit-EX 1 (15 min) TYSON FISHER Aug 03, 2020 14:50
[2020-08-03] MEDS: MELATONIN 10 MG TABLET PO SCH (19:38)
[2020-08-03 20:00] VITALS: BP 133/84
[2020-08-04] MEDS: DOCOSANOL 10 % CREAM (ABREVA) 2 GM TP SCH ×5 (06:02→21:43)
[2020-08-04 08:00] VITALS: BP 132/81
[2020-08-04] MEDS: APIXABAN 5 MG (ELIQUIS) TABLET PO SCH ×2 (08:26→21:40)
[2020-08-04] MEDS: LACTOBACILLUS ACIDOPHILUS (PROBIOTIC) CAPSULE PO SCH ×2 (08:26→21:40)
[2020-08-04] MEDS: KCL 10 MEQ TAB (MICRO K) PO SCH ×3 (08:27→17:16)
[2020-08-04] MEDS: lisINopril 20 MG (PRINIVIL) TABLET PO SCH (08:27)
[2020-08-04] MEDS: PANTOPRAZOLE 40 MG (PROTONIX) TAB PO SCH (08:27)
[2020-08-04] MEDS: amLODIPine 10 MG (NORVASC) TAB PO SCH (08:27)
[2020-08-04] MEDS: VALACYCLOVIR 500 MG TAB (VALTREX) PO SCH ×3 (08:27→21:39)
[2020-08-04] MEDS: ASCORBIC ACID (VIT C) 500 MG TABLET PO SCH (08:27)
--- NOTE | 2020-08-04 08:40 | Cardiology Progress Note ---
Subjective Date Seen by Provider: Aug 04, 2020 Time Seen by Provider: 08:38 Subjective/Events-last exam Patient is sitting up in bed, no new complaints. Review of Systems General: No Chills, No Night Sweats; Fatigue, Malaise; No Appetite, No Other HEENT: No Head Aches, No Visual Changes, No Eye Pain, No Ear Pain, No Dysphasia, No Sinus Congestion, No Post Nasal Drip, No Sore Throat, No Other Pulmonary: No Dyspnea, No Cough, No Pleuritic Chest Pain, No Other Cardiovascular: No: Chest Pain, Palpitations, Orthopnea, Paroxysmal Noc. Dyspnea, Edema, Lt Headedness, Other Objective-Cardiology Exam Last Set of Vital Signs Vital Signs 08/04/20 08:00 Temp 36.1 Pulse 94 Resp 18 B/P (MAP) 132/81 (98) Pulse Ox 96 O2 Delivery Room Air Capillary Refill : General: Alert, Oriented X3, Cooperative HEENT: Atraumatic, PERRLA Neck: Supple, No JVD, No Thyromegaly Lungs: Clear to Auscultation, Normal Air Movement Heart: Regular Rate, Normal S1, Normal S2, No Murmurs Abdomen: Normal Bowel Sounds, Soft, No Tenderness, No Hepatosplenomegaly, No Masses Extremities: No Clubbing, No Cyanosis, No Edema, Normal Pulses, No Ten derness/Swelling Skin: No Rashes, No Breakdown, No Significant Lesion Neuro: Normal Gait, Normal Speech, Strength at 5/5 X4 Ext, Normal Tone, Sensation Intact Psych/Mental Status: Mental Status NL, Mood NL A/P-Cardiology Admission Diagnosis Generalized debility/weakness HTN COPD/BRANDON Questionable PAF Assessment/Plan S/p COVID-19 illness in May 2020 requiring intubation, was transferred from [facility] to [facility] and transferred to IRF last week. Continues to have generalized debility and weakness. Continue with PT/OT Dyspnea, improved, continue to monitor. HTN, controlled, continue to monitor. COPD/BRANDON, using CPAP at night PAF, had AF with [facility] on 06/11/20 at [facility], started on Amiodarone. Amiodarone d/c'd, continue on Eliquis. Will consider switching to ASA at outpatient. UTI, improved, management per medical services. Obesity Shingles, management per PCP Patient was seen and evaluated with Viktoria, examination performed, management plan was discussed, agree with the current scribed note, I made few changes to the note using Italic font Patient was still in isolation due to shingles Having generalized fatigue I will sign off at this point, please feel free to reconsult us if needed Thank you for allowing me to participate in the management of Mr. Beatriz MCLEANVIKTORIA CASSIDY Aug 04, 2020 08:40 KAREN DENT MD Aug 04, 2020 10:01
[2020-08-04] MEDS: DOCUSATE SODIUM 100 MG (COLACE) CAP PO SCH ×2 (09:00→21:39)
[2020-08-04] MEDS: polyethylene glycoL POWDER 17 GM (MIRALAX) PACK PO SCH ×2 (09:00→19:52)
[2020-08-04] MEDS: SENNA W/DOCUSATE (SENOKOT S) TABLET PO SCH ×2 (09:00→21:39)
[2020-08-04] MEDS: MICONAZOLE 2% POWDER (DESENEX AF) 90 GM TOP SCH ×2 (09:00→19:52)
[2020-08-04] MEDS: TRIAMCINOLONE 0.1% CR (KENALOG) 15 GM TUBE TOP SCH ×2 (09:00→19:52)
--- NOTE | 2020-08-04 10:07 | Occupational Ther Daily Note ---
OT Current Status-Daily Note Subjective Pt alert, lying in bed. Pt agrees to therapy. No c/o pain. Co-treat with PT for skilled instruction and modifications due to increased fall risk, decreased mobility, increased SOA and fatigue. Mental Status/Objective Patient Orientation: Person, Place, Time, Situation ADL-Treatment Pt continues to require lengthy recovery breaks due to decreased activity tolerance and increased SOA. PT focusing on ambulation, B LE strengthening and transfers while OT focusing on functional standing balance, ADLs and functional transfers. After set up, pt dons/doffs shirt by self. Pt declines shower. Using AE, pt able to don B socks and R shoe. Assist with L shoe due to AFO. Independent with oral care and eating. Therapy Code Descriptions/Definitions Functional [place] Measure: 0=Not Assessed/NA 4=Minimal Assistance 1=Total Assistance 5=Supervision or Setup 2=Maximal Assistance 6=Modified [place] 3=Moderate Assistance 7=Complete IndependenceSCALE: Activities may be completed with or without assistive devices. 0-Qqlwnyflnz-oprkyke completes the activity by him/herself with no assistance from a helper. 5-Set-up or Clean-up Assistance-helper sets up or cleans up; patient completes activity. [place] assists only prior to or following the activity. 4-Supervision or Touching Assistance-helper provides verbal cues and/or touching/steadying and/or contact guard assistance as patient completes activity. Assistance may be provided throughout the activity or intermittently. 3-Partial/Moderate Assistance-helper does LESS THAN HALF the effort. [place] lifts, holds or supports trunk or limbs, but provides less than half the effort. 2-Substantial/Maximal Assistance-helper does MORE THAN HALF the effort. [place] lifts or holds trunk or limbs and provides more than half the effort. 1-Pqfhngsfg-ssnojp does ALL the effort. Patient does none of the effort to complete the activity. Or, the assistance of 2 or more helpers is required for the patient to complete the activity. If activity was not attempted, code reason: 7-Patient Refused. 9-Not Applicable-not attempted and the patient did not perform the activity before the current illness, exacerbation or injury. 10-Not Attempted due to Environmental Limitations-(lack of equipment, weather restraints, etc.). 88-Not Attempted due to Medical Conditions or Safety Concerns. Eating (QC): 6 Oral Hygiene (QC): 6 Upper Body Dressing (QC): 5 On/Off Footwear: 3 Other Treatment Pt ambulated to/from therapy gym with assist x1 ambulating and w/c close behind for safety. Pt able to go from sit to stand with min A to CGA depending on height of surface. Pt simulated hiking pants over hips, CGA. See PT notes for balance tasks and progress. After therapy, pt sitting on EOB with call light/phone in reach. All needs met in room. OT Short Term Goals Short Term Goals Time Frame: Aug 05, 2020 Toileting hygiene: 2 Upper body dressin Lower body dressin Putting on/taking off footwear: 2 OT Senior Care Goals Senior Care Goals Time Frame: Aug 13, 2020 Eating (QC): 6 Oral Hygiene (QC): 6 Toileting Hygiene (QC): 6 Shower/Bathe Self (QC): 6 Upper Body Dressing (QC): 6 Lower Body Dressing (QC): 6 On/Off Footwear (QC): 6 Additional Goals: 1-Demonstrate ADL Tasks, 2-Verbalize Understanding, 3-I mproveStrength/Cierra 1=Demonstrate adherence to instructed precautions during ADL tasks. 2=Patient will verbalize/demonstrate understanding of assistive devices/modifications for ADL. 3=Patient will improve strength/tolerance for activity to enable patient to perform ADL's. OT Education/Plan Problem List/Assessment Assessment: Decreased Activ Tolerance, Impaired Coordination, Impaired Funct Balance, Impaired Self-Care Skills Discharge Recommendations Plan/Recommendations: Continue POC Treatment Plan/Plan of Care Patient would benefit from OT for education, treatment and training to promote independence in ADL's, mobility, safety and/or upper extremity function for ADL's. Plan of Care: ADL Retraining, Functional Mobility, Group Exercise/Act as Ind, UE Funct Exercise/Act Treatment Duration: Aug 13, 2020 Frequency: Modified Program (IRF) Estimated Hrs Per Day: 1 hour per day Agreement: Yes Rehab Potential: Fair Time/GCodes Start Time: 09:00 Stop Time: 10:00 Total Time Billed (hr/min): 60 Billed Treatment Time 1 visit-ADL 2 (30 min) FA 2 (30 min) co-treat with PT [id number] TYSON FISHER Aug 04, 2020 10:07
[2020-08-04] MEDS: VITAMIN D3 125 MCG (5,000 UNITS) CAPSULE PO SCH (11:10)
--- NOTE | 2020-08-04 11:31 | PM&R Progress Note ---
Subjective HPI/CC On Admission Date Seen by Provider: Aug 04, 2020 Time Seen by Provider: 10:00 Subjective/Events-last exam 08/04/2020: Patient doing pretty well Shingles improved Walking a bit now Working hard to regain independence No bowel movement for 3 days but he does take laxatives Blood sugar is good 08/03/2020: Patient doing really well today Shingles much improved Bowels moved yesterday and it was large Standing a bit more 08/02/2020: Patient doing pretty well Steroid cream on psoriasis on buttocks Area on back really bothers him when I assessed it today because it was just a very subtle pink patch now it has blisters consistent with shingles We will start on Valtrex Had a good bowel movement today 08/01/2020: Patient has no major concerns Pain meds are tolerated Still using sit to stand Overall feels like he is improving 07/31/20: Patient doing really well No major concerns Slowly progressing Bowels are moving pretty well 07/30/20: Patient doing pretty well Ambulating around a little more Chest x-ray pending 91% on room air 07/28/20: Pt dong pretty well Took eight steps today No oxygen now Steroid cream to be placed on psoriasis initiated 07/27/20: Pt doing a lot better Bowels moving today Off O2 and running 91% Overall much improved 07/26/2020: Patient doing really well Potassium 3.5 usually refusing to take it Sugars are doing well He is running 90% off oxygen Dramatic improvement 07/25/2020 Patient denies any issues Improving strength by the day Due for labs tomorrow Family at bedside 07/24/2020: Patient doing really well today On oxygen at 1.5 L/min Had a large bowel movement Sugars are okay Hates the carb limitations Girlfriend and his mother at the bedside today 07/23/20: Pt up in a chair and appears to be much stronger 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 in a chair for very long Blood sugar 141 Left foot drop is an issue 07/22/20: Patient doing well Baseline flat affect assessed Had complete bowel evacuation yesterday after Fleets after supp EKG today per Dr Rinaldi Monitored closely 07/21/20: Pt doing pretty well Slow progress Will DC the heplock Sugar changes to twice daily and will give 3 units of Novolog if greater than 160 Trach dressing changed and it is sealing up well Bowels moved yesterday 07/20/20: Pt doing pretty well Bowels moved two days ago, doesnt want anything too harsh Oxygen maintained Working hard Progressing nicely 07/19/20: Pt doing pretty well Respiratory therapy tried to wean him off and he became very hypoxic Weakness in hands are a challenge for him to shave DC Cefepime and starting Omnicef Doesnt really like IVs and lab checks and made that pretty clear to me 07/18/20: Patient doing well Diarrhea noted UTI treated with IV abx UCx pending 07/17/20: Patient doing well No complaints Awaiting UCx Empiric abx maintained Aunt at bedside O2 at 1L/min Sugar improved 07/16/20: Pt doing pretty well Potassium of 2.7 so will initiate supplement Dr. Rinaldi is seeing him in consultation EKG obtained and normal sinus rhythm noted UA ordered for burning sensation on urination Pt very debilitated Review of Systems General: Fatigue, Malaise Pulmonary: Dyspnea Objective Exam Vital Signs Vital Signs Date Time Temp Pulse Resp B/P (MAP) Pulse Ox O2 Delivery O2 Flow Rate FiO2 08/04/20 20:20 Room Air 08/04/20 20:00 37.0 94 20 132/84 (100) 93 Capillary Refill : General Appearance: No Apparent Distress, WD/WN, Obese HEENT: PERRL/EOMI, Normal ENT Inspection, Pharynx Normal Neck: Full Range of Motion, Normal Inspection, Non Tender, Supple, Carotid Bruit Respiratory: Chest Non Tender, Lungs Clear, No Accessory Muscle Use, No Respiratory Distress, Decreased Breath Sounds Cardiovascular: Regular Rate, Rhythm, No Edema, No Gallop, No JVD, No Murmur, Normal Peripheral Pulses Gastrointestinal: Normal Bowel Sounds, No Organomegaly, No Pulsatile Mass, Non Tender, Soft Back: Normal Inspection, No CVA Tenderness, No Vertebral Tenderness Extremity: Normal Capillary Refill, Normal Inspection, Normal Range of Motion, Non Tender, No Calf Tenderness, No Pedal Edema Neurologic/Psychiatric: Alert, Oriented x3, No Motor/Sensory Deficits, Normal Mood/Affect, plate setter II-XII Norm as Tested, Abnormal Gait (can't ambulate), Motor Weakness (severe 1/5 strength all extremities) Skin: Normal Color, Warm/Dry Lymphatic: No Adenopathy Results/Procedures Lab Patient resulted labs reviewed. FIM Transfers Therapy Code Descriptions/Definitions Functional [place] Measure: 0=Not Assessed/NA 4=Minimal Assistance 1=Total Assistance 5=Supervision or Setup 2=Maximal Assistance 6=Modified [place] 3=Moderate Assistance 7=Complete IndependenceSCALE: Activities may be completed with or without assistive devices. 5-Tmkbtugkco-blhdzys completes the activity by him/herself with no assistance from a helper. 5-Set-up or Clean-up Assistance-helper sets up or cleans up; patient completes activity. [place] assists only prior to or following the activity. 4-Supervision or Touching Assistance-helper provides verbal cues and/or touching/steadying and/or contact guard assistance as patient completes activity. Assistance may be provided throughout the activity or intermittently. 3-Partial/Moderate Assistance-helper does LESS THAN HALF the effort. [place] lifts, holds or supports trunk or limbs, but provides less than half the effort. 2-Substantial/Maximal Assistance-helper does MORE THAN HALF the effort. [place] lifts or holds trunk or limbs and provides more than half the effort. 5-Oujvqpiho-quozxq does ALL the effort. Patient does none of the effort to complete the activity. Or, the assistance of 2 or more helpers is required for the patient to complete the activity. If activity was not attempted, code reason: 7-Patient Refused. 9-Not Applicable-not attempted and the patient did not perform the activity before the current illness, exacerbation or injury. 10-Not Attempted due to Environmental Limitations-(lack of equipment, weather restraints, etc.). 88-Not Attempted due to Medical Conditions or Safety Concerns. Roll Left to Right (QC): 6 Sit to Lying (QC): 6 Sit to Stand (QC): 3 Chair/Pzq-kf-Quwzj Xfer(QC): 3 Car Transfer (QC): 1 Gait Training Does the Patient Walk?: Yes Distance: 10', 40', 100' Walk 10 feet (QC): 4 Walk 50 ft with 2 Turns(QC): 4 Walk 150 ft (QC): 88 Walking 10ft/uneven surface-QC: 88 Gait Persons Needed: 1 Gait Assistive Device: FWW Wheelchair Training Does the Pt Use a Wheelchair?: Yes Distance: 80' Wheel 50 ft with 2 turns (QC): 5 Wheel 150 ft (QC): 5 Type of Wheelchair: Manual Stair Training 1 Step (curb) (QC): 88 4 Steps (QC): 88 12 Steps (QC): 88 Balance Picking up an Object (QC): 88 ADL-Treatment Eating (QC): 6 Oral Hygiene (QC): 6 Shower/Bathe Self (QC): 1 Upper Body Dressing (QC): 5 Lower Body Dressing (QC): 1 On/Off Footwear (QC): 3 Toileting Hygiene (QC): 2 Toilet Transfer (QC): 1 Assessment/Plan Assessment and Plan Assess & Plan/Chief Complaint Assessment: COVID-19 PNA myopathy Severe poor lung reserve Obesity New onset DM AF? Psoriasis of buttocks Shingles right flank 08/02/2020 Plan: Insulin Monitor lung function Cardiology consult 07/16/20: UA Replace potassium Slow recovery 07/17/20: IV abx Suspect resistant UTI 07/18/20: Monitor closely Await Ucx 07/19/20: Reviewed UCx DC Cefepime Irritated with IV's and lab checks 07/20/20: Monitor closely Sugars good 07/21/20: DC Heplock 07/22/20: Monitored closely BP ok 07/23/20: Monitor O2 Improved status now 07/24/2020: Continue limitation of carbs to decrease sugar Monitor oxygen level 07/25/2020 Check labs in the morning Monitor closely 07/26/2020: Discharge planned after review on Sunday Dramatic improvement Wean oxygen 07/27/20: Improved Weaned O2 07/28/20: Steroid cream for psoriasis Doing much better 07/30/2020: Chest x-ray reviewed Continue aggressive therapy 07/31/2020: Monitor closely Maintain oxygen 08/01/2020: Psoriasis treatment Monitor blood pressure Check labs in the morning 08/02/2020: Shingles treatment Monitor closely 08/03/2020: Continue shingles treatment Monitor closely Improved 08/04/2020: Valtrex to complete treatment for shingles Monitor closely (1) Myopathy (2) COVID-19 (3) Obesity (4) Diabetes mellitus NATHANAEL HOWE DO Aug 04, 2020 11:31
--- NOTE | 2020-08-04 12:20 | Physical Therapy Daily Note ---
PT Daily Note-Current Subjective Pt supine upon arrival. Pt agreeable to PT. No complaints of pain. Co-treat with PT for skilled instruction and modifications due to increased fall risk, decreased mobility, increased SOA and fatigue. Mental Status Patient Orientation: Person, Place, Situation Transfers SCALE: Activities may be completed with or without assistive devices. 8-Dqgiwqgphh-aatmblp completes the activity by him/herself with no assistance from a helper. 5-Set-up or Clean-up Assistance-helper sets up or cleans up; patient completes activity. [place] assists only prior to or following the activity. 4-Supervision or Touching Assistance-helper provides verbal cues and/or touching/steadying and/or contact guard assistance as patient completes activity. Assistance may be provided throughout the activity or intermittently. 3-Partial/Moderate Assistance-helper does LESS THAN HALF the effort. [place] lifts, holds or supports trunk or limbs, but provides less than half the effort. 2-Substantial/Maximal Assistance-helper does MORE THAN HALF the effort. [place] lifts or holds trunk or limbs and provides more than half the effort. 4-Izpnhgrba-tfduon does ALL the effort. Patient does none of the effort to complete the activity. Or, the assistance of 2 or more helpers is required for the patient to complete the activity. If activity was not attempted, code reason: 7-Patient Refused. 9-Not Applicable-not attempted and the patient did not perform the activity before the current illness, exacerbation or injury. 10-Not Attempted due to Environmental Limitations-(lack of equipment, weather restraints, etc.). 88-Not Attempted due to Medical Conditions or Safety Concerns. Pt CGA to stand from elevated bed and Min A to stand from w/c. Gait Training Gait Assistive Device: FWW Pt amb with FWW and CGA, close f/u of w/c 2 x 60ft, 2 x 45ft. Pt limited by SOB. Recovers in sitting 2-3min. Treatments PT focusing on ambulation, B LE strengthening and transfers while OT focusing on functional standing balance, ADLs and functional transfers.Pt performed balance activities in //bars including dressing simulation, weight shifting forward/retro in tandem stance x 5-[address]. Pt performed mini squat x 5reps and step up 6" steps x 5 ea. Assessment Current Status: Good Progress Pt SOA with exertion requiring frequent rest breaks. Pt showed steady balance during challenges. Required vc's to slow gait down and conserve energy. Pt resting EOB with call light and all needs met post therapy session. PT Short Term Goals Short Term Goals Time Frame: July 22, 2020 Roll Left & Right: 4 Sit to lyin Lying to sitting on side of be: 3 PT Auto Damage Estimator Goals Senior Care Goals PT Auto Damage Estimator Goals Time Frame: Aug 05, 2020 Roll Left & Right (QC): 4 Sit to Lying (QC): 4 Lying-Sitting on Side/Bed(QC): 4 Sit to Stand (QC): 3 Chair/Pji-um-Zlliy Xfer(QC): 3 Toilet Transfer (QC): 3 Car Transfer (QC): 3 Does the Patient Walk: No and Walking Goal IS indicated Walk 10 feet (QC): 3 Walk 50ft with 2 Turns (QC): 88 Walk 150 ft (QC): 88 Walking 10ft on Uneven Surface: 88 1 Step (curb) (QC): 88 4 Steps (QC): 88 12 Steps (QC): 88 Picking up an Object (QC): 88 Wheel 50 feet with 2 turns (QC: 6 Wheel 150 feet: 6 PT Plan Treatment/Plan Treatment Plan: Continue Plan of Care Treatment Plan: Bed Mobility, Education, Functional Activity [place], Functional Strength, Group Therapy, Gait, Safety, Therapeutic Exercise, Transfers Treatment Duration: Aug 05, 2020 Frequency: Modified Program (IRF) Estimated Hrs Per Day: 1 hour per day Patient and/or Family Agrees t: Yes Time/GCodes Time In: 900 Time Out: 1000 Total Billed Treatment Time: 60 Total Billed Treatment 1, Gait x 30', FA x 15', Ex x 15' (Co-treat with OT x 60') REEMA SALCEDO CPTA Aug 04, 2020 12:20
--- NOTE | 2020-08-04 13:56 | Physical Therapy Daily Note ---
PT Daily Note-Current Subjective Pt agreeable. Pt c/o "Joana lost my umph!" when attempting to return to bed at end of treatment. Mental Status Patient Orientation: Person, Place, Situation Transfers SCALE: Activities may be completed with or without assistive devices. 2-Ljovoyogmy-zmborqh completes the activity by him/herself with no assistance from a helper. 5-Set-up or Clean-up Assistance-helper sets up or cleans up; patient completes activity. [place] assists only prior to or following the activity. 4-Supervision or Touching Assistance-helper provides verbal cues and/or touching/steadying and/or contact guard assistance as patient completes activity. Assistance may be provided throughout the activity or intermittently. 3-Partial/Moderate Assistance-helper does LESS THAN HALF the effort. [place] lifts, holds or supports trunk or limbs, but provides less than half the effort. 2-Substantial/Maximal Assistance-helper does MORE THAN HALF the effort. [place] lifts or holds trunk or limbs and provides more than half the effort. 1-Bxwcjcupc-hyrqkw does ALL the effort. Patient does none of the effort to complete the activity. Or, the assistance of 2 or more helpers is required for the patient to complete the activity. If activity was not attempted, code reason: 7-Patient Refused. 9-Not Applicable-not attempted and the patient did not perform the activity before the current illness, exacerbation or injury. 10-Not Attempted due to Environmental Limitations-(lack of equipment, weather restraints, etc.). 88-Not Attempted due to Medical Conditions or Safety Concerns. Trnsfr from elevated bed with CGA to w/c. Wheelchair Training Pt self propelled [facility] halls [facility] and back up to room. Pt required rest breaks and assist pushing in long halls due to SOB. Treatments Pt unable to stand from [facility] at end of treatment due to fatigue. Pt managed to stand from [facility] using the sink counter in room for leverage. Required max effort for pt to stand, max A as well. Pt amb with FWW x 7ft to bed. Assessment Current Status: Good Progress Pt was fatigued after treatment making it a struggle to stand from [facility]. Otherwise, excellent performance today. Pt progressing appropriatly. Pt continues to be dependent at times for transfers. Pt resting EOB with call light and all needs met post therapy session. PT Short Term Goals Short Term Goals Time Frame: July 22, 2020 Roll Left & Right: 4 Sit to lyin Lying to sitting on side of be: 3 PT Inventory Associate Goals Senior Living Goals PT Inventory Associate Goals Time Frame: Aug 05, 2020 Roll Left & Right (QC): 4 Sit to Lying (QC): 4 Lying-Sitting on Side/Bed(QC): 4 Sit to Stand (QC): 3 Chair/Igp-ea-Wawjv Xfer(QC): 3 Toilet Transfer (QC): 3 Car Transfer (QC): 3 Does the Patient Walk: No and Walking Goal IS indicated Walk 10 feet (QC): 3 Walk 50ft with 2 Turns (QC): 88 Walk 150 ft (QC): 88 Walking 10ft on Uneven Surface: 88 1 Step (curb) (QC): 88 4 Steps (QC): 88 12 Steps (QC): 88 Picking up an Object (QC): 88 Wheel 50 feet with 2 turns (QC: 6 Wheel 150 feet: 6 PT Plan Treatment/Plan Treatment Plan: Continue Plan of Care Treatment Plan: Bed Mobility, Education, Functional Activity Cierra, Functional Strength, Group Therapy, Gait, Safety, Therapeutic Exercise, Transfers Treatment Duration: Aug 05, 2020 Frequency: Modified Program (IRF) Estimated Hrs Per Day: 1 hour per day Patient and/or Family Agrees t: Yes Time/GCodes Time In: 1300 Time Out: 1340 Total Billed Treatment Time: 40 Total Billed Treatment 1, wch x 30', gait x 10' REEMA SALCEDO CPTA Aug 04, 2020 13:56
[2020-08-04] MEDS: MELATONIN 10 MG TABLET PO SCH (19:52)
[2020-08-04 20:00] VITALS: BP 132/84
[2020-08-05] MEDS: DOCOSANOL 10 % CREAM (ABREVA) 2 GM TP SCH ×5 (06:41→21:57)
[2020-08-05 08:00] VITALS: BP 139/90
[2020-08-05] MEDS: amLODIPine 10 MG (NORVASC) TAB PO SCH (08:35)
[2020-08-05] MEDS: APIXABAN 5 MG (ELIQUIS) TABLET PO SCH ×2 (08:35→21:57)
[2020-08-05] MEDS: VITAMIN D3 125 MCG (5,000 UNITS) CAPSULE PO SCH (08:35)
[2020-08-05] MEDS: lisINopril 20 MG (PRINIVIL) TABLET PO SCH (08:35)
[2020-08-05] MEDS: LACTOBACILLUS ACIDOPHILUS (PROBIOTIC) CAPSULE PO SCH ×2 (08:35→21:56)
[2020-08-05] MEDS: PANTOPRAZOLE 40 MG (PROTONIX) TAB PO SCH (08:36)
[2020-08-05] MEDS: VALACYCLOVIR 500 MG TAB (VALTREX) PO SCH ×3 (08:36→21:56)
[2020-08-05] MEDS: KCL 10 MEQ TAB (MICRO K) PO SCH ×3 (08:36→17:00)
[2020-08-05] MEDS: ASCORBIC ACID (VIT C) 500 MG TABLET PO SCH (08:36)
[2020-08-05] MEDS: SENNA W/DOCUSATE (SENOKOT S) TABLET PO SCH ×2 (09:00→22:01)
[2020-08-05] MEDS: polyethylene glycoL POWDER 17 GM (MIRALAX) PACK PO SCH ×2 (09:00→19:44)
[2020-08-05] MEDS: MICONAZOLE 2% POWDER (DESENEX AF) 90 GM TOP SCH ×2 (09:00→22:01)
[2020-08-05] MEDS: TRIAMCINOLONE 0.1% CR (KENALOG) 15 GM TUBE TOP SCH ×2 (09:00→19:44)
[2020-08-05] MEDS: DOCUSATE SODIUM 100 MG (COLACE) CAP PO SCH ×2 (09:00→22:00)
--- NOTE | 2020-08-05 11:00 | Physical Therapy Daily Note ---
PT Daily Note-Current Subjective Patient in bed pre tx, agrees to PT, has no complaints of pain. Will be co- treating with OT due to poor patient mobility,strength, endurance, severe debility, coordinate UE and LE with activity, safety and reduce risk of falls. Appearance Patient in bed post tx with nuse call, will continue with OT for a bit. Mental Status Patient Orientation: Normal For Age Transfers SCALE: Activities may be completed with or without assistive devices. 2-Zjtcwrtpwg-kzooohq completes the activity by him/herself with no assistance from a helper. 5-Set-up or Clean-up Assistance-helper sets up or cleans up; patient completes activity. [place] assists only prior to or following the activity. 4-Supervision or Touching Assistance-helper provides verbal cues and/or touching/steadying and/or contact guard assistance as patient completes activity. Assistance may be provided throughout the activity or intermittently. 3-Partial/Moderate Assistance-helper does LESS THAN HALF the effort. [place] lif ts, holds or supports trunk or limbs, but provides less than half the effort. 2-Substantial/Maximal Assistance-helper does MORE THAN HALF the effort. [place] lifts or holds trunk or limbs and provides more than half the effort. 8-Pvpxwlpxd-cbkedp does ALL the effort. Patient does none of the effort to complete the activity. Or, the assistance of 2 or more helpers is required for the patient to complete the activity. If activity was not attempted, code reason: 7-Patient Refused. 9-Not Applicable-not attempted and the patient did not perform the activity before the current illness, exacerbation or injury. 10-Not Attempted due to Environmental Limitations-(lack of equipment, weather restraints, etc.). 88-Not Attempted due to Medical Conditions or Safety Concerns. Roll Left & Right (QC): 6 Sit to Lying (QC): 6 Lying to Sitting/Side of Bed(Q: 4 Sit to Stand (QC): 3 Chair/Tgb-vw-Qxfno Xfer(QC): 3 Patient ambulates into restroom to shower and sits in shower chair, showers, dresses, transfers to for ADL's Gait Training Distance: 120'x2 Walk 10 feet (QC): 4 Walk 50 ft with 2 Turns(QC): 4 Gait Assistive Device: FWW WC follow, brisk ambulation, no knee buckling, very SOB after ambulation Exercises 2 sets of 5 reps sit to stands from elevated therapy table Treatments PT worked on bed mobility and transfers, ambulation, balance and positioning during bathing and dressing, sit <-> stands, OT worked on bathing and dressing and ADL's, UE positioning and safety during activity Assessment Current Status: Fair Progress Patient still gets severe fatigue and SOB with activity and needs frequent rest breaks, strength is slowly improving though PT Short Term Goals Short Term Goals Time Frame: July 22, 2020 Roll Left & Right: 4 Sit to lyin Lying to sitting on side of be: 3 PT Heating Element Builder Goals [facility] Goals PT Heating Element Builder Goals Time Frame: Aug 05, 2020 Roll Left & Right (QC): 4 Sit to Lying (QC): 4 Lying-Sitting on Side/Bed(QC): 4 Sit to Stand (QC): 3 Chair/The-mp-Wfyag Xfer(QC): 3 Toilet Transfer (QC): 3 Car Transfer (QC): 3 Does the Patient Walk: No and Walking Goal IS indicated Walk 10 feet (QC): 3 Walk 50ft with 2 Turns (QC): 88 Walk 150 ft (QC): 88 Walking 10ft on Uneven Surface: 88 1 Step (curb) (QC): 88 4 Steps (QC): 88 12 Steps (QC): 88 Picking up an Object (QC): 88 Wheel 50 feet with 2 turns (QC: 6 Wheel 150 feet: 6 PT Plan Problem List Problem List: Activity Tolerance, Functional Strength, Safety, Balance, Gait, Transfer, Bed Mobility, ROM Treatment/Plan Treatment Plan: Continue Plan of Care Treatment Plan: Bed Mobility, Education, Functional Activity Cierra, Functional Strength, Group Therapy, Gait, Safety, Therapeutic Exercise, Transfers Treatment Duration: Aug 05, 2020 Frequency: Modified Program (IRF) Estimated Hrs Per Day: 1 hour per day Patient and/or Family Agrees t: Yes Safety Risks/Education Patient Education: Gait Training, Transfer Techniques, Correct Positioning, Safety Issues Teaching Recipient: Patient Teaching Methods: Demonstration, Discussion Response to Teaching: Reinforcement Needed Time/GCodes Time In: 1000 Time Out: 1100 Total Billed Treatment Time: 60 Total Billed Treatment 1 visit FA 60' co-treated for 60' LIZ MI PT Aug 05, 2020 11:00
--- NOTE | 2020-08-05 11:15 | PM&R Progress Note ---
Subjective HPI/CC On Admission Date Seen by Provider: Aug 05, 2020 Time Seen by Provider: 11:20 Subjective/Events-last exam 08/05/2020: Patient dramatically improved Walking now with therapy with frequent stops No bedpan will be used now Shingles pain improved 08/04/2020: Patient doing pretty well Shingles improved Walking a bit now Working hard to regain independence No bowel movement for 3 days but he does take laxatives Blood sugar is good 08/03/2020: Patient doing really well today Shingles much improved Bowels moved yesterday and it was large Standing a bit more 08/02/2020: Patient doing pretty well Steroid cream on psoriasis on buttocks Area on back really bothers him when I assessed it today because it was just a very subtle pink patch now it has blisters consistent with shingles We will start on Valtrex Had a good bowel movement today 08/01/2020: Patient has no major concerns Pain meds are tolerated Still using sit to stand Overall feels like he is improving 07/31/20: Patient doing really well No major concerns Slowly progressing Bowels are moving pretty well 07/30/20: Patient doing pretty well Ambulating around a little more Chest x-ray pending 91% on room air 07/28/20: Pt dong pretty well Took eight steps today No oxygen now Steroid cream to be placed on psoriasis initiated 07/27/20: Pt doing a lot better Bowels moving today Off O2 and running 91% Overall much improved 07/26/2020: Patient doing really well Potassium 3.5 usually refusing to take it Sugars are doing well He is running 90% off oxygen Dramatic improvement 07/25/2020 Patient denies any issues Improving strength by the day Due for labs tomorrow Family at bedside 07/24/2020: Patient doing really well today On oxygen at 1.5 L/min Had a large bowel movement Sugars are okay Hates the carb limitations Girlfriend and his mother at the bedside today 07/23/20: Pt up in a chair and appears to be much stronger 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 in a chair for very long Blood sugar 141 Left foot drop is an issue 07/22/20: Patient doing well Baseline flat affect assessed Had complete bowel evacuation yesterday after Fleets after supp EKG today per Dr Rinaldi Monitored closely 07/21/20: Pt doing pretty well Slow progress Will DC the heplock Sugar changes to twice daily and will give 3 units of Novolog if greater than 160 Trach dressing changed and it is sealing up well Bowels moved yesterday 07/20/20: Pt doing pretty well Bowels moved two days ago, doesnt want anything too harsh Oxygen maintained Working hard Progressing nicely 07/19/20: Pt doing pretty well Respiratory therapy tried to wean him off and he became very hypoxic Weakness in hands are a challenge for him to shave DC Cefepime and starting Omnicef Doesnt really like IVs and lab checks and made that pretty clear to me 07/18/20: Patient doing well Diarrhea noted UTI treated with IV abx UCx pending 07/17/20: Patient doing well No complaints Awaiting UCx Empiric abx maintained Aunt at bedside O2 at 1L/min Sugar improved 07/16/20: Pt doing pretty well Potassium of 2.7 so will initiate supplement Dr. Rinaldi is seeing him in consultation EKG obtained and normal sinus rhythm noted UA ordered for burning sensation on urination Pt very debilitated Review of Systems General: Fatigue, Malaise Pulmonary: Dyspnea Objective Exam Vital Signs Vital Signs Date Time Temp Pulse Resp B/P (MAP) Pulse Ox O2 Delivery O2 Flow Rate FiO2 08/05/20 20:20 Room Air 08/05/20 20:00 37.2 92 16 125/81 (96) 92 Capillary Refill : General Appearance: No Apparent Distress, WD/WN, Obese HEENT: PERRL/EOMI, Normal ENT Inspection, Pharynx Normal Neck: Full Range of Motion, Normal Inspection, Non Tender, Supple, Carotid Bruit Respiratory: Chest Non Tender, Lungs Clear, No Accessory Muscle Use, No Respiratory Distress, Decreased Breath Sounds Cardiovascular: Regular Rate, Rhythm, No Edema, No Gallop, No JVD, No Murmur, Normal Peripheral Pulses Gastrointestinal: Normal Bowel Sounds, No Organomegaly, No Pulsatile Mass, Non Tender, Soft Back: Normal Inspection, No CVA Tenderness, No Vertebral Tenderness Extremity: Normal Capillary Refill, Normal Inspection, Normal Range of Motion, Non Tender, No Calf Tenderness, No Pedal Edema Neurologic/Psychiatric: Alert, Oriented x3, No Motor/Sensory Deficits, Normal Mood/Affect, plastic tool maker II-XII Norm as Tested, Abnormal Gait (can't ambulate), Motor Weakness (severe 1/5 strength all extremities) Skin: Normal Color, Warm/Dry Lymphatic: No Adenopathy Results/Procedures Lab Patient resulted labs reviewed. FIM Transfers Therapy Code Descriptions/Definitions Functional [place] Measure: 0=Not Assessed/NA 4=Minimal Assistance 1=Total Assistance 5=Supervision or Setup 2=Maximal Assistance 6=Modified [place] 3=Moderate Assistance 7=Complete IndependenceSCALE: Activities may be completed with or without assistive devices. 8-Pnzmdzqlpu-evbjzgi completes the activity by him/herself with no assistance from a helper. 5-Set-up or Clean-up Assistance-helper sets up or cleans up; patient completes activity. [place] assists only prior to or following the activity. 4-Supervision or Touching Assistance-helper provides verbal cues and/or touching/steadying and/or contact guard assistance as patient completes activity. Assistance may be provided throughout the activity or intermittently. 3-Partial/Moderate Assistance-helper does LESS THAN HALF the effort. [place] lift s, holds or supports trunk or limbs, but provides less than half the effort. 2-Substantial/Maximal Assistance-helper does MORE THAN HALF the effort. [place] lifts or holds trunk or limbs and provides more than half the effort. 0-Iqojtbvgi-ghxaqc does ALL the effort. Patient does none of the effort to complete the activity. Or, the assistance of 2 or more helpers is required for the patient to complete the activity. If activity was not attempted, code reason: 7-Patient Refused. 9-Not Applicable-not attempted and the patient did not perform the activity before the current illness, exacerbation or injury. 10-Not Attempted due to Environmental Limitations-(lack of equipment, weather restraints, etc.). 88-Not Attempted due to Medical Conditions or Safety Concerns. Roll Left to Right (QC): 6 Sit to Lying (QC): 6 Sit to Stand (QC): 3 Chair/Vjd-sp-Cjdzv Xfer(QC): 3 Car Transfer (QC): 1 Gait Training Does the Patient Walk?: Yes Distance: 120'x2 Walk 10 feet (QC): 4 Walk 50 ft with 2 Turns(QC): 4 Walk 150 ft (QC): 88 Walking 10ft/uneven surface-QC: 88 Gait Persons Needed: 1 Gait Assistive Device: FWW Wheelchair Training Does the Pt Use a Wheelchair?: Yes Distance: 80' Wheel 50 ft with 2 turns (QC): 5 Wheel 150 ft (QC): 5 Type of Wheelchair: Manual Stair Training 1 Step (curb) (QC): 88 4 Steps (QC): 88 12 Steps (QC): 88 Balance Picking up an Object (QC): 88 ADL-Treatment Eating (QC): 6 Oral Hygiene (QC): 6 Shower/Bathe Self (QC): 1 Upper Body Dressing (QC): 5 Lower Body Dressing (QC): 1 On/Off Footwear (QC): 3 Toileting Hygiene (QC): 2 Toilet Transfer (QC): 1 Assessment/Plan Assessment and Plan Assess & Plan/Chief Complaint Assessment: COVID-19 PNA myopathy Severe poor lung reserve Obesity New onset DM AF? Psoriasis of buttocks Shingles right flank 08/02/2020 Plan: Insulin Monitor lung function Cardiology consult 07/16/20: UA Replace potassium Slow recovery 07/17/20: IV abx Suspect resistant UTI 07/18/20: Monitor closely Await Ucx 07/19/20: Reviewed UCx DC Cefepime Irritated with IV's and lab checks 07/20/20: Monitor closely Sugars good 07/21/20: DC Heplock 07/22/20: Monitored closely BP ok 07/23/20: Monitor O2 Improved status now 07/24/2020: Continue limitation of carbs to decrease sugar Monitor oxygen level 07/25/2020 Check labs in the morning Monitor closely 07/26/2020: Discharge planned after review on Sunday Dramatic improvement Wean oxygen 07/27/20: Improved Weaned O2 07/28/20: Steroid cream for psoriasis Doing much better 07/30/2020: Chest x-ray reviewed Continue aggressive therapy 07/31/2020: Monitor closely Maintain oxygen 08/01/2020: Psoriasis treatment Monitor blood pressure Check labs in the morning 08/02/2020: Shingles treatment Monitor closely 08/03/2020: Continue shingles treatment Monitor closely Improved 08/04/2020: Valtrex to complete treatment for shingles Monitor closely 08/05/2020: Complete Valtrex Dramatic improvement now ambulating (1) Myopathy (2) COVID-19 (3) Obesity (4) Diabetes mellitus NATHANAEL HOWE DO Aug 05, 2020 11:15
--- NOTE | 2020-08-05 11:17 | Occupational Ther Daily Note ---
OT Current Status-Daily Note Subjective Pt alert, sitting in shower. PT ambulated pt to shower. Co-treat with PT ([id number]), 2 clinicians required for skilled instruction, modifications and care due to increased fall risk, decreased activity tolerance and increase SOA. No c/o pain. Mental Status/Objective Patient Orientation: Person, Place, Time, Situation ADL-Treatment Pt agrees to shower. PT focusing on ambulation, transfers and sit to stands while OT focusing on ADLs, functional transfers and assisting with sit to stands/ambulation. PT ambulated pt to shower and transferred to elevated shower chair. Pt then completed shower sitting on shower chair, close SBA to fence installer foreman shower while pt using grabbars to pull to stand, PHAN cleansed and dried buttocks. Donned/doffed shirt by self with set up. Pt used AE to thread B LE into pants, pulled to stand using grabbars and pt assisted with hiking pants over hips. Using sock aid pt able to don socks, using dressing stick to doff socks. Pt donned R shoe by self and assist to don L shoe due to AFO. Pt doffed shoes by self. Pt declined to complete oral care and shaving. Therapy Code Descriptions/Definitions Functional [place] Measure: 0=Not Assessed/NA 4=Minimal Assistance 1=Total Assistance 5=Supervision or Setup 2=Maximal Assistance 6=Modified [place] 3=Moderate Assistance 7=Complete IndependenceSCALE: Activities may be completed with or without assistive devices. 0-Njlqfwnsni-bysattl completes the activity by him/herself with no assistance from a helper. 5-Set-up or Clean-up Assistance-helper sets up or cleans up; patient completes activity. [place] assists only prior to or following the activity. 4-Supervision or Touching Assistance-helper provides verbal cues and/or touching/steadying and/or contact guard assistance as patient completes activity. Assistance may be provided throughout the activity or intermittently. 3-Partial/Moderate Assistance-helper does LESS THAN HALF the effort. [place] lifts, holds or supports trunk or limbs, but provides less than half the effort. 2-Substantial/Maximal Assistance-helper does MORE THAN HALF the effort. [place] lifts or holds trunk or limbs and provides more than half the effort. 5-Zxtxdfjdh-uhagze does ALL the effort. Patient does none of the effort to complete the activity. Or, the assistance of 2 or more helpers is required for the patient to complete the activity. If activity was not attempted, code reason: 7-Patient Refused. 9-Not Applicable-not attempted and the patient did not perform the activity before the current illness, exacerbation or injury. 10-Not Attempted due to Environmental Limitations-(lack of equipment, weather restraints, etc.). 88-Not Attempted due to Medical Conditions or Safety Concerns. Bathing Location: L Arm, R Arm, L Upper Leg, R Upper Leg, L Lower Leg (includi ng foot), R Lower Leg (including foot), Chest, Abdomen, Perineal Area Shower/Bathe Self (QC): 3 Upper Body Dressing (QC): 5 Lower Body Dressing (QC): 3 On/Off Footwear: 3 Other Treatment See PT notes for pt's progress with ambulation and sit to stands. Pt ambulated using FWW to and from therapy gym without breaks, PT assisting pt to ambulate and OT following with w/c for safety due to pt's decreased activity tolerance. Pt completed 2 sets of sit to stand from mat table. PT finished session at 1100, PHAN continued to work with pt from [id number]. Pt completed 3 B UE exercises using 3# wt sitting EOB. Pt fatigued quickly with shldr exercises 3 sets 5 reps then seated rows 3 sets 10 reps. Pt laid down in bed independently. After session, pt lying in bed with call light/phone in reach. All needs met in room. OT Short Term Goals Short Term Goals Time Frame: Aug 05, 2020 Toileting hygiene: 2 Upper body dressin Lower body dressin Putting on/taking off footwear: 2 OT Group Home Goals Culinary Chef Goals Time Frame: Aug 13, 2020 Eating (QC): 6 Oral Hygiene (QC): 6 Toileting Hygiene (QC): 6 Shower/Bathe Self (QC): 6 Upper Body Dressing (QC): 6 Lower Body Dressing (QC): 6 On/Off Footwear (QC): 6 Additional Goals: 1-Demonstrate ADL Tasks, 2-Verbalize Understanding, 3- ImproveStrength/Cierra 1=Demonstrate adherence to instructed precautions during ADL tasks. 2=Patient will verbalize/demonstrate understanding of assistive devices/modifi cations for ADL. 3=Patient will improve strength/tolerance for activity to enable patient to perform ADL's. OT Education/Plan Problem List/Assessment Assessment: Decreased Activ Tolerance, Decreased UE Strength, Impaired Funct Balance, Impaired Self-Care Skills Discharge Recommendations Plan/Recommendations: Continue POC Treatment Plan/Plan of Care Patient would benefit from OT for education, treatment and training to promote independence in ADL's, mobility, safety and/or upper extremity function for ADL's. Plan of Care: ADL Retraining, Functional Mobility, Group Exercise/Act as Ind, UE Funct Exercise/Act Treatment Duration: Aug 13, 2020 Frequency: Modified Program (IRF) Estimated Hrs Per Day: 1 hour per day Agreement: Yes Rehab Potential: Fair Time/GCodes Start Time: 10:15 Stop Time: 11:15 Total Time Billed (hr/min): 60 Billed Treatment Time 1 visit-ADL 2 (30 min) FA 2 (30 min) co-treat with PT [id number], individual [id number] TYSON FISHER Aug 05, 2020 11:17
--- NOTE | 2020-08-05 14:40 | Physical Therapy Daily Note ---
PT Daily Note-Current Subjective Patient in bed pre tx, agrees to PT, has no complaints of pain. Appearance Patient in bed post tx with nurse call, phone, tray, all needs met. Mental Status Patient Orientation: Normal For Age Transfers SCALE: Activities may be completed with or without assistive devices. 7-Lflzskrbnq-wmndrkr completes the activity by him/herself with no assistance from a helper. 5-Set-up or Clean-up Assistance-helper sets up or cleans up; patient completes activity. [place] assists only prior to or following the activity. 4-Supervision or Touching Assistance-helper provides verbal cues and/or touching/steadying and/or contact guard assistance as patient completes activity. Assistance may be provided throughout the activity or intermittently. 3-Partial/Moderate Assistance-helper does LESS THAN HALF the effort. [place] lifts, holds or supports trunk or limbs, but provides less than half the effort. 2-Substantial/Maximal Assistance-helper does MORE THAN HALF the effort. [place] lifts or holds trunk or limbs and provides more than half the effort. 1-Vqibdjyns-hpbjni does ALL the effort. Patient does none of the effort to complete the activity. Or, the assistance of 2 or more helpers is required for the patient to complete the activity. If activity was not attempted, code reason: 7-Patient Refused. 9-Not Applicable-not attempted and the patient did not perform the activity before the current illness, exacerbation or injury. 10-Not Attempted due to Environmental Limitations-(lack of equipment, weather restraints, etc.). 88-Not Attempted due to Medical Conditions or Safety Concerns. Exercises Supine Ex: Ankle pumps (only RLE), Quad Set, Glut sets, Heel Slides, Short Arc Quads, Straight leg raise, Hip abd/add Supine Reps: 20 Treatments LE exercise Assessment Current Status: Fair Progress slowly progressing LE strength PT Short Term Goals Short Term Goals Time Frame: July 22, 2020 Roll Left & Right: 4 Sit to lyin Lying to sitting on side of be: 3 PT Batch Or Continuous Still Operator Goals [facility] Goals PT [facility] Goals Time Frame: Aug 05, 2020 Roll Left & Right (QC): 4 Sit to Lying (QC): 4 Lying-Sitting on Side/Bed(QC): 4 Sit to Stand (QC): 3 Chair/Yvn-gp-Akffd Xfer(QC): 3 Toilet Transfer (QC): 3 Car Transfer (QC): 3 Does the Patient Walk: No and Walking Goal IS indicated Walk 10 feet (QC): 3 Walk 50ft with 2 Turns (QC): 88 Walk 150 ft (QC): 88 Walking 10ft on Uneven Surface: 88 1 Step (curb) (QC): 88 4 Steps (QC): 88 12 Steps (QC): 88 Picking up an Object (QC): 88 Wheel 50 feet with 2 turns (QC: 6 Wheel 150 feet: 6 PT Plan Problem List Problem List: Activity Tolerance, Functional Strength, Safety, Balance, Gait, Transfer, Bed Mobility, ROM Treatment/Plan Treatment Plan: Continue Plan of Care Treatment Plan: Bed Mobility, Education, Functional Activity Cierra, Functional Strength, Group Therapy, Gait, Safety, Therapeutic Exercise, Transfers Treatment Duration: Aug 05, 2020 Frequency: Modified Program (IRF) Estimated Hrs Per Day: 1 hour per day Patient and/or Family Agrees t: Yes Safety Risks/Education Patient Education: Correct Positioning, Safety Issues Teaching Recipient: Patient Teaching Methods: Demonstration, Discussion Response to Teaching: Reinforcement Needed Time/GCodes Time In: 1415 Time Out: 1430 Total Billed Treatment Time: 15 Total Billed Treatment 1 visit EX LIZ SALAMANCA PT Aug 05, 2020 14:39
[2020-08-05] MEDS: MELATONIN 10 MG TABLET PO SCH (19:43)
[2020-08-05 20:00] VITALS: BP 125/81
--- NOTE | 2020-08-06 06:18 | PM&R Progress Note ---
Subjective HPI/CC On Admission Date Seen by Provider: Aug 06, 2020 Time Seen by Provider: 12:00 Subjective/Events-last exam 08/06/20: Patient dramatically improving Ambulating very well now Working on standing stronger No complaints 08/05/2020: Patient dramatically improved Walking now with therapy with frequent stops No bedpan will be used now Shingles pain improved 08/04/2020: Patient doing pretty well Shingles improved Walking a bit now Working hard to regain independence No bowel movement for 3 days but he does take laxatives Blood sugar is good 08/03/2020: Patient doing really well today Shingles much improved Bowels moved yesterday and it was large Standing a bit more 08/02/2020: Patient doing pretty well Steroid cream on psoriasis on buttocks Area on back really bothers him when I assessed it today because it was just a very subtle pink patch now it has blisters consistent with shingles We will start on Valtrex Had a good bowel movement today 08/01/2020: Patient has no major concerns Pain meds are tolerated Still using sit to stand Overall feels like he is improving 07/31/20: Patient doing really well No major concerns Slowly progressing Bowels are moving pretty well 07/30/20: Patient doing pretty well Ambulating around a little more Chest x-ray pending 91% on room air 07/28/20: Pt dong pretty well Took eight steps today No oxygen now Steroid cream to be placed on psoriasis initiated 07/27/20: Pt doing a lot better Bowels moving today Off O2 and running 91% Overall much improved 07/26/2020: Patient doing really well Potassium 3.5 usually refusing to take it Sugars are doing well He is running 90% off oxygen Dramatic improvement 07/25/2020 Patient denies any issues Improving strength by the day Due for labs tomorrow Family at bedside 07/24/2020: Patient doing really well today On oxygen at 1.5 L/min Had a large bowel movement Sugars are okay Hates the carb limitations Girlfriend and his mother at the bedside today 07/23/20: Pt up in a chair and appears to be much stronger 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 in a chair for very long Blood sugar 141 Left foot drop is an issue 07/22/20: Patient doing well Baseline flat affect assessed Had complete bowel evacuation yesterday after Fleets after supp EKG today per Dr Rinaldi Monitored closely 07/21/20: Pt doing pretty well Slow progress Will DC the heplock Sugar changes to twice daily and will give 3 units of Novolog if greater than 160 Trach dressing changed and it is sealing up well Bowels moved yesterday 07/20/20: Pt doing pretty well Bowels moved two days ago, doesnt want anything too harsh Oxygen maintained Working hard Progressing nicely 07/19/20: Pt doing pretty well Respiratory therapy tried to wean him off and he became very hypoxic Weakness in hands are a challenge for him to shave DC Cefepime and starting Omnicef Doesnt really like IVs and lab checks and made that pretty clear to me 07/18/20: Patient doing well Diarrhea noted UTI treated with IV abx UCx pending 07/17/20: Patient doing well No complaints Awaiting UCx Empiric abx maintained Aunt at bedside O2 at 1L/min Sugar improved 07/16/20: Pt doing pretty well Potassium of 2.7 so will initiate supplement Dr. Rinaldi is seeing him in consultation EKG obtained and normal sinus rhythm noted UA ordered for burning sensation on urination Pt very debilitated Review of Systems General: Fatigue, Malaise Neurological: Weakness Objective Exam Vital Signs Vital Signs Date Time Temp Pulse Resp B/P (MAP) Pulse Ox O2 Delivery O2 Flow Rate FiO2 08/06/20 21:00 Room Air 08/06/20 20:00 37.0 98 16 122/71 (88) 93 Capillary Refill : General Appearance: No Apparent Distress, WD/WN, Obese HEENT: PERRL/EOMI, Normal ENT Inspection, Pharynx Normal Neck: Full Range of Motion, Normal Inspection, Non Tender, Supple, Carotid Bruit Respiratory: Chest Non Tender, Lungs Clear, No Accessory Muscle Use, No Respiratory Distress, Decreased Breath Sounds Cardiovascular: Regular Rate, Rhythm, No Edema, No Gallop, No JVD, No Murmur, Normal Peripheral Pulses Gastrointestinal: Normal Bowel Sounds, No Organomegaly, No Pulsatile Mass, Non Tender, Soft Back: Normal Inspection, No CVA Tenderness, No Vertebral Tenderness Extremity: Normal Capillary Refill, Normal Inspection, Normal Range of Motion, Non Tender, No Calf Tenderness, No Pedal Edema Neurologic/Psychiatric: Alert, Oriented x3, No Motor/Sensory Deficits, Normal Mood/Affect, 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 [facility]IM Transfers Therapy Code Descriptions/Definitions Functional [place] Measure: 0=Not Assessed/NA 4=Minimal Assistance 1=Total Assistance 5=Supervision or Setup 2=Maximal Assistance 6=Modified [place] 3=Moderate Assistance 7=Complete IndependenceSCALE: Activities may be completed with or without assistive devices. 5-Jrfzfnjnsg-bdhidvd completes the activity by him/herself with no assistance from a helper. 5-Set-up or Clean-up Assistance-helper sets up or cleans up; patient completes activity. [place] assists only prior to or following the activity. 4-Supervision or Touching Assistance-helper provides verbal cues and/or touching/steadying and/or contact guard assistance as patient completes activity. Assistance may be provided throughout the activity or intermittently. 3-Partial/Moderate Assistance-helper does LESS THAN HALF the effort. [place] lifts, holds or supports trunk or limbs, but provides less than half the effort. 2-Substantial/Maximal Assistance-helper does MORE THAN HALF the effort. [place] lifts or holds trunk or limbs and provides more than half the effort. 0-Hcpkikngi-qvkwgv does ALL the effort. Patient does none of the effort to complete the activity. Or, the assistance of 2 or more helpers is required for the patient to complete the activity. If activity was not attempted, code reason: 7-Patient Refused. 9-Not Applicable-not attempted and the patient did not perform the activity before the current illness, exacerbation or injury. 10-Not Attempted due to Environmental Limitations-(lack of equipment, weather restraints, etc.). 88-Not Attempted due to Medical Conditions or Safety Concerns. Roll Left to Right (QC): 6 Sit to Lying (QC): 6 Sit to Stand (QC): 3 Chair/Iax-se-Slhml Xfer(QC): 3 Car Transfer (QC): 1 Gait Training Does the Patient Walk?: Yes Distance: 120'x2 Walk 10 feet (QC): 4 Walk 50 ft with 2 Turns(QC): 4 Walk 150 ft (QC): 88 Walking 10ft/uneven surface-QC: 88 Gait Persons Needed: 1 Gait Assistive Device: FWW Wheelchair Training Does the Pt Use a Wheelchair?: Yes Distance: 80' Wheel 50 ft with 2 turns (QC): 5 Wheel 150 ft (QC): 5 Type of Wheelchair: Manual Stair Training 1 Step (curb) (QC): 88 4 Steps (QC): 88 12 Steps (QC): 88 Balance Picking up an Object (QC): 88 ADL-Treatment Eating (QC): 6 Oral Hygiene (QC): 6 Bathing Location: L Arm, R Arm, L Upper Leg, R Upper Leg, L Lower Leg (including foot), R Lower Leg (including foot), Chest, Abdomen, Perineal Area Shower/Bathe Self (QC): 3 Upper Body Dressing (QC): 5 Lower Body Dressing (QC): 3 On/Off Footwear (QC): 3 Toileting Hygiene (QC): 2 Toilet Transfer (QC): 1 Assessment/Plan Assessment and Plan Assess & Plan/Chief Complaint Assessment: COVID-19 PNA myopathy Severe poor lung reserve Obesity New onset DM AF? Psoriasis of buttocks Shingles right flank 08/02/2020 Plan: Insulin Monitor lung function Cardiology consult 07/16/20: UA Replace potassium Slow recovery 07/17/20: IV abx Suspect resistant UTI 07/18/20: Monitor closely Await Ucx 07/19/20: Reviewed UCx DC Cefepime Irritated with IV's and lab checks 07/20/20: Monitor closely Sugars good 07/21/20: DC Heplock 07/22/20: Monitored closely BP ok 07/23/20: Monitor O2 Improved status now 07/24/2020: Continue limitation of carbs to decrease sugar Monitor oxygen level 07/25/2020 Check labs in the morning Monitor closely 07/26/2020: Discharge planned after review on Sunday Dramatic improvement Wean oxygen 07/27/20: Improved Weaned O2 07/28/20: Steroid cream for psoriasis Doing much better 07/30/2020: Chest x-ray reviewed Continue aggressive therapy 07/31/2020: Monitor closely Maintain oxygen 08/01/2020: Psoriasis treatment Monitor blood pressure Check labs in the morning 08/02/2020: Shingles treatment Monitor closely 08/03/2020: Continue shingles treatment Monitor closely Improved 08/04/2020: Valtrex to complete treatment for shingles Monitor closely 08/05/2020: Complete Valtrex Dramatic improvement now ambulating 08/06/2020: Dramatically improved Ambulating well Monitor closely (1) Myopathy (2) COVID-19 (3) Obesity (4) Diabetes mellitus NATHANAEL HOWE DO Aug 06, 2020 06:18
[2020-08-06] MEDS: DOCOSANOL 10 % CREAM (ABREVA) 2 GM TP SCH ×5 (06:49→21:35)
[2020-08-06 08:00] VITALS: BP 145/82
[2020-08-06] MEDS: lisINopril 20 MG (PRINIVIL) TABLET PO SCH (08:15)
[2020-08-06] MEDS: LACTOBACILLUS ACIDOPHILUS (PROBIOTIC) CAPSULE PO SCH ×2 (08:15→21:14)
[2020-08-06] MEDS: VALACYCLOVIR 500 MG TAB (VALTREX) PO SCH ×3 (08:15→21:14)
[2020-08-06] MEDS: ASCORBIC ACID (VIT C) 500 MG TABLET PO SCH (08:15)
[2020-08-06] MEDS: PANTOPRAZOLE 40 MG (PROTONIX) TAB PO SCH (08:15)
[2020-08-06] MEDS: APIXABAN 5 MG (ELIQUIS) TABLET PO SCH ×2 (08:15→21:14)
[2020-08-06] MEDS: amLODIPine 10 MG (NORVASC) TAB PO SCH (08:15)
[2020-08-06] MEDS: KCL 10 MEQ TAB (MICRO K) PO SCH ×3 (08:15→17:38)
[2020-08-06] MEDS: VITAMIN D3 125 MCG (5,000 UNITS) CAPSULE PO SCH (08:15)
[2020-08-06] MEDS: TRIAMCINOLONE 0.1% CR (KENALOG) 15 GM TUBE TOP SCH ×2 (09:00→21:35)
[2020-08-06] MEDS: DOCUSATE SODIUM 100 MG (COLACE) CAP PO SCH ×2 (09:00→21:14)
[2020-08-06] MEDS: polyethylene glycoL POWDER 17 GM (MIRALAX) PACK PO SCH ×2 (09:00→21:15)
[2020-08-06] MEDS: MICONAZOLE 2% POWDER (DESENEX AF) 90 GM TOP SCH ×2 (09:00→21:34)
[2020-08-06] MEDS: SENNA W/DOCUSATE (SENOKOT S) TABLET PO SCH ×2 (09:00→21:15)
--- NOTE | 2020-08-06 12:43 | Occupational Ther Daily Note ---
OT Current Status-Daily Note Subjective Pt alert, lying in bed. Family present in room. Pt agrees to therapy. Co- treat with PT, skills of 2 clinicians required for instruction and care due to decreased activity tolerance, fall risk and SOA. Mental Status/Objective Patient Orientation: Person, Place, Time, Situation ADL-Treatment PT focusing on ambulation, mobility, transfers and B LE strengthening while OT focusing on ADL's, functional mobility and B UE strengthening. After set up, pt able to don/doff shirt by self. Using AE, pt able to don/doff socks by self. Pt able to don R shoe using AE and assist with L shoe due to AFO. Doffs both shoes by self. Declines oral care. Therapy Code Descriptions/Definitions Functional [place] Measure: 0=Not Assessed/NA 4=Minimal Assistance 1=Total Assistance 5=Supervision or Setup 2=Maximal Assistance 6=Modified [place] 3=Moderate Assistance 7=Complete IndependenceSCALE: Activities may be completed with or without assistive devices. 3-Yisnnbesjv-kuhachv completes the activity by him/herself with no assistance from a helper. 5-Set-up or Clean-up Assistance-helper sets up or cleans up; patient completes activity. [place] assists only prior to or following the activity. 4-Supervision or Touching Assistance-helper provides verbal cues and/or touching/steadying and/or contact guard assistance as patient completes activity. Assistance may be provided throughout the activity or intermittently. 3-Partial/Moderate Assistance-helper does LESS THAN HALF the effort. [place] lifts, holds or supports trunk or limbs, but provides less than half the effort. 2-Substantial/Maximal Assistance-helper does MORE THAN HALF the effort. [place] lifts or holds trunk or limbs and provides more than half the effort. 8-Iefosjuej-apalcj does ALL the effort. Patient does none of the effort to comp lete the activity. Or, the assistance of 2 or more helpers is required for the patient to complete the activity. If activity was not attempted, code reason: 7-Patient Refused. 9-Not Applicable-not attempted and the patient did not perform the activity before the current illness, exacerbation or injury. 10-Not Attempted due to Environmental Limitations-(lack of equipment, weather restraints, etc.). 88-Not Attempted due to Medical Conditions or Safety Concerns. Upper Body Dressing (QC): 5 On/Off Footwear: 3 Other Treatment See PT notes for ambulation progress. Pt working on side stepping and reaching behind to gain skills and balance for functional ADL tasks. Pt able to complete 1 min B UE strengthening exercise. After session, pt sitting EOB with call light/phone in reach. All needs met in room. OT Short Term Goals Short Term Goals Time Frame: Aug 05, 2020 Toileting hygiene: 2 Upper body dressin Lower body dressin Putting on/taking off footwear: 2 OT [facility] Goals [facility] Goals Time Frame: Aug 13, 2020 Eating (QC): 6 Oral Hygiene (QC): 6 Toileting Hygiene (QC): 6 Shower/Bathe Self (QC): 6 Upper Body Dressing (QC): 6 Lower Body Dressing (QC): 6 On/Off Footwear (QC): 6 Additional Goals: 1-Demonstrate ADL Tasks, 2-Verbalize Understanding, 3- ImproveStrength/C[place] 1=Demonstrate adherence to instructed precautions during ADL tasks. 2=Patient will verbalize/demonstrate understanding of assistive devices/modifications for ADL. 3=Patient will improve strength/tolerance for activity to enable patient to perform ADL's. OT Education/Plan Problem List/Assessment Assessment: Decreased Activ Tolerance, Decreased UE Strength, Impaired Funct Balance, Impaired Self-Care Skills Discharge Recommendations Plan/Recommendations: Continue POC Treatment Plan/Plan of Care Patient would benefit from OT for education, treatment and training to promote independence in ADL's, mobility, safety and/or upper extremity function for ADL's. Plan of Care: ADL Retraining, Functional Mobility, Group Exercise/Act as Ind, UE Funct Exercise/Act Treatment Duration: Aug 13, 2020 Frequency: Modified Program (IRF) Estimated Hrs Per Day: 1 hour per day Agreement: Yes Rehab Potential: Fair Time/GCodes Start Time: 11:00 Stop Time: 12:00 Total Time Billed (hr/min): 60 Billed Treatment Time 1 visit-ADL 1 (20 min) FA 3 (40 min) co-treat with PT [id number] TYSON FISHER Aug 06, 2020 12:43
--- NOTE | 2020-08-06 12:50 | Physical Therapy Daily Note ---
PT Daily Note-Current Subjective Patient in bed pre tx, agrees to PT, has no complaints of pain. Will be co- treating with OT due to poor patient mobility, strength, endurance, severe debility, coordinate UE and LE during activity, safety and reduce risk of falls. Appearance Patient sitting EOB post tx with nurse call, phone, tray, all needs met. Mental Status Patient Orientation: Normal For Age Transfers SCALE: Activities may be completed with or without assistive devices. 9-Isstkvjqmi-qhgcvon completes the activity by him/herself with no assistance from a helper. 5-Set-up or Clean-up Assistance-helper sets up or cleans up; patient completes activity. [place] assists only prior to or following the activity. 4-Supervision or Touching Assistance-helper provides verbal cues and/or touching/steadying and/or contact guard assistance as patient completes activity. Assistance may be provided throughout the activity or intermittently. 3-Partial/Moderate Assistance-helper does LESS THAN HALF the effort. [place] lifts, holds or supports trunk or limbs, but provides less than half the effort. 2-Substantial/Maximal Assistance-helper does MORE THAN HALF the effort. [place] lifts or holds trunk or limbs and provides more than half the effort. 4-Vrkszesak-ocgzag does ALL the effort. Patient does none of the effort to complete the activity. Or, the assistance of 2 or more helpers is required for the patient to complete the activity. If activity was not attempted, code reason: 7-Patient Refused. 9-Not Applicable-not attempted and the patient did not perform the activity before the current illness, exacerbation or injury. 10-Not Attempted due to Environmental Limitations-(lack of equipment, weather restraints, etc.). 88-Not Attempted due to Medical Conditions or Safety Concerns. Roll Left & Right (QC): 6 Lying to Sitting/Side of Bed(Q: 4 Sit to Stand (QC): 3 Chair/Hce-cy-Svyvz Xfer(QC): 4 Patient sits on the side of the bed with SBA (but close guarding), puts on his shoes with assist from OT, and stands with min/mod assist. Gait Training Distance: 120'x2 Walk 10 feet (QC): 4 Walk 50 ft with 2 Turns(QC): 4 Gait Persons Needed: 1 Gait Assistive Device: FWW WC follow, patient ambulates at a brisk pace in order to get it done before he runs out of oxygen. Patient ambulates to the therapy gym and then back to his room when done. Exercises Seated Therapy Exercises: Long arc quads, Hip flexion Seated Reps: 20 sidestepping in parallel bars 6'x3 and then again. Patient states it is much harder to ambulate sideways. Patient also performed a standing activity where he has to pull off clothespins to simulate don/doff pants, he did this twice. Treatments PT performed bed mobility and transfers, ambulation, sidestepping, LE strengthening, standing balance and safety, OT performed dressing, standing activity, UE positioning and safety during activity. Assessment Current Status: Fair Progress slowly improving strength and endurance. PT Short Term Goals Short Term Goals Time Frame: July 22, 2020 Roll Left & Right: 4 Sit to lyin Lying to sitting on side of be: 3 PT [facility] Goals [facility] Goals PT [facility] Goals Time Frame: Aug 05, 2020 Roll Left & Right (QC): 4 Sit to Lying (QC): 4 Lying-Sitting on Side/Bed(QC): 4 Sit to Stand (QC): 3 Chair/Oat-cl-Vdqal Xfer(QC): 3 Toilet Transfer (QC): 3 Car Transfer (QC): 3 Does the Patient Walk: No and Walking Goal IS indicated Walk 10 feet (QC): 3 Walk 50ft with 2 Turns (QC): 88 Walk 150 ft (QC): 88 Walking 10ft on Uneven Surface: 88 1 Step (curb) (QC): 88 4 Steps (QC): 88 12 Steps (QC): 88 Picking up an Object (QC): 88 Wheel 50 feet with 2 turns (QC: 6 Wheel 150 feet: 6 PT Plan Problem List Problem List: Activity Tolerance, Functional Strength, Safety, Balance, Gait, Transfer, Bed Mobility, ROM Treatment/Plan Treatment Plan: Continue Plan of Care Treatment Plan: Bed Mobility, Education, Functional Activity Cierra, Functional Strength, Group Therapy, Gait, Safety, Therapeutic Exercise, Transfers Treatment Duration: Aug 05, 2020 Frequency: Modified Program (IRF) Estimated Hrs Per Day: 1 hour per day Patient and/or Family Agrees t: Yes Safety Risks/Education Patient Education: Gait Training, Transfer Techniques, Correct Positioning, Safety Issues Teaching Recipient: Patient Teaching Methods: Demonstration, Discussion Response to Teaching: Reinforcement Needed Time/GCodes Time In: 1100 Time Out: 1200 Total Billed Treatment Time: 60 Total Billed Treatment 1 visit EX 30' FA 30' co-treated for 60' LIZ MI PT Aug 06, 2020 12:50
--- NOTE | 2020-08-06 12:55 | Physical Therapy Rehab Re-Cert ---
PT Re-Certification Form Physical Therapy Treatment Plan: Continue Plan of Care Bed Mobility, Education, Functional Activity Cierra, Functional Strength, Group Therapy, Gait, Safety, Therapeutic Exercise, Transfers Frequency: Modified Program (IRF) Estimated Hrs Per Day: 1 hour per day Patient and/or Family Agrees t: Yes Rehab Potential: Fair Patient has been making good progress with strength and functional mobility, he continues to have difficulty with SOB and fatigue. Patient's shelter goals have been updated and he will continue PT toward these new goals. PT Short Term Goals Short Term Goals Time Frame: July 22, 2020 Roll Left & Right: 4 Sit to lyin Lying to sitting on side of be: 3 PT Anatomic Pathology Assistant Goals Anatomic Pathology Assistant Goals PT Anatomic Pathology Assistant Goals Time Frame: Aug 19, 2020 Roll Left & Right (QC): 6 Sit to Lying (QC): 6 Lying-Sitting on Side/Bed(QC): 6 Sit to Stand (QC): 4 Chair/Zvp-uf-Dypzm Xfer(QC): 4 Toilet Transfer (QC): 4 Car Transfer (QC): 4 Does the Patient Walk: Yes Walk 10 feet (QC): 4 Walk 50ft with 2 Turns (QC): 4 Walk 150 ft (QC): 4 Walking 10ft on Uneven Surface: 4 1 Step (curb) (QC): 88 4 Steps (QC): 88 12 Steps (QC): 88 Picking up an Object (QC): 88 Wheel 50 feet with 2 turns (QC: 6 Wheel 150 feet: 6 LIZ MI PT Aug 06, 2020 12:55
[2020-08-06] MEDS ORDERED: LACTULOSE SYRUP 10GM/15ML (ENULOSE) 30ML UDC PO PRN (13:15)
[2020-08-06] MEDS ORDERED: guaiFENesin/CODEINE (ROBITUSSIN AC) 10ML UDC PO PRN (13:15)
[2020-08-06] MEDS ORDERED: MELATONIN 3 MG TABLET PO PRN (13:15)
[2020-08-06] MEDS ORDERED: inSUlin ASPART (NovoLOG) 1 UNIT/0.01 ML (CHARGE PER UNIT) SC PRN (13:15)
[2020-08-06] MEDS ORDERED: FLEET ENEMA ADULT 1 EA BTL PR PRN (13:15)
[2020-08-06] MEDS ORDERED: LOPERAMIDE 2 MG (IMODIUM) TABLET PO PRN (13:15)
[2020-08-06] MEDS ORDERED: CALCIUM CARBONATE 500 MG (TUMS) TAB.CHEW PO PRN (13:15)
[2020-08-06] MEDS ORDERED: ACETAMINOPHEN 325 MG TABLET PO PRN ×2 (13:15)
[2020-08-06] MEDS ORDERED: RT-ALBUTEROL/IPRATROPIUM 3 ML (DUONEB) VIAL IH PRN (13:15)
[2020-08-06] MEDS ORDERED: ONDANSETRON 4 MG (ZOFRAN) ORAL DISSOLVE TAB PO PRN (13:15)
[2020-08-06] MEDS ORDERED: DOCUSATE SODIUM 100 MG (COLACE) CAP PO PRN (13:15)
[2020-08-06] MEDS ORDERED: ALPRAZolam 0.25 MG (XANAX) TAB PO PRN (13:15)
[2020-08-06] MEDS ORDERED: HYDROcodone/APAP 5 MG/325 MG (LORTAB) TAB PO PRN (13:15)
[2020-08-06] MEDS ORDERED: SIMETHICONE 80 MG (MYLICON) CHEW PO PRN (13:15)
[2020-08-06] MEDS ORDERED: PHENAZOPYRIDINE 100 MG (PYRIDIUM) TABLET PO PRN (13:15)
[2020-08-06] MEDS ORDERED: BISACODYL 10 MG SUPP (DULCOLAX) PR PRN (13:15)
--- NOTE | 2020-08-06 14:40 | Physical Therapy Daily Note ---
PT Daily Note-Current Subjective Patient in bed pre tx, agrees to PT, has no complaints of pain. Appearance Patient in bed post tx with nurse call, phone, tray, all needs met. Mental Status Patient Orientation: Normal For Age Transfers SCALE: Activities may be completed with or without assistive devices. 6-Ufdfdaeziu-qtwwqqo completes the activity by him/herself with no assistance from a helper. 5-Set-up or Clean-up Assistance-helper sets up or cleans up; patient completes activity. [place] assists only prior to or following the activity. 4-Supervision or Touching Assistance-helper provides verbal cues and/or touching/steadying and/or contact guard assistance as patient completes activity. Assistance may be provided throughout the activity or intermittently. 3-Partial/Moderate Assistance-helper does LESS THAN HALF the effort. [place] lifts, holds or supports trunk or limbs, but provides less than half the effort. 2-Substantial/Maximal Assistance-helper does MORE THAN HALF the effort. [place] lifts or holds trunk or limbs and provides more than half the effort. 6-Jhjuboxej-uxwawa does ALL the effort. Patient does none of the effort to complete the activity. Or, the assistance of 2 or more helpers is required for the patient to complete the activity. If activity was not attempted, code reason: 7-Patient Refused. 9-Not Applicable-not attempted and the patient did not perform the activity before the current illness, exacerbation or injury. 10-Not Attempted due to Environmental Limitations-(lack of equipment, weather restraints, etc.). 88-Not Attempted due to Medical Conditions or Safety Concerns. Exercises Supine Ex: Bridging, Ankle pumps, Quad Set, Glut sets, Heel Slides, Short Arc Quads, Straight leg raise, Hip abd/add Supine Reps: 20 Treatments LE exercise Assessment Current Status: Fair Progress slowly progressing LE strength PT Short Term Goals Short Term Goals Time Frame: July 22, 2020 Roll Left & Right: 4 Sit to lyin Lying to sitting on side of be: 3 PT Medical Equipment Sales Goals Medical Equipment Sales Goals PT Intermediate Goals Time Frame: Aug 05, 2020 Roll Left & Right (QC): 6 Sit to Lying (QC): 6 Lying-Sitting on Side/Bed(QC): 6 Sit to Stand (QC): 4 Chair/Nqm-jk-Opdbw Xfer(QC): 4 Toilet Transfer (QC): 4 Car Transfer (QC): 4 Does the Patient Walk: Yes Walk 10 feet (QC): 4 Walk 50ft with 2 Turns (QC): 4 Walk 150 ft (QC): 4 Walking 10ft on Uneven Surface: 4 1 Step (curb) (QC): 88 4 Steps (QC): 88 12 Steps (QC): 88 Picking up an Object (QC): 88 Wheel 50 feet with 2 turns (QC: 6 Wheel 150 feet: 6 PT Plan Problem List Problem List: Activity Tolerance, Functional Strength, Safety, Balance, Gait, Transfer, Bed Mobility, ROM Treatment/Plan Treatment Plan: Continue Plan of Care Treatment Plan: Bed Mobility, Education, Functional Activity Cierra, Functional Strength, Group Therapy, Gait, Safety, Therapeutic Exercise, Transfers Treatment Duration: Aug 05, 2020 Frequency: Modified Program (IRF) Estimated Hrs Per Day: 1 hour per day Patient and/or Family Agrees t: Yes Safety Risks/Education Patient Education: Correct Positioning, Safety Issues Teaching Recipient: Patient Teaching Methods: Demonstration, Discussion Response to Teaching: Reinforcement Needed Time/GCodes Time In: 1425 Time Out: 1440 Total Billed Treatment Time: 15 Total Billed Treatment 1 visit EX LIZ SALAMANCA PT Aug 06, 2020 14:40
[2020-08-06 20:00] VITALS: BP 122/71
[2020-08-06] MEDS: MELATONIN 10 MG TABLET PO SCH (21:15)
[2020-08-07] MEDS: DOCOSANOL 10 % CREAM (ABREVA) 2 GM TP SCH ×5 (06:21→21:18)
--- NOTE | 2020-08-07 06:37 | PM&R Progress Note ---
Subjective HPI/CC On Admission Date Seen by Provider: Aug 07, 2020 Time Seen by Provider: 12:00 Subjective/Events-last exam 08/07/2020: Patient dramatically improved Bowels moved today Shingles improved Doing extremely well 08/06/20: Patient dramatically improving Ambulating very well now Working on standing stronger No complaints 08/05/2020: Patient dramatically improved Walking now with therapy with frequent stops No bedpan will be used now Shingles pain improved 08/04/2020: Patient doing pretty well Shingles improved Walking a bit now Working hard to regain independence No bowel movement for 3 days but he does take laxatives Blood sugar is good 08/03/2020: Patient doing really well today Shingles much improved Bowels moved yesterday and it was large Standing a bit more 08/02/2020: Patient doing pretty well Steroid cream on psoriasis on buttocks Area on back really bothers him when I assessed it today because it was just a very subtle pink patch now it has blisters consistent with shingles We will start on Valtrex Had a good bowel movement today 08/01/2020: Patient has no major concerns Pain meds are tolerated Still using sit to stand Overall feels like he is improving 07/31/20: Patient doing really well No major concerns Slowly progressing Bowels are moving pretty well 07/30/20: Patient doing pretty well Ambulating around a little more Chest x-ray pending 91% on room air 07/28/20: Pt dong pretty well Took eight steps today No oxygen now Steroid cream to be placed on psoriasis initiated 07/27/20: Pt doing a lot better Bowels moving today Off O2 and running 91% Overall much improved 07/26/2020: Patient doing really well Potassium 3.5 usually refusing to take it Sugars are doing well He is running 90% off oxygen Dramatic improvement 07/25/2020 Patient denies any issues Improving strength by the day Due for labs tomorrow Family at bedside 07/24/2020: Patient doing really well today On oxygen at 1.5 L/min Had a large bowel movement Sugars are okay Hates the carb limitations Girlfriend and his mother at the bedside today 07/23/20: Pt up in a chair and appears to be much stronger 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 in a chair for very long Blood sugar 141 Left foot drop is an issue 07/22/20: Patient doing well Baseline flat affect assessed Had complete bowel evacuation yesterday after Fleets after supp EKG today per Dr Rinaldi Monitored closely 07/21/20: Pt doing pretty well Slow progress Will DC the heplock Sugar changes to twice daily and will give 3 units of Novolog if greater than 160 Trach dressing changed and it is sealing up well Bowels moved yesterday 07/20/20: Pt doing pretty well Bowels moved two days ago, doesnt want anything too harsh Oxygen maintained Working hard Progressing nicely 07/19/20: Pt doing pretty well Respiratory therapy tried to wean him off and he became very hypoxic Weakness in hands are a challenge for him to shave DC Cefepime and starting Omnicef Doesnt really like IVs and lab checks and made that pretty clear to me 07/18/20: Patient doing well Diarrhea noted UTI treated with IV abx UCx pending 07/17/20: Patient doing well No complaints Awaiting UCx Empiric abx maintained Aunt at bedside O2 at 1L/min Sugar improved 07/16/20: Pt doing pretty well Potassium of 2.7 so will initiate supplement Dr. Rinaldi is seeing him in consultation EKG obtained and normal sinus rhythm noted UA ordered for burning sensation on urination Pt very debilitated Review of Systems General: Fatigue Pulmonary: Dyspnea Objective Exam Vital Signs Vital Signs Date Time Temp Pulse Resp B/P (MAP) Pulse Ox O2 Delivery O2 Flow Rate FiO2 08/07/20 21:00 Room Air 08/07/20 20:00 37.0 83 18 126/72 (90) 93 Capillary Refill : General Appearance: No Apparent Distress, WD/WN, Obese HEENT: PERRL/EOMI, Normal ENT Inspection, Pharynx Normal Neck: Full Range of Motion, Normal Inspection, Non Tender, Supple, Carotid Bruit Respiratory: Chest Non Tender, Lungs Clear, No Accessory Muscle Use, No Respiratory Distress, Decreased Breath Sounds Cardiovascular: Regular Rate, Rhythm, No Edema, No Gallop, No JVD, No Murmur, Normal Peripheral Pulses Gastrointestinal: Normal Bowel Sounds, No Organomegaly, No Pulsatile Mass, Non Tender, Soft Back: Normal Inspection, No CVA Tenderness, No Vertebral Tenderness Extremity: Normal Capillary Refill, Normal Inspection, Normal Range of Motion, Non Tender, No Calf Tenderness, No Pedal Edema Neurologic/Psychiatric: Alert, Oriented x3, No Motor/Sensory Deficits, Normal Mood/Affect, billing spec II-XII Norm as Tested, Abnormal Gait (can't ambulate), Motor Weakness (severe 1/5 strength all extremities) Skin: Normal Color, Warm/Dry Lymphatic: No Adenopathy Results/Procedures Lab Patient resulted labs reviewed. FIM Transfers Therapy Code Descriptions/Definitions Functional [place] Measure: 0=Not Assessed/NA 4=Minimal Assistance 1=Total Assistance 5=Supervision or Setup 2=Maximal Assistance 6=Modified [place] 3=Moderate Assistance 7=Complete IndependenceSCALE: Activities may be completed with or without assistive devices. 9-Okhdivfkok-mqsfdkp completes the activity by him/herself with no assistance from a helper. 5-Set-up or Clean-up Assistance-helper sets up or cleans up; patient completes activity. [place] assists only prior to or following the activity. 4-Supervision or Touching Assistance-helper provides verbal cues and/or touching/steadying and/or contact guard assistance as patient completes activity. Assistance may be provided throughout the activity or intermittently. 3-Partial/Moderate Assistance-helper does LESS THAN HALF the effort. [place] lifts, holds or supports trunk or limbs, but provides less than half the effort. 2-Substantial/Maximal Assistance-helper does MORE THAN HALF the effort. [place] lifts or holds trunk or limbs and provides more than half the effort. 9-Sidseassf-ztcjnz does ALL the effort. Patient does none of the effort to complete the activity. Or, the assistance of 2 or more helpers is required for the patient to complete the activity. If activity was not attempted, code reason: 7-Patient Refused. 9-Not Applicable-not attempted and the patient did not perform the activity bef ore the current illness, exacerbation or injury. 10-Not Attempted due to Environmental Limitations-(lack of equipment, weather r estraints, etc.). 88-Not Attempted due to Medical Conditions or Safety Concerns. Roll Left to Right (QC): 6 Sit to Lying (QC): 6 Sit to Stand (QC): 3 Chair/Xpt-io-Icjve Xfer(QC): 4 Car Transfer (QC): 1 Gait Training Does the Patient Walk?: Yes Distance: 120'x2 Walk 10 feet (QC): 4 Walk 50 ft with 2 Turns(QC): 4 Walk 150 ft (QC): 88 Walking 10ft/uneven surface-QC: 88 Gait Persons Needed: 1 Gait Assistive Device: FWW Wheelchair Training Does the Pt Use a Wheelchair?: Yes Distance: 80' Wheel 50 ft with 2 turns (QC): 5 Wheel 150 ft (QC): 5 Type of Wheelchair: Manual Stair Training 1 Step (curb) (QC): 88 4 Steps (QC): 88 12 Steps (QC): 88 Balance Picking up an Object (QC): 88 ADL-Treatment Eating (QC): 6 Oral Hygiene (QC): 6 Bathing Location: L Arm, R Arm, L Upper Leg, R Upper Leg, L Lower Leg (including foot), R Lower Leg (including foot), Chest, Abdomen, Perineal Area Shower/Bathe Self (QC): 3 Upper Body Dressing (QC): 5 Lower Body Dressing (QC): 3 On/Off Footwear (QC): 3 Toileting Hygiene (QC): 2 Toilet Transfer (QC): 1 Assessment/Plan Assessment and Plan Assess & Plan/Chief Complaint Assessment: COVID-19 PNA myopathy Severe poor lung reserve Obesity New onset DM AF? Psoriasis of buttocks Shingles right flank 08/02/2020 Plan: Insulin Monitor lung function Cardiology consult 07/16/20: UA Replace potassium Slow recovery 07/17/20: IV abx Suspect resistant UTI 07/18/20: Monitor closely Await Ucx 07/19/20: Reviewed UCx DC Cefepime Irritated with IV's and lab checks 07/20/20: Monitor closely Sugars good 07/21/20: DC Heplock 07/22/20: Monitored closely BP ok 07/23/20: Monitor O2 Improved status now 07/24/2020: Continue limitation of carbs to decrease sugar Monitor oxygen level 07/25/2020 Check labs in the morning Monitor closely 07/26/2020: Discharge planned after review on Sunday Dramatic improvement Wean oxygen 07/27/20: Improved Weaned O2 07/28/20: Steroid cream for psoriasis Doing much better 07/30/2020: Chest x-ray reviewed Continue aggressive therapy 07/31/2020: Monitor closely Maintain oxygen 08/01/2020: Psoriasis treatment Monitor blood pressure Check labs in the morning 08/02/2020: Shingles treatment Monitor closely 08/03/2020: Continue shingles treatment Monitor closely Improved 08/04/2020: Valtrex to complete treatment for shingles Monitor closely 08/05/2020: Complete Valtrex Dramatic improvement now ambulating 08/06/2020: Dramatically improved Ambulating well Monitor closely 08/07/2020: Dramatic improvement Increased ambulation (1) Myopathy (2) COVID-19 (3) Obesity (4) Diabetes mellitus NATHANAEL HOWE DO Aug 07, 2020 06:37
[2020-08-07 07:30] VITALS: BP 114/75
[2020-08-07] MEDS: VALACYCLOVIR 500 MG TAB (VALTREX) PO SCH ×3 (09:07→21:17)
[2020-08-07] MEDS: ASCORBIC ACID (VIT C) 500 MG TABLET PO SCH (09:07)
[2020-08-07] MEDS: KCL 10 MEQ TAB (MICRO K) PO SCH ×3 (09:08→17:06)
[2020-08-07] MEDS: VITAMIN D3 125 MCG (5,000 UNITS) CAPSULE PO SCH (09:08)
[2020-08-07] MEDS: APIXABAN 5 MG (ELIQUIS) TABLET PO SCH ×2 (09:08→21:17)
[2020-08-07] MEDS: lisINopril 20 MG (PRINIVIL) TABLET PO SCH (09:08)
[2020-08-07] MEDS: amLODIPine 10 MG (NORVASC) TAB PO SCH (09:08)
[2020-08-07] MEDS: PANTOPRAZOLE 40 MG (PROTONIX) TAB PO SCH (09:08)
[2020-08-07] MEDS: LACTOBACILLUS ACIDOPHILUS (PROBIOTIC) CAPSULE PO SCH ×2 (09:08→21:17)
[2020-08-07] MEDS: TRIAMCINOLONE 0.1% CR (KENALOG) 15 GM TUBE TOP SCH ×2 (09:10→21:20)
[2020-08-07] MEDS: polyethylene glycoL POWDER 17 GM (MIRALAX) PACK PO SCH ×2 (09:34→21:20)
[2020-08-07] MEDS: SENNA W/DOCUSATE (SENOKOT S) TABLET PO SCH ×2 (09:34→21:20)
[2020-08-07] MEDS: DOCUSATE SODIUM 100 MG (COLACE) CAP PO SCH ×2 (09:34→21:19)
[2020-08-07] MEDS: MICONAZOLE 2% POWDER (DESENEX AF) 90 GM TOP SCH ×2 (09:35→21:20)
--- NOTE | 2020-08-07 12:40 | Physical Therapy Daily Note ---
PT Daily Note-Current Subjective Pt laying Supine in bed upon arrival. Pt had just finished lunch. Pt agrees to PT. Pain Location: No Pain Reported Mental Status Patient Orientation: Person, Place, Time, Situation Transfers SCALE: Activities may be completed with or without assistive devices. 8-Nbyqbwukqx-sovifaw completes the activity by him/herself with no assistance from a helper. 5-Set-up or Clean-up Assistance-helper sets up or cleans up; patient completes activity. [place] assists only prior to or following the activity. 4-Supervision or Touching Assistance-helper provides verbal cues and/or touchin g/steadying and/or contact guard assistance as patient completes activity. Assistance may be provided throughout the activity or intermittently. 3-Partial/Moderate Assistance-helper does LESS THAN HALF the effort. [place] lifts, holds or supports trunk or limbs, but provides less than half the effort. 2-Substantial/Maximal Assistance-helper does MORE THAN HALF the effort. [place] lifts or holds trunk or limbs and provides more than half the effort. 6-Abmxamljw-qsmecc does ALL the effort. Patient does none of the effort to complete the activity. Or, the assistance of 2 or more helpers is required for the patient to complete the activity. If activity was not attempted, code reason: 7-Patient Refused. 9-Not Applicable-not attempted and the patient did not perform the activity before the current illness, exacerbation or injury. 10-Not Attempted due to Environmental Limitations-(lack of equipment, weather restraints, etc.). 88-Not Attempted due to Medical Conditions or Safety Concerns. Exercises Supine Ex: Ankle pumps, Quad Set, Glut sets, Heel Slides, Straight leg raise, Hip abd/add Supine Reps: 15 Treatments NUTRITIONAL YEAST SUPERVISOR issues written HEP for Supine & Seated EX. Pt completes Supine EX. All needs met, call light in hand. Assessment Current Status: Fair Progress Pt demonstrates unmotivated today. PT Short Term Goals Short Term Goals Time Frame: July 22, 2020 Roll Left & Right: 4 Sit to lyin Lying to sitting on side of be: 3 PT Jail Goals Jail Goals PT Acetylene Plant Operator Goals Time Frame: Aug 19, 2020 Roll Left & Right (QC): 6 Sit to Lying (QC): 6 Lying-Sitting on Side/Bed(QC): 6 Sit to Stand (QC): 4 Chair/Wrl-db-Zkcfe Xfer(QC): 4 Toilet Transfer (QC): 4 Car Transfer (QC): 4 Does the Patient Walk: Yes Walk 10 feet (QC): 4 Walk 50ft with 2 Turns (QC): 4 Walk 150 ft (QC): 4 Walking 10ft on Uneven Surface: 4 1 Step (curb) (QC): 88 4 Steps (QC): 88 12 Steps (QC): 88 Picking up an Object (QC): 88 Wheel 50 feet with 2 turns (QC: 6 Wheel 150 feet: 6 PT Plan Problem List Problem List: Activity Tolerance, Functional Strength Treatment/Plan Treatment Plan: Continue Plan of Care Treatment Plan: Bed Mobility, Education, Functional Activity Cierra, Functional Strength, Group Therapy, Gait, Safety, Therapeutic Exercise, Transfers Treatment Duration: Aug 05, 2020 Frequency: Modified Program (IRF) Estimated Hrs Per Day: 1 hour per day Patient and/or Family Agrees t: Yes Safety Risks/Education Patient Education: Issued Written HEP, Correct Positioning Teaching Recipient: Patient Teaching Methods: Demonstration, Discussion Response to Teaching: Verbalize Understanding, Return Demonstration Time/GCodes Time In: 1225 Time Out: 1240 Total Billed Treatment Time: 15 Total Billed Treatment 1, EX (15m) ANDRÉS LORENZO PTA Aug 07, 2020 12:40
[2020-08-07 20:00] VITALS: BP 126/72
[2020-08-07] MEDS: MELATONIN 10 MG TABLET PO SCH (21:20)
[2020-08-08] MEDS: DOCOSANOL 10 % CREAM (ABREVA) 2 GM TP SCH ×4 (06:30→17:00)
[2020-08-08 07:30] VITALS: BP 130/78
--- NOTE | 2020-08-08 09:46 | PM&R Progress Note ---
Subjective HPI/CC On Admission Date Seen by Provider: Aug 08, 2020 Time Seen by Provider: 10:45 Subjective/Events-last exam 08/08/2020: Doing very well Bowels are moving well Breathing well Needs to work on stairs and getting up without help 08/07/2020: Patient dramatically improved Bowels moved today Shingles improved Doing extremely well 08/06/20: Patient dramatically improving Ambulating very well now Working on standing stronger No complaints 08/05/2020: Patient dramatically improved Walking now with therapy with frequent stops No bedpan will be used now Shingles pain improved 08/04/2020: Patient doing pretty well Shingles improved Walking a bit now Working hard to regain independence No bowel movement for 3 days but he does take laxatives Blood sugar is good 08/03/2020: Patient doing really well today Shingles much improved Bowels moved yesterday and it was large Standing a bit more 08/02/2020: Patient doing pretty well Steroid cream on psoriasis on buttocks Area on back really bothers him when I assessed it today because it was just a very subtle pink patch now it has blisters consistent with shingles We will start on Valtrex Had a good bowel movement today 08/01/2020: Patient has no major concerns Pain meds are tolerated Still using sit to stand Overall feels like he is improving 07/31/20: Patient doing really well No major concerns Slowly progressing Bowels are moving pretty well 07/30/20: Patient doing pretty well Ambulating around a little more Chest x-ray pending 91% on room air 07/28/20: Pt dong pretty well Took eight steps today No oxygen now Steroid cream to be placed on psoriasis initiated 07/27/20: Pt doing a lot better Bowels moving today Off O2 and running 91% Overall much improved 07/26/2020: Patient doing really well Potassium 3.5 usually refusing to take it Sugars are doing well He is running 90% off oxygen Dramatic improvement 07/25/2020 Patient denies any issues Improving strength by the day Due for labs tomorrow Family at bedside 07/24/2020: Patient doing really well today On oxygen at 1.5 L/min Had a large bowel movement Sugars are okay Hates the carb limitations Girlfriend and his mother at the bedside today 07/23/20: Pt up in a chair and appears to be much stronger 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 in a chair for very long Blood sugar 141 Left foot drop is an issue 07/22/20: Patient doing well Baseline flat affect assessed Had complete bowel evacuation yesterday after Fleets after supp EKG today per Dr Rinaldi Monitored closely 07/21/20: Pt doing pretty well Slow progress Will DC the heplock Sugar changes to twice daily and will give 3 units of Novolog if greater than 160 Trach dressing changed and it is sealing up well Bowels moved yesterday 07/20/20: Pt doing pretty well Bowels moved two days ago, doesnt want anything too harsh Oxygen maintained Working hard Progressing nicely 07/19/20: Pt doing pretty well Respiratory therapy tried to wean him off and he became very hypoxic Weakness in hands are a challenge for him to shave DC Cefepime and starting Omnicef Doesnt really like IVs and lab checks and made that pretty clear to me 07/18/20: Patient doing well Diarrhea noted UTI treated with IV abx UCx pending 07/17/20: Patient doing well No complaints Awaiting UCx Empiric abx maintained Aunt at bedside O2 at 1L/min Sugar improved 07/16/20: Pt doing pretty well Potassium of 2.7 so will initiate supplement Dr. Rinaldi is seeing him in consultation EKG obtained and normal sinus rhythm noted UA ordered for burning sensation on urination Pt very debilitated Review of Systems General: Fatigue, Malaise Pulmonary: Dyspnea Objective Exam Vital Signs Vital Signs Date Time Temp Pulse Resp B/P (MAP) Pulse Ox O2 Delivery O2 Flow Rate FiO2 08/08/20 09:00 Room Air 08/08/20 07:30 36.3 77 20 130/78 (95) 95 Capillary Refill : General Appearance: No Apparent Distress, WD/WN, Obese HEENT: PERRL/EOMI, Normal ENT Inspection, Pharynx Normal Neck: Full Range of Motion, Normal Inspection, Non Tender, Supple, Carotid Bruit Respiratory: Chest Non Tender, Lungs Clear, No Accessory Muscle Use, No Respiratory Distress, Decreased Breath Sounds Cardiovascular: Regular Rate, Rhythm, No Edema, No Gallop, No JVD, No Murmur, Normal Peripheral Pulses Gastrointestinal: Normal Bowel Sounds, No Organomegaly, No Pulsatile Mass, Non Tender, Soft Back: Normal Inspection, No CVA Tenderness, No Vertebral Tenderness Extremity: Normal Capillary Refill, Normal Inspection, Normal Range of Motion, Non Tender, No Calf Tenderness, No Pedal Edema Neurologic/Psychiatric: Alert, Oriented x3, No Motor/Sensory Deficits, Normal Mood/Affect, eyelet operator II-XII Norm as Tested, Abnormal Gait (can't ambulate), Motor Weakness (severe 1/5 strength all extremities) Skin: Normal Color, Warm/Dry Lymphatic: No Adenopathy Results/Procedures Lab Patient resulted labs reviewed. FIM Transfers Therapy Code Descriptions/Definitions Functional [place] Measure: 0=Not Assessed/NA 4=Minimal Assistance 1=Total Assistance 5=Supervision or Setup 2=Maximal Assistance 6=Modified [place] 3=Moderate Assistance 7=Complete IndependenceSCALE: Activities may be completed with or without assistive devices. 6-Mqmzklqbqc-tfrbbkh completes the activity by him/herself with no assistance from a helper. 5-Set-up or Clean-up Assistance-helper sets up or cleans up; patient completes activity. [place] assists only prior to or following the activity. 4-Supervision or Touching Assistance-helper provides verbal cues and/or touching/steadying and/or contact guard assistance as patient completes activity. Assistance may be provided throughout the activity or intermittently. 3-Partial/Moderate Assistance-helper does LESS THAN HALF the effort. [place] lifts, holds or supports trunk or limbs, but provides less than half the effort. 2-Substantial/Maximal Assistance-helper does MORE THAN HALF the effort. [place] lifts or holds trunk or limbs and provides more than half the effort. 1-Gkubupzei-fvhwut does ALL the effort. Patient does none of the effort to complete the activity. Or, the assistance of 2 or more helpers is required for the patient to complete the activity. If activity was not attempted, code reason: 7-Patient Refused. 9-Not Applicable-not attempted and the patient did not perform the activity bef ore the current illness, exacerbation or injury. 10-Not Attempted due to Environmental Limitations-(lack of equipment, weather r estraints, etc.). 88-Not Attempted due to Medical Conditions or Safety Concerns. Roll Left to Right (QC): 6 Sit to Lying (QC): 6 Sit to Stand (QC): 3 Chair/Wpb-lb-Vuhzj Xfer(QC): 4 Car Transfer (QC): 1 Gait Training Does the Patient Walk?: Yes Distance: 120'x2 Walk 10 feet (QC): 4 Walk 50 ft with 2 Turns(QC): 4 Walk 150 ft (QC): 88 Walking 10ft/uneven surface-QC: 88 Gait Persons Needed: 1 Gait Assistive Device: FWW Wheelchair Training Does the Pt Use a Wheelchair?: Yes Distance: 80' Wheel 50 ft with 2 turns (QC): 5 Wheel 150 ft (QC): 5 Type of Wheelchair: Manual Stair Training 1 Step (curb) (QC): 88 4 Steps (QC): 88 12 Steps (QC): 88 Balance Picking up an Object (QC): 88 ADL-Treatment Eating (QC): 6 Oral Hygiene (QC): 6 Bathing Location: L Arm, R Arm, L Upper Leg, R Upper Leg, L Lower Leg (including foot), R Lower Leg (including foot), Chest, Abdomen, Perineal Area Shower/Bathe Self (QC): 3 Upper Body Dressing (QC): 5 Lower Body Dressing (QC): 3 On/Off Footwear (QC): 3 Toileting Hygiene (QC): 2 Toilet Transfer (QC): 1 Assessment/Plan Assessment and Plan Assess & Plan/Chief Complaint Assessment: COVID-19 PNA myopathy Severe poor lung reserve Obesity New onset DM AF? Psoriasis of buttocks Shingles right flank 08/02/2020 Plan: Insulin Monitor lung function Cardiology consult 07/16/20: UA Replace potassium Slow recovery 07/17/20: IV abx Suspect resistant UTI 07/18/20: Monitor closely Await Ucx 07/19/20: Reviewed UCx DC Cefepime Irritated with IV's and lab checks 07/20/20: Monitor closely Sugars good 07/21/20: DC Heplock 07/22/20: Monitored closely BP ok 07/23/20: Monitor O2 Improved status now 07/24/2020: Continue limitation of carbs to decrease sugar Monitor oxygen level 07/25/2020 Check labs in the morning Monitor closely 07/26/2020: Discharge planned after review on Sunday Dramatic improvement Wean oxygen 07/27/20: Improved Weaned O2 07/28/20: Steroid cream for psoriasis Doing much better 07/30/2020: Chest x-ray reviewed Continue aggressive therapy 07/31/2020: Monitor closely Maintain oxygen 08/01/2020: Psoriasis treatment Monitor blood pressure Check labs in the morning 08/02/2020: Shingles treatment Monitor closely 08/03/2020: Continue shingles treatment Monitor closely Improved 08/04/2020: Valtrex to complete treatment for shingles Monitor closely 08/05/2020: Complete Valtrex Dramatic improvement now ambulating 08/06/2020: Dramatically improved Ambulating well Monitor closely 08/07/2020: Dramatic improvement Increased ambulation 08/08/2020: Improved status Monitor closely (1) Myopathy (2) COVID-19 (3) Obesity (4) Diabetes mellitus NATHANAEL HOWE DO Aug 08, 2020 09:46
[2020-08-08] MEDS: KCL 10 MEQ TAB (MICRO K) PO SCH ×3 (10:19→17:34)
[2020-08-08] MEDS: APIXABAN 5 MG (ELIQUIS) TABLET PO SCH ×2 (10:19→21:26)
[2020-08-08] MEDS: ASCORBIC ACID (VIT C) 500 MG TABLET PO SCH (10:19)
[2020-08-08] MEDS: VALACYCLOVIR 500 MG TAB (VALTREX) PO SCH ×3 (10:19→21:26)
[2020-08-08] MEDS: VITAMIN D3 125 MCG (5,000 UNITS) CAPSULE PO SCH (10:19)
[2020-08-08] MEDS: PANTOPRAZOLE 40 MG (PROTONIX) TAB PO SCH (10:19)
[2020-08-08] MEDS: amLODIPine 10 MG (NORVASC) TAB PO SCH (10:19)
[2020-08-08] MEDS: LACTOBACILLUS ACIDOPHILUS (PROBIOTIC) CAPSULE PO SCH ×2 (10:19→21:26)
[2020-08-08] MEDS: lisINopril 20 MG (PRINIVIL) TABLET PO SCH (10:19)
[2020-08-08] MEDS: SENNA W/DOCUSATE (SENOKOT S) TABLET PO SCH ×2 (10:24→19:16)
[2020-08-08] MEDS: polyethylene glycoL POWDER 17 GM (MIRALAX) PACK PO SCH ×2 (10:24→19:16)
[2020-08-08] MEDS: DOCUSATE SODIUM 100 MG (COLACE) CAP PO SCH ×2 (10:24→19:15)
[2020-08-08] MEDS: MICONAZOLE 2% POWDER (DESENEX AF) 90 GM TOP SCH ×2 (10:25→19:17)
[2020-08-08] MEDS: TRIAMCINOLONE 0.1% CR (KENALOG) 15 GM TUBE TOP SCH ×2 (10:25→19:17)
[2020-08-08] MEDS: MELATONIN 10 MG TABLET PO SCH (19:16)
[2020-08-08 19:51] VITALS: BP 136/79
[2020-08-09 06:11] LABS: ALBUMIN 3.3 GM/DL (3.2-4.5)
[2020-08-09 06:12] LABS: CHLORIDE 109 MMOL/L (98-107); POTASSIUM 4.1 MMOL/L (3.6-5.0); SODIUM 144 MMOL/L (135-145)
[2020-08-09 06:13] LABS: CALCIUM 8.6 MG/DL (8.5-10.1)
[2020-08-09 06:14] LABS: GLUCOSE 122 MG/DL (70-105)
[2020-08-09 06:15] LABS: CARBON DIOXIDE 21 MMOL/L (21-32)
[2020-08-09 06:16] LABS: BILIRUBIN,TOTAL 0.3 MG/DL (0.1-1.0)
[2020-08-09 06:17] LABS: ALKALINE PHOSPHATASE 92 U/L (40-136)
[2020-08-09 06:18] LABS: CREATININE SERUM 0.65 MG/DL (0.60-1.30); GFR ESTIMATED > 60
[2020-08-09 06:19] LABS: BUN/CREATININE RATIO 20
[2020-08-09 06:21] LABS: ALANINE AMINOTRANSFERASE 24 U/L (0-55)
--- NOTE | 2020-08-09 06:37 | PM&R Progress Note ---
Subjective HPI/CC On Admission Date Seen by Provider: Aug 09, 2020 Time Seen by Provider: 10:45 Subjective/Events-last exam 08/09/2020: Pt doing very well Completing Valtrex for 10 days because the blisters are still present but much improved Overall doing well 08/08/2020: Doing very well Bowels are moving well Breathing well Needs to work on stairs and getting up without help 08/07/2020: Patient dramatically improved Bowels moved today Shingles improved Doing extremely well 08/06/20: Patient dramatically improving Ambulating very well now Working on standing stronger No complaints 08/05/2020: Patient dramatically improved Walking now with therapy with frequent stops No bedpan will be used now Shingles pain improved 08/04/2020: Patient doing pretty well Shingles improved Walking a bit now Working hard to regain independence No bowel movement for 3 days but he does take laxatives Blood sugar is good 08/03/2020: Patient doing really well today Shingles much improved Bowels moved yesterday and it was large Standing a bit more 08/02/2020: Patient doing pretty well Steroid cream on psoriasis on buttocks Area on back really bothers him when I assessed it today because it was just a very subtle pink patch now it has blisters consistent with shingles We will start on Valtrex Had a good bowel movement today 08/01/2020: Patient has no major concerns Pain meds are tolerated Still using sit to stand Overall feels like he is improving 07/31/20: Patient doing really well No major concerns Slowly progressing Bowels are moving pretty well 07/30/20: Patient doing pretty well Ambulating around a little more Chest x-ray pending 91% on room air 07/28/20: Pt dong pretty well Took eight steps today No oxygen now Steroid cream to be placed on psoriasis initiated 07/27/20: Pt doing a lot better Bowels moving today Off O2 and running 91% Overall much improved 07/26/2020: Patient doing really well Potassium 3.5 usually refusing to take it Sugars are doing well He is running 90% off oxygen Dramatic improvement 07/25/2020 Patient denies any issues Improving strength by the day Due for labs tomorrow Family at bedside 07/24/2020: Patient doing really well today On oxygen at 1.5 L/min Had a large bowel movement Sugars are okay Hates the carb limitations Girlfriend and his mother at the bedside today 07/23/20: Pt up in a chair and appears to be much stronger 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 in a chair for very long Blood sugar 141 Left foot drop is an issue 07/22/20: Patient doing well Baseline flat affect assessed Had complete bowel evacuation yesterday after Fleets after supp EKG today per Dr Rinaldi Monitored closely 07/21/20: Pt doing pretty well Slow progress Will DC the heplock Sugar changes to twice daily and will give 3 units of Novolog if greater than 160 Trach dressing changed and it is sealing up well Bowels moved yesterday 07/20/20: Pt doing pretty well Bowels moved two days ago, doesnt want anything too harsh Oxygen maintained Working hard Progressing nicely 07/19/20: Pt doing pretty well Respiratory therapy tried to wean him off and he became very hypoxic Weakness in hands are a challenge for him to shave DC Cefepime and starting Omnicef Doesnt really like IVs and lab checks and made that pretty clear to me 07/18/20: Patient doing well Diarrhea noted UTI treated with IV abx UCx pending 07/17/20: Patient doing well No complaints Awaiting UCx Empiric abx maintained Aunt at bedside O2 at 1L/min Sugar improved 07/16/20: Pt doing pretty well Potassium of 2.7 so will initiate supplement Dr. Rinaldi is seeing him in consultation EKG obtained and normal sinus rhythm noted UA ordered for burning sensation on urination Pt very debilitated Review of Systems General: Fatigue, Malaise Pulmonary: Dyspnea Objective Exam Vital Signs Vital Signs Date Time Temp Pulse Resp B/P (MAP) Pulse Ox O2 Delivery O2 Flow Rate FiO2 08/09/20 21:00 92 Room Air 08/09/20 20:00 37.1 82 20 133/77 (95) Capillary Refill : General Appearance: No Apparent Distress, WD/WN, Obese HEENT: PERRL/EOMI, Normal ENT Inspection, Pharynx Normal Neck: Full Range of Motion, Normal Inspection, Non Tender, Supple, Carotid Bruit Respiratory: Chest Non Tender, Lungs Clear, No Accessory Muscle Use, No Respiratory Distress, Decreased Breath Sounds Cardiovascular: Regular Rate, Rhythm, No Edema, No Gallop, No JVD, No Murmur, Normal Peripheral Pulses Gastrointestinal: Normal Bowel Sounds, No Organomegaly, No Pulsatile Mass, Non Tender, Soft Back: Normal Inspection, No CVA Tenderness, No Vertebral Tenderness Extremity: Normal Capillary Refill, Normal Inspection, Normal Range of Motion, Non Tender, No Calf Tenderness, No Pedal Edema Neurologic/Psychiatric: Alert, Oriented x3, No Motor/Sensory Deficits, Normal Mood/Affect, community recreation coordinator II-XII Norm as Tested, Abnormal Gait (can't ambulate), Motor W eakness (severe 1/5 strength all extremities) Skin: Normal Color, Warm/Dry Lymphatic: No Adenopathy Results/Procedures Lab Patient resulted labs reviewed. FIM Transfers Therapy Code Descriptions/Definitions Functional [place] Measure: 0=Not Assessed/NA 4=Minimal Assistance 1=Total Assistance 5=Supervision or Setup 2=Maximal Assistance 6=Modified [place] 3=Moderate Assistance 7=Complete IndependenceSCALE: Activities may be completed with or without assistive devices. 5-Lusfjprqoy-jxcirsi completes the activity by him/herself with no assistance from a helper. 5-Set-up or Clean-up Assistance-helper sets up or cleans up; patient completes activity. [place] assists only prior to or following the activity. 4-Supervision or Touching Assistance-helper provides verbal cues and/or touching/steadying and/or contact guard assistance as patient completes activity. Assistance may be provided throughout the activity or intermittently. 3-Partial/Moderate Assistance-helper does LESS THAN HALF the effort. [place] lifts, holds or supports trunk or limbs, but provides less than half the effort. 2-Substantial/Maximal Assistance-helper does MORE THAN HALF the effort. [place] lifts or holds trunk or limbs and provides more than half the effort. 3-Uqxiqtntr-xbgwiv does ALL the effort. Patient does none of the effort to complete the activity. Or, the assistance of 2 or more helpers is required for the patient to complete the activity. If activity was not attempted, code reason: 7-Patient Refused. 9-Not Applicable-not attempted and the patient did not perform the activity before the current illness, exacerbation or injury. 10-Not Attempted due to Environmental Limitations-(lack of equipment, weather restraints, etc.). 88-Not Attempted due to Medical Conditions or Safety Concerns. Roll Left to Right (QC): 6 Sit to Lying (QC): 6 Sit to Stand (QC): 3 Chair/Qaz-yo-Badhd Xfer(QC): 4 Car Transfer (QC): 1 Gait Training Does the Patient Walk?: Yes Distance: 120'x2 Walk 10 feet (QC): 4 Walk 50 ft with 2 Turns(QC): 4 Walk 150 ft (QC): 88 Walking 10ft/uneven surface-QC: 88 Gait Persons Needed: 1 Gait Assistive Device: FWW Wheelchair Training Does the Pt Use a Wheelchair?: Yes Distance: 80' Wheel 50 ft with 2 turns (QC): 5 Wheel 150 ft (QC): 5 Type of Wheelchair: Manual Stair Training 1 Step (curb) (QC): 88 4 Steps (QC): 88 12 Steps (QC): 88 Balance Picking up an Object (QC): 88 ADL-Treatment Eating (QC): 6 Oral Hygiene (QC): 6 Bathing Location: L Arm, R Arm, L Upper Leg, R Upper Leg, L Lower Leg (including foot), R Lower Leg (including foot), Chest, Abdomen, Perineal Area Shower/Bathe Self (QC): 3 Upper Body Dressing (QC): 5 Lower Body Dressing (QC): 3 On/Off Footwear (QC): 3 Toileting Hygiene (QC): 2 Toilet Transfer (QC): 1 Assessment/Plan Assessment and Plan Assess & Plan/Chief Complaint Assessment: COVID-19 PNA myopathy Severe poor lung reserve Obesity New onset DM AF? Psoriasis of buttocks Shingles right flank 08/02/2020 Plan: Insulin Monitor lung function Cardiology consult 07/16/20: UA Replace potassium Slow recovery 07/17/20: IV abx Suspect resistant UTI 07/18/20: Monitor closely Await Ucx 07/19/20: Reviewed UCx DC Cefepime Irritated with IV's and lab checks 07/20/20: Monitor closely Sugars good 07/21/20: DC Heplock 07/22/20: Monitored closely BP ok 07/23/20: Monitor O2 Improved status now 07/24/2020: Continue limitation of carbs to decrease sugar Monitor oxygen level 07/25/2020 Check labs in the morning Monitor closely 07/26/2020: Discharge planned after review on Sunday Dramatic improvement Wean oxygen 07/27/20: Improved Weaned O2 07/28/20: Steroid cream for psoriasis Doing much better 07/30/2020: Chest x-ray reviewed Continue aggressive therapy 07/31/2020: Monitor closely Maintain oxygen 08/01/2020: Psoriasis treatment Monitor blood pressure Check labs in the morning 08/02/2020: Shingles treatment Monitor closely 08/03/2020: Continue shingles treatment Monitor closely Improved 08/04/2020: Valtrex to complete treatment for shingles Monitor closely 08/05/2020: Complete Valtrex Dramatic improvement now ambulating 08/06/2020: Dramatically improved Ambulating well Monitor closely 08/07/2020: Dramatic improvement Increased ambulation 08/08/2020: Improved status Monitor closely 08/09/2020: Continue shingles treatment for full 10 days Monitor oxygen (1) Myopathy (2) COVID-19 (3) Obesity (4) Diabetes mellitus NATHANAEL HOWE DO Aug 09, 2020 06:37
[2020-08-09 07:52] VITALS: BP 140/75
[2020-08-09] MEDS: LACTOBACILLUS ACIDOPHILUS (PROBIOTIC) CAPSULE PO SCH ×2 (09:03→20:51)
[2020-08-09] MEDS: VITAMIN D3 125 MCG (5,000 UNITS) CAPSULE PO SCH (09:03)
[2020-08-09] MEDS: ASCORBIC ACID (VIT C) 500 MG TABLET PO SCH (09:03)
[2020-08-09] MEDS: lisINopril 20 MG (PRINIVIL) TABLET PO SCH (09:03)
[2020-08-09] MEDS: VALACYCLOVIR 500 MG TAB (VALTREX) PO SCH ×3 (09:03→20:51)
[2020-08-09] MEDS: PANTOPRAZOLE 40 MG (PROTONIX) TAB PO SCH (09:03)
[2020-08-09] MEDS: APIXABAN 5 MG (ELIQUIS) TABLET PO SCH ×2 (09:03→20:50)
[2020-08-09] MEDS: amLODIPine 10 MG (NORVASC) TAB PO SCH (09:03)
[2020-08-09] MEDS: KCL 10 MEQ TAB (MICRO K) PO SCH ×3 (09:03→17:17)
[2020-08-09] MEDS: DOCUSATE SODIUM 100 MG (COLACE) CAP PO SCH ×2 (09:34→20:50)
[2020-08-09] MEDS: polyethylene glycoL POWDER 17 GM (MIRALAX) PACK PO SCH ×2 (09:34→20:50)
[2020-08-09] MEDS: TRIAMCINOLONE 0.1% CR (KENALOG) 15 GM TUBE TOP SCH ×2 (09:35→20:52)
[2020-08-09] MEDS: MICONAZOLE 2% POWDER (DESENEX AF) 90 GM TOP SCH ×2 (09:35→20:52)
[2020-08-09] MEDS: SENNA W/DOCUSATE (SENOKOT S) TABLET PO SCH ×2 (09:35→20:50)
--- NOTE | 2020-08-09 09:44 | Occupational Ther Daily Note ---
OT Current Status-Daily Note Subjective Pt alert, lying in bed. Pt agrees to therapy. No c/o pain at this time. Co- treat with PT (), skills of 2 clinicians required for skilled instruction and modifications due to increased SOA, decreased activity tolerance and fall risk. Mental Status/Objective Patient Orientation: Person, Place, Time, Situation ADL-Treatment Pt agrees to shower. Supine <--> EOB with HOB slightly raised, SBA for safety. Pt ambulated to shower then transferred in with CGA due to 1 balance break. Pt stood with FWW and SBA to doff upper/lower body clothing. SBA while pt stood to bathe kasi area and buttocks then pt sat on shower chair to complete all other areas by self. After set up, pt donned shirt sitting in shower then ambulated back to bed to don pants and socks by self. Pt donned R shoe by self then assist with L shoe due to AFO. Pt ambulated to sink to complete oral care with w/c behind for safety, SBA. Pt propelled w/c to therapy gym to complete B UE exercises for 2 min. Co-treat with PT began (), PT focusing on B LE strengthening and sit to stands, OT focusing on B UE strengthening and sit to stands. Pt completed 2 sets 10 reps of sit to stands with lengthy recovery breaks between sets. Pt left in care of PT. All needs met. Therapy Code Descriptions/Definitions Functional [place] Measure: 0=Not Assessed/NA 4=Minimal Assistance 1=Total Assistance 5=Supervision or Setup 2=Maximal Assistance 6=Modified [place] 3=Moderate Assistance 7=Complete IndependenceSCALE: Activities may be completed with or without assistive devices. 8-Dzslhnaozq-fmoxofl completes the activity by him/herself with no assistance from a helper. 5-Set-up or Clean-up Assistance-helper sets up or cleans up; patient completes activity. [place] assists only prior to or following the activity. 4-Supervision or Touching Assistance-helper provides verbal cues and/or touching/steadying and/or contact guard assistance as patient completes activity. Assistance may be provided throughout the activity or intermittently. 3-Partial/Moderate Assistance-helper does LESS THAN HALF the effort. [place] lifts, holds or supports trunk or limbs, but provides less than half the effort. 2-Substantial/Maximal Assistance-helper does MORE THAN HALF the effort. [place] lifts or holds trunk or limbs and provides more than half the effort. 3-Mhcjoxgmx-gtqgxc does ALL the effort. Patient does none of the effort to complete the activity. Or, the assistance of 2 or more helpers is required for the patient to complete the activity. If activity was not attempted, code reason: 7-Patient Refused. 9-Not Applicable-not attempted and the patient did not perform the activity before the current illness, exacerbation or injury. 10-Not Attempted due to Environmental Limitations-(lack of equipment, weather restraints, etc.). 88-Not Attempted due to Medical Conditions or Safety Concerns. Oral Hygiene (QC): 6 Shower/Bathe Self (QC): 4 Upper Body Dressing (QC): 5 Lower Body Dressing (QC): 4 On/Off Footwear: 5 OT Short Term Goals Short Term Goals Time Frame: Aug 05, 2020 Toileting hygiene: 2 Upper body dressin Lower body dressin Putting on/taking off footwear: 2 OT Halfway Goals Infertility Nurse Goals Time Frame: Aug 13, 2020 Eating (QC): 6 Oral Hygiene (QC): 6 Toileting Hygiene (QC): 6 Shower/Bathe Self (QC): 6 Upper Body Dressing (QC): 6 Lower Body Dressing (QC): 6 On/Off Footwear (QC): 6 Additional Goals: 1-Demonstrate ADL Tasks, 2-Verbalize Understanding, 3- ImproveStrength/[place] 1=Demonstrate adherence to instructed precautions during ADL tasks. 2=Patient will verbalize/demonstrate understanding of assistive devices/modific ations for ADL. 3=Patient will improve strength/tolerance for activity to enable patient to perform ADL's. OT Education/Plan Problem List/Assessment Assessment: Decreased Activ Tolerance, Impaired Funct Balance, Impaired Self- Care Skills Discharge Recommendations Plan/Recommendations: Continue POC Treatment Plan/Plan of Care Patient would benefit from OT for education, treatment and training to promote independence in ADL's, mobility, safety and/or upper extremity function for ADL's. Plan of Care: ADL Retraining, Functional Mobility, Group Exercise/Act as Ind, UE Funct Exercise/Act Treatment Duration: Aug 13, 2020 Frequency: Modified Program (IRF) Estimated Hrs Per Day: 1 hour per day Agreement: Yes Rehab Potential: Fair Time/GCodes Start Time: 08:30 Stop Time: 09:45 Total Time Billed (hr/min): 75 Billed Treatment Time 1 visit-ADL 4 (60 min) FA 1 (15 min) TYSON FISHER Aug 09, 2020 09:44
--- NOTE | 2020-08-09 10:24 | Physical Therapy Daily Note ---
PT Daily Note-Current Subjective Patient in therapy gym pre tx, agrees to PT, has no complaints of pain. Will be co-treating with OT for just a few minutes due to poor patient mobility, strength, endurance, severe debility, coordinate UE and LE during activity, safety and reduce risk of falls. Patient apparently has been ambulating a lot with OT already and say his legs are worn out. Appearance Patient sitting EOB post tx with nurse call, phone, tray, all needs met. Mental Status Patient Orientation: Normal For Age Transfers SCALE: Activities may be completed with or without assistive devices. 0-Urtokqthcr-vfugzdh completes the activity by him/herself with no assistance from a helper. 5-Set-up or Clean-up Assistance-helper sets up or cleans up; patient completes activity. [place] assists only prior to or following the activity. 4-Supervision or Touching Assistance-helper provides verbal cues and/or touching/steadying and/or contact guard assistance as patient completes activity. Assistance may be provided throughout the activity or intermittently. 3-Partial/Moderate Assistance-helper does LESS THAN HALF the effort. [place] lif ts, holds or supports trunk or limbs, but provides less than half the effort. 2-Substantial/Maximal Assistance-helper does MORE THAN HALF the effort. [place] lifts or holds trunk or limbs and provides more than half the effort. 1-Ybaiexezd-ksrqcc does ALL the effort. Patient does none of the effort to complete the activity. Or, the assistance of 2 or more helpers is required for the patient to complete the activity. If activity was not attempted, code reason: 7-Patient Refused. 9-Not Applicable-not attempted and the patient did not perform the activity before the current illness, exacerbation or injury. 10-Not Attempted due to Environmental Limitations-(lack of equipment, weather restraints, etc.). 88-Not Attempted due to Medical Conditions or Safety Concerns. Sit to Stand (QC): 3 Chair/Zme-pe-Pxxip Xfer(QC): 4 Still min assist for sit to stand but much improved, almost CGA now. Wheelchair Training Does the Pt Use a Wheelchair?: Yes Wheel 50 ft with 2 turns (QC): 6 Wheel 150 ft (QC): 6 Type of Wheelchair: Manual 300' Exercises LAQ alternating for 5 min, sit to stands 2 sets of 10 NuStep Minutes: 15 NuStep Workload: 4 Treatments PT performed transfers, WC mobility, LE exercise, OT performed UE positioning and safety during activity. Assessment Current Status: Fair Progress improving strength and mobility PT Short Term Goals Short Term Goals Time Frame: July 22, 2020 Roll Left & Right: 4 Sit to lyin Lying to sitting on side of be: 3 PT Brush Finisher Goals Snf Goals PT Brush Finisher Goals Time Frame: Aug 19, 2020 Roll Left & Right (QC): 6 Sit to Lying (QC): 6 Lying-Sitting on Side/Bed(QC): 6 Sit to Stand (QC): 4 Chair/Hyi-yo-Hmofr Xfer(QC): 4 Toilet Transfer (QC): 4 Car Transfer (QC): 4 Does the Patient Walk: Yes Walk 10 feet (QC): 4 Walk 50ft with 2 Turns (QC): 4 Walk 150 ft (QC): 4 Walking 10ft on Uneven Surface: 4 1 Step (curb) (QC): 88 4 Steps (QC): 88 12 Steps (QC): 88 Picking up an Object (QC): 88 Wheel 50 feet with 2 turns (QC: 6 Wheel 150 feet: 6 PT Plan Problem List Problem List: Activity Tolerance, Functional Strength, Safety, Balance, Gait, Transfer, Bed Mobility, ROM Treatment/Plan Treatment Plan: Continue Plan of Care Treatment Plan: Bed Mobility, Education, Functional Activity Cierra, Functional Strength, Group Therapy, Gait, Safety, Therapeutic Exercise, Transfers Treatment Duration: Aug 05, 2020 Frequency: Modified Program (IRF) Estimated Hrs Per Day: 1 hour per day Patient and/or Family Agrees t: Yes Safety Risks/Education Patient Education: Transfer Techniques, Correct Positioning, W/C Management, Safety Issues Teaching Recipient: Patient Teaching Methods: Demonstration, Discussion Response to Teaching: Reinforcement Needed Time/GCodes Time In: 929 Time Out: 1030 Total Billed Treatment Time: 60 Total Billed Treatment 1 visit EX 30' FA 30' co-treated with OT from [facility] PT Aug 09, 2020 10:24
[2020-08-09 20:00] VITALS: BP 133/77
[2020-08-09] MEDS: MELATONIN 10 MG TABLET PO SCH (20:51)
--- NOTE | 2020-08-10 06:40 | PM&R Progress Note ---
Subjective HPI/CC On Admission Date Seen by Provider: Aug 10, 2020 Time Seen by Provider: 10:00 Subjective/Events-last exam 08/10/2020: Pt doing really well Shingles resolving No pain is reported Oxygen is doing well 08/09/2020: Pt doing very well Completing Valtrex for 10 days because the blisters are still present but much improved Overall doing well 08/08/2020: Doing very well Bowels are moving well Breathing well Needs to work on stairs and getting up without help 08/07/2020: Patient dramatically improved Bowels moved today Shingles improved Doing extremely well 08/06/20: Patient dramatically improving Ambulating very well now Working on standing stronger No complaints 08/05/2020: Patient dramatically improved Walking now with therapy with frequent stops No bedpan will be used now Shingles pain improved 08/04/2020: Patient doing pretty well Shingles improved Walking a bit now Working hard to regain independence No bowel movement for 3 days but he does take laxatives Blood sugar is good 08/03/2020: Patient doing really well today Shingles much improved Bowels moved yesterday and it was large Standing a bit more 08/02/2020: Patient doing pretty well Steroid cream on psoriasis on buttocks Area on back really bothers him when I assessed it today because it was just a very subtle pink patch now it has blisters consistent with shingles We will start on Valtrex Had a good bowel movement today 08/01/2020: Patient has no major concerns Pain meds are tolerated Still using sit to stand Overall feels like he is improving 07/31/20: Patient doing really well No major concerns Slowly progressing Bowels are moving pretty well 07/30/20: Patient doing pretty well Ambulating around a little more Chest x-ray pending 91% on room air 07/28/20: Pt dong pretty well Took eight steps today No oxygen now Steroid cream to be placed on psoriasis initiated 07/27/20: Pt doing a lot better Bowels moving today Off O2 and running 91% Overall much improved 07/26/2020: Patient doing really well Potassium 3.5 usually refusing to take it Sugars are doing well He is running 90% off oxygen Dramatic improvement 07/25/2020 Patient denies any issues Improving strength by the day Due for labs tomorrow Family at bedside 07/24/2020: Patient doing really well today On oxygen at 1.5 L/min Had a large bowel movement Sugars are okay Hates the carb limitations Girlfriend and his mother at the bedside today 07/23/20: Pt up in a chair and appears to be much stronger 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 in a chair for very long Blood sugar 141 Left foot drop is an issue 07/22/20: Patient doing well Baseline flat affect assessed Had complete bowel evacuation yesterday after Fleets after supp EKG today per Dr Rinaldi Monitored closely 07/21/20: Pt doing pretty well Slow progress Will DC the heplock Sugar changes to twice daily and will give 3 units of Novolog if greater than 160 Trach dressing changed and it is sealing up well Bowels moved yesterday 07/20/20: Pt doing pretty well Bowels moved two days ago, doesnt want anything too harsh Oxygen maintained Working hard Progressing nicely 07/19/20: Pt doing pretty well Respiratory therapy tried to wean him off and he became very hypoxic Weakness in hands are a challenge for him to shave DC Cefepime and starting Omnicef Doesnt really like IVs and lab checks and made that pretty clear to me 07/18/20: Patient doing well Diarrhea noted UTI treated with IV abx UCx pending 07/17/20: Patient doing well No complaints Awaiting UCx Empiric abx maintained Aunt at bedside O2 at 1L/min Sugar improved 07/16/20: Pt doing pretty well Potassium of 2.7 so will initiate supplement Dr. Rinaldi is seeing him in consultation EKG obtained and normal sinus rhythm noted UA ordered for burning sensation on urination Pt very debilitated Review of Systems General: Fatigue Pulmonary: Dyspnea Objective Exam Vital Signs Vital Signs Date Time Temp Pulse Resp B/P (MAP) Pulse Ox O2 Delivery O2 Flow Rate FiO2 08/10/20 21:19 Room Air 08/10/20 20:00 37.2 81 18 120/67 (84) 92 Capillary Refill : General Appearance: No Apparent Distress, WD/WN, Obese HEENT: PERRL/EOMI, Normal ENT Inspection, Pharynx Normal Neck: Full Range of Motion, Normal Inspection, Non Tender, Supple, Carotid Bruit Respiratory: Chest Non Tender, Lungs Clear, No Accessory Muscle Use, No Respiratory Distress, Decreased Breath Sounds Cardiovascular: Regular Rate, Rhythm, No Edema, No Gallop, No JVD, No Murmur, Normal Peripheral Pulses Gastrointestinal: Normal Bowel Sounds, No Organomegaly, No Pulsatile Mass, Non Tender, Soft Back: Normal Inspection, No CVA Tenderness, No Vertebral Tenderness Extremity: Normal Capillary Refill, Normal Inspection, Normal Range of Motion, Non Tender, No Calf Tenderness, No Pedal Edema Neurologic/Psychiatric: Alert, Oriented x3, No Motor/Sensory Deficits, Normal Mood/Affect, hockey instructor II-XII Norm as Tested, Abnormal Gait (can't ambulate), Motor Weakness (severe 1/5 strength all extremities) Skin: Normal Color, Warm/Dry Lymphatic: No Adenopathy Results/Procedures Lab Patient resulted labs reviewed. FIM Transfers Therapy Code Descriptions/Definitions Functional [place] Measure: 0=Not Assessed/NA 4=Minimal Assistance 1=Total Assistance 5=Supervision or Setup 2=Maximal Assistance 6=Modified [place] 3=Moderate Assistance 7=Complete IndependenceSCALE: Activities may be completed with or without assistive devices. 1-Xfgdkledxx-aurybib completes the activity by him/herself with no assistance from a helper. 5-Set-up or Clean-up Assistance-helper sets up or cleans up; patient completes activity. [place] assists only prior to or following the activity. 4-Supervision or Touching Assistance-helper provides verbal cues and/or touching/steadying and/or contact guard assistance as patient completes activity. Assistance may be provided throughout the activity or intermittently. 3-Partial/Moderate Assistance-helper does LESS THAN HALF the effort. [place] lifts, holds or supports trunk or limbs, but provides less than half the effort. 2-Substantial/Maximal Assistance-helper does MORE THAN HALF the effort. [place] lifts or holds trunk or limbs and provides more than half the effort. 3-Aevhcekmv-ggaaoq does ALL the effort. Patient does none of the effort to complete the activity. Or, the assistance of 2 or more helpers is required for the patient to complete the activity. If activity was not attempted, code reason: 7-Patient Refused. 9-Not Applicable-not attempted and the patient did not perform the activity before the current illness, exacerbation or injury. 10-Not Attempted due to Environmental Limitations-(lack of equipment, weather restraints, etc.). 88-Not Attempted due to Medical Conditions or Safety Concerns. Roll Left to Right (QC): 6 Sit to Lying (QC): 6 Sit to Stand (QC): 3 Chair/Hfa-xi-Jfosv Xfer(QC): 4 Car Transfer (QC): 1 Gait Training Does the Patient Walk?: Yes Distance: 120'x2 Walk 10 feet (QC): 4 Walk 50 ft with 2 Turns(QC): 4 Walk 150 ft (QC): 88 Walking 10ft/uneven surface-QC: 88 Gait Persons Needed: 1 Gait Assistive Device: FWW Wheelchair Training Does the Pt Use a Wheelchair?: Yes Distance: 80' Wheel 50 ft with 2 turns (QC): 6 Wheel 150 ft (QC): 6 Type of Wheelchair: Manual Stair Training 1 Step (curb) (QC): 88 4 Steps (QC): 88 12 Steps (QC): 88 Balance Picking up an Object (QC): 88 ADL-Treatment Eating (QC): 6 Oral Hygiene (QC): 6 Bathing Location: L Arm, R Arm, L Upper Leg, R Upper Leg, L Lower Leg (including foot), R Lower Leg (including foot), Chest, Abdomen, Perineal Area Shower/Bathe Self (QC): 4 Upper Body Dressing (QC): 5 Lower Body Dressing (QC): 4 On/Off Footwear (QC): 5 Toileting Hygiene (QC): 2 Toilet Transfer (QC): 1 Assessment/Plan Assessment and Plan Assess & Plan/Chief Complaint Assessment: COVID-19 PNA myopathy Severe poor lung reserve Obesity New onset DM AF? Psoriasis of buttocks Shingles right flank 08/02/2020 Plan: Insulin Monitor lung function Cardiology consult 07/16/20: UA Replace potassium Slow recovery 07/17/20: IV abx Suspect resistant UTI 07/18/20: Monitor closely Await Ucx 07/19/20: Reviewed UCx DC Cefepime Irritated with IV's and lab checks 07/20/20: Monitor closely Sugars good 07/21/20: DC Heplock 07/22/20: Monitored closely BP ok 07/23/20: Monitor O2 Improved status now 07/24/2020: Continue limitation of carbs to decrease sugar Monitor oxygen level 07/25/2020 Check labs in the morning Monitor closely 07/26/2020: Discharge planned after review on Sunday Dramatic improvement Wean oxygen 07/27/20: Improved Weaned O2 07/28/20: Steroid cream for psoriasis Doing much better 07/30/2020: Chest x-ray reviewed Continue aggressive therapy 07/31/2020: Monitor closely Maintain oxygen 08/01/2020: Psoriasis treatment Monitor blood pressure Check labs in the morning 08/02/2020: Shingles treatment Monitor closely 08/03/2020: Continue shingles treatment Monitor closely Improved 08/04/2020: Valtrex to complete treatment for shingles Monitor closely 08/05/2020: Complete Valtrex Dramatic improvement now ambulating 08/06/2020: Dramatically improved Ambulating well Monitor closely 08/07/2020: Dramatic improvement Increased ambulation 08/08/2020: Improved status Monitor closely 08/09/2020: Continue shingles treatment for full 10 days Monitor oxygen 08/10/2020: Continue aggressive therapy Build stamina (1) Myopathy (2) COVID-19 (3) Obesity (4) Diabetes mellitus NATHANAEL HOWE DO Aug 10, 2020 06:40
[2020-08-10 08:00] VITALS: BP 129/76
[2020-08-10] MEDS: PANTOPRAZOLE 40 MG (PROTONIX) TAB PO SCH (08:05)
[2020-08-10] MEDS: KCL 10 MEQ TAB (MICRO K) PO SCH ×3 (08:05→18:24)
[2020-08-10] MEDS: lisINopril 20 MG (PRINIVIL) TABLET PO SCH (08:05)
[2020-08-10] MEDS: LACTOBACILLUS ACIDOPHILUS (PROBIOTIC) CAPSULE PO SCH ×2 (08:05→20:54)
[2020-08-10] MEDS: VITAMIN D3 125 MCG (5,000 UNITS) CAPSULE PO SCH (08:06)
[2020-08-10] MEDS: amLODIPine 10 MG (NORVASC) TAB PO SCH (08:06)
[2020-08-10] MEDS: ASCORBIC ACID (VIT C) 500 MG TABLET PO SCH (08:06)
[2020-08-10] MEDS: APIXABAN 5 MG (ELIQUIS) TABLET PO SCH ×2 (08:06→20:54)
[2020-08-10] MEDS: VALACYCLOVIR 500 MG TAB (VALTREX) PO SCH ×3 (08:06→20:54)
[2020-08-10] MEDS: polyethylene glycoL POWDER 17 GM (MIRALAX) PACK PO SCH ×2 (09:26→19:29)
[2020-08-10] MEDS: SENNA W/DOCUSATE (SENOKOT S) TABLET PO SCH ×2 (09:27→19:30)
[2020-08-10] MEDS: MICONAZOLE 2% POWDER (DESENEX AF) 90 GM TOP SCH ×2 (09:33→21:01)
[2020-08-10] MEDS: TRIAMCINOLONE 0.1% CR (KENALOG) 15 GM TUBE TOP SCH ×2 (09:33→20:56)
[2020-08-10] MEDS: DOCUSATE SODIUM 100 MG (COLACE) CAP PO SCH ×2 (09:37→19:29)
--- NOTE | 2020-08-10 10:54 | Physical Therapy Daily Note ---
PT Daily Note-Current Subjective Patient in WC in therapy gym pre tx, agrees to PT, has no complaints of pain. Appearance Patient sitting EOB post tx with nurse call, phone, tray, all needs met. Mental Status Patient Orientation: Normal For Age Transfers SCALE: Activities may be completed with or without assistive devices. 4-Hizvcmwzqo-usliega completes the activity by him/herself with no assistance from a helper. 5-Set-up or Clean-up Assistance-helper sets up or cleans up; patient completes activity. [place] assists only prior to or following the activity. 4-Supervision or Touching Assistance-helper provides verbal cues and/or touc royer/steadying and/or contact guard assistance as patient completes activity. Assistance may be provided throughout the activity or intermittently. 3-Partial/Moderate Assistance-helper does LESS THAN HALF the effort. [place] lifts, holds or supports trunk or limbs, but provides less than half the effort. 2-Substantial/Maximal Assistance-helper does MORE THAN HALF the effort. [place] lifts or holds trunk or limbs and provides more than half the effort. 5-Kyfmatvij-xmqunc does ALL the effort. Patient does none of the effort to complete the activity. Or, the assistance of 2 or more helpers is required for the patient to complete the activity. If activity was not attempted, code reason: 7-Patient Refused. 9-Not Applicable-not attempted and the patient did not perform the activity before the current illness, exacerbation or injury. 10-Not Attempted due to Environmental Limitations-(lack of equipment, weather restraints, etc.). 88-Not Attempted due to Medical Conditions or Safety Concerns. Sit to Stand (QC): 3 Chair/Lnl-rt-Snssf Xfer(QC): 4 Patient is practically CGA with sit to stand now but needs min assist after repeated standing and with fatigue. Gait Training Distance: 120'x4 Walk 10 feet (QC): 4 Walk 50 ft with 2 Turns(QC): 4 Gait Persons Needed: 1 Gait Assistive Device: FWW CGA, brisk ambulation, more steady, very SOB afterward Exercises step-ups x5 in parallel bars using a 6" step Treatments transfers, ambulation, functional strengthening Assessment Current Status: Fair Progress progressing strength, patient would need bilateral handrails on front steps of his home PT Short Term Goals Short Term Goals Time Frame: July 22, 2020 Roll Left & Right: 4 Sit to lyin Lying to sitting on side of be: 3 PT [employer] Grinding [employer] Operator Goals [employer] Operator Goals PT [facility] Goals Time Frame: Aug 19, 2020 Roll Left & Right (QC): 6 Sit to Lying (QC): 6 Lying-Sitting on Side/Bed(QC): 6 Sit to Stand (QC): 4 Chair/Ejy-hu-Cklhj Xfer(QC): 4 Toilet Transfer (QC): 4 Car Transfer (QC): 4 Does the Patient Walk: Yes Walk 10 feet (QC): 4 Walk 50ft with 2 Turns (QC): 4 Walk 150 ft (QC): 4 Walking 10ft on Uneven Surface: 4 1 Step (curb) (QC): 88 4 Steps (QC): 88 12 Steps (QC): 88 Picking up an Object (QC): 88 Wheel 50 feet with 2 turns (QC: 6 Wheel 150 feet: 6 PT Plan Problem List Problem List: Activity Tolerance, Functional Strength, Safety, Balance, Gait, Transfer, Bed Mobility, ROM Treatment/Plan Treatment Plan: Continue Plan of Care Treatment Plan: Bed Mobility, Education, Functional Activity Cierra, Functional Strength, Group Therapy, Gait, Safety, Therapeutic Exercise, Transfers Treatment Duration: Aug 05, 2020 Frequency: Modified Program (IRF) Estimated Hrs Per Day: 1 hour per day Patient and/or Family Agrees t: Yes Safety Risks/Education Patient Education: Gait Training, Transfer Techniques, Correct Positioning, Safety Issues Teaching Recipient: Patient Teaching Methods: Demonstration, Discussion Response to Teaching: Reinforcement Needed Time/GCodes Time In: 1000 Time Out: 1100 Total Billed Treatment Time: 60 Total Billed Treatment 1 visit EX 15' FA 45' [facility] PT Aug 10, 2020 10:54
--- NOTE | 2020-08-10 10:57 | Occupational Ther Daily Note ---
OT Current Status-Daily Note Subjective Pt alert, lying in bed. Pt agrees to therapy. No c/o pain. Mental Status/Objective Patient Orientation: Person, Place, Time, Situation ADL-Treatment 1st session ([id number]): Pt agrees to shower. Supine <--> EOB, supervision for safety. Pt ambulates to shower with CGA for safety using FWW. Close SBA in standing while pt doffs clothing. SBA while pt is in standing to cleanse buttocks and kasi area. Pt completes rest of shower sitting on shower chair using grabbars, hand held shower and LH sponge. After set up, pt dons shirt then ambulates back to bed to finish dressing. Pt threads lower body clothing over feet by self then SBA while pt stands to hike over hips. Pt dons/doffs socks by self sitting on EOB. Pt dons R shoe by self and assist with L shoe. Pt doffs shoes by self. Pt able to complete oral hygiene sitting at sink, independently. Pt able to complete eating independently. 2nd session([id number]): Discussed tub/shower and walk-in shower options at pt's home. Pt states that he will need to put grabbars in and purchase a shower chair for walk-in shower. PHAN educated pt on tub transfer bench for tub/shower, pt did not want to look at this option at this time. Therapy Code Descriptions/Definitions Functional [place] Measure: 0=Not Assessed/NA 4=Minimal Assistance 1=Total Assistance 5=Supervision or Setup 2=Maximal Assistance 6=Modified [place] 3=Moderate Assistance 7=Complete IndependenceSCALE: Activities may be completed with or without assistive devices. 4-Kvmbomlcwu-ldvjtxv completes the activity by him/herself with no assistance from a helper. 5-Set-up or Clean-up Assistance-helper sets up or cleans up; patient completes activity. [place] assists only prior to or following the activity. 4-Supervision or Touching Assistance-helper provides verbal cues and/or touching/steadying and/or contact guard assistance as patient completes activity. Assistance may be provided throughout the activity or intermittently. 3-Partial/Moderate Assistance-helper does LESS THAN HALF the effort. [place] lifts, holds or supports trunk or limbs, but provides less than half the effort. 2-Substantial/Maximal Assistance-helper does MORE THAN HALF the effort. [place] lifts or holds trunk or limbs and provides more than half the effort. 6-Wxxncqxib-ylfzub does ALL the effort. Patient does none of the effort to complete the activity. Or, the assistance of 2 or more helpers is required for the patient to complete the activity. If activity was not attempted, code reason: 7-Patient Refused. 9-Not Applicable-not attempted and the patient did not perform the activity before the current illness, exacerbation or injury. 10-Not Attempted due to Environmental Limitations-(lack of equipment, weather restraints, etc.). 88-Not Attempted due to Medical Conditions or Safety Concerns. Eating (QC): 6 Oral Hygiene (QC): 6 Shower/Bathe Self (QC): 4 Upper Body Dressing (QC): 5 Lower Body Dressing (QC): 4 On/Off Footwear: 3 Other Treatment 1st session([id number]): Pt propelled w/c to therapy gym to complete B UE exercises for strengthening of gross and fine motor skills for functional daily tasks. 1# wt attached to wrists while completing resistive fine motor exercises. 5 min arm bike at 25 white resistance. Pt left in care of PT. All needs met in room. 2nd session([id number]): Pt completed 1 set 4 exercises 15 reps of medium resistance theraband sitting EOB. Then completed modified sit ups with HOB slightly elevated 5 reps. After session, pt lying in bed with call light/phone in reach. All needs met in room. OT Short Term Goals Short Term Goals Time Frame: Aug 05, 2020 Toileting hygiene: 2 Upper body dressin Lower body dressin Putting on/taking off footwear: 2 OT Retail Wireless Associate Goals Group Home Goals Time Frame: Aug 13, 2020 Eating (QC): 6 Oral Hygiene (QC): 6 Toileting Hygiene (QC): 6 Shower/Bathe Self (QC): 6 Upper Body Dressing (QC): 6 Lower Body Dressing (QC): 6 On/Off Footwear (QC): 6 Additional Goals: 1-Demonstrate ADL Tasks, 2-Verbalize Understanding, 3- ImproveStrength/Cierra 1=Demonstrate adherence to instructed precautions during ADL tasks. 2=Patient will verbalize/demonstrate understanding of assistive devices/modifications for ADL. 3=Patient will improve strength/tolerance for activity to enable patient to perform ADL's. OT Education/Plan Problem List/Assessment Assessment: Decreased Activ Tolerance, Decreased UE Strength, Impaired Funct Balance, Impaired Self-Care Skills Discharge Recommendations Plan/Recommendations: Continue POC Treatment Plan/Plan of Care Patient would benefit from OT for education, treatment and training to promote independence in ADL's, mobility, safety and/or upper extremity function for ADL's. Plan of Care: ADL Retraining, Functional Mobility, Group Exercise/Act as Ind, UE Funct Exercise/Act Treatment Duration: Aug 13, 2020 Frequency: Modified Program (IRF) Estimated Hrs Per Day: 1 hour per day Agreement: Yes Rehab Potential: Fair Time/GCodes Start Time: 09:00 (13) Stop Time: 10:00 (1315) Total Time Billed (hr/min): 75 Billed Treatment Time 1 visit([id number]): ADL 3 (45 min) EX 1 (15 min) 1 visit([id number]): EX 1 (15 min) TYSON FISHER Aug 10, 2020 10:57
--- NOTE | 2020-08-10 14:21 | Physical Therapy Daily Note ---
PT Daily Note-Current Subjective Patient in bed pre tx, agrees to PT, has no complaints of pain. Appearance patient in bed post tx with nurse call, phone, tray, all needs met. Mental Status Patient Orientation: Normal For Age Transfers SCALE: Activities may be completed with or without assistive devices. 1-Qadamblxik-nacnqmm completes the activity by him/herself with no assistance from a helper. 5-Set-up or Clean-up Assistance-helper sets up or cleans up; patient completes activity. [place] assists only prior to or following the activity. 4-Supervision or Touching Assistance-helper provides verbal cues and/or touching/steadying and/or contact guard assistance as patient completes activity. Assistance may be provided throughout the activity or intermittently. 3-Partial/Moderate Assistance-helper does LESS THAN HALF the effort. [place] lifts, holds or supports trunk or limbs, but provides less than half the effort. 2-Substantial/Maximal Assistance-helper does MORE THAN HALF the effort. [place] lifts or holds trunk or limbs and provides more than half the effort. 6-Lwzpbocgv-jdkqsw does ALL the effort. Patient does none of the effort to complete the activity. Or, the assistance of 2 or more helpers is required for the patient to complete the activity. If activity was not attempted, code reason: 7-Patient Refused. 9-Not Applicable-not attempted and the patient did not perform the activity before the current illness, exacerbation or injury. 10-Not Attempted due to Environmental Limitations-(lack of equipment, weather restraints, etc.). 88-Not Attempted due to Medical Conditions or Safety Concerns. 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 Head Goals PT Nursing Home Goals Time Frame: Aug 19, 2020 Roll Left & Right (QC): 6 Sit to Lying (QC): 6 Lying-Sitting on Side/Bed(QC): 6 Sit to Stand (QC): 4 Chair/Hwg-pj-Irusm Xfer(QC): 4 Toilet Transfer (QC): 4 Car Transfer (QC): 4 Does the Patient Walk: Yes Walk 10 feet (QC): 4 Walk 50ft with 2 Turns (QC): 4 Walk 150 ft (QC): 4 Walking 10ft on Uneven Surface: 4 1 Step (curb) (QC): 88 4 Steps (QC): 88 12 Steps (QC): 88 Picking up an Object (QC): 88 Wheel 50 feet with 2 turns (QC: 6 Wheel 150 feet: 6 PT Plan Problem List Problem List: Activity Tolerance, Functional Strength, Safety, Balance, Gait, Transfer, Bed Mobility, ROM Treatment/Plan Treatment Plan: Continue Plan of Care Treatment Plan: Bed Mobility, Education, Functional Activity Cierra, Functional Strength, Group Therapy, Gait, Safety, Therapeutic Exercise, Transfers Treatment Duration: Aug 05, 2020 Frequency: Modified Program (IRF) Estimated Hrs Per Day: 1 hour per day Patient and/or Family Agrees t: Yes Safety Risks/Education Patient Education: Correct Positioning, Safety Issues Teaching Recipient: Patient Teaching Methods: Demonstration, Discussion Response to Teaching: Reinforcement Needed Time/GCodes Time In: 1400 Time Out: 1415 Total Billed Treatment Time: 15 Total Billed Treatment 1 visit EX LIZ SALAMANCA PT Aug 10, 2020 14:21
[2020-08-10] MEDS: MELATONIN 10 MG TABLET PO SCH (19:29)
[2020-08-10 20:00] VITALS: BP 120/67
--- NOTE | 2020-08-11 06:25 | PM&R Progress Note ---
Subjective HPI/CC On Admission Date Seen by Provider: Aug 11, 2020 Time Seen by Provider: 10:00 Subjective/Events-last exam 08/11/20: Pt doing really well Discontinuing the Desonex Bowels moved two days ago Dramatic recovery DC 08/19/20 08/10/2020: Pt doing really well Shingles resolving No pain is reported Oxygen is doing well 08/09/2020: Pt doing very well Completing Valtrex for 10 days because the blisters are still present but much improved Overall doing well 08/08/2020: Doing very well Bowels are moving well Breathing well Needs to work on stairs and getting up without help 08/07/2020: Patient dramatically improved Bowels moved today Shingles improved Doing extremely well 08/06/20: Patient dramatically improving Ambulating very well now Working on standing stronger No complaints 08/05/2020: Patient dramatically improved Walking now with therapy with frequent stops No bedpan will be used now Shingles pain improved 08/04/2020: Patient doing pretty well Shingles improved Walking a bit now Working hard to regain independence No bowel movement for 3 days but he does take laxatives Blood sugar is good 08/03/2020: Patient doing really well today Shingles much improved Bowels moved yesterday and it was large Standing a bit more 08/02/2020: Patient doing pretty well Steroid cream on psoriasis on buttocks Area on back really bothers him when I assessed it today because it was just a very subtle pink patch now it has blisters consistent with shingles We will start on Valtrex Had a good bowel movement today 08/01/2020: Patient has no major concerns Pain meds are tolerated Still using sit to stand Overall feels like he is improving 07/31/20: Patient doing really well No major concerns Slowly progressing Bowels are moving pretty well 07/30/20: Patient doing pretty well Ambulating around a little more Chest x-ray pending 91% on room air 07/28/20: Pt dong pretty well Took eight steps today No oxygen now Steroid cream to be placed on psoriasis initiated 07/27/20: Pt doing a lot better Bowels moving today Off O2 and running 91% Overall much improved 07/26/2020: Patient doing really well Potassium 3.5 usually refusing to take it Sugars are doing well He is running 90% off oxygen Dramatic improvement 07/25/2020 Patient denies any issues Improving strength by the day Due for labs tomorrow Family at bedside 07/24/2020: Patient doing really well today On oxygen at 1.5 L/min Had a large bowel movement Sugars are okay Hates the carb limitations Girlfriend and his mother at the bedside today 07/23/20: Pt up in a chair and appears to be much stronger 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 in a chair for very long Blood sugar 141 Left foot drop is an issue 07/22/20: Patient doing well Baseline flat affect assessed Had complete bowel evacuation yesterday after Fleets after supp EKG today per Dr Rinaldi Monitored closely 07/21/20: Pt doing pretty well Slow progress Will DC the heplock Sugar changes to twice daily and will give 3 units of Novolog if greater than 160 Trach dressing changed and it is sealing up well Bowels moved yesterday 07/20/20: Pt doing pretty well Bowels moved two days ago, doesnt want anything too harsh Oxygen maintained Working hard Progressing nicely 07/19/20: Pt doing pretty well Respiratory therapy tried to wean him off and he became very hypoxic Weakness in hands are a challenge for him to shave DC Cefepime and starting Omnicef Doesnt really like IVs and lab checks and made that pretty clear to me 07/18/20: Patient doing well Diarrhea noted UTI treated with IV abx UCx pending 07/17/20: Patient doing well No complaints Awaiting UCx Empiric abx maintained Aunt at bedside O2 at 1L/min Sugar improved 07/16/20: Pt doing pretty well Potassium of 2.7 so will initiate supplement Dr. Rinaldi is seeing him in consultation EKG obtained and normal sinus rhythm noted UA ordered for burning sensation on urination Pt very debilitated Review of Systems General: Fatigue Pulmonary: Dyspnea Objective Exam Vital Signs Vital Signs Date Time Temp Pulse Resp B/P (MAP) Pulse Ox O2 Delivery O2 Flow Rate FiO2 08/11/20 21:01 Room Air 08/11/20 20:25 37.0 85 20 130/80 (97) 94 Capillary Refill : General Appearance: No Apparent Distress, WD/WN, Obese HEENT: PERRL/EOMI, Normal ENT Inspection, Pharynx Normal Neck: Full Range of Motion, Normal Inspection, Non Tender, Supple, Carotid Bruit Respiratory: Chest Non Tender, Lungs Clear, No Accessory Muscle Use, No Respiratory Distress, Decreased Breath Sounds Cardiovascular: Regular Rate, Rhythm, No Edema, No Gallop, No JVD, No Murmur, Normal Peripheral Pulses Gastrointestinal: Normal Bowel Sounds, No Organomegaly, No Pulsatile Mass, Non Tender, Soft Back: Normal Inspection, No CVA Tenderness, No Vertebral Tenderness Extremity: Normal Capillary Refill, Normal Inspection, Normal Range of Motion, Non Tender, No Calf Tenderness, No Pedal Edema Neurologic/Psychiatric: Alert, Oriented x3, No Motor/Sensory Deficits, Normal Mood/Affect, flight 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 FIM Transfers Therapy Code Descriptions/Definitions Functional [place] Measure: 0=Not Assessed/NA 4=Minimal Assistance 1=Total Assistance 5=Supervision or Setup 2=Maximal Assistance 6=Modified [place] 3=Moderate Assistance 7=Complete IndependenceSCALE: Activities may be completed with or without assistive devices. 1-Qgyxnvlzqz-kfsqxcz completes the activity by him/herself with no assistance from a helper. 5-Set-up or Clean-up Assistance-helper sets up or cleans up; patient completes activity. [place] assists only prior to or following the activity. 4-Supervision or Touching Assistance-helper provides verbal cues and/or touching/steadying and/or contact guard assistance as patient completes activit y. Assistance may be provided throughout the activity or intermittently. 3-Partial/Moderate Assistance-helper does LESS THAN HALF the effort. [place] lifts, holds or supports trunk or limbs, but provides less than half the effort. 2-Substantial/Maximal Assistance-helper does MORE THAN HALF the effort. [place] lifts or holds trunk or limbs and provides more than half the effort. 4-Tbllvoidw-uoqexx does ALL the effort. Patient does none of the effort to complete the activity. Or, the assistance of 2 or more helpers is required for the patient to complete the activity. If activity was not attempted, code reason: 7-Patient Refused. 9-Not Applicable-not attempted and the patient did not perform the activity before the current illness, exacerbation or injury. 10-Not Attempted due to Environmental Limitations-(lack of equipment, weather restraints, etc.). 88-Not Attempted due to Medical Conditions or Safety Concerns. Roll Left to Right (QC): 6 Sit to Lying (QC): 6 Sit to Stand (QC): 3 Chair/Bls-wh-Tsuhk Xfer(QC): 4 Car Transfer (QC): 1 Gait Training Does the Patient Walk?: Yes Distance: 120'x4 Walk 10 feet (QC): 4 Walk 50 ft with 2 Turns(QC): 4 Walk 150 ft (QC): 88 Walking 10ft/uneven surface-QC: 88 Gait Persons Needed: 1 Gait Assistive Device: FWW Wheelchair Training Does the Pt Use a Wheelchair?: Yes Distance: 80' Wheel 50 ft with 2 turns (QC): 6 Wheel 150 ft (QC): 6 Type of Wheelchair: Manual Stair Training 1 Step (curb) (QC): 88 4 Steps (QC): 88 12 Steps (QC): 88 Balance Picking up an Object (QC): 88 ADL-Treatment Eating (QC): 6 Oral Hygiene (QC): 6 Bathing Location: L Arm, R Arm, L Upper Leg, R Upper Leg, L Lower Leg (including foot), R Lower Leg (including foot), Chest, Abdomen, Perineal Area Shower/Bathe Self (QC): 4 Upper Body Dressing (QC): 5 Lower Body Dressing (QC): 4 On/Off Footwear (QC): 3 Toileting Hygiene (QC): 2 Toilet Transfer (QC): 1 Assessment/Plan Assessment and Plan Assess & Plan/Chief Complaint Assessment: COVID-19 PNA myopathy Severe poor lung reserve Obesity New onset DM AF? Psoriasis of buttocks Shingles right flank 08/02/2020 Plan: Insulin Monitor lung function Cardiology consult 07/16/20: UA Replace potassium Slow recovery 07/17/20: IV abx Suspect resistant UTI 07/18/20: Monitor closely Await Ucx 07/19/20: Reviewed UCx DC Cefepime Irritated with IV's and lab checks 07/20/20: Monitor closely Sugars good 07/21/20: DC Heplock 07/22/20: Monitored closely BP ok 07/23/20: Monitor O2 Improved status now 07/24/2020: Continue limitation of carbs to decrease sugar Monitor oxygen level 07/25/2020 Check labs in the morning Monitor closely 07/26/2020: Discharge planned after review on Sunday Dramatic improvement Wean oxygen 07/27/20: Improved Weaned O2 07/28/20: Steroid cream for psoriasis Doing much better 07/30/2020: Chest x-ray reviewed Continue aggressive therapy 07/31/2020: Monitor closely Maintain oxygen 08/01/2020: Psoriasis treatment Monitor blood pressure Check labs in the morning 08/02/2020: Shingles treatment Monitor closely 08/03/2020: Continue shingles treatment Monitor closely Improved 08/04/2020: Valtrex to complete treatment for shingles Monitor closely 08/05/2020: Complete Valtrex Dramatic improvement now ambulating 08/06/2020: Dramatically improved Ambulating well Monitor closely 08/07/2020: Dramatic improvement Increased ambulation 08/08/2020: Improved status Monitor closely 08/09/2020: Continue shingles treatment for full 10 days Monitor oxygen 08/10/2020: Continue aggressive therapy Build stamina 08/11/20: DC 08/19/20 Monitor closely Dramatic improvement (1) Myopathy (2) COVID-19 (3) Obesity (4) Diabetes mellitus NATHANAEL HOWE DO Aug 11, 2020 06:25
[2020-08-11] MEDS: polyethylene glycoL POWDER 17 GM (MIRALAX) PACK PO SCH ×2 (07:45→19:42)
[2020-08-11] MEDS: SENNA W/DOCUSATE (SENOKOT S) TABLET PO SCH ×2 (07:45→19:43)
[2020-08-11] MEDS: DOCUSATE SODIUM 100 MG (COLACE) CAP PO SCH ×2 (07:45→19:42)
[2020-08-11] MEDS: MICONAZOLE 2% POWDER (DESENEX AF) 90 GM TOP SCH (07:45)
[2020-08-11 08:00] VITALS: BP 128/77
[2020-08-11] MEDS: lisINopril 20 MG (PRINIVIL) TABLET PO SCH (08:11)
[2020-08-11] MEDS: PANTOPRAZOLE 40 MG (PROTONIX) TAB PO SCH (08:11)
[2020-08-11] MEDS: VALACYCLOVIR 500 MG TAB (VALTREX) PO SCH ×3 (08:11→20:12)
[2020-08-11] MEDS: VITAMIN D3 125 MCG (5,000 UNITS) CAPSULE PO SCH (08:11)
[2020-08-11] MEDS: TRIAMCINOLONE 0.1% CR (KENALOG) 15 GM TUBE TOP SCH ×2 (08:11→20:13)
[2020-08-11] MEDS: amLODIPine 10 MG (NORVASC) TAB PO SCH (08:11)
[2020-08-11] MEDS: LACTOBACILLUS ACIDOPHILUS (PROBIOTIC) CAPSULE PO SCH ×2 (08:11→20:13)
[2020-08-11] MEDS: ASCORBIC ACID (VIT C) 500 MG TABLET PO SCH (08:12)
[2020-08-11] MEDS: KCL 10 MEQ TAB (MICRO K) PO SCH ×3 (08:12→17:55)
[2020-08-11] MEDS: APIXABAN 5 MG (ELIQUIS) TABLET PO SCH ×2 (08:12→20:13)
--- NOTE | 2020-08-11 10:26 | Occupational Ther Daily Note ---
OT Current Status-Daily Note Subjective Pt alert, lying in bed. Pt agrees to therapy. No c/o pain. Pt states that he has purchased a shower chair, FWW and 4WW and is getting grabbars for shower. Mental Status/Objective Patient Orientation: Person, Place, Time, Situation Attachments: IV ADL-Treatment Pt agrees to shower. Supine <--> EOB independent. Ambulates using FWW with SBA to bathroom. SBA while pt stands to doff clothing, no LOB. SBA while pt stands to cleanse buttocks and kasi area then completes rest of shower sitting on shower chair. Pt then ambulated to toilet with BSC to elevate with SBA for safety using FWW. Pt able to manipulate clothing and cleanse self after BM with SBA using grabbars for stability when needed. After set up, pt able to don/doff shirt by self. SBA while pt hikes pants over hips, able to thread feet through pant legs using articulation officer. Using sock aide, pt able to don socks. Doffs socks using figure 4 tech. Dons R shoe by self, Assist with L shoe due to AFO. Doffs shoes by self. Pt declines oral care at this time. After session, pt sitting EOB with call light/phone in reach. All needs met in room. Therapy Code Descriptions/Definitions Functional [place] Measure: 0=Not Assessed/NA 4=Minimal Assistance 1=Total Assistance 5=Supervision or Setup 2=Maximal Assistance 6=Modified [place] 3=Moderate Assistance 7=Complete IndependenceSCALE: Activities may be completed with or without assistive devices. 8-Khoercozvv-xsguryj completes the activity by him/herself with no assistance from a helper. 5-Set-up or Clean-up Assistance-helper sets up or cleans up; patient completes activity. [place] assists only prior to or following the activity. 4-Supervision or Touching Assistance-helper provides verbal cues and/or touching/steadying and/or contact guard assistance as patient completes activity. Assistance may be provided throughout the activity or intermittently. 3-Partial/Moderate Assistance-helper does LESS THAN HALF the effort. [place] lifts, holds or supports trunk or limbs, but provides less than half the effort. 2-Substantial/Maximal Assistance-helper does MORE THAN HALF the effort. [place] lifts or holds trunk or limbs and provides more than half the effort. 7-Sbsdtbpht-yivcps does ALL the effort. Patient does none of the effort to complete the activity. Or, the assistance of 2 or more helpers is required for the patient to complete the activity. If activity was not attempted, code reason: 7-Patient Refused. 9-Not Applicable-not attempted and the patient did not perform the activity before the current illness, exacerbation or injury. 10-Not Attempted due to Environmental Limitations-(lack of equipment, weather restraints, etc.). 88-Not Attempted due to Medical Conditions or Safety Concerns. Eating (QC): 6 (clinical judgement) Oral Hygiene (QC): 6 (clinical judgement) Shower/Bathe Self (QC): 4 Upper Body Dressing (QC): 5 Lower Body Dressing (QC): 4 On/Off Footwear: 3 Toileting Hygiene (QC): 4 Toilet Transfer (QC): 4 OT Short Term Goals Short Term Goals Time Frame: Aug 05, 2020 Toileting hygiene: 2 Upper body dressin Lower body dressin Putting on/taking off footwear: 2 OT Assisted Goals Electric System Operator Goals Time Frame: Aug 13, 2020 Eating (QC): 6 Oral Hygiene (QC): 6 Toileting Hygiene (QC): 6 Shower/Bathe Self (QC): 6 Upper Body Dressing (QC): 6 Lower Body Dressing (QC): 6 On/Off Footwear (QC): 6 Additional Goals: 1-Demonstrate ADL Tasks, 2-Verbalize Understanding, 3- ImproveStrength/Cierra 1=Demonstrate adherence to instructed precautions during ADL tasks. 2=Patient will verbalize/demonstrate understanding of assistive devices/modifications for ADL. 3=Patient will improve strength/tolerance for activity to enable patient to perform ADL's. OT Education/Plan Problem List/Assessment Assessment: Decreased Activ Tolerance, Impaired I ADL's Discharge Recommendations Plan/Recommendations: Continue POC Equpiment Recommendations-D/C: Rails on Tub/Shower, Bath Chair, Hip Kit Treatment Plan/Plan of Care Patient would benefit from OT for education, treatment and training to promote independence in ADL's, mobility, safety and/or upper extremity function for ADL's. Plan of Care: ADL Retraining, Functional Mobility, Group Exercise/Act as Ind, UE Funct Exercise/Act Treatment Duration: Aug 13, 2020 Frequency: Modified Program (IRF) Estimated Hrs Per Day: 1 hour per day Agreement: Yes Rehab Potential: Fair Time/GCodes Start Time: 09:00 Stop Time: 10:15 Total Time Billed (hr/min): 75 Billed Treatment Time 1 visit-ADL 5 (75 min) TYSON FISHER Aug 11, 2020 10:26
--- NOTE | 2020-08-11 12:13 | Physical Therapy Daily Note ---
PT Daily Note-Current Subjective Pt laying in bed upon arrival. Pt agrees to PT. Mental Status Patient Orientation: Person, Place, Time, Situation Attachments: Other-See Comments (AFO for Trav ROBERSON) Transfers SCALE: Activities may be completed with or without assistive devices. 6-Wlzffxcoxk-hphqilw completes the activity by him/herself with no assistance from a helper. 5-Set-up or Clean-up Assistance-helper sets up or cleans up; patient completes activity. [place] assists only prior to or following the activity. 4-Supervision or Touching Assistance-helper provides verbal cues and/or touching/steadying and/or contact guard assistance as patient completes activity. Assistance may be provided throughout the activity or intermittently. 3-Partial/Moderate Assistance-helper does LESS THAN HALF the effort. [place] lifts, holds or supports trunk or limbs, but provides less than half the effort. 2-Substantial/Maximal Assistance-helper does MORE THAN HALF the effort. [place] lifts or holds trunk or limbs and provides more than half the effort. 9-Ulwbxqyev-dlpcrj does ALL the effort. Patient does none of the effort to complete the activity. Or, the assistance of 2 or more helpers is required for the patient to complete the activity. If activity was not attempted, code reason: 7-Patient Refused. 9-Not Applicable-not attempted and the patient did not perform the activity before the current illness, exacerbation or injury. 10-Not Attempted due to Environmental Limitations-(lack of equipment, weather restraints, etc.). 88-Not Attempted due to Medical Conditions or Safety Concerns. Lying to Sitting/Side of Bed(Q: 4 Sit to Stand (QC): 4 Toilet Transfer (QC): 4 Weight Bearing Full Weight Bearing Full Weight Bearing Gait Training Does the Patient Walk?: Yes Distance: 120' x4 Walk 10 feet (QC): 4 Walk 50 ft with 2 Turns(QC): 4 Walk 150 ft (QC): 4 Gait Persons Needed: 1 Gait Assistive Device: FWW Fast tucker but SOB requiring long rest break after each amb. Wheelchair Training Does the Pt Use a Wheelchair?: Yes Wheel 50 ft with 2 turns (QC): 6 Wheel 150 ft (QC): 6 Type of Wheelchair: Manual Treatments TF from bed to EOB to standing. Propels WCH in hallway then amb. in hallway. After amb., pt completes 5 steps using 6" step. Pt propels in hallway, returning to room. Pt uses BR to end tx. All needs met. Assessment Current Status: Good Progress Pt continues taking extended rest break after each ambulation. PT Short Term Goals Short Term Goals Time Frame: July 22, 2020 Roll Left & Right: 4 Sit to lyin Lying to sitting on side of be: 3 PT [place]her Goals [place] Goals PT Group Home Goals Time Frame: Aug 19, 2020 Roll Left & Right (QC): 6 Sit to Lying (QC): 6 Lying-Sitting on Side/Bed(QC): 6 Sit to Stand (QC): 4 Chair/Ptl-ca-Gdszq Xfer(QC): 4 Toilet Transfer (QC): 4 Car Transfer (QC): 4 Does the Patient Walk: Yes Walk 10 feet (QC): 4 Walk 50ft with 2 Turns (QC): 4 Walk 150 ft (QC): 4 Walking 10ft on Uneven Surface: 4 1 Step (curb) (QC): 88 4 Steps (QC): 88 12 Steps (QC): 88 Picking up an Object (QC): 88 Wheel 50 feet with 2 turns (QC: 6 Wheel 150 feet: 6 PT Plan Problem List Problem List: Activity Tolerance Treatment/Plan Treatment Plan: Continue Plan of Care Treatment Plan: Bed Mobility, Education, Functional Activity Cierra, Functional Strength, Group Therapy, Gait, Safety, Therapeutic Exercise, Transfers Treatment Duration: Aug 05, 2020 Frequency: Modified Program (IRF) Estimated Hrs Per Day: 1 hour per day Patient and/or Family Agrees t: Yes Safety Risks/Education Patient Education: Disease Process Teaching Recipient: Patient Teaching Methods: Discussion Response to Teaching: Verbalize Understanding Time/GCodes Time In: 1100 Time Out: 1200 Total Billed Treatment Time: 60 Total Billed Treatment 1, FA x3 (45m) & EX (15m) ANDRÉS LORENZO WASHCLOTH FOLDER Aug 11, 2020 12:13
--- NOTE | 2020-08-11 15:36 | Physical Therapy Daily Note ---
PT Daily Note-Current Subjective Pt laying Supine in bed. Pt agrees to PT. Mental Status Patient Orientation: Person, Place, Time, Situation Transfers SCALE: Activities may be completed with or without assistive devices. 2-Wkyvfvrake-zfskfwa completes the activity by him/herself with no assistance from a helper. 5-Set-up or Clean-up Assistance-helper sets up or cleans up; patient completes activity. [place] assists only prior to or following the activity. 4-Supervision or Touching Assistance-helper provides verbal cues and/or touching/steadying and/or contact guard assistance as patient completes activity. Assistance may be provided throughout the activity or intermittently. 3-Partial/Moderate Assistance-helper does LESS THAN HALF the effort. [place] lifts, holds or supports trunk or limbs, but provides less than half the effort. 2-Substantial/Maximal Assistance-helper does MORE THAN HALF the effort. [place] lifts or holds trunk or limbs and provides more than half the effort. 6-Tvzxoluvr-jywcii does ALL the effort. Patient does none of the effort to complete the activity. Or, the assistance of 2 or more helpers is required for the patient to complete the activity. If activity was not attempted, code reason: 7-Patient Refused. 9-Not Applicable-not attempted and the patient did not perform the activity before the current illness, exacerbation or injury. 10-Not Attempted due to Environmental Limitations-(lack of equipment, weather restraints, etc.). 88-Not Attempted due to Medical Conditions or Safety Concerns. Weight Bearing Full Weight Bearing Full Weight Bearing Treatments Pt & daughter discuss with CERTIFIED ATHLETIC TRAINER about d/c and what can be done for car transfer and steps in anticipation for eventually d/c. Pt resting in bed upon arrival. All needs met, call light in hand. Assessment Current Status: Good Progress Pt is gaining strength and activity tolerance although still fatigue. PT Short Term Goals Short Term Goals Time Frame: July 22, 2020 Roll Left & Right: 4 Sit to lyin Lying to sitting on side of be: 3 PT Custodial Goals Custodial Goals PT Machine Tool Rebuilder Goals Time Frame: Aug 19, 2020 Roll Left & Right (QC): 6 Sit to Lying (QC): 6 Lying-Sitting on Side/Bed(QC): 6 Sit to Stand (QC): 4 Chair/Szq-fd-Ddmuo Xfer(QC): 4 Toilet Transfer (QC): 4 Car Transfer (QC): 4 Does the Patient Walk: Yes Walk 10 feet (QC): 4 Walk 50ft with 2 Turns (QC): 4 Walk 150 ft (QC): 4 Walking 10ft on Uneven Surface: 4 1 Step (curb) (QC): 88 4 Steps (QC): 88 12 Steps (QC): 88 Picking up an Object (QC): 88 Wheel 50 feet with 2 turns (QC: 6 Wheel 150 feet: 6 PT Plan Problem List Problem List: Activity Tolerance Treatment/Plan Treatment Plan: Continue Plan of Care Treatment Plan: Bed Mobility, Education, Functional Activity Cierra, Functional Strength, Group Therapy, Gait, Safety, Therapeutic Exercise, Transfers Treatment Duration: Aug 05, 2020 Frequency: Modified Program (IRF) Estimated Hrs Per Day: 1 hour per day Patient and/or Family Agrees t: Yes Time/GCodes Time In: 1500 Time Out: 1520 Total Billed Treatment Time: 20 Total Billed Treatment 1, FA (20m) ANDRÉS LORENZO CERTIFIED ATHLETIC TRAINER Aug 11, 2020 15:36
[2020-08-11] MEDS: MELATONIN 10 MG TABLET PO SCH (19:42)
[2020-08-11 20:25] VITALS: BP 130/80
--- NOTE | 2020-08-12 05:58 | PM&R Progress Note ---
Subjective HPI/CC On Admission Date Seen by Provider: Aug 12, 2020 Time Seen by Provider: 12:00 Subjective/Events-last exam 08/12/2020: Patient having no issues Discharge planning for next week Talked about finding a primary care provider I may provide televisit and refills until he is established with someone 08/11/20: Pt doing really well Discontinuing the Desonex Bowels moved two days ago Dramatic recovery DC 08/19/20 08/10/2020: Pt doing really well Shingles resolving No pain is reported Oxygen is doing well 08/09/2020: Pt doing very well Completing Valtrex for 10 days because the blisters are still present but much improved Overall doing well 08/08/2020: Doing very well Bowels are moving well Breathing well Needs to work on stairs and getting up without help 08/07/2020: Patient dramatically improved Bowels moved today Shingles improved Doing extremely well 08/06/20: Patient dramatically improving Ambulating very well now Working on standing stronger No complaints 08/05/2020: Patient dramatically improved Walking now with therapy with frequent stops No bedpan will be used now Shingles pain improved 08/04/2020: Patient doing pretty well Shingles improved Walking a bit now Working hard to regain independence No bowel movement for 3 days but he does take laxatives Blood sugar is good 08/03/2020: Patient doing really well today Shingles much improved Bowels moved yesterday and it was large Standing a bit more 08/02/2020: Patient doing pretty well Steroid cream on psoriasis on buttocks Area on back really bothers him when I assessed it today because it was just a very subtle pink patch now it has blisters consistent with shingles We will start on Valtrex Had a good bowel movement today 08/01/2020: Patient has no major concerns Pain meds are tolerated Still using sit to stand Overall feels like he is improving 07/31/20: Patient doing really well No major concerns Slowly progressing Bowels are moving pretty well 07/30/20: Patient doing pretty well Ambulating around a little more Chest x-ray pending 91% on room air 07/28/20: Pt dong pretty well Took eight steps today No oxygen now Steroid cream to be placed on psoriasis initiated 07/27/20: Pt doing a lot better Bowels moving today Off O2 and running 91% Overall much improved 07/26/2020: Patient doing really well Potassium 3.5 usually refusing to take it Sugars are doing well He is running 90% off oxygen Dramatic improvement 07/25/2020 Patient denies any issues Improving strength by the day Due for labs tomorrow Family at bedside 07/24/2020: Patient doing really well today On oxygen at 1.5 L/min Had a large bowel movement Sugars are okay Hates the carb limitations Girlfriend and his mother at the bedside today 07/23/20: Pt up in a chair and appears to be much stronger 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 in a chair for very long Blood sugar 141 Left foot drop is an issue 07/22/20: Patient doing well Baseline flat affect assessed Had complete bowel evacuation yesterday after Fleets after supp EKG today per Dr Rinaldi Monitored closely 07/21/20: Pt doing pretty well Slow progress Will DC the heplock Sugar changes to twice daily and will give 3 units of Novolog if greater than 160 Trach dressing changed and it is sealing up well Bowels moved yesterday 07/20/20: Pt doing pretty well Bowels moved two days ago, doesnt want anything too harsh Oxygen maintained Working hard Progressing nicely 07/19/20: Pt doing pretty well Respiratory therapy tried to wean him off and he became very hypoxic Weakness in hands are a challenge for him to shave DC Cefepime and starting Omnicef Doesnt really like IVs and lab checks and made that pretty clear to me 07/18/20: Patient doing well Diarrhea noted UTI treated with IV abx UCx pending 07/17/20: Patient doing well No complaints Awaiting UCx Empiric abx maintained Aunt at bedside O2 at 1L/min Sugar improved 07/16/20: Pt doing pretty well Potassium of 2.7 so will initiate supplement Dr. Rinaldi is seeing him in consultation EKG obtained and normal sinus rhythm noted UA ordered for burning sensation on urination Pt very debilitated Review of Systems General: Fatigue, Malaise Neurological: Weakness Objective Exam Vital Signs Vital Signs Date Time Temp Pulse Resp B/P (MAP) Pulse Ox O2 Delivery O2 Flow Rate FiO2 08/12/20 20:31 Room Air 08/12/20 20:00 37.0 85 18 129/75 (93) 91 Capillary Refill : General Appearance: No Apparent Distress, WD/WN, Obese HEENT: PERRL/EOMI, Normal ENT Inspection, Pharynx Normal Neck: Full Range of Motion, Normal Inspection, Non Tender, Supple, Carotid Bruit Respiratory: Chest Non Tender, Lungs Clear, No Accessory Muscle Use, No Respiratory Distress, Decreased Breath Sounds Cardiovascular: Regular Rate, Rhythm, No Edema, No Gallop, No JVD, No Murmur, Normal Peripheral Pulses Gastrointestinal: Normal Bowel Sounds, No Organomegaly, No Pulsatile Mass, Non Tender, Soft Back: Normal Inspection, No CVA Tenderness, No Vertebral Tenderness Extremity: Normal Capillary Refill, Normal Inspection, Normal Range of Motion, Non Tender, No Calf Tenderness, No Pedal Edema Neurologic/Psychiatric: Alert, Oriented x3, No Motor/Sensory Deficits, Normal Mood/Affect, cheese pancake roller II-XII Norm as Tested, Abnormal Gait (can't ambulate), Motor Weakness (severe 1/5 strength all extremities) Skin: Normal Color, Warm/Dry Lymphatic: No Adenopathy Results/Procedures Lab Patient resulted labs reviewed. FIM Transfers Therapy Code Descriptions/Definitions Functional [place] Measure: 0=Not Assessed/NA 4=Minimal Assistance 1=Total Assistance 5=Supervision or Setup 2=Maximal Assistance 6=Modified [place] 3=Moderate Assistance 7=Complete IndependenceSCALE: Activities may be completed with or without assistive devices. 7-Cbfdeghwmt-hsjraqx completes the activity by him/herself with no assistance from a helper. 5-Set-up or Clean-up Assistance-helper sets up or cleans up; patient completes activity. [place] assists only prior to or following the activity. 4-Supervision or Touching Assistance-helper provides verbal cues and/or touch ing/steadying and/or contact guard assistance as patient completes activity. Assistance may be provided throughout the activity or intermittently. 3-Partial/Moderate Assistance-helper does LESS THAN HALF the effort. [place] lifts, holds or supports trunk or limbs, but provides less than half the effort. 2-Substantial/Maximal Assistance-helper does MORE THAN HALF the effort. [place] lifts or holds trunk or limbs and provides more than half the effort. 9-Zliwuzwla-psmsmx does ALL the effort. Patient does none of the effort to complete the activity. Or, the assistance of 2 or more helpers is required for the patient to complete the activity. If activity was not attempted, code reason: 7-Patient Refused. 9-Not Applicable-not attempted and the patient did not perform the activity before the current illness, exacerbation or injury. 10-Not Attempted due to Environmental Limitations-(lack of equipment, weather restraints, etc.). 88-Not Attempted due to Medical Conditions or Safety Concerns. Roll Left to Right (QC): 6 Sit to Lying (QC): 6 Sit to Stand (QC): 4 Chair/Uhu-qp-Bkdjx Xfer(QC): 4 Car Transfer (QC): 1 Gait Training Does the Patient Walk?: Yes Distance: 120' x4 Walk 10 feet (QC): 4 Walk 50 ft with 2 Turns(QC): 4 Walk 150 ft (QC): 4 Walking 10ft/uneven surface-QC: 88 Gait Persons Needed: 1 Gait Assistive Device: FWW Wheelchair Training Does the Pt Use a Wheelchair?: Yes Distance: 80' Wheel 50 ft with 2 turns (QC): 6 Wheel 150 ft (QC): 6 Type of Wheelchair: Manual Stair Training 1 Step (curb) (QC): 88 4 Steps (QC): 88 12 Steps (QC): 88 Balance Picking up an Object (QC): 88 ADL-Treatment Eating (QC): 6 (clinical judgement) Oral Hygiene (QC): 6 (clinical judgement) Bathing Location: L Arm, R Arm, L Upper Leg, R Upper Leg, L Lower Leg (including foot), R Lower Leg (including foot), Chest, Abdomen, Perineal Area Shower/Bathe Self (QC): 4 Upper Body Dressing (QC): 5 Lower Body Dressing (QC): 4 On/Off Footwear (QC): 3 Toileting Hygiene (QC): 4 Toilet Transfer (QC): 4 Assessment/Plan Assessment and Plan Assess & Plan/Chief Complaint Assessment: COVID-19 PNA myopathy Severe poor lung reserve Obesity New onset DM AF? Psoriasis of buttocks Shingles right flank 08/02/2020 Plan: Insulin Monitor lung function Cardiology consult 07/16/20: UA Replace potassium Slow recovery 07/17/20: IV abx Suspect resistant UTI 07/18/20: Monitor closely Await Ucx 07/19/20: Reviewed UCx DC Cefepime Irritated with IV's and lab checks 07/20/20: Monitor closely Sugars good 07/21/20: DC Heplock 07/22/20: Monitored closely BP ok 07/23/20: Monitor O2 Improved status now 07/24/2020: Continue limitation of carbs to decrease sugar Monitor oxygen level 07/25/2020 Check labs in the morning Monitor closely 07/26/2020: Discharge planned after review on Sunday Dramatic improvement Wean oxygen 07/27/20: Improved Weaned O2 07/28/20: Steroid cream for psoriasis Doing much better 07/30/2020: Chest x-ray reviewed Continue aggressive therapy 07/31/2020: Monitor closely Maintain oxygen 08/01/2020: Psoriasis treatment Monitor blood pressure Check labs in the morning 08/02/2020: Shingles treatment Monitor closely 08/03/2020: Continue shingles treatment Monitor closely Improved 08/04/2020: Valtrex to complete treatment for shingles Monitor closely 08/05/2020: Complete Valtrex Dramatic improvement now ambulating 08/06/2020: Dramatically improved Ambulating well Monitor closely 08/07/2020: Dramatic improvement Increased ambulation 08/08/2020: Improved status Monitor closely 08/09/2020: Continue shingles treatment for full 10 days Monitor oxygen 08/10/2020: Continue aggressive therapy Build stamina 08/11/20: DC 08/19/20 Monitor closely Dramatic improvement 08/12/2020: No major issues Continue monitoring (1) Myopathy (2) COVID-19 (3) Obesity (4) Diabetes mellitus NATHANAEL HOWE DO Aug 12, 2020 05:58
[2020-08-12 08:00] VITALS: BP 121/78
[2020-08-12] MEDS: PANTOPRAZOLE 40 MG (PROTONIX) TAB PO SCH (08:33)
[2020-08-12] MEDS: lisINopril 20 MG (PRINIVIL) TABLET PO SCH (08:33)
[2020-08-12] MEDS: APIXABAN 5 MG (ELIQUIS) TABLET PO SCH ×2 (08:33→20:09)
[2020-08-12] MEDS: amLODIPine 10 MG (NORVASC) TAB PO SCH (08:33)
[2020-08-12] MEDS: DOCUSATE SODIUM 100 MG (COLACE) CAP PO SCH ×2 (08:33→19:11)
[2020-08-12] MEDS: VITAMIN D3 125 MCG (5,000 UNITS) CAPSULE PO SCH (08:33)
[2020-08-12] MEDS: SENNA W/DOCUSATE (SENOKOT S) TABLET PO SCH ×2 (08:33→19:12)
[2020-08-12] MEDS: polyethylene glycoL POWDER 17 GM (MIRALAX) PACK PO SCH ×2 (08:33→19:12)
[2020-08-12] MEDS: LACTOBACILLUS ACIDOPHILUS (PROBIOTIC) CAPSULE PO SCH ×2 (08:33→20:08)
[2020-08-12] MEDS: TRIAMCINOLONE 0.1% CR (KENALOG) 15 GM TUBE TOP SCH ×2 (08:34→20:09)
[2020-08-12] MEDS: ASCORBIC ACID (VIT C) 500 MG TABLET PO SCH (08:34)
[2020-08-12] MEDS: KCL 10 MEQ TAB (MICRO K) PO SCH ×3 (08:34→17:25)
[2020-08-12] MEDS: VALACYCLOVIR 500 MG TAB (VALTREX) PO SCH ×3 (08:34→20:09)
--- NOTE | 2020-08-12 09:56 | Occupational Ther Daily Note ---
OT Current Status-Daily Note Subjective Pt alert, lying in bed. Pt agrees to therapy. No c/o pain at this time. Mental Status/Objective Patient Orientation: Person, Place, Time, Situation ADL-Treatment Pt agrees to shower. Supine <--> EOB independent. Ambulates using FWW with SBA to bathroom. SBA while pt stands to doff clothing, no LOB. Independent while pt standing to cleanse buttocks and kasi area then completes rest of shower sitting on shower chair. After set up, pt able to don shirt by self sitting on shower chair. Pt then ambulates to bed to finish dressing. After set up, pt able to complete lower body dressing by self sitting EOB. Pt able to sit on EOB to don/doffs socks using figure 4 tech. Dons R shoe by self, assist with L shoe due to AFO. Doffs shoes by self. Pt declines oral care at this time. After session, pt sitting EOB with call light/phone in reach. All needs met in room. Therapy Code Descriptions/Definitions Functional [place] Measure: 0=Not Assessed/NA 4=Minimal Assistance 1=Total Assistance 5=Supervision or Setup 2=Maximal Assistance 6=Modified [place] 3=Moderate Assistance 7=Complete IndependenceSCALE: Activities may be completed with or without assistive devices. 3-Qdtbziuiij-ecjsepj completes the activity by him/herself with no assistance from a helper. 5-Set-up or Clean-up Assistance-helper sets up or cleans up; patient completes activity. [place] assists only prior to or following the activity. 4-Supervision or Touching Assistance-helper provides verbal cues and/or touching/steadying and/or contact guard assistance as patient completes activity. Assistance may be provided throughout the activity or intermittently. 3-Partial/Moderate Assistance-helper does LESS THAN HALF the effort. [place] lifts, holds or supports trunk or limbs, but provides less than half the effort. 2-Substantial/Maximal Assistance-helper does MORE THAN HALF the effort. [place] lifts or holds trunk or limbs and provides more than half the effort. 5-Xagpefxic-xhrlqu does ALL the effort. Patient does none of the effort to complete the activity. Or, the assistance of 2 or more helpers is required for the patient to complete the activity. If activity was not attempted, code reason: 7-Patient Refused. 9-Not Applicable-not attempted and the patient did not perform the activity before the current illness, exacerbation or injury. 10-Not Attempted due to Environmental Limitations-(lack of equipment, weather restraints, etc.). 88-Not Attempted due to Medical Conditions or Safety Concerns. Shower/Bathe Self (QC): 5 (Set up to place all supplies) Upper Body Dressing (QC): 5 Lower Body Dressing (QC): 5 On/Off Footwear: 3 Other Treatment Pt completed B UE exercises using 3# hand wts. Seated rows-upright (2 sets 15 reps) and leaning forward(2 sets 10 reps), vertical shldr press (2 sets 10 reps, alternating). Pt takes increased time to complete all activities due to increased recovery breaks for SOA. OT Short Term Goals Short Term Goals Time Frame: Aug 05, 2020 Toileting hygiene: 2 Upper body dressin Lower body dressin Putting on/taking off footwear: 2 OT It Applications Developer Goals Half-Way Goals Time Frame: Aug 13, 2020 Eating (QC): 6 Oral Hygiene (QC): 6 Toileting Hygiene (QC): 6 Shower/Bathe Self (QC): 6 Upper Body Dressing (QC): 6 Lower Body Dressing (QC): 6 On/Off Footwear (QC): 6 Additional Goals: 1-Demonstrate ADL Tasks, 2-Verbalize Understanding, 3-I mproveStrength/Cierra 1=Demonstrate adherence to instructed precautions during ADL tasks. 2=Patient will verbalize/demonstrate understanding of assistive devices/modifications for ADL. 3=Patient will improve strength/tolerance for activity to enable patient to perform ADL's. OT Education/Plan Problem List/Assessment Assessment: Decreased Activ Tolerance, Decreased UE Strength, Impaired Funct Balance, Impaired Self-Care Skills Discharge Recommendations Plan/Recommendations: Continue POC Treatment Plan/Plan of Care Patient would benefit from OT for education, treatment and training to promote independence in ADL's, mobility, safety and/or upper extremity function for ADL's. Plan of Care: ADL Retraining, Functional Mobility, Group Exercise/Act as Ind, UE Funct Exercise/Act Treatment Duration: Aug 13, 2020 Frequency: Modified Program (IRF) Estimated Hrs Per Day: 1 hour per day Agreement: Yes Rehab Potential: Fair Time/GCodes Start Time: 08:30 Stop Time: 10:00 Total Time Billed (hr/min): 90 Billed Treatment Time 1 visit-ADL 5 (75 min) EX 1 (15 min) TYSON FISHER Aug 12, 2020 09:56
--- NOTE | 2020-08-12 11:53 | Physical Therapy Daily Note ---
PT Daily Note-Current Subjective Patient in bed pre tx, agrees to PT, has no complaints of pain. Appearance Patient sitting EOB post tx with nurse call, phone, tray, all needs met. Mental Status Patient Orientation: Normal For Age Transfers SCALE: Activities may be completed with or without assistive devices. 3-Sdqksqlhjx-qwbukpm completes the activity by him/herself with no assistance from a helper. 5-Set-up or Clean-up Assistance-helper sets up or cleans up; patient completes activity. [place] assists only prior to or following the activity. 4-Supervision or Touching Assistance-helper provides verbal cues and/or touching/steadying and/or contact guard assistance as patient completes activity. Assistance may be provided throughout the activity or intermittently. 3-Partial/Moderate Assistance-helper does LESS THAN HALF the effort. [place] lifts, holds or supports trunk or limbs, but provides less than half the effort. 2-Substantial/Maximal Assistance-helper does MORE THAN HALF the effort. [place] lifts or holds trunk or limbs and provides more than half the effort. 3-Kcpziicro-whlntj does ALL the effort. Patient does none of the effort to complete the activity. Or, the assistance of 2 or more helpers is required for the patient to complete the activity. If activity was not attempted, code reason: 7-Patient Refused. 9-Not Applicable-not attempted and the patient did not perform the activity before the current illness, exacerbation or injury. 10-Not Attempted due to Environmental Limitations-(lack of equipment, weather restraints, etc.). 88-Not Attempted due to Medical Conditions or Safety Concerns. Roll Left & Right (QC): 6 Lying to Sitting/Side of Bed(Q: 6 Sit to Stand (QC): 3 Chair/Kqu-jp-Cybuo Xfer(QC): 4 Patient can stand without assist from higher surfaces but did need min assist with one sit to stand from a lower surface and he was fatigued. Weight Bearing Full Weight Bearing Full Weight Bearing Gait Training Distance: 120'x4 Walk 10 feet (QC): 4 Walk 50 ft with 2 Turns(QC): 4 Gait Persons Needed: 1 Gait Assistive Device: FWW SBA, brisk, steady ambulation Exercises NuStep Minutes: 15 NuStep Workload: 4 Treatments bed mobility and transfers, ambulation, functional strengthening Assessment Current Status: Fair Progress improving strength, still needs many rest breaks due to SOB and fatigue PT Short Term Goals Short Term Goals Time Frame: July 22, 2020 Roll Left & Right: 4 Sit to lyin Lying to sitting on side of be: 3 PT Jail Goals Senior Advisor Goals PT Jail Goals Time Frame: Aug 19, 2020 Roll Left & Right (QC): 6 Sit to Lying (QC): 6 Lying-Sitting on Side/Bed(QC): 6 Sit to Stand (QC): 4 Chair/Zre-wd-Orgkv Xfer(QC): 4 Toilet Transfer (QC): 4 Car Transfer (QC): 4 Does the Patient Walk: Yes Walk 10 feet (QC): 4 Walk 50ft with 2 Turns (QC): 4 Walk 150 ft (QC): 4 Walking 10ft on Uneven Surface: 4 1 Step (curb) (QC): 88 4 Steps (QC): 88 12 Steps (QC): 88 Picking up an Object (QC): 88 Wheel 50 feet with 2 turns (QC: 6 Wheel 150 feet: 6 PT Plan Problem List Problem List: Activity Tolerance, Functional Strength, Safety, Balance, Gait, Transfer, Bed Mobility, ROM Treatment/Plan Treatment Plan: Continue Plan of Care Treatment Plan: Bed Mobility, Education, Functional Activity Cierra, Functional Strength, Group Therapy, Gait, Safety, Therapeutic Exercise, Transfers Treatment Duration: Aug 05, 2020 Frequency: Modified Program (IRF) Estimated Hrs Per Day: 1 hour per day Patient and/or Family Agrees t: Yes Safety Risks/Education Patient Education: Gait Training, Transfer Techniques, Correct Positioning, Safety Issues Teaching Recipient: Patient Teaching Methods: Demonstration, Discussion Response to Teaching: Reinforcement Needed Time/GCodes Time In: 1100 Time Out: 1200 Total Billed Treatment Time: 60 Total Billed Treatment 1 visit EX 15' GT 30' FA 15' LIZ MI PT Aug 12, 2020 11:53
--- NOTE | 2020-08-12 13:51 | Physical Therapy Daily Note ---
PT Daily Note-Current Subjective Patient in bed pre tx, agrees to PT, has no complaints of pain. Appearance Patient in bed post tx with nurse call, phone, tray, all needs met. Mental Status Patient Orientation: Normal For Age Transfers SCALE: Activities may be completed with or without assistive devices. 6-Qdmcptptcc-ipnhsfc completes the activity by him/herself with no assistance from a helper. 5-Set-up or Clean-up Assistance-helper sets up or cleans up; patient completes activity. [place] assists only prior to or following the activity. 4-Supervision or Touching Assistance-helper provides verbal cues and/or touching/steadying and/or contact guard assistance as patient completes activity. Assistance may be provided throughout the activity or intermittently. 3-Partial/Moderate Assistance-helper does LESS THAN HALF the effort. [place] lifts, holds or supports trunk or limbs, but provides less than half the effort. 2-Substantial/Maximal Assistance-helper does MORE THAN HALF the effort. [place] lifts or holds trunk or limbs and provides more than half the effort. 1-Zssetxgyy-vgcjus does ALL the effort. Patient does none of the effort to complete the activity. Or, the assistance of 2 or more helpers is required for the patient to complete the activity. If activity was not attempted, code reason: 7-Patient Refused. 9-Not Applicable-not attempted and the patient did not perform the activity before the current illness, exacerbation or injury. 10-Not Attempted due to Environmental Limitations-(lack of equipment, weather restraints, etc.). 88-Not Attempted due to Medical Conditions or Safety Concerns. 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 Curling Machine Operator Goals PT Retirement Goals Time Frame: Aug 19, 2020 Roll Left & Right (QC): 6 Sit to Lying (QC): 6 Lying-Sitting on Side/Bed(QC): 6 Sit to Stand (QC): 4 Chair/Vve-ny-Wbmzw Xfer(QC): 4 Toilet Transfer (QC): 4 Car Transfer (QC): 4 Does the Patient Walk: Yes Walk 10 feet (QC): 4 Walk 50ft with 2 Turns (QC): 4 Walk 150 ft (QC): 4 Walking 10ft on Uneven Surface: 4 1 Step (curb) (QC): 88 4 Steps (QC): 88 12 Steps (QC): 88 Picking up an Object (QC): 88 Wheel 50 feet with 2 turns (QC: 6 Wheel 150 feet: 6 PT Plan Problem List Problem List: Activity Tolerance, Functional Strength, Safety, Balance, Gait, Transfer, Bed Mobility, ROM Treatment/Plan Treatment Plan: Continue Plan of Care Treatment Plan: Bed Mobility, Education, Functional Activity Cierra, Functional Strength, Group Therapy, Gait, Safety, Therapeutic Exercise, Transfers Treatment Duration: Aug 05, 2020 Frequency: Modified Program (IRF) Estimated Hrs Per Day: 1 hour per day Patient and/or Family Agrees t: Yes Safety Risks/Education Patient Education: Correct Positioning, Safety Issues Teaching Recipient: Patient Teaching Methods: Demonstration, Discussion Response to Teaching: Reinforcement Needed Time/GCodes Time In: 1340 Time Out: 1355 Total Billed Treatment Time: 15 Total Billed Treatment 1 visit EX 15' LIZ MI PT Aug 12, 2020 13:51
[2020-08-12] MEDS: MELATONIN 10 MG TABLET PO SCH (19:12)
[2020-08-12 20:00] VITALS: BP 129/75
--- NOTE | 2020-08-13 05:52 | PM&R Progress Note ---
Subjective HPI/CC On Admission Date Seen by Provider: Aug 13, 2020 Time Seen by Provider: 12:00 Subjective/Events-last exam 08/13/2020: Patient doing pretty well Shingles now resolved Discontinue Valtrex Discontinue isolation Bowels move 2 days ago 08/12/2020: Patient having no issues Discharge planning for next week Talked about finding a primary care provider I may provide televisit and refills until he is established with someone 08/11/20: Pt doing really well Discontinuing the Desonex Bowels moved two days ago Dramatic recovery DC 08/19/20 08/10/2020: Pt doing really well Shingles resolving No pain is reported Oxygen is doing well 08/09/2020: Pt doing very well Completing Valtrex for 10 days because the blisters are still present but much improved Overall doing well 08/08/2020: Doing very well Bowels are moving well Breathing well Needs to work on stairs and getting up without help 08/07/2020: Patient dramatically improved Bowels moved today Shingles improved Doing extremely well 08/06/20: Patient dramatically improving Ambulating very well now Working on standing stronger No complaints 08/05/2020: Patient dramatically improved Walking now with therapy with frequent stops No bedpan will be used now Shingles pain improved 08/04/2020: Patient doing pretty well Shingles improved Walking a bit now Working hard to regain independence No bowel movement for 3 days but he does take laxatives Blood sugar is good 08/03/2020: Patient doing really well today Shingles much improved Bowels moved yesterday and it was large Standing a bit more 08/02/2020: Patient doing pretty well Steroid cream on psoriasis on buttocks Area on back really bothers him when I assessed it today because it was just a very subtle pink patch now it has blisters consistent with shingles We will start on Valtrex Had a good bowel movement today 08/01/2020: Patient has no major concerns Pain meds are tolerated Still using sit to stand Overall feels like he is improving 07/31/20: Patient doing really well No major concerns Slowly progressing Bowels are moving pretty well 07/30/20: Patient doing pretty well Ambulating around a little more Chest x-ray pending 91% on room air 07/28/20: Pt dong pretty well Took eight steps today No oxygen now Steroid cream to be placed on psoriasis initiated 07/27/20: Pt doing a lot better Bowels moving today Off O2 and running 91% Overall much improved 07/26/2020: Patient doing really well Potassium 3.5 usually refusing to take it Sugars are doing well He is running 90% off oxygen Dramatic improvement 07/25/2020 Patient denies any issues Improving strength by the day Due for labs tomorrow Family at bedside 07/24/2020: Patient doing really well today On oxygen at 1.5 L/min Had a large bowel movement Sugars are okay Hates the carb limitations Girlfriend and his mother at the bedside today 07/23/20: Pt up in a chair and appears to be much stronger 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 in a chair for very long Blood sugar 141 Left foot drop is an issue 07/22/20: Patient doing well Baseline flat affect assessed Had complete bowel evacuation yesterday after Fleets after supp EKG today per Dr Rinaldi Monitored closely 07/21/20: Pt doing pretty well Slow progress Will DC the heplock Sugar changes to twice daily and will give 3 units of Novolog if greater than 160 Trach dressing changed and it is sealing up well Bowels moved yesterday 07/20/20: Pt doing pretty well Bowels moved two days ago, doesnt want anything too harsh Oxygen maintained Working hard Progressing nicely 07/19/20: Pt doing pretty well Respiratory therapy tried to wean him off and he became very hypoxic Weakness in hands are a challenge for him to shave DC Cefepime and starting Omnicef Doesnt really like IVs and lab checks and made that pretty clear to me 07/18/20: Patient doing well Diarrhea noted UTI treated with IV abx UCx pending 07/17/20: Patient doing well No complaints Awaiting UCx Empiric abx maintained Aunt at bedside O2 at 1L/min Sugar improved 07/16/20: Pt doing pretty well Potassium of 2.7 so will initiate supplement Dr. Rinaldi is seeing him in consultation EKG obtained and normal sinus rhythm noted UA ordered for burning sensation on urination Pt very debilitated Review of Systems General: Fatigue, Malaise Neurological: Weakness Objective Exam Vital Signs Vital Signs Date Time Temp Pulse Resp B/P (MAP) Pulse Ox O2 Delivery O2 Flow Rate FiO2 08/13/20 20:00 36.6 84 18 132/73 (92) 92 Room Air Capillary Refill : General Appearance: No Apparent Distress, WD/WN, Obese HEENT: PERRL/EOMI, Normal ENT Inspection, Pharynx Normal Neck: Full Range of Motion, Normal Inspection, Non Tender, Supple, Carotid Bruit Respiratory: Chest Non Tender, Lungs Clear, No Accessory Muscle Use, No Respiratory Distress, Decreased Breath Sounds Cardiovascular: Regular Rate, Rhythm, No Edema, No Gallop, No JVD, No Murmur, Normal Peripheral Pulses Gastrointestinal: Normal Bowel Sounds, No Organomegaly, No Pulsatile Mass, Non Tender, Soft Back: Normal Inspection, No CVA Tenderness, No Vertebral Tenderness Extremity: Normal Capillary Refill, Normal Inspection, Normal Range of Motion, Non Tender, No Calf Tenderness, No Pedal Edema Neurologic/Psychiatric: Alert, Oriented x3, No Motor/Sensory Deficits, Normal Mood/Affect, referral agent II-XII Norm as Tested, Abnormal Gait (can't ambulate), Motor Weakness (severe 1/5 strength all extremities) Skin: Normal Color, Warm/Dry Lymphatic: No Adenopathy Results/Procedures Lab Patient resulted labs reviewed. FIM Transfers Therapy Code Descriptions/Definitions Functional [place] Measure: 0=Not Assessed/NA 4=Minimal Assistance 1=Total Assistance 5=Supervision or Setup 2=Maximal Assistance 6=Modified [place] 3=Moderate Assistance 7=Complete IndependenceSCALE: Activities may be completed with or without assistive devices. 9-Gyufiujlev-sniybpn completes the activity by him/herself with no assistance from a helper. 5-Set-up or Clean-up Assistance-helper sets up or cleans up; patient completes activity. [place] assists only prior to or following the activity. 4-Supervision or Touching Assistance-helper provides verbal cues and/or touching/steadying and/or contact guard assistance as patient completes activity. Assistance may be provided throughout the activity or intermittently. 3-Partial/Moderate Assistance-helper does LESS THAN HALF the effort. [place] lifts, holds or supports trunk or limbs, but provides less than half the effort. 2-Substantial/Maximal Assistance-helper does MORE THAN HALF the effort. [place] lifts or holds trunk or limbs and provides more than half the effort. 0-Vmvvtbtsc-asotit does ALL the effort. Patient does none of the effort to com plete the activity. Or, the assistance of 2 or more helpers is required for the patient to complete the activity. If activity was not attempted, code reason: 7-Patient Refused. 9-Not Applicable-not attempted and the patient did not perform the activity before the current illness, exacerbation or injury. 10-Not Attempted due to Environmental Limitations-(lack of equipment, weather restraints, etc.). 88-Not Attempted due to Medical Conditions or Safety Concerns. Roll Left to Right (QC): 6 Sit to Lying (QC): 6 Sit to Stand (QC): 3 Chair/Lfm-vo-Jejtd Xfer(QC): 4 Car Transfer (QC): 1 Gait Training Does the Patient Walk?: Yes Distance: 120'x4 Walk 10 feet (QC): 4 Walk 50 ft with 2 Turns(QC): 4 Walk 150 ft (QC): 4 Walking 10ft/uneven surface-QC: 88 Gait Persons Needed: 1 Gait Assistive Device: FWW Wheelchair Training Does the Pt Use a Wheelchair?: Yes Distance: 80' Wheel 50 ft with 2 turns (QC): 6 Wheel 150 ft (QC): 6 Type of Wheelchair: Manual Stair Training 1 Step (curb) (QC): 88 4 Steps (QC): 88 12 Steps (QC): 88 Balance Picking up an Object (QC): 88 ADL-Treatment Eating (QC): 6 (clinical judgement) Oral Hygiene (QC): 6 (clinical judgement) Bathing Location: L Arm, R Arm, L Upper Leg, R Upper Leg, L Lower Leg (including foot), R Lower Leg (including foot), Chest, Abdomen, Perineal Area Shower/Bathe Self (QC): 5 (Set up to place all supplies) Upper Body Dressing (QC): 5 Lower Body Dressing (QC): 5 On/Off Footwear (QC): 3 Toileting Hygiene (QC): 4 Toilet Transfer (QC): 4 Assessment/Plan Assessment and Plan Assess & Plan/Chief Complaint Assessment: COVID-19 PNA myopathy Severe poor lung reserve Obesity New onset DM AF? Psoriasis of buttocks Shingles right flank 08/02/2020 Plan: Insulin Monitor lung function Cardiology consult 07/16/20: UA Replace potassium Slow recovery 07/17/20: IV abx Suspect resistant UTI 07/18/20: Monitor closely Await Ucx 07/19/20: Reviewed UCx DC Cefepime Irritated with IV's and lab checks 07/20/20: Monitor closely Sugars good 07/21/20: DC Heplock 07/22/20: Monitored closely BP ok 07/23/20: Monitor O2 Improved status now 07/24/2020: Continue limitation of carbs to decrease sugar Monitor oxygen level 07/25/2020 Check labs in the morning Monitor closely 07/26/2020: Discharge planned after review on Sunday Dramatic improvement Wean oxygen 07/27/20: Improved Weaned O2 07/28/20: Steroid cream for psoriasis Doing much better 07/30/2020: Chest x-ray reviewed Continue aggressive therapy 07/31/2020: Monitor closely Maintain oxygen 08/01/2020: Psoriasis treatment Monitor blood pressure Check labs in the morning 08/02/2020: Shingles treatment Monitor closely 08/03/2020: Continue shingles treatment Monitor closely Improved 08/04/2020: Valtrex to complete treatment for shingles Monitor closely 08/05/2020: Complete Valtrex Dramatic improvement now ambulating 08/06/2020: Dramatically improved Ambulating well Monitor closely 08/07/2020: Dramatic improvement Increased ambulation 08/08/2020: Improved status Monitor closely 08/09/2020: Continue shingles treatment for full 10 days Monitor oxygen 08/10/2020: Continue aggressive therapy Build stamina 08/11/20: DC 08/19/20 Monitor closely Dramatic improvement 08/12/2020: No major issues Continue monitoring 08/13/2020: DC isolation Discontinue Valtrex (1) Myopathy (2) COVID-19 (3) Obesity (4) Diabetes mellitus NATHANAEL HOWE DO Aug 13, 2020 05:52
[2020-08-13] MEDS: APIXABAN 5 MG (ELIQUIS) TABLET PO SCH ×2 (08:38→20:46)
[2020-08-13] MEDS: KCL 10 MEQ TAB (MICRO K) PO SCH ×3 (08:38→17:12)
[2020-08-13] MEDS: LACTOBACILLUS ACIDOPHILUS (PROBIOTIC) CAPSULE PO SCH ×2 (08:38→20:46)
[2020-08-13] MEDS: amLODIPine 10 MG (NORVASC) TAB PO SCH (08:38)
[2020-08-13] MEDS: ASCORBIC ACID (VIT C) 500 MG TABLET PO SCH (08:39)
[2020-08-13] MEDS: VITAMIN D3 125 MCG (5,000 UNITS) CAPSULE PO SCH (08:39)
[2020-08-13] MEDS: VALACYCLOVIR 500 MG TAB (VALTREX) PO SCH ×2 (08:39→12:17)
[2020-08-13] MEDS: PANTOPRAZOLE 40 MG (PROTONIX) TAB PO SCH (08:39)
[2020-08-13] MEDS: SENNA W/DOCUSATE (SENOKOT S) TABLET PO SCH ×2 (08:40→21:00)
[2020-08-13] MEDS: DOCUSATE SODIUM 100 MG (COLACE) CAP PO SCH ×2 (08:40→21:00)
[2020-08-13] MEDS: polyethylene glycoL POWDER 17 GM (MIRALAX) PACK PO SCH ×2 (08:40→21:00)
[2020-08-13] MEDS: TRIAMCINOLONE 0.1% CR (KENALOG) 15 GM TUBE TOP SCH ×2 (08:41→21:00)
[2020-08-13] MEDS: lisINopril 20 MG (PRINIVIL) TABLET PO SCH (08:41)
[2020-08-13 08:43] VITALS: BP 126/68
--- NOTE | 2020-08-13 10:54 | Physical Therapy Daily Note ---
PT Daily Note-Current Subjective Patient in therapy gym pre tx, agrees to PT, has no complaints of pain. Appearance Patient sitting EOB post tx with nurse call, phone, tray, all needs met. Mental Status Patient Orientation: Normal For Age Transfers SCALE: Activities may be completed with or without assistive devices. 8-Cuqpnthjkq-smugfsz completes the activity by him/herself with no assistance from a helper. 5-Set-up or Clean-up Assistance-helper sets up or cleans up; patient completes activity. [place] assists only prior to or following the activity. 4-Supervision or Touching Assistance-helper provides verbal cues and/or touching/steadying and/or contact guard assistance as patient completes activity. Assistance may be provided throughout the activity or intermittently. 3-Partial/Moderate Assistance-helper does LESS THAN HALF the effort. [place] lifts, holds or supports trunk or limbs, but provides less than half the effort. 2-Substantial/Maximal Assistance-helper does MORE THAN HALF the effort. [place] lifts or holds trunk or limbs and provides more than half the effort. 5-Govncyuaj-ehjsoy does ALL the effort. Patient does none of the effort to complete the activity. Or, the assistance of 2 or more helpers is required for the patient to complete the activity. If activity was not attempted, code reason: 7-Patient Refused. 9-Not Applicable-not attempted and the patient did not perform the activity before the current illness, exacerbation or injury. 10-Not Attempted due to Environmental Limitations-(lack of equipment, weather restraints, etc.). 88-Not Attempted due to Medical Conditions or Safety Concerns. Sit to Stand (QC): 3 Chair/Ybc-xg-Xinvo Xfer(QC): 4 Patient occasionally needs min assist with sit to stand from lower surfaces or if he is fatigued. Weight Bearing Full Weight Bearing Full Weight Bearing Gait Training Distance: 120'x4 Walk 10 feet (QC): 4 Gait Persons Needed: 1 Gait Assistive Device: FWW SBA, brisk but steady ambulation, very SOB afterward, requires a significant rest to recover, recovers fairly quickly now from SOB but needs more time due to fatigue. Wheelchair Training Does the Pt Use a Wheelchair?: Yes Wheel 50 ft with 2 turns (QC): 6 Wheel 150 ft (QC): 6 Type of Wheelchair: Manual Exercises Seated Therapy Exercises: Ankle pumps (RLE only), Hip flexion Seated Reps: 20 LAQ alternating for 5 min Treatments WC mobility, transfers, ambulation, LE strengthening Assessment Current Status: Fair Progress slowly improving endurance and strength PT Short Term Goals Short Term Goals Time Frame: July 22, 2020 Roll Left & Right: 4 Sit to lyin Lying to sitting on side of be: 3 PT Retirement Goals Cuff Matcher Goals PT Cuff Matcher Goals Time Frame: Aug 19, 2020 Roll Left & Right (QC): 6 Sit to Lying (QC): 6 Lying-Sitting on Side/Bed(QC): 6 Sit to Stand (QC): 4 Chair/Oif-vd-Fecfh Xfer(QC): 4 Toilet Transfer (QC): 4 Car Transfer (QC): 4 Does the Patient Walk: Yes Walk 10 feet (QC): 4 Walk 50ft with 2 Turns (QC): 4 Walk 150 ft (QC): 4 Walking 10ft on Uneven Surface: 4 1 Step (curb) (QC): 88 4 Steps (QC): 88 12 Steps (QC): 88 Picking up an Object (QC): 88 Wheel 50 feet with 2 turns (QC: 6 Wheel 150 feet: 6 PT Plan Problem List Problem List: Activity Tolerance, Functional Strength, Safety, Balance, Gait, Transfer, Bed Mobility, ROM Treatment/Plan Treatment Plan: Continue Plan of Care Treatment Plan: Bed Mobility, Education, Functional Activity Cierra, Functional Strength, Group Therapy, Gait, Safety, Therapeutic Exercise, Transfers Treatment Duration: Aug 05, 2020 Frequency: Modified Program (IRF) Estimated Hrs Per Day: 1 hour per day Patient and/or Family Agrees t: Yes Safety Risks/Education Patient Education: Gait Training, Transfer Techniques, Correct Positioning, W/C Management, Safety Issues Teaching Recipient: Patient Teaching Methods: Demonstration, Discussion Response to Teaching: Reinforcement Needed Time/GCodes Time In: 1000 Time Out: 1100 Total Billed Treatment Time: 60 Total Billed Treatment 1 visit GT 30' EX 15' FA 15' LIZ MI PT Aug 13, 2020 10:54
--- NOTE | 2020-08-13 12:59 | Occupational Ther Daily Note ---
OT Current Status-Daily Note Subjective Pt seen in room, up in bed, agreeable to OT. No pain mentioned. Appearance Alert, cooperative ADL-Treatment Pt was able to transition from supine to sit EOB but with HOB elevated part way, no assist. Sat EOB without help. He doffed/donned T shirt with setup. He could put on his socks and one shoe but could not manage putting on AFO and shoe, even with elastic shoe laces. Sit to stand SBA and transfer SBA with FWW to w/c. Therapy Code Descriptions/Definitions Functional [place] Measure: 0=Not Assessed/NA 4=Minimal Assistance 1=Total Assistance 5=Supervision or Setup 2=Maximal Assistance 6=Modified [place] 3=Moderate Assistance 7=Complete IndependenceSCALE: Activities may be completed with or without assistive devices. 5-Tzrzpdkoys-zmmdhcf completes the activity by him/herself with no assistance from a helper. 5-Set-up or Clean-up Assistance-helper sets up or cleans up; patient completes activity. [place] assists only prior to or following the activity. 4-Supervision or Touching Assistance-helper provides verbal cues and/or touching/steadying and/or contact guard assistance as patient completes activity. Assistance may be provided throughout the activity or intermittently. 3-Partial/Moderate Assistance-helper does LESS THAN HALF the effort. [place] lifts, holds or supports trunk or limbs, but provides less than half the effort. 2-Substantial/Maximal Assistance-helper does MORE THAN HALF the effort. [place] lifts or holds trunk or limbs and provides more than half the effort. 1-Rjfqqsbkl-fdbfan does ALL the effort. Patient does none of the effort to complete the activity. Or, the assistance of 2 or more helpers is required for the patient to complete the activity. If activity was not attempted, code reason: 7-Patient Refused. 9-Not Applicable-not attempted and the patient did not perform the activity before the current illness, exacerbation or injury. 10-Not Attempted due to Environmental Limitations-(lack of equipment, weather restraints, etc.). 88-Not Attempted due to Medical Conditions or Safety Concerns. Upper Body Dressing (QC): 5 (setup) On/Off Footwear: 3 (help with AFO and one shoe.) Other Treatment Pt propelled himself to gym, per w/c. He worked on Coresonic exercise, as needed for ADLs and IADLs but required recovery breaks after each set on an exercise, sometimes as long as a couple minutes. Shoulder flex 8-10 reps with 2# (with 3#, he had compensatory movements), shoulder abd 8-10 reps 2# and overhead triceps 10 reps 2#. Sometimes needed physical assistance to do exercise correctly due to weakness. He completed 15-20 reps bilat shoulder retraction, overhead pumps, elbow flex, pron/sup and wrist flex/ext. After pt education on w/c pushups for UE strengthening (he could complete 5 reps), he did another set of all exercises above. Pt appearded pleased with progress and is looking forward to anticipated discharge next week. Pt care transferred to PT. Education OT Patient Education: Exercise program, Progress toward Goal/Update tx plan, Purpose of tx/functional activities Teaching Recipient: Patient Teaching Methods: Demonstration, Discussion Response to Teaching: Verbalize Understanding, Return Demonstration OT Short Term Goals Short Term Goals Time Frame: Aug 05, 2020 Toileting hygiene: 2 Upper body dressin Lower body dressin Putting on/taking off footwear: 2 OT Public Health Dentist Goals Public Health Dentist Goals Time Frame: Aug 13, 2020 Eating (QC): 6 Oral Hygiene (QC): 6 Toileting Hygiene (QC): 6 Shower/Bathe Self (QC): 6 Upper Body Dressing (QC): 6 Lower Body Dressing (QC): 6 On/Off Footwear (QC): 6 Additional Goals: 1-Demonstrate ADL Tasks, 2-Verbalize Understanding, 3- ImproveStrength/Cierra 1=Demonstrate adherence to instructed precautions during ADL tasks. 2=Patient will verbalize/demonstrate understanding of assistive devices/modifications for ADL. 3=Patient will improve strength/tolerance for activity to enable patient to perform ADL's. OT Education/Plan Discharge Recommendations Plan/Recommendations: Continue POC Treatment Plan/Plan of Care Patient would benefit from OT for education, treatment and training to promote independence in ADL's, mobility, safety and/or upper extremity function for ADL's. Plan of Care: ADL Retraining, Functional Mobility, Group Exercise/Act as Ind, UE Funct Exercise/Act Treatment Duration: Aug 13, 2020 Frequency: Modified Program (IRF) Estimated Hrs Per Day: 1 hour per day Agreement: Yes Rehab Potential: Fair Time/GCodes Start Time: 08:45 Stop Time: 10:00 Total Time Billed (hr/min): 75 Billed Treatment Time visit, 20 minutes ADL, 55 minutes exercise SHERRILL SALDAÑA OT Aug 13, 2020 12:59
--- NOTE | 2020-08-13 15:01 | Physical Therapy Progress Note ---
Therapy Progress Note Patient refused any extra time for therapy this afternoon due to fatigue. Patient states the morning therapy wore him out too much and he couldn't participate this afternoon. LIZ MI PT Aug 13, 2020 15:01
--- NOTE | 2020-08-13 15:11 | Occ Therapy Rehab Re-Cert ---
OT Re-Certification Form Plan of Care: ADL Retraining, Functional Mobility, Group Exercise/Act as Ind, UE Funct Exercise/Act Pt has made significant progress toward goals but has met only feeding goal. ADL scores as of 08/11/20: Eating (QC): 6 (clinical judgement) Oral Hygiene (QC): 6 (clinical judgement) 4 if standing due to SBA status Shower/Bathe Self (QC): 4 Upper Body Dressing (QC): 5 Lower Body Dressing (QC): 4 On/Off Footwear: 3 Toileting Hygiene (QC): 4 Toilet Transfer (QC): 4 He anticipates discharge to home in a week. Will continue same LTG but extend time frame to 08/20/20. Continue same frequency Frequency: Modified Program (IRF) Estimated Hrs Per Day: 1 hour per day Agreement: Yes Rehab Potential: Good OT Short Term Goals Short Term Goals Time Frame: Aug 05, 2020 Toileting hygiene: 2 Upper body dressin Lower body dressin Putting on/taking off footwear: 2 OT Data Input Clerk Goals Data Input Clerk Goals Time Frame: Aug 20, 2020 Eating (QC): 6 Oral Hygiene (QC): 6 Toileting Hygiene (QC): 6 Shower/Bathe Self (QC): 6 Upper Body Dressing (QC): 6 Lower Body Dressing (QC): 6 On/Off Footwear (QC): 6 Additional Goals: 1-Demonstrate ADL Tasks, 2-Verbalize Understanding, 3- ImproveStrength/Cierra 1=Demonstrate adherence to instructed precautions during ADL tasks. 2=Patient will verbalize/demonstrate understanding of assistive devices/modifications for ADL. 3=Patient will improve strength/tolerance for activity to enable patient to perform ADL's. SHERRILL SALDAÑA OT Aug 13, 2020 15:10
[2020-08-13 20:00] VITALS: BP 132/73
[2020-08-13] MEDS: MELATONIN 10 MG TABLET PO SCH (21:00)
[2020-08-14 07:30] VITALS: BP 130/74
[2020-08-14] MEDS: APIXABAN 5 MG (ELIQUIS) TABLET PO SCH ×2 (08:22→21:22)
[2020-08-14] MEDS: PANTOPRAZOLE 40 MG (PROTONIX) TAB PO SCH (08:22)
[2020-08-14] MEDS: polyethylene glycoL POWDER 17 GM (MIRALAX) PACK PO SCH ×2 (08:23→21:25)
[2020-08-14] MEDS: KCL 10 MEQ TAB (MICRO K) PO SCH ×3 (08:23→17:12)
[2020-08-14] MEDS: lisINopril 20 MG (PRINIVIL) TABLET PO SCH (08:23)
[2020-08-14] MEDS: VITAMIN D3 125 MCG (5,000 UNITS) CAPSULE PO SCH (08:23)
[2020-08-14] MEDS: amLODIPine 10 MG (NORVASC) TAB PO SCH (08:23)
[2020-08-14] MEDS: TRIAMCINOLONE 0.1% CR (KENALOG) 15 GM TUBE TOP SCH ×2 (08:23→21:25)
[2020-08-14] MEDS: ASCORBIC ACID (VIT C) 500 MG TABLET PO SCH (08:23)
[2020-08-14] MEDS: SENNA W/DOCUSATE (SENOKOT S) TABLET PO SCH ×2 (08:23→21:25)
[2020-08-14] MEDS: LACTOBACILLUS ACIDOPHILUS (PROBIOTIC) CAPSULE PO SCH ×2 (08:23→21:22)
[2020-08-14] MEDS: DOCUSATE SODIUM 100 MG (COLACE) CAP PO SCH ×2 (08:24→21:25)
--- NOTE | 2020-08-14 08:43 | PM&R Progress Note ---
Subjective HPI/CC On Admission Date Seen by Provider: Aug 14, 2020 Time Seen by Provider: 12:30 Subjective/Events-last exam 08/14/2020: Patient doing really well No major issues Bowels moved yesterday Talked about Covid vaccine and recent study reveals not necessary and may be harmful after severe case of Covid 08/13/2020: Patient doing pretty well Shingles now resolved Discontinue Valtrex Discontinue isolation Bowels move 2 days ago 08/12/2020: Patient having no issues Discharge planning for next week Talked about finding a primary care provider I may provide televisit and refills until he is established with someone 08/11/20: Pt doing really well Discontinuing the Desonex Bowels moved two days ago Dramatic recovery DC 08/19/20 08/10/2020: Pt doing really well Shingles resolving No pain is reported Oxygen is doing well 08/09/2020: Pt doing very well Completing Valtrex for 10 days because the blisters are still present but much improved Overall doing well 08/08/2020: Doing very well Bowels are moving well Breathing well Needs to work on stairs and getting up without help 08/07/2020: Patient dramatically improved Bowels moved today Shingles improved Doing extremely well 08/06/20: Patient dramatically improving Ambulating very well now Working on standing stronger No complaints 08/05/2020: Patient dramatically improved Walking now with therapy with frequent stops No bedpan will be used now Shingles pain improved 08/04/2020: Patient doing pretty well Shingles improved Walking a bit now Working hard to regain independence No bowel movement for 3 days but he does take laxatives Blood sugar is good 08/03/2020: Patient doing really well today Shingles much improved Bowels moved yesterday and it was large Standing a bit more 08/02/2020: Patient doing pretty well Steroid cream on psoriasis on buttocks Area on back really bothers him when I assessed it today because it was just a very subtle pink patch now it has blisters consistent with shingles We will start on Valtrex Had a good bowel movement today 08/01/2020: Patient has no major concerns Pain meds are tolerated Still using sit to stand Overall feels like he is improving 07/31/20: Patient doing really well No major concerns Slowly progressing Bowels are moving pretty well 07/30/20: Patient doing pretty well Ambulating around a little more Chest x-ray pending 91% on room air 07/28/20: Pt dong pretty well Took eight steps today No oxygen now Steroid cream to be placed on psoriasis initiated 07/27/20: Pt doing a lot better Bowels moving today Off O2 and running 91% Overall much improved 07/26/2020: Patient doing really well Potassium 3.5 usually refusing to take it Sugars are doing well He is running 90% off oxygen Dramatic improvement 07/25/2020 Patient denies any issues Improving strength by the day Due for labs tomorrow Family at bedside 07/24/2020: Patient doing really well today On oxygen at 1.5 L/min Had a large bowel movement Sugars are okay Hates the carb limitations Girlfriend and his mother at the bedside today 07/23/20: Pt up in a chair and appears to be much stronger 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 in a chair for very long Blood sugar 141 Left foot drop is an issue 07/22/20: Patient doing well Baseline flat affect assessed Had complete bowel evacuation yesterday after Fleets after supp EKG today per Dr Rinaldi Monitored closely 07/21/20: Pt doing pretty well Slow progress Will DC the heplock Sugar changes to twice daily and will give 3 units of Novolog if greater than 160 Trach dressing changed and it is sealing up well Bowels moved yesterday 07/20/20: Pt doing pretty well Bowels moved two days ago, doesnt want anything too harsh Oxygen maintained Working hard Progressing nicely 07/19/20: Pt doing pretty well Respiratory therapy tried to wean him off and he became very hypoxic Weakness in hands are a challenge for him to shave DC Cefepime and starting Omnicef Doesnt really like IVs and lab checks and made that pretty clear to me 07/18/20: Patient doing well Diarrhea noted UTI treated with IV abx UCx pending 07/17/20: Patient doing well No complaints Awaiting UCx Empiric abx maintained Aunt at bedside O2 at 1L/min Sugar improved 07/16/20: Pt doing pretty well Potassium of 2.7 so will initiate supplement Dr. Rinaldi is seeing him in consultation EKG obtained and normal sinus rhythm noted UA ordered for burning sensation on urination Pt very debilitated Review of Systems General: Fatigue Pulmonary: Dyspnea Objective Exam Vital Signs Vital Signs Date Time Temp Pulse Resp B/P (MAP) Pulse Ox O2 Delivery O2 Flow Rate FiO2 08/14/20 09:00 Room Air 08/14/20 07:30 36.7 76 22 130/74 (92) 94 Capillary Refill : General Appearance: No Apparent Distress, WD/WN, Obese HEENT: PERRL/EOMI, Normal ENT Inspection, Pharynx Normal Neck: Full Range of Motion, Normal Inspection, Non Tender, Supple, Carotid Bruit Respiratory: Chest Non Tender, Lungs Clear, No Accessory Muscle Use, No Respiratory Distress, Decreased Breath Sounds Cardiovascular: Regular Rate, Rhythm, No Edema, No Gallop, No JVD, No Murmur, Normal Peripheral Pulses Gastrointestinal: Normal Bowel Sounds, No Organomegaly, No Pulsatile Mass, Non Tender, Soft Back: Normal Inspection, No CVA Tenderness, No Vertebral Tenderness Extremity: Normal Capillary Refill, Normal Inspection, Normal Range of Motion, Non Tender, No Calf Tenderness, No Pedal Edema Neurologic/Psychiatric: Alert, Oriented x3, No Motor/Sensory Deficits, Normal Mood/Affect, analytical technician II-XII Norm as Tested, Abnormal Gait (can't ambulate), Motor Weakness (severe 1/5 strength all extremities) Skin: Normal Color, Warm/Dry Lymphatic: No Adenopathy Results/Procedures Lab Patient resulted labs reviewed. FIM Transfers Therapy Code Descriptions/Definitions Functional [place] Measure: 0=Not Assessed/NA 4=Minimal Assistance 1=Total Assistance 5=Supervision or Setup 2=Maximal Assistance 6=Modified [place] 3=Moderate Assistance 7=Complete IndependenceSCALE: Activities may be completed with or without assistive devices. 1-Wmxlgbjqwx-zndmrkm completes the activity by him/herself with no assistance from a helper. 5-Set-up or Clean-up Assistance-helper sets up or cleans up; patient completes activity. [place] assists only prior to or following the activity. 4-Supervision or Touching Assistance-helper provides verbal cues and/or touching/steadying and/or contact guard assistance as patient completes activity. Assistance may be provided throughout the activity or intermittently. 3-Partial/Moderate Assistance-helper does LESS THAN HALF the effort. [place] lifts, holds or supports trunk or limbs, but provides less than half the effort. 2-Substantial/Maximal Assistance-helper does MORE THAN HALF the effort. [place] lifts or holds trunk or limbs and provides more than half the effort. 9-Wmeojrhjh-uflnrl does ALL the effort. Patient does none of the effort to complete the activity. Or, the assistance of 2 or more helpers is required for the patient to complete the activity. If activity was not attempted, code reason: 7-Patient Refused. 9-Not Applicable-not attempted and the patient did not perform the activity before the current illness, exacerbation or injury. 10-Not Attempted due to Environmental Limitations-(lack of equipment, weather restraints, etc.). 88-Not Attempted due to Medical Conditions or Safety Concerns. Roll Left to Right (QC): 6 Sit to Lying (QC): 6 Sit to Stand (QC): 3 Chair/Yuw-ds-Kmnzb Xfer(QC): 4 Car Transfer (QC): 1 Gait Training Does the Patient Walk?: Yes Distance: 120'x4 Walk 10 feet (QC): 4 Walk 50 ft with 2 Turns(QC): 4 Walk 150 ft (QC): 4 Walking 10ft/uneven surface-QC: 88 Gait Persons Needed: 1 Gait Assistive Device: FWW Wheelchair Training Does the Pt Use a Wheelchair?: Yes Distance: 80' Wheel 50 ft with 2 turns (QC): 6 Wheel 150 ft (QC): 6 Type of Wheelchair: Manual Stair Training 1 Step (curb) (QC): 88 4 Steps (QC): 88 12 Steps (QC): 88 Balance Picking up an Object (QC): 88 ADL-Treatment Eating (QC): 6 (clinical judgement) Oral Hygiene (QC): 6 (clinical judgement) Bathing Location: L Arm, R Arm, L Upper Leg, R Upper Leg, L Lower Leg (inclu ding foot), R Lower Leg (including foot), Chest, Abdomen, Perineal Area Shower/Bathe Self (QC): 5 (Set up to place all supplies) Upper Body Dressing (QC): 5 (setup) Lower Body Dressing (QC): 5 On/Off Footwear (QC): 3 (help with AFO and one shoe.) Toileting Hygiene (QC): 4 Toilet Transfer (QC): 4 Assessment/Plan Assessment and Plan Assess & Plan/Chief Complaint Assessment: COVID-19 PNA myopathy Severe poor lung reserve Obesity New onset DM AF? Psoriasis of buttocks Shingles right flank 08/02/2020 Plan: Insulin Monitor lung function Cardiology consult 07/16/20: UA Replace potassium Slow recovery 07/17/20: IV abx Suspect resistant UTI 07/18/20: Monitor closely Await Ucx 07/19/20: Reviewed UCx DC Cefepime Irritated with IV's and lab checks 07/20/20: Monitor closely Sugars good 07/21/20: DC Heplock 07/22/20: Monitored closely BP ok 07/23/20: Monitor O2 Improved status now 07/24/2020: Continue limitation of carbs to decrease sugar Monitor oxygen level 07/25/2020 Check labs in the morning Monitor closely 07/26/2020: Discharge planned after review on Sunday Dramatic improvement Wean oxygen 07/27/20: Improved Weaned O2 07/28/20: Steroid cream for psoriasis Doing much better 07/30/2020: Chest x-ray reviewed Continue aggressive therapy 07/31/2020: Monitor closely Maintain oxygen 08/01/2020: Psoriasis treatment Monitor blood pressure Check labs in the morning 08/02/2020: Shingles treatment Monitor closely 08/03/2020: Continue shingles treatment Monitor closely Improved 08/04/2020: Valtrex to complete treatment for shingles Monitor closely 08/05/2020: Complete Valtrex Dramatic improvement now ambulating 08/06/2020: Dramatically improved Ambulating well Monitor closely 08/07/2020: Dramatic improvement Increased ambulation 08/08/2020: Improved status Monitor closely 08/09/2020: Continue shingles treatment for full 10 days Monitor oxygen 08/10/2020: Continue aggressive therapy Build stamina 08/11/20: DC 08/19/20 Monitor closely Dramatic improvement 08/12/2020: No major issues Continue monitoring 08/13/2020: DC isolation Discontinue Valtrex 08/14/2020: Continue aggressive therapy Discharge next week (1) Myopathy (2) COVID-19 (3) Obesity (4) Diabetes mellitus NATHANAEL HOWE DO Aug 14, 2020 08:43
--- NOTE | 2020-08-14 10:47 | Physical Therapy Daily Note ---
PT Daily Note-Current Subjective Pain rated 4-5/10 LBP. PT agreeable. Transfers SCALE: Activities may be completed with or without assistive devices. 6-Nquzcjycxt-nazngmw completes the activity by him/herself with no assistance from a helper. 5-Set-up or Clean-up Assistance-helper sets up or cleans up; patient completes activity. [place] assists only prior to or following the activity. 4-Supervision or Touching Assistance-helper provides verbal cues and/or touching/steadying and/or contact guard assistance as patient completes activity. Assistance may be provided throughout the activity or intermittently. 3-Partial/Moderate Assistance-helper does LESS THAN HALF the effort. [place] lifts, holds or supports trunk or limbs, but provides less than half the effort. 2-Substantial/Maximal Assistance-helper does MORE THAN HALF the effort. [place] lifts or holds trunk or limbs and provides more than half the effort. 6-Qenzlvwro-viarlr does ALL the effort. Patient does none of the effort to complete the activity. Or, the assistance of 2 or more helpers is required for the patient to complete the activity. If activity was not attempted, code reason: 7-Patient Refused. 9-Not Applicable-not attempted and the patient did not perform the activity before the current illness, exacerbation or injury. 10-Not Attempted due to Environmental Limitations-(lack of equipment, weather restraints, etc.). 88-Not Attempted due to Medical Conditions or Safety Concerns. Weight Bearing Full Weight Bearing Full Weight Bearing Treatments Pt performed LE AP, QS, heel slide, GS, hip abd, SAQ, hooklying LTR/march/bent knee fall out all x 20 each. Assessment Current Status: Good Progress Pt misha all very well. Pt with call light and all needs met. PT Short Term Goals Short Term Goals Time Frame: July 22, 2020 Roll Left & Right: 4 Sit to lyin Lying to sitting on side of be: 3 PT Winder Fixer Goals Winder Fixer Goals PT Winder Fixer Goals Time Frame: Aug 19, 2020 Roll Left & Right (QC): 6 Sit to Lying (QC): 6 Lying-Sitting on Side/Bed(QC): 6 Sit to Stand (QC): 4 Chair/Qry-us-Musbo Xfer(QC): 4 Toilet Transfer (QC): 4 Car Transfer (QC): 4 Does the Patient Walk: Yes Walk 10 feet (QC): 4 Walk 50ft with 2 Turns (QC): 4 Walk 150 ft (QC): 4 Walking 10ft on Uneven Surface: 4 1 Step (curb) (QC): 88 4 Steps (QC): 88 12 Steps (QC): 88 Picking up an Object (QC): 88 Wheel 50 feet with 2 turns (QC: 6 Wheel 150 feet: 6 PT Plan Treatment/Plan Treatment Plan: Continue Plan of Care Treatment Plan: Bed Mobility, Education, Functional Activity Cierra, Functional Strength, Group Therapy, Gait, Safety, Therapeutic Exercise, Transfers Treatment Duration: Aug 05, 2020 Frequency: Modified Program (IRF) Estimated Hrs Per Day: 1 hour per day Patient and/or Family Agrees t: Yes Time/GCodes Time In: 930 Time Out: 945 Total Billed Treatment Time: 15 Total Billed Treatment 1, ther ex 15' REEMA SALCEDO CPTA Aug 14, 2020 10:47
[2020-08-14 20:00] VITALS: BP 137/69
[2020-08-14] MEDS: MELATONIN 10 MG TABLET PO SCH (21:25)
--- NOTE | 2020-08-15 05:59 | PM&R Progress Note ---
Subjective HPI/CC On Admission Date Seen by Provider: Aug 15, 2020 Time Seen by Provider: 12:00 Subjective/Events-last exam 08/15/2020: Patient having no issues Monitoring closely Discharge plan for 08/14/2020: Patient doing really well No major issues Bowels moved yesterday Talked about Covid vaccine and recent study reveals not necessary and may be harmful after severe case of Covid 08/13/2020: Patient doing pretty well Shingles now resolved Discontinue Valtrex Discontinue isolation Bowels move 2 days ago 08/12/2020: Patient having no issues Discharge planning for next week Talked about finding a primary care provider I may provide televisit and refills until he is established with someone 08/11/20: Pt doing really well Discontinuing the Desonex Bowels moved two days ago Dramatic recovery DC 08/19/20 08/10/2020: Pt doing really well Shingles resolving No pain is reported Oxygen is doing well 08/09/2020: Pt doing very well Completing Valtrex for 10 days because the blisters are still present but much improved Overall doing well 08/08/2020: Doing very well Bowels are moving well Breathing well Needs to work on stairs and getting up without help 08/07/2020: Patient dramatically improved Bowels moved today Shingles improved Doing extremely well 08/06/20: Patient dramatically improving Ambulating very well now Working on standing stronger No complaints 08/05/2020: Patient dramatically improved Walking now with therapy with frequent stops No bedpan will be used now Shingles pain improved 08/04/2020: Patient doing pretty well Shingles improved Walking a bit now Working hard to regain independence No bowel movement for 3 days but he does take laxatives Blood sugar is good 08/03/2020: Patient doing really well today Shingles much improved Bowels moved yesterday and it was large Standing a bit more 08/02/2020: Patient doing pretty well Steroid cream on psoriasis on buttocks Area on back really bothers him when I assessed it today because it was just a very subtle pink patch now it has blisters consistent with shingles We will start on Valtrex Had a good bowel movement today 08/01/2020: Patient has no major concerns Pain meds are tolerated Still using sit to stand Overall feels like he is improving 07/31/20: Patient doing really well No major concerns Slowly progressing Bowels are moving pretty well 07/30/20: Patient doing pretty well Ambulating around a little more Chest x-ray pending 91% on room air 07/28/20: Pt dong pretty well Took eight steps today No oxygen now Steroid cream to be placed on psoriasis initiated 07/27/20: Pt doing a lot better Bowels moving today Off O2 and running 91% Overall much improved 07/26/2020: Patient doing really well Potassium 3.5 usually refusing to take it Sugars are doing well He is running 90% off oxygen Dramatic improvement 07/25/2020 Patient denies any issues Improving strength by the day Due for labs tomorrow Family at bedside 07/24/2020: Patient doing really well today On oxygen at 1.5 L/min Had a large bowel movement Sugars are okay Hates the carb limitations Girlfriend and his mother at the bedside today 07/23/20: Pt up in a chair and appears to be much stronger 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 in a chair for very long Blood sugar 141 Left foot drop is an issue 07/22/20: Patient doing well Baseline flat affect assessed Had complete bowel evacuation yesterday after Fleets after supp EKG today per Dr Rinaldi Monitored closely 07/21/20: Pt doing pretty well Slow progress Will DC the heplock Sugar changes to twice daily and will give 3 units of Novolog if greater than 160 Trach dressing changed and it is sealing up well Bowels moved yesterday 07/20/20: Pt doing pretty well Bowels moved two days ago, doesnt want anything too harsh Oxygen maintained Working hard Progressing nicely 07/19/20: Pt doing pretty well Respiratory therapy tried to wean him off and he became very hypoxic Weakness in hands are a challenge for him to shave DC Cefepime and starting Omnicef Doesnt really like IVs and lab checks and made that pretty clear to me 07/18/20: Patient doing well Diarrhea noted UTI treated with IV abx UCx pending 07/17/20: Patient doing well No complaints Awaiting UCx Empiric abx maintained Aunt at bedside O2 at 1L/min Sugar improved 07/16/20: Pt doing pretty well Potassium of 2.7 so will initiate supplement Dr. Rinaldi is seeing him in consultation EKG obtained and normal sinus rhythm noted UA ordered for burning sensation on urination Pt very debilitated Review of Systems General: Fatigue Pulmonary: Dyspnea Objective Exam Vital Signs Vital Signs Date Time Temp Pulse Resp B/P (MAP) Pulse Ox O2 Delivery O2 Flow Rate FiO2 08/15/20 21:00 Room Air 08/15/20 20:28 36.8 81 18 155/79 (104) 92 Capillary Refill : General Appearance: No Apparent Distress, WD/WN, Obese HEENT: PERRL/EOMI, Normal ENT Inspection, Pharynx Normal Neck: Full Range of Motion, Normal Inspection, Non Tender, Supple, Carotid Bruit Respiratory: Chest Non Tender, Lungs Clear, No Accessory Muscle Use, No Respiratory Distress, Decreased Breath Sounds Cardiovascular: Regular Rate, Rhythm, No Edema, No Gallop, No JVD, No Murmur, Normal Peripheral Pulses Gastrointestinal: Normal Bowel Sounds, No Organomegaly, No Pulsatile Mass, Non Tender, Soft Back: Normal Inspection, No CVA Tenderness, No Vertebral Tenderness Extremity: Normal Capillary Refill, Normal Inspection, Normal Range of Motion, Non Tender, No Calf Tenderness, No Pedal Edema Neurologic/Psychiatric: Alert, Oriented x3, No Motor/Sensory Deficits, Normal Mood/Affect, salvage grinder II-XII Norm as Tested, Abnormal Gait (can't ambulate), Motor Weakness (severe 1/5 strength all extremities) Skin: Normal Color, Warm/Dry Lymphatic: No Adenopathy Results/Procedures Lab Laboratory Tests 08/16/20 06:20 Patient resulted labs reviewed. FIM Transfers Therapy Code Descriptions/Definitions Functional [place] Measure: 0=Not Assessed/NA 4=Minimal Assistance 1=Total Assistance 5=Supervision or Setup 2=Maximal Assistance 6=Modified [place] 3=Moderate Assistance 7=Complete IndependenceSCALE: Activities may be completed with or without assistive devices. 8-Ppgynuwhwq-wdoxwam completes the activity by him/herself with no assistance from a helper. 5-Set-up or Clean-up Assistance-helper sets up or cleans up; patient completes activity. [place] assists only prior to or following the activity. 4-Supervision or Touching Assistance-helper provides verbal cues and/or touching/steadying and/or contact guard assistance as patient completes activity. Assistance may be provided throughout the activity or intermittently. 3-Partial/Moderate Assistance-helper does LESS THAN HALF the effort. [place] lifts, holds or supports trunk or limbs, but provides less than half the effort. 2-Substantial/Maximal Assistance-helper does MORE THAN HALF the effort. [place] lifts or holds trunk or limbs and provides more than half the effort. 3-Wvtnyzbxe-wjwqfj does ALL the effort. Patient does none of the effort to complete the activity. Or, the assistance of 2 or more helpers is required for the patient to complete the activity. If activity was not attempted, code reason: 7-Patient Refused. 9-Not Applicable-not attempted and the patient did not perform the activity before the current illness, exacerbation or injury. 10-Not Attempted due to Environmental Limitations-(lack of equipment, weather restraints, etc.). 88-Not Attempted due to Medical Conditions or Safety Concerns. Roll Left to Right (QC): 6 Sit to Lying (QC): 6 Sit to Stand (QC): 3 Chair/Kjq-xh-Bozwh Xfer(QC): 4 Car Transfer (QC): 1 Gait Training Does the Patient Walk?: Yes Distance: 120'x4 Walk 10 feet (QC): 4 Walk 50 ft with 2 Turns(QC): 4 Walk 150 ft (QC): 4 Walking 10ft/uneven surface-QC: 88 Gait Persons Needed: 1 Gait Assistive Device: FWW Wheelchair Training Does the Pt Use a Wheelchair?: Yes Distance: 80' Wheel 50 ft with 2 turns (QC): 6 Wheel 150 ft (QC): 6 Type of Wheelchair: Manual Stair Training 1 Step (curb) (QC): 88 4 Steps (QC): 88 12 Steps (QC): 88 Balance Picking up an Object (QC): 88 ADL-Treatment Eating (QC): 6 (clinical judgement) Oral Hygiene (QC): 6 (clinical judgement) Bathing Location: L Arm, R Arm, L Upper Leg, R Upper Leg, L Lower Leg (including foot), R Lower Leg (including foot), Chest, Abdomen, Perineal Area Shower/Bathe Self (QC): 5 (Set up to place all supplies) Upper Body Dressing (QC): 5 (setup) Lower Body Dressing (QC): 5 On/Off Footwear (QC): 3 (help with AFO and one shoe.) Toileting Hygiene (QC): 4 Toilet Transfer (QC): 4 Assessment/Plan Assessment and Plan Assess & Plan/Chief Complaint Assessment: COVID-19 PNA myopathy Severe poor lung reserve Obesity New onset DM AF? Psoriasis of buttocks Shingles right flank 08/02/2020 Plan: Insulin Monitor lung function Cardiology consult 07/16/20: UA Replace potassium Slow recovery 07/17/20: IV abx Suspect resistant UTI 07/18/20: Monitor closely Await Ucx 07/19/20: Reviewed UCx DC Cefepime Irritated with IV's and lab checks 07/20/20: Monitor closely Sugars good 07/21/20: DC Heplock 07/22/20: Monitored closely BP ok 07/23/20: Monitor O2 Improved status now 07/24/2020: Continue limitation of carbs to decrease sugar Monitor oxygen level 07/25/2020 Check labs in the morning Monitor closely 07/26/2020: Discharge planned after review on Sunday Dramatic improvement Wean oxygen 07/27/20: Improved Weaned O2 07/28/20: Steroid cream for psoriasis Doing much better 07/30/2020: Chest x-ray reviewed Continue aggressive therapy 07/31/2020: Monitor closely Maintain oxygen 08/01/2020: Psoriasis treatment Monitor blood pressure Check labs in the morning 08/02/2020: Shingles treatment Monitor closely 08/03/2020: Continue shingles treatment Monitor closely Improved 08/04/2020: Valtrex to complete treatment for shingles Monitor closely 08/05/2020: Complete Valtrex Dramatic improvement now ambulating 08/06/2020: Dramatically improved Ambulating well Monitor closely 08/07/2020: Dramatic improvement Increased ambulation 08/08/2020: Improved status Monitor closely 08/09/2020: Continue shingles treatment for full 10 days Monitor oxygen 08/10/2020: Continue aggressive therapy Build stamina 08/11/20: DC 08/19/20 Monitor closely Dramatic improvement 08/12/2020: No major issues Continue monitoring 08/13/2020: DC isolation Discontinue Valtrex 08/14/2020: Continue aggressive therapy Discharge next week 08/15/2020: Continue aggressive therapy (1) Myopathy (2) COVID-19 (3) Obesity (4) Diabetes mellitus NATHANAEL HOWE DO Aug 15, 2020 05:59
[2020-08-15 07:30] VITALS: BP 113/67
[2020-08-15] MEDS: LACTOBACILLUS ACIDOPHILUS (PROBIOTIC) CAPSULE PO SCH ×2 (08:44→21:50)
[2020-08-15] MEDS: ASCORBIC ACID (VIT C) 500 MG TABLET PO SCH (08:44)
[2020-08-15] MEDS: KCL 10 MEQ TAB (MICRO K) PO SCH ×3 (08:44→17:29)
[2020-08-15] MEDS: amLODIPine 10 MG (NORVASC) TAB PO SCH (08:44)
[2020-08-15] MEDS: VITAMIN D3 125 MCG (5,000 UNITS) CAPSULE PO SCH (08:44)
[2020-08-15] MEDS: lisINopril 20 MG (PRINIVIL) TABLET PO SCH (08:44)
[2020-08-15] MEDS: PANTOPRAZOLE 40 MG (PROTONIX) TAB PO SCH (08:44)
[2020-08-15] MEDS: APIXABAN 5 MG (ELIQUIS) TABLET PO SCH ×2 (08:44→21:50)
[2020-08-15] MEDS: polyethylene glycoL POWDER 17 GM (MIRALAX) PACK PO SCH ×2 (09:20→21:54)
[2020-08-15] MEDS: DOCUSATE SODIUM 100 MG (COLACE) CAP PO SCH ×2 (09:20→21:54)
[2020-08-15] MEDS: TRIAMCINOLONE 0.1% CR (KENALOG) 15 GM TUBE TOP SCH ×2 (09:21→21:50)
[2020-08-15] MEDS: SENNA W/DOCUSATE (SENOKOT S) TABLET PO SCH ×2 (09:21→21:54)
[2020-08-15] MEDS: diphenhydrAMINE 25 MG TAB (BENADRYL) PO PRN ×2 (10:52→21:49)
[2020-08-15 20:28] VITALS: BP 155/79
[2020-08-15] MEDS: MELATONIN 10 MG TABLET PO SCH (21:54)
[2020-08-16 06:38] LABS: BASOPHILS % (AUTO) 0 % (0-10); EOSINOPHILS # (AUTO) 0.3 10^3/uL (0.0-0.3); EOSINOPHILS % (AUTO) 4 % (0-10); HEMATOCRIT 44 % (40-54); HEMOGLOBIN 13.8 g/dL (13.3-17.7); LYMPHOCYTES # (AUTO) 1.7 10^3/uL (1.0-4.0); LYMPHOCYTES % (AUTO) 18 % (12-44); MEAN CORPUSCULAR HEMOGLOBIN 28 pg (25-34); MEAN CORPUSCULAR HGB CONC 32 g/dL (32-36); MEAN CORPUSCULAR VOLUME 90 fL (80-99); MEAN PLATELET VOLUME 10.3 fL (9.0-12.2); MONOCYTES # (AUTO) 0.5 10^3/uL (0.0-1.0); MONOCYTES % (AUTO) 6 % (0-12); NEUTROPHILS # (AUTO) 6.6 10^3/uL (1.8-7.8); NEUTROPHILS % (AUTO) 71 % (42-75); PLATELET COUNT 248 10^3/uL (130-400); WHITE BLOOD COUNT 9.3 10^3/uL (4.3-11.0)
[2020-08-16 06:51] LABS: ALBUMIN 3.4 GM/DL (3.2-4.5)
[2020-08-16 06:52] LABS: CHLORIDE 108 MMOL/L (98-107); POTASSIUM 3.2 MMOL/L (3.6-5.0); SODIUM 145 MMOL/L (135-145)
[2020-08-16 06:53] LABS: CALCIUM 8.6 MG/DL (8.5-10.1)
[2020-08-16 06:54] LABS: GLUCOSE 129 MG/DL (70-105); TOTAL PROTEIN 5.8 GM/DL (6.4-8.2)
[2020-08-16 06:55] LABS: CARBON DIOXIDE 25 MMOL/L (21-32)
[2020-08-16 06:56] LABS: BILIRUBIN,TOTAL 0.3 MG/DL (0.1-1.0)
[2020-08-16 06:58] LABS: ALKALINE PHOSPHATASE 91 U/L (40-136); CREATININE SERUM 0.69 MG/DL (0.60-1.30); GFR ESTIMATED > 60
[2020-08-16 06:59] LABS: BUN/CREATININE RATIO 20
[2020-08-16 07:01] LABS: ALANINE AMINOTRANSFERASE 20 U/L (0-55)
[2020-08-16 07:42] VITALS: BP 123/71
[2020-08-16] MEDS: VITAMIN D3 125 MCG (5,000 UNITS) CAPSULE PO SCH (08:29)
[2020-08-16] MEDS: amLODIPine 10 MG (NORVASC) TAB PO SCH (08:29)
[2020-08-16] MEDS: LACTOBACILLUS ACIDOPHILUS (PROBIOTIC) CAPSULE PO SCH ×2 (08:30→21:32)
[2020-08-16] MEDS: KCL 10 MEQ TAB (MICRO K) PO SCH ×3 (08:30→17:48)
[2020-08-16] MEDS: PANTOPRAZOLE 40 MG (PROTONIX) TAB PO SCH (08:30)
[2020-08-16] MEDS: APIXABAN 5 MG (ELIQUIS) TABLET PO SCH ×2 (08:30→21:32)
[2020-08-16] MEDS: ASCORBIC ACID (VIT C) 500 MG TABLET PO SCH (08:30)
[2020-08-16] MEDS: lisINopril 20 MG (PRINIVIL) TABLET PO SCH (08:30)
[2020-08-16] MEDS: SENNA W/DOCUSATE (SENOKOT S) TABLET PO SCH ×2 (08:53→21:37)
[2020-08-16] MEDS: DOCUSATE SODIUM 100 MG (COLACE) CAP PO SCH ×2 (08:53→21:37)
[2020-08-16] MEDS: polyethylene glycoL POWDER 17 GM (MIRALAX) PACK PO SCH ×2 (08:53→21:37)
--- NOTE | 2020-08-16 10:17 | PM&R Progress Note ---
Subjective HPI/CC On Admission Date Seen by Provider: Aug 16, 2020 Time Seen by Provider: 10:20 Subjective/Events-last exam 08/16/2020: Patient doing really well Shingles wound looks good Blood sugar 127 Doing really well otherwise 08/15/2020: Patient having no issues Monitoring closely Discharge plan for 08/14/2020: Patient doing really well No major issues Bowels moved yesterday Talked about Covid vaccine and recent study reveals not necessary and may be harmful after severe case of Covid 08/13/2020: Patient doing pretty well Shingles now resolved Discontinue Valtrex Discontinue isolation Bowels move 2 days ago 08/12/2020: Patient having no issues Discharge planning for next week Talked about finding a primary care provider I may provide televisit and refills until he is established with someone 08/11/20: Pt doing really well Discontinuing the Desonex Bowels moved two days ago Dramatic recovery DC 08/19/20 08/10/2020: Pt doing really well Shingles resolving No pain is reported Oxygen is doing well 08/09/2020: Pt doing very well Completing Valtrex for 10 days because the blisters are still present but much improved Overall doing well 08/08/2020: Doing very well Bowels are moving well Breathing well Needs to work on stairs and getting up without help 08/07/2020: Patient dramatically improved Bowels moved today Shingles improved Doing extremely well 08/06/20: Patient dramatically improving Ambulating very well now Working on standing stronger No complaints 08/05/2020: Patient dramatically improved Walking now with therapy with frequent stops No bedpan will be used now Shingles pain improved 08/04/2020: Patient doing pretty well Shingles improved Walking a bit now Working hard to regain independence No bowel movement for 3 days but he does take laxatives Blood sugar is good 08/03/2020: Patient doing really well today Shingles much improved Bowels moved yesterday and it was large Standing a bit more 08/02/2020: Patient doing pretty well Steroid cream on psoriasis on buttocks Area on back really bothers him when I assessed it today because it was just a very subtle pink patch now it has blisters consistent with shingles We will start on Valtrex Had a good bowel movement today 08/01/2020: Patient has no major concerns Pain meds are tolerated Still using sit to stand Overall feels like he is improving 07/31/20: Patient doing really well No major concerns Slowly progressing Bowels are moving pretty well 07/30/20: Patient doing pretty well Ambulating around a little more Chest x-ray pending 91% on room air 07/28/20: Pt dong pretty well Took eight steps today No oxygen now Steroid cream to be placed on psoriasis initiated 07/27/20: Pt doing a lot better Bowels moving today Off O2 and running 91% Overall much improved 07/26/2020: Patient doing really well Potassium 3.5 usually refusing to take it Sugars are doing well He is running 90% off oxygen Dramatic improvement 07/25/2020 Patient denies any issues Improving strength by the day Due for labs tomorrow Family at bedside 07/24/2020: Patient doing really well today On oxygen at 1.5 L/min Had a large bowel movement Sugars are okay Hates the carb limitations Girlfriend and his mother at the bedside today 07/23/20: Pt up in a chair and appears to be much stronger 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 in a chair for very long Blood sugar 141 Left foot drop is an issue 07/22/20: Patient doing well Baseline flat affect assessed Had complete bowel evacuation yesterday after Fleets after supp EKG today per Dr Rinaldi Monitored closely 07/21/20: Pt doing pretty well Slow progress Will DC the heplock Sugar changes to twice daily and will give 3 units of Novolog if greater than 160 Trach dressing changed and it is sealing up well Bowels moved yesterday 07/20/20: Pt doing pretty well Bowels moved two days ago, doesnt want anything too harsh Oxygen maintained Working hard Progressing nicely 07/19/20: Pt doing pretty well Respiratory therapy tried to wean him off and he became very hypoxic Weakness in hands are a challenge for him to shave DC Cefepime and starting Omnicef Doesnt really like IVs and lab checks and made that pretty clear to me 07/18/20: Patient doing well Diarrhea noted UTI treated with IV abx UCx pending 07/17/20: Patient doing well No complaints Awaiting UCx Empiric abx maintained Aunt at bedside O2 at 1L/min Sugar improved 07/16/20: Pt doing pretty well Potassium of 2.7 so will initiate supplement Dr. Rinaldi is seeing him in consultation EKG obtained and normal sinus rhythm noted UA ordered for burning sensation on urination Pt very debilitated Review of Systems General: Fatigue, Malaise Objective Exam Vital Signs Vital Signs Date Time Temp Pulse Resp B/P (MAP) Pulse Ox O2 Delivery O2 Flow Rate FiO2 08/16/20 20:15 91 Room Air 08/16/20 20:00 36.8 87 18 153/77 (102) 08/16/20 07:08 0.00 Capillary Refill : General Appearance: No Apparent Distress, WD/WN, Obese HEENT: PERRL/EOMI, Normal ENT Inspection, Pharynx Normal Neck: Full Range of Motion, Normal Inspection, Non Tender, Supple, Carotid Bruit Respiratory: Chest Non Tender, Lungs Clear, No Accessory Muscle Use, No Respiratory Distress, Decreased Breath Sounds Cardiovascular: Regular Rate, Rhythm, No Edema, No Gallop, No JVD, No Murmur, Normal Peripheral Pulses Gastrointestinal: Normal Bowel Sounds, No Organomegaly, No Pulsatile Mass, Non Tender, Soft Back: Normal Inspection, No CVA Tenderness, No Vertebral Tenderness Extremity: Normal Capillary Refill, Normal Inspection, Normal Range of Motion, Non Tender, No Calf Tenderness, No Pedal Edema Neurologic/Psychiatric: Alert, Oriented x3, No Motor/Sensory Deficits, Normal Mood/Affect, filler feeder II-XII Norm as Tested, Abnormal Gait (can't ambulate), Motor Weakness (severe 1/5 strength all extremities) Skin: Normal Color, Warm/Dry Lymphatic: No Adenopathy Results/Procedures Lab Laboratory Tests 08/16/20 06:20 Patient resulted labs reviewed. FIM Transfers Therapy Code Descriptions/Definitions Functional [place] Measure: 0=Not Assessed/NA 4=Minimal Assistance 1=Total Assistance 5=Supervision or Setup 2=Maximal Assistance 6=Modified [place] 3=Moderate Assistance 7=Complete IndependenceSCALE: Activities may be completed with or without assistive devices. 4-Flzenafvly-nvwiaxo completes the activity by him/herself with no assistance from a helper. 5-Set-up or Clean-up Assistance-helper sets up or cleans up; patient completes activity. [place] assists only prior to or following the activity. 4-Supervision or Touching Assistance-helper provides verbal cues and/or touching/steadying and/or contact guard assistance as patient completes activity. Assistance may be provided throughout the activity or intermittently. 3-Partial/Moderate Assistance-helper does LESS THAN HALF the effort. [place] lifts, holds or supports trunk or limbs, but provides less than half the effort. 2-Substantial/Maximal Assistance-helper does MORE THAN HALF the effort. [place] lifts or holds trunk or limbs and provides more than half the effort. 3-Ulkxhyiqx-tgacxg does ALL the effort. Patient does none of the effort to complete the activity. Or, the assistance of 2 or more helpers is required for the patient to complete the activity. If activity was not attempted, code reason: 7-Patient Refused. 9-Not Applicable-not attempted and the patient did not perform the activity before the current illness, exacerbation or injury. 10-Not Attempted due to Environmental Limitations-(lack of equipment, weather restraints, etc.). 88-Not Attempted due to Medical Conditions or Safety Concerns. Roll Left to Right (QC): 6 Sit to Lying (QC): 6 Sit to Stand (QC): 3 Chair/Tme-ib-Bggcw Xfer(QC): 4 Car Transfer (QC): 1 Gait Training Does the Patient Walk?: Yes Distance: 120'x4 Walk 10 feet (QC): 4 Walk 50 ft with 2 Turns(QC): 4 Walk 150 ft (QC): 4 Walking 10ft/uneven surface-QC: 88 Gait Persons Needed: 1 Gait Assistive Device: FWW Wheelchair Training Does the Pt Use a Wheelchair?: Yes Distance: 80' Wheel 50 ft with 2 turns (QC): 6 Wheel 150 ft (QC): 6 Type of Wheelchair: Manual Stair Training 1 Step (curb) (QC): 88 4 Steps (QC): 88 12 Steps (QC): 88 Balance Picking up an Object (QC): 88 ADL-Treatment Eating (QC): 6 (clinical judgement) Oral Hygiene (QC): 6 (clinical judgement) Bathing Location: L Arm, R Arm, L Upper Leg, R Upper Leg, L Lower Leg (including foot), R Lower Leg (including foot), Chest, Abdomen, Perineal Area Shower/Bathe Self (QC): 5 (Set up to place all supplies) Upper Body Dressing (QC): 5 (setup) Lower Body Dressing (QC): 5 On/Off Footwear (QC): 3 (help with AFO and one shoe.) Toileting Hygiene (QC): 4 Toilet Transfer (QC): 4 Assessment/Plan Assessment and Plan Assess & Plan/Chief Complaint Assessment: COVID-19 PNA myopathy Severe poor lung reserve Obesity New onset DM AF? Psoriasis of buttocks Shingles right flank 08/02/2020 Plan: Insulin Monitor lung function Cardiology consult 07/16/20: UA Replace potassium Slow recovery 07/17/20: IV abx Suspect resistant UTI 07/18/20: Monitor closely Await Ucx 07/19/20: Reviewed UCx DC Cefepime Irritated with IV's and lab checks 07/20/20: Monitor closely Sugars good 07/21/20: DC Heplock 07/22/20: Monitored closely BP ok 07/23/20: Monitor O2 Improved status now 07/24/2020: Continue limitation of carbs to decrease sugar Monitor oxygen level 07/25/2020 Check labs in the morning Monitor closely 07/26/2020: Discharge planned after review on Sunday Dramatic improvement Wean oxygen 07/27/20: Improved Weaned O2 07/28/20: Steroid cream for psoriasis Doing much better 07/30/2020: Chest x-ray reviewed Continue aggressive therapy 07/31/2020: Monitor closely Maintain oxygen 08/01/2020: Psoriasis treatment Monitor blood pressure Check labs in the morning 08/02/2020: Shingles treatment Monitor closely 08/03/2020: Continue shingles treatment Monitor closely Improved 08/04/2020: Valtrex to complete treatment for shingles Monitor closely 08/05/2020: Complete Valtrex Dramatic improvement now ambulating 08/06/2020: Dramatically improved Ambulating well Monitor closely 08/07/2020: Dramatic improvement Increased ambulation 08/08/2020: Improved status Monitor closely 08/09/2020: Continue shingles treatment for full 10 days Monitor oxygen 08/10/2020: Continue aggressive therapy Build stamina 08/11/20: DC 08/19/20 Monitor closely Dramatic improvement 08/12/2020: No major issues Continue monitoring 08/13/2020: DC isolation Discontinue Valtrex 08/14/2020: Continue aggressive therapy Discharge next week 08/15/2020: Continue aggressive therapy 08/16/2020: Stop Levemir Monitor closely Discharge on (1) Myopathy (2) COVID-19 (3) Obesity (4) Diabetes mellitus NATHANAEL HOWE DO Aug 16, 2020 10:17
--- NOTE | 2020-08-16 10:54 | Physical Therapy Daily Note ---
PT Daily Note-Current Subjective Patient in therapy gym pre tx, agrees to PT, has no complaints of pain. Appearance Patient in bed post tx with nurse call, phone, tray, all needs met. Mental Status Patient Orientation: Normal For Age Transfers SCALE: Activities may be completed with or without assistive devices. 4-Tmimojwqry-ytjdzfy completes the activity by him/herself with no assistance from a helper. 5-Set-up or Clean-up Assistance-helper sets up or cleans up; patient completes activity. [place] assists only prior to or following the activity. 4-Supervision or Touching Assistance-helper provides verbal cues and/or touching/steadying and/or contact guard assistance as patient completes activity. Assistance may be provided throughout the activity or intermittently. 3-Partial/Moderate Assistance-helper does LESS THAN HALF the effort. [place] lifts, holds or supports trunk or limbs, but provides less than half the effort. 2-Substantial/Maximal Assistance-helper does MORE THAN HALF the effort. [place] lifts or holds trunk or limbs and provides more than half the effort. 3-Lrnyfxrbf-ocntkm does ALL the effort. Patient does none of the effort to complete the activity. Or, the assistance of 2 or more helpers is required for the patient to complete the activity. If activity was not attempted, code reason: 7-Patient Refused. 9-Not Applicable-not attempted and the patient did not perform the activity before the current illness, exacerbation or injury. 10-Not Attempted due to Environmental Limitations-(lack of equipment, weather restraints, etc.). 88-Not Attempted due to Medical Conditions or Safety Concerns. Roll Left & Right (QC): 6 Sit to Lying (QC): 6 Sit to Stand (QC): 4 Chair/Unj-nx-Tzfgj Xfer(QC): 4 Weight Bearing Full Weight Bearing Full Weight Bearing Gait Training Distance: 200'x2 Walk 10 feet (QC): 4 Walk 50 ft with 2 Turns(QC): 4 Walk 150 ft (QC): 4 Gait Assistive Device: FWW SBA, brisk but steady ambulation, very SOB afterward Wheelchair Training Does the Pt Use a Wheelchair?: Yes Wheel 50 ft with 2 turns (QC): 6 Wheel 150 ft (QC): 6 Type of Wheelchair: Manual Stair Training Stair Training: Handrails/: 2 handrails #of Steps: 2 1 Step (curb) (QC): 4 Stairs: Pattern: Step to CGA Exercises NuStep Minutes: 15 NuStep Workload: 4 Treatments bed mobility and transfers, ambulation, stairs, functional strengthening Assessment Current Status: Fair Progress improving endurance and LE strength, patient performed a couple of stairs for the first time. Patient continues to have significant SOB and fatigue with activity, needs many rest breaks. PT Short Term Goals Short Term Goals Time Frame: July 22, 2020 Roll Left & Right: 4 Sit to lyin Lying to sitting on side of be: 3 PT M[facility] Goals Ux Developer Goals PT Mcc Goals Time Frame: Aug 19, 2020 Roll Left & Right (QC): 6 Sit to Lying (QC): 6 Lying-Sitting on Side/Bed(QC): 6 Sit to Stand (QC): 4 Chair/Zqy-ai-Lhmcp Xfer(QC): 4 Toilet Transfer (QC): 4 Car Transfer (QC): 4 Does the Patient Walk: Yes Walk 10 feet (QC): 4 Walk 50ft with 2 Turns (QC): 4 Walk 150 ft (QC): 4 Walking 10ft on Uneven Surface: 4 1 Step (curb) (QC): 88 4 Steps (QC): 88 12 Steps (QC): 88 Picking up an Object (QC): 88 Wheel 50 feet with 2 turns (QC: 6 Wheel 150 feet: 6 PT Plan Problem List Problem List: Activity Tolerance, Functional Strength, Safety, Balance, Gait, Transfer, Bed Mobility, ROM Treatment/Plan Treatment Plan: Continue Plan of Care Treatment Plan: Bed Mobility, Education, Functional Activity Cierra, Functional Strength, Group Therapy, Gait, Safety, Therapeutic Exercise, Transfers Treatment Duration: Aug 05, 2020 Frequency: Modified Program (IRF) Estimated Hrs Per Day: 1 hour per day Patient and/or Family Agrees t: Yes Safety Risks/Education Patient Education: Gait Training, Transfer Techniques, Steps, Correct Positioning, Safety Issues Teaching Recipient: Patient Teaching Methods: Demonstration, Discussion Response to Teaching: Reinforcement Needed Time/GCodes Time In: 1000 Time Out: 1100 Total Billed Treatment Time: 60 Total Billed Treatment 1 visit EX 15' FA 45' LIZ MI PT Aug 16, 2020 10:54
--- NOTE | 2020-08-16 11:22 | Occupational Ther Daily Note ---
OT Current Status-Daily Note Subjective Pt seen in room, up in bed, agreeable to OT.No pain mentioned. Appearance Alert, cooperative. Anticipating discharge to home on . ADL-Treatment Pt discussed equipment that he will have at home. Does not have a recliner but does have chairs with arms. He has an alternative plan if his mattress is too soft. Very actively involved in discharge planning. Sup to sit without assistance with HOB up a little. Sit to stand without help. Walked SBA, FWW to bathroom. Stood by shower to undress with SBA, including stepping out of shorts. No help to transfer on to shower chair, using grab bars. He turned water on and off and retrieved towels to dry. Bathed mod I, with shower chair and hand held shower. He dressed upper body with setup and lower body also with setup, needing no help to stand to manage clothing. He walked SBA, FWW to bed where he put on socks and shoes, including L shoe with AFO, with setup. He needed several trials but was very pleased to accomplish this task. He transferred with SBA to w/c, then brushed his teeth and shaved mod I at chair level. He required recovery breaks throughout but paced himself and took breaks as needed. Therapy Code Descriptions/Definitions Functional [place] Measure: 0=Not Assessed/NA 4=Minimal Assistance 1=Total Assistance 5=Supervision or Setup 2=Maximal Assistance 6=Modified [place] 3=Moderate Assistance 7=Complete IndependenceSCALE: Activities may be completed with or without assistive devices. 5-Mmqdzwhemc-iuaxbkz completes the activity by him/herself with no assistance from a helper. 5-Set-up or Clean-up Assistance-helper sets up or cleans up; patient completes activity. [place] assists only prior to or following the activity. 4-Supervision or Touching Assistance-helper provides verbal cues and/or touching/steadying and/or contact guard assistance as patient completes activity. Assistance may be provided throughout the activity or intermittently. 3-Partial/Moderate Assistance-helper does LESS THAN HALF the effort. [place] lifts, holds or supports trunk or limbs, but provides less than half the effort. 2-Substantial/Maximal Assistance-helper does MORE THAN HALF the effort. [place] lifts or holds trunk or limbs and provides more than half the effort. 5-Vnojnkufk-trnlvd does ALL the effort. Patient does none of the effort to complete the activity. Or, the assistance of 2 or more helpers is required for the patient to complete the activity. If activity was not attempted, code reason: 7-Patient Refused. 9-Not Applicable-not attempted and the patient did not perform the activity before the current illness, exacerbation or injury. 10-Not Attempted due to Environmental Limitations-(lack of equipment, weather restraints, etc.). 88-Not Attempted due to Medical Conditions or Safety Concerns. Oral Hygiene (QC): 6 (w/c level) Shower/Bathe Self (QC): 6 (retrieved towels and turned water on/off. Washed and dried all parts.) Upper Body Dressing (QC): 5 Lower Body Dressing (QC): 5 On/Off Footwear: 5 Other Treatment Pt propelled w/c to gym without help. he completed bilat UE exercises to help strengthen arms to help with ADLs and functional mobility. Elbow flex, pron/sup, wrist flex and ext with 3# for 20 reps. Triceps reach 20 reps 3#. Shoulder flex 10 reps x 2 sets 2#, with good form. Shoulder abd 5 reps x 2 sets 2#. w/c pushups 5 reps x 2 sets. Required recovery breaks but managed time himself. Pt left up in w/c, all needs met. Education OT Patient Education: Exercise program, Modified ADL techniques, Progress toward Goal/Update tx plan, Purpose of tx/functional activities Teaching Recipient: Patient Teaching Methods: Discussion Response to Teaching: Verbalize Understanding, Return Demonstration OT Short Term Goals Short Term Goals Time Frame: Aug 05, 2020 Toileting hygiene: 2 Upper body dressin Lower body dressin Putting on/taking off footwear: 2 OT Residential Goals Funder Goals Time Frame: Aug 20, 2020 Eating (QC): 6 Oral Hygiene (QC): 6 Toileting Hygiene (QC): 6 Shower/Bathe Self (QC): 6 Upper Body Dressing (QC): 6 Lower Body Dressing (QC): 6 On/Off Footwear (QC): 6 Additional Goals: 1-Demonstrate ADL Tasks, 2-Verbalize Understanding, 3-Impro veStrength/Cierra 1=Demonstrate adherence to instructed precautions during ADL tasks. 2=Patient will verbalize/demonstrate understanding of assistive devices/modifications for ADL. 3=Patient will improve strength/tolerance for activity to enable patient to perform ADL's. OT Education/Plan Discharge Recommendations Plan/Recommendations: Continue POC Treatment Plan/Plan of Care Patient would benefit from OT for education, treatment and training to promote independence in ADL's, mobility, safety and/or upper extremity function for ADL's. Plan of Care: ADL Retraining, Functional Mobility, Group Exercise/Act as Ind, UE Funct Exercise/Act Treatment Duration: Aug 13, 2020 Frequency: Modified Program (IRF) Estimated Hrs Per Day: 1 hour per day Agreement: Yes Rehab Potential: Good Time/GCodes Start Time: 08:45 Stop Time: 10:00 Total Time Billed (hr/min): 75 Billed Treatment Time visit, 60 minutes ADL, 15 minutes exercise SHERRILL SALDAÑA OT Aug 16, 2020 11:21
--- NOTE | 2020-08-16 14:16 | Physical Therapy Daily Note ---
PT Daily Note-Current Subjective Patient in bed pre tx, agrees to PT, has no complaints of pain. Appearance Patient in bed post tx with nurse call, phone, tray, all needs met. Mental Status Patient Orientation: Normal For Age Transfers SCALE: Activities may be completed with or without assistive devices. 4-Frfpskkwbr-ujuanqw completes the activity by him/herself with no assistance from a helper. 5-Set-up or Clean-up Assistance-helper sets up or cleans up; patient completes activity. [place] assists only prior to or following the activity. 4-Supervision or Touching Assistance-helper provides verbal cues and/or touching/steadying and/or contact guard assistance as patient completes activity. Assistance may be provided throughout the activity or intermittently. 3-Partial/Moderate Assistance-helper does LESS THAN HALF the effort. [place] lifts, holds or supports trunk or limbs, but provides less than half the effort. 2-Substantial/Maximal Assistance-helper does MORE THAN HALF the effort. [place] lifts or holds trunk or limbs and provides more than half the effort. 0-Cpnbekwqt-yawzyr does ALL the effort. Patient does none of the effort to complete the activity. Or, the assistance of 2 or more helpers is required for the patient to complete the activity. If activity was not attempted, code reason: 7-Patient Refused. 9-Not Applicable-not attempted and the patient did not perform the activity before the current illness, exacerbation or injury. 10-Not Attempted due to Environmental Limitations-(lack of equipment, weather restraints, etc.). 88-Not Attempted due to Medical Conditions or Safety Concerns. Weight Bearing Full Weight Bearing Full Weight Bearing Exercises Supine Ex: Bridging, Ankle pumps (RLE only), Quad Set, Glut sets, Heel Slides, Short Arc Quads, Straight leg raise, Hip abd/add Supine Reps: 20 (all AROM) Treatments LE strengthening Assessment Current Status: Fair Progress improving LE strength, less rest breaks PT Short Term Goals Short Term Goals Time Frame: July 22, 2020 Roll Left & Right: 4 Sit to lyin Lying to sitting on side of be: 3 PT [facility] Goals Student Support Services Director Goals PT [facility] Goals Time Frame: Aug 19, 2020 Roll Left & Right (QC): 6 Sit to Lying (QC): 6 Lying-Sitting on Side/Bed(QC): 6 Sit to Stand (QC): 4 Chair/Qzj-ls-Kgdls Xfer(QC): 4 Toilet Transfer (QC): 4 Car Transfer (QC): 4 Does the Patient Walk: Yes Walk 10 feet (QC): 4 Walk 50ft with 2 Turns (QC): 4 Walk 150 ft (QC): 4 Walking 10ft on Uneven Surface: 4 1 Step (curb) (QC): 88 4 Steps (QC): 88 12 Steps (QC): 88 Picking up an Object (QC): 88 Wheel 50 feet with 2 turns (QC: 6 Wheel 150 feet: 6 PT Plan Problem List Problem List: Activity Tolerance, Functional Strength, Safety, Balance, Gait, T ransfer, Bed Mobility, ROM Treatment/Plan Treatment Plan: Continue Plan of Care Treatment Plan: Bed Mobility, Education, Functional Activity Cierra, Functional Strength, Group Therapy, Gait, Safety, Therapeutic Exercise, Transfers Treatment Duration: Aug 05, 2020 Frequency: Modified Program (IRF) Estimated Hrs Per Day: 1 hour per day Patient and/or Family Agrees t: Yes Safety Risks/Education Patient Education: Correct Positioning, Safety Issues Teaching Recipient: Patient Teaching Methods: Demonstration, Discussion Response to Teaching: Reinforcement Needed Time/GCodes Time In: 1400 Time Out: 1415 Total Billed Treatment Time: 15 Total Billed Treatment 1 visit EX LIZ SALAMANCA PT Aug 16, 2020 14:16
[2020-08-16] MEDS: TRIAMCINOLONE 0.1% CR (KENALOG) 15 GM TUBE TOP SCH ×2 (17:36→21:37)
[2020-08-16 20:00] VITALS: BP 153/77
[2020-08-16] MEDS: MELATONIN 10 MG TABLET PO SCH (21:37)
[2020-08-17 07:54] VITALS: BP 139/63
[2020-08-17] MEDS: APIXABAN 5 MG (ELIQUIS) TABLET PO SCH ×2 (08:34→21:11)
[2020-08-17] MEDS: ASCORBIC ACID (VIT C) 500 MG TABLET PO SCH (08:34)
[2020-08-17] MEDS: lisINopril 20 MG (PRINIVIL) TABLET PO SCH (08:34)
[2020-08-17] MEDS: LACTOBACILLUS ACIDOPHILUS (PROBIOTIC) CAPSULE PO SCH ×2 (08:34→21:11)
[2020-08-17] MEDS: amLODIPine 10 MG (NORVASC) TAB PO SCH (08:34)
[2020-08-17] MEDS: PANTOPRAZOLE 40 MG (PROTONIX) TAB PO SCH (08:34)
[2020-08-17] MEDS: KCL 10 MEQ TAB (MICRO K) PO SCH ×3 (08:34→17:55)
[2020-08-17] MEDS: VITAMIN D3 125 MCG (5,000 UNITS) CAPSULE PO SCH (08:35)
--- NOTE | 2020-08-17 09:41 | PM&R Progress Note ---
Subjective HPI/CC On Admission Date Seen by Provider: Aug 17, 2020 Time Seen by Provider: 09:00 Subjective/Events-last exam 08/17/2020: Patient has no new issues except some sort of allergic reaction after evening medication given last night and 2 nights ago Benadryl was given and resolve the issue I will do a medication profile eval 08/16/2020: Patient doing really well Shingles wound looks good Blood sugar 127 Doing really well otherwise 08/15/2020: Patient having no issues Monitoring closely Discharge plan for 08/14/2020: Patient doing really well No major issues Bowels moved yesterday Talked about Covid vaccine and recent study reveals not necessary and may be harmful after severe case of Covid 08/13/2020: Patient doing pretty well Shingles now resolved Discontinue Valtrex Discontinue isolation Bowels move 2 days ago 08/12/2020: Patient having no issues Discharge planning for next week Talked about finding a primary care provider I may provide televisit and refills until he is established with someone 08/11/20: Pt doing really well Discontinuing the Desonex Bowels moved two days ago Dramatic recovery DC 08/19/20 08/10/2020: Pt doing really well Shingles resolving No pain is reported Oxygen is doing well 08/09/2020: Pt doing very well Completing Valtrex for 10 days because the blisters are still present but much improved Overall doing well 08/08/2020: Doing very well Bowels are moving well Breathing well Needs to work on stairs and getting up without help 08/07/2020: Patient dramatically improved Bowels moved today Shingles improved Doing extremely well 08/06/20: Patient dramatically improving Ambulating very well now Working on standing stronger No complaints 08/05/2020: Patient dramatically improved Walking now with therapy with frequent stops No bedpan will be used now Shingles pain improved 08/04/2020: Patient doing pretty well Shingles improved Walking a bit now Working hard to regain independence No bowel movement for 3 days but he does take laxatives Blood sugar is good 08/03/2020: Patient doing really well today Shingles much improved Bowels moved yesterday and it was large Standing a bit more 08/02/2020: Patient doing pretty well Steroid cream on psoriasis on buttocks Area on back really bothers him when I assessed it today because it was just a very subtle pink patch now it has blisters consistent with shingles We will start on Valtrex Had a good bowel movement today 08/01/2020: Patient has no major concerns Pain meds are tolerated Still using sit to stand Overall feels like he is improving 07/31/20: Patient doing really well No major concerns Slowly progressing Bowels are moving pretty well 07/30/20: Patient doing pretty well Ambulating around a little more Chest x-ray pending 91% on room air 07/28/20: Pt dong pretty well Took eight steps today No oxygen now Steroid cream to be placed on psoriasis initiated 07/27/20: Pt doing a lot better Bowels moving today Off O2 and running 91% Overall much improved 07/26/2020: Patient doing really well Potassium 3.5 usually refusing to take it Sugars are doing well He is running 90% off oxygen Dramatic improvement 07/25/2020 Patient denies any issues Improving strength by the day Due for labs tomorrow Family at bedside 07/24/2020: Patient doing really well today On oxygen at 1.5 L/min Had a large bowel movement Sugars are okay Hates the carb limitations Girlfriend and his mother at the bedside today 07/23/20: Pt up in a chair and appears to be much stronger 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 in a chair for very long Blood sugar 141 Left foot drop is an issue 07/22/20: Patient doing well Baseline flat affect assessed Had complete bowel evacuation yesterday after Fleets after supp EKG today per Dr Rinaldi Monitored closely 07/21/20: Pt doing pretty well Slow progress Will DC the heplock Sugar changes to twice daily and will give 3 units of Novolog if greater than 160 Trach dressing changed and it is sealing up well Bowels moved yesterday 07/20/20: Pt doing pretty well Bowels moved two days ago, doesnt want anything too harsh Oxygen maintained Working hard Progressing nicely 07/19/20: Pt doing pretty well Respiratory therapy tried to wean him off and he became very hypoxic Weakness in hands are a challenge for him to shave DC Cefepime and starting Omnicef Doesnt really like IVs and lab checks and made that pretty clear to me 07/18/20: Patient doing well Diarrhea noted UTI treated with IV abx UCx pending 07/17/20: Patient doing well No complaints Awaiting UCx Empiric abx maintained Aunt at bedside O2 at 1L/min Sugar improved 07/16/20: Pt doing pretty well Potassium of 2.7 so will initiate supplement Dr. Rinaldi is seeing him in consultation EKG obtained and normal sinus rhythm noted UA ordered for burning sensation on urination Pt very debilitated Review of Systems General: Fatigue Objective Exam Vital Signs Vital Signs Date Time Temp Pulse Resp B/P (MAP) Pulse Ox O2 Delivery O2 Flow Rate FiO2 08/17/20 21:00 Room Air 08/17/20 20:00 37.1 98 18 140/74 (96) 92 08/16/20 07:08 0.00 Capillary Refill : General Appearance: No Apparent Distress, WD/WN, Obese HEENT: PERRL/EOMI, Normal ENT Inspection, Pharynx Normal Neck: Full Range of Motion, Normal Inspection, Non Tender, Supple, Carotid Bruit Respiratory: Chest Non Tender, Lungs Clear, No Accessory Muscle Use, No Respiratory Distress, Decreased Breath Sounds Cardiovascular: Regular Rate, Rhythm, No Edema, No Gallop, No JVD, No Murmur, Normal Peripheral Pulses Gastrointestinal: Normal Bowel Sounds, No Organomegaly, No Pulsatile Mass, Non Tender, Soft Back: Normal Inspection, No CVA Tenderness, No Vertebral Tenderness Extremity: Normal Capillary Refill, Normal Inspection, Normal Range of Motion, Non Tender, No Calf Tenderness, No Pedal Edema Neurologic/Psychiatric: Alert, Oriented x3, No Motor/Sensory Deficits, Normal Mood/Affect, roll plugger II-XII Norm as Tested, Abnormal Gait (can't ambulate), Motor Weakness (severe 1/5 strength all extremities) Skin: Normal Color, Warm/Dry Lymphatic: No Adenopathy Results/Procedures Lab Patient resulted labs reviewed. FIM Transfers Therapy Code Descriptions/Definitions Functional [place] Measure: 0=Not Assessed/NA 4=Minimal Assistance 1=Total Assistance 5=Supervision or Setup 2=Maximal Assistance 6=Modified [place] 3=Moderate Assistance 7=Complete IndependenceSCALE: Activities may be completed with or without assistive devices. 3-Jzlxhnxbiz-bsdztaj completes the activity by him/herself with no assistance from a helper. 5-Set-up or Clean-up Assistance-helper sets up or cleans up; patient completes activity. [place] assists only prior to or following the activity. 4-Supervision or Touching Assistance-helper provides verbal cues and/or touching/steadying and/or contact guard assistance as patient completes acti vity. Assistance may be provided throughout the activity or intermittently. 3-Partial/Moderate Assistance-helper does LESS THAN HALF the effort. [place] lifts, holds or supports trunk or limbs, but provides less than half the effort. 2-Substantial/Maximal Assistance-helper does MORE THAN HALF the effort. [place] lifts or holds trunk or limbs and provides more than half the effort. 5-Cjxtupoun-xgktrt does ALL the effort. Patient does none of the effort to complete the activity. Or, the assistance of 2 or more helpers is required for the patient to complete the activity. If activity was not attempted, code reason: 7-Patient Refused. 9-Not Applicable-not attempted and the patient did not perform the activity before the current illness, exacerbation or injury. 10-Not Attempted due to Environmental Limitations-(lack of equipment, weather restraints, etc.). 88-Not Attempted due to Medical Conditions or Safety Concerns. Roll Left to Right (QC): 6 Sit to Lying (QC): 6 Sit to Stand (QC): 4 Chair/Ssp-bu-Rwkys Xfer(QC): 4 Car Transfer (QC): 1 Gait Training Does the Patient Walk?: Yes Distance: 200'x2 Walk 10 feet (QC): 4 Walk 50 ft with 2 Turns(QC): 4 Walk 150 ft (QC): 4 Walking 10ft/uneven surface-QC: 88 Gait Persons Needed: 1 Gait Assistive Device: FWW Wheelchair Training Does the Pt Use a Wheelchair?: Yes Distance: 80' Wheel 50 ft with 2 turns (QC): 6 Wheel 150 ft (QC): 6 Type of Wheelchair: Manual Stair Training Stair Training: Handrails/: 2 handrails #of Steps: 2 1 Step (curb) (QC): 4 4 Steps (QC): 88 12 Steps (QC): 88 Stairs: Pattern: Step to Balance Picking up an Object (QC): 88 ADL-Treatment Eating (QC): 6 (clinical judgement) Oral Hygiene (QC): 6 (w/c level) Bathing Location: L Arm, R Arm, L Upper Leg, R Upper Leg, L Lower Leg (including foot), R Lower Leg (including foot), Chest, Abdomen, Perineal Area Shower/Bathe Self (QC): 6 (retrieved towels and turned water on/off. Washed and dried all parts.) Upper Body Dressing (QC): 5 Lower Body Dressing (QC): 5 On/Off Footwear (QC): 5 Toileting Hygiene (QC): 4 Toilet Transfer (QC): 4 Assessment/Plan Assessment and Plan Assess & Plan/Chief Complaint Assessment: COVID-19 PNA myopathy Severe poor lung reserve Obesity New onset DM AF? Psoriasis of buttocks Shingles right flank 08/02/2020 Plan: Insulin Monitor lung function Cardiology consult 07/16/20: UA Replace potassium Slow recovery 07/17/20: IV abx Suspect resistant UTI 07/18/20: Monitor closely Await Ucx 07/19/20: Reviewed UCx DC Cefepime Irritated with IV's and lab checks 07/20/20: Monitor closely Sugars good 07/21/20: DC Heplock 07/22/20: Monitored closely BP ok 07/23/20: Monitor O2 Improved status now 07/24/2020: Continue limitation of carbs to decrease sugar Monitor oxygen level 07/25/2020 Check labs in the morning Monitor closely 07/26/2020: Discharge planned after review on Sunday Dramatic improvement Wean oxygen 07/27/20: Improved Weaned O2 07/28/20: Steroid cream for psoriasis Doing much better 07/30/2020: Chest x-ray reviewed Continue aggressive therapy 07/31/2020: Monitor closely Maintain oxygen 08/01/2020: Psoriasis treatment Monitor blood pressure Check labs in the morning 08/02/2020: Shingles treatment Monitor closely 08/03/2020: Continue shingles treatment Monitor closely Improved 08/04/2020: Valtrex to complete treatment for shingles Monitor closely 08/05/2020: Complete Valtrex Dramatic improvement now ambulating 08/06/2020: Dramatically improved Ambulating well Monitor closely 08/07/2020: Dramatic improvement Increased ambulation 08/08/2020: Improved status Monitor closely 08/09/2020: Continue shingles treatment for full 10 days Monitor oxygen 08/10/2020: Continue aggressive therapy Build stamina 08/11/20: DC 08/19/20 Monitor closely Dramatic improvement 08/12/2020: No major issues Continue monitoring 08/13/2020: DC isolation Discontinue Valtrex 08/14/2020: Continue aggressive therapy Discharge next week 08/15/2020: Continue aggressive therapy 08/16/2020: Stop Levemir Monitor closely Discharge on 08/17/2020: Start Metformin Evaluate medication profile for an "allergic reaction" (1) Myopathy (2) COVID-19 (3) Obesity (4) Diabetes mellitus NATHANAEL HOWE DO Aug 17, 2020 09:41
[2020-08-17] MEDS: DOCUSATE SODIUM 100 MG (COLACE) CAP PO SCH ×2 (09:52→21:00)
[2020-08-17] MEDS: polyethylene glycoL POWDER 17 GM (MIRALAX) PACK PO SCH ×2 (09:52→21:00)
[2020-08-17] MEDS: SENNA W/DOCUSATE (SENOKOT S) TABLET PO SCH ×2 (09:52→21:00)
[2020-08-17] MEDS: TRIAMCINOLONE 0.1% CR (KENALOG) 15 GM TUBE TOP SCH ×2 (09:52→21:11)
--- NOTE | 2020-08-17 10:30 | Occupational Ther Daily Note ---
OT Current Status-Daily Note Subjective Pt alert, lying in bed. Pt agrees to therapy. No c/o pain. Pt states that he has shower chair, w/c, FWW, 4WW and bed rail at home already and is assessing need for grabbars. Mental Status/Objective Patient Orientation: Person, Place, Time, Situation ADL-Treatment 1st session ([id number]) Pt agrees to shower. Transfer into shower independently. Completes most of shower sitting on shower chair using grabbars and hand held shower, does stand using grabbars for stability to cleanse buttocks and kasi area independently. After set up, pt able to complete all dressing by self. Sitting in w/c at sink, pt complete oral care and grooming independently. After session, pt left in care of PT. All needs met. Therapy Code Descriptions/Definitions Functional [place] Measure: 0=Not Assessed/NA 4=Minimal Assistance 1=Total Assistance 5=Supervision or Setup 2=Maximal Assistance 6=Modified [place] 3=Moderate Assistance 7=Complete IndependenceSCALE: Activities may be completed with or without assistive devices. 2-Vqzyfxsdpp-jxposdg completes the activity by him/herself with no assistance from a helper. 5-Set-up or Clean-up Assistance-helper sets up or cleans up; patient completes activity. [place] assists only prior to or following the activity. 4-Supervision or Touching Assistance-helper provides verbal cues and/or touching/steadying and/or contact guard assistance as patient completes activity. Assistance may be provided throughout the activity or intermittently. 3-Partial/Moderate Assistance-helper does LESS THAN HALF the effort. [place] lifts, holds or supports trunk or limbs, but provides less than half the effort. 2-Substantial/Maximal Assistance-helper does MORE THAN HALF the effort. [place] lifts or holds trunk or limbs and provides more than half the effort. 5-Umepfjwrb-pdeddw does ALL the effort. Patient does none of the effort to complete the activity. Or, the assistance of 2 or more helpers is required for the patient to complete the activity. If activity was not attempted, code reason: 7-Patient Refused. 9-Not Applicable-not attempted and the patient did not perform the activity before the current illness, exacerbation or injury. 10-Not Attempted due to Environmental Limitations-(lack of equipment, weather restraints, etc.). 88-Not Attempted due to Medical Conditions or Safety Concerns. Eating (QC): 6 (Per clinical judgement, pt able to complete independently.) Oral Hygiene (QC): 6 Shower/Bathe Self (QC): 6 Upper Body Dressing (QC): 5 Lower Body Dressing (QC): 5 On/Off Footwear: 5 Other Treatment 2nd session([id number]) Supine <--> EOB independently. Modified SPT from bed <--> w/c independently. Pt propelled w/c to/from gym independently. Pt completed arm bike for 10 min at 25 white resistance going forward and heavy resistance going backward. No recovery breaks. Pt working on increasing activity tolerance and B UE strength for independent with activity of daily living skills. Pt sitting EOB at end of session, call light/phone in reach. All needs met in room. OT Short Term Goals Short Term Goals Time Frame: Aug 05, 2020 Toileting hygiene: 2 Upper body dressin Lower body dressin Putting on/taking off footwear: 2 OT Supervisor Sintering Plant Goals Supervisor [employer] Goals Time Frame: Aug 20, 2020 Eating (QC): 6 Oral Hygiene (QC): 6 Toileting Hygiene (QC): 6 Shower/Bathe Self (QC): 6 Upper Body Dressing (QC): 6 Lower Body Dressing (QC): 6 On/Off Footwear (QC): 6 Additional Goals: 1-Demonstrate ADL Tasks, 2-Verbalize Understanding, 3- ImproveStrength/Cierra 1=Demonstrate adherence to instructed precautions during ADL tasks. 2=Patient will verbalize/demonstrate understanding of assistive devices/modifications for ADL. 3=Patient will improve strength/tolerance for activity to enable patient to perform ADL's. OT Education/Plan Problem List/Assessment Assessment: Decreased Activ Tolerance, Decreased UE Strength, Impaired Funct Balance, Impaired Self-Care Skills Discharge Recommendations Plan/Recommendations: Continue POC Treatment Plan/Plan of Care Patient would benefit from OT for education, treatment and training to promote independence in ADL's, mobility, safety and/or upper extremity function for ADL's. Plan of Care: ADL Retraining, Functional Mobility, Group Exercise/Act as Ind, UE Funct Exercise/Act Treatment Duration: Aug 13, 2020 Frequency: Modified Program (IRF) Estimated Hrs Per Day: 1 hour per day Agreement: Yes Rehab Potential: Good Time/GCodes Start Time: 09:00 (1300) Stop Time: 10:00 (0) Total Time Billed (hr/min): 90 Billed Treatment Time 1 visit([id number]): ADL 4 (60 min) 1 visit([id number]): EX 2 (30 min) TYSON FISHER Aug 17, 2020 10:30
--- NOTE | 2020-08-17 11:13 | Physical Therapy Daily Note ---
PT Daily Note-Current Subjective Patient in therapy gym pre tx,agrees to PT, has no complaints of pain. Appearance Patient sitting EOB post tx with nurse call, phone, tray, all needs met. Mental Status Patient Orientation: Normal For Age Transfers SCALE: Activities may be completed with or without assistive devices. 2-Uwpyigsxgh-wmoagic completes the activity by him/herself with no assistance from a helper. 5-Set-up or Clean-up Assistance-helper sets up or cleans up; patient completes activity. [place] assists only prior to or following the activity. 4-Supervision or Touching Assistance-helper provides verbal cues and/or touching/steadying and/or contact guard assistance as patient completes activity. Assistance may be provided throughout the activity or intermittently. 3-Partial/Moderate Assistance-helper does LESS THAN HALF the effort. [place] lifts, holds or supports trunk or limbs, but provides less than half the effort. 2-Substantial/Maximal Assistance-helper does MORE THAN HALF the effort. [place] lifts or holds trunk or limbs and provides more than half the effort. 0-Hgtjiwxtv-ceuyjh does ALL the effort. Patient does none of the effort to complete the activity. Or, the assistance of 2 or more helpers is required for the patient to complete the activity. If activity was not attempted, code reason: 7-Patient Refused. 9-Not Applicable-not attempted and the patient did not perform the activity before the current illness, exacerbation or injury. 10-Not Attempted due to Environmental Limitations-(lack of equipment, weather restraints, etc.). 88-Not Attempted due to Medical Conditions or Safety Concerns. Sit to Stand (QC): 4 Chair/Fcy-jk-Iewof Xfer(QC): 4 SBA Weight Bearing Full Weight Bearing Full Weight Bearing Gait Training Distance: 200'x2 Walk 10 feet (QC): 4 Walk 50 ft with 2 Turns(QC): 4 Walk 150 ft (QC): 4 Gait Persons Needed: 1 Gait Assistive Device: FWW SBA, brisk ambulation, no LOB Wheelchair Training Does the Pt Use a Wheelchair?: Yes Wheel 50 ft with 2 turns (QC): 6 Wheel 150 ft (QC): 6 Type of Wheelchair: Manual 300' Stair Training Stair Training: Handrails/: 2 handrails #of Steps: 4 1 Step (curb) (QC): 4 4 Steps (QC): 4 Stairs: Pattern: Step to CGA, unsteady descending but no LOB or knee buckling Exercises Seated Therapy Exercises: Ankle pumps, Hip flexion Seated Reps: 20 LAQ alternating for 5 min NuStep Minutes: 15 NuStep Workload: 4 Treatments transfers, ambulation, functional strengthening, WC mobility Assessment Current Status: Fair Progress slowly improving strength and endurance, he is now able to go up/down 4 steps using 2 handrails, patient still needs frequent rest breaks due to SOB and fatigue PT Short Term Goals Short Term Goals Time Frame: July 22, 2020 Roll Left & Right: 4 Sit to lyin Lying to sitting on side of be: 3 PT Geomorphology Teacher Goals Intermediate Goals PT Intermediate Goals Time Frame: Aug 19, 2020 Roll Left & Right (QC): 6 Sit to Lying (QC): 6 Lying-Sitting on Side/Bed(QC): 6 Sit to Stand (QC): 4 Chair/Hiu-yw-Ieant Xfer(QC): 4 Toilet Transfer (QC): 4 Car Transfer (QC): 4 Does the Patient Walk: Yes Walk 10 feet (QC): 4 Walk 50ft with 2 Turns (QC): 4 Walk 150 ft (QC): 4 Walking 10ft on Uneven Surface: 4 1 Step (curb) (QC): 88 4 Steps (QC): 88 12 Steps (QC): 88 Picking up an Object (QC): 88 Wheel 50 feet with 2 turns (QC: 6 Wheel 150 feet: 6 PT Plan Problem List Problem List: Activity Tolerance, Functional Strength, Safety, Balance, Gait, Transfer, ROM Treatment/Plan Treatment Plan: Continue Plan of Care Treatment Plan: Bed Mobility, Education, Functional Activity Cierra, Functional Strength, Group Therapy, Gait, Safety, Therapeutic Exercise, Transfers Treatment Duration: Aug 05, 2020 Frequency: Modified Program (IRF) Estimated Hrs Per Day: 1 hour per day Patient and/or Family Agrees t: Yes Safety Risks/Education Patient Education: Gait Training, Transfer Techniques, Steps, Correct Positioning, W/C Management, Safety Issues Teaching Recipient: Patient Teaching Methods: Demonstration, Discussion Response to Teaching: Reinforcement Needed Time/GCodes Time In: 1000 Time Out: 1115 Total Billed Treatment Time: 75 Total Billed Treatment 1 visit GT 20' EX 45' FA 20' LIZ MI PT Aug 17, 2020 11:13
[2020-08-17 20:00] VITALS: BP 140/74
[2020-08-17] MEDS: MELATONIN 10 MG TABLET PO SCH (21:00)
[2020-08-18] MEDS: metFORMIN 500 MG (GLUCOPHAGE) TAB PO SCH ×2 (06:27→16:50)
[2020-08-18 07:23] VITALS: BP 125/75
[2020-08-18] MEDS: polyethylene glycoL POWDER 17 GM (MIRALAX) PACK PO SCH ×2 (07:37→21:30)
[2020-08-18] MEDS: DOCUSATE SODIUM 100 MG (COLACE) CAP PO SCH ×2 (07:37→21:30)
[2020-08-18] MEDS: SENNA W/DOCUSATE (SENOKOT S) TABLET PO SCH ×2 (07:38→21:30)
[2020-08-18] MEDS: lisINopril 20 MG (PRINIVIL) TABLET PO SCH (08:14)
[2020-08-18] MEDS: ASCORBIC ACID (VIT C) 500 MG TABLET PO SCH (08:14)
[2020-08-18] MEDS: PANTOPRAZOLE 40 MG (PROTONIX) TAB PO SCH (08:14)
[2020-08-18] MEDS: amLODIPine 10 MG (NORVASC) TAB PO SCH (08:14)
[2020-08-18] MEDS: APIXABAN 5 MG (ELIQUIS) TABLET PO SCH ×2 (08:15→21:43)
[2020-08-18] MEDS: LACTOBACILLUS ACIDOPHILUS (PROBIOTIC) CAPSULE PO SCH ×2 (08:15→21:44)
[2020-08-18] MEDS: TRIAMCINOLONE 0.1% CR (KENALOG) 15 GM TUBE TOP SCH ×2 (08:15→21:30)
[2020-08-18] MEDS: VITAMIN D3 125 MCG (5,000 UNITS) CAPSULE PO SCH (08:15)
[2020-08-18] MEDS: KCL 10 MEQ TAB (MICRO K) PO SCH ×3 (08:15→16:50)
--- NOTE | 2020-08-18 09:49 | PM&R Progress Note ---
Subjective HPI/CC On Admission Date Seen by Provider: Aug 18, 2020 Time Seen by Provider: 10:00 Subjective/Events-last exam 08/18/2020: Pt is doing pretty well Ready to go home tomorrow No other significant problems Metformin will be restarted at 500 BID and the Levemir will be discontinued 08/17/2020: Patient has no new issues except some sort of allergic reaction after evening medication given last night and 2 nights ago Benadryl was given and resolve the issue I will do a medication profile eval 08/16/2020: Patient doing really well Shingles wound looks good Blood sugar 127 Doing really well otherwise 08/15/2020: Patient having no issues Monitoring closely Discharge plan for 08/14/2020: Patient doing really well No major issues Bowels moved yesterday Talked about Covid vaccine and recent study reveals not necessary and may be harmful after severe case of Covid 08/13/2020: Patient doing pretty well Shingles now resolved Discontinue Valtrex Discontinue isolation Bowels move 2 days ago 08/12/2020: Patient having no issues Discharge planning for next week Talked about finding a primary care provider I may provide televisit and refills until he is established with someone 08/11/20: Pt doing really well Discontinuing the Desonex Bowels moved two days ago Dramatic recovery DC 08/19/20 08/10/2020: Pt doing really well Shingles resolving No pain is reported Oxygen is doing well 08/09/2020: Pt doing very well Completing Valtrex for 10 days because the blisters are still present but much improved Overall doing well 08/08/2020: Doing very well Bowels are moving well Breathing well Needs to work on stairs and getting up without help 08/07/2020: Patient dramatically improved Bowels moved today Shingles improved Doing extremely well 08/06/20: Patient dramatically improving Ambulating very well now Working on standing stronger No complaints 08/05/2020: Patient dramatically improved Walking now with therapy with frequent stops No bedpan will be used now Shingles pain improved 08/04/2020: Patient doing pretty well Shingles improved Walking a bit now Working hard to regain independence No bowel movement for 3 days but he does take laxatives Blood sugar is good 08/03/2020: Patient doing really well today Shingles much improved Bowels moved yesterday and it was large Standing a bit more 08/02/2020: Patient doing pretty well Steroid cream on psoriasis on buttocks Area on back really bothers him when I assessed it today because it was just a very subtle pink patch now it has blisters consistent with shingles We will start on Valtrex Had a good bowel movement today 08/01/2020: Patient has no major concerns Pain meds are tolerated Still using sit to stand Overall feels like he is improving 07/31/20: Patient doing really well No major concerns Slowly progressing Bowels are moving pretty well 07/30/20: Patient doing pretty well Ambulating around a little more Chest x-ray pending 91% on room air 07/28/20: Pt dong pretty well Took eight steps today No oxygen now Steroid cream to be placed on psoriasis initiated 07/27/20: Pt doing a lot better Bowels moving today Off O2 and running 91% Overall much improved 07/26/2020: Patient doing really well Potassium 3.5 usually refusing to take it Sugars are doing well He is running 90% off oxygen Dramatic improvement 07/25/2020 Patient denies any issues Improving strength by the day Due for labs tomorrow Family at bedside 07/24/2020: Patient doing really well today On oxygen at 1.5 L/min Had a large bowel movement Sugars are okay Hates the carb limitations Girlfriend and his mother at the bedside today 07/23/20: Pt up in a chair and appears to be much stronger 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 in a chair for very long Blood sugar 141 Left foot drop is an issue 07/22/20: Patient doing well Baseline flat affect assessed Had complete bowel evacuation yesterday after Fleets after supp EKG today per Dr Rinaldi Monitored closely 07/21/20: Pt doing pretty well Slow progress Will DC the heplock Sugar changes to twice daily and will give 3 units of Novolog if greater than 160 Trach dressing changed and it is sealing up well Bowels moved yesterday 07/20/20: Pt doing pretty well Bowels moved two days ago, doesnt want anything too harsh Oxygen maintained Working hard Progressing nicely 07/19/20: Pt doing pretty well Respiratory therapy tried to wean him off and he became very hypoxic Weakness in hands are a challenge for him to shave DC Cefepime and starting Omnicef Doesnt really like IVs and lab checks and made that pretty clear to me 07/18/20: Patient doing well Diarrhea noted UTI treated with IV abx UCx pending 07/17/20: Patient doing well No complaints Awaiting UCx Empiric abx maintained Aunt at bedside O2 at 1L/min Sugar improved 07/16/20: Pt doing pretty well Potassium of 2.7 so will initiate supplement Dr. Rinaldi is seeing him in consultation EKG obtained and normal sinus rhythm noted UA ordered for burning sensation on urination Pt very debilitated Review of Systems General: Fatigue, Malaise Neurological: Weakness Objective Exam Vital Signs Vital Signs Date Time Temp Pulse Resp B/P (MAP) Pulse Ox O2 Delivery O2 Flow Rate FiO2 08/18/20 19:25 36.9 83 20 139/87 (104) 93 Room Air 08/18/20 16:27 1.50 Capillary Refill : General Appearance: No Apparent Distress, WD/WN, Obese HEENT: PERRL/EOMI, Normal ENT Inspection, Pharynx Normal Neck: Full Range of Motion, Normal Inspection, Non Tender, Supple, Carotid Bruit Respiratory: Chest Non Tender, Lungs Clear, No Accessory Muscle Use, No Respiratory Distress, Decreased Breath Sounds Cardiovascular: Regular Rate, Rhythm, No Edema, No Gallop, No JVD, No Murmur, Normal Peripheral Pulses Gastrointestinal: Normal Bowel Sounds, No Organomegaly, No Pulsatile Mass, Non Tender, Soft Back: Normal Inspection, No CVA Tenderness, No Vertebral Tenderness Extremity: Normal Capillary Refill, Normal Inspection, Normal Range of Motion, Non Tender, No Calf Tenderness, No Pedal Edema Neurologic/Psychiatric: Alert, Oriented x3, No Motor/Sensory Deficits, Normal Mood/Affect, oiler helper II-XII Norm as Tested, Abnormal Gait (can't ambulate), Motor Weakness (severe 1/5 strength all extremities) Skin: Normal Color, Warm/Dry Lymphatic: No Adenopathy Results/Procedures Lab Patient resulted labs reviewed. FIM Transfers Therapy Code Descriptions/Definitions Functional [place] Measure: 0=Not Assessed/NA 4=Minimal Assistance 1=Total Assistance 5=Supervision or Setup 2=Maximal Assistance 6=Modified [place] 3=Moderate Assistance 7=Complete IndependenceSCALE: Activities may be completed with or without assistive devices. 5-Yzcxyukjtx-zvdcemj completes the activity by him/herself with no assistance from a helper. 5-Set-up or Clean-up Assistance-helper sets up or cleans up; patient completes activity. [place] assists only prior to or following the activity. 4-Supervision or Touching Assistance-helper provides verbal cues and/or touc royer/steadying and/or contact guard assistance as patient completes activity. Assistance may be provided throughout the activity or intermittently. 3-Partial/Moderate Assistance-helper does LESS THAN HALF the effort. [place] lifts, holds or supports trunk or limbs, but provides less than half the effort. 2-Substantial/Maximal Assistance-helper does MORE THAN HALF the effort. [place] lifts or holds trunk or limbs and provides more than half the effort. 0-Raqcgvoec-vlbbxl does ALL the effort. Patient does none of the effort to complete the activity. Or, the assistance of 2 or more helpers is required for the patient to complete the activity. If activity was not attempted, code reason: 7-Patient Refused. 9-Not Applicable-not attempted and the patient did not perform the activity before the current illness, exacerbation or injury. 10-Not Attempted due to Environmental Limitations-(lack of equipment, weather restraints, etc.). 88-Not Attempted due to Medical Conditions or Safety Concerns. Roll Left to Right (QC): 6 Sit to Lying (QC): 6 Sit to Stand (QC): 4 Chair/Rth-sk-Hjqty Xfer(QC): 4 Car Transfer (QC): 1 Gait Training Does the Patient Walk?: Yes Distance: 200'x2 Walk 10 feet (QC): 4 Walk 50 ft with 2 Turns(QC): 4 Walk 150 ft (QC): 4 Walking 10ft/uneven surface-QC: 88 Gait Persons Needed: 1 Gait Assistive Device: FWW Wheelchair Training Does the Pt Use a Wheelchair?: Yes Distance: 80' Wheel 50 ft with 2 turns (QC): 6 Wheel 150 ft (QC): 6 Type of Wheelchair: Manual Stair Training Stair Training: Handrails/: 2 handrails #of Steps: 4 1 Step (curb) (QC): 4 4 Steps (QC): 4 12 Steps (QC): 88 Stairs: Pattern: Step to Balance Picking up an Object (QC): 88 ADL-Treatment Eating (QC): 6 (Per clinical judgement, pt able to complete independently.) Oral Hygiene (QC): 6 Bathing Location: L Arm, R Arm, L Upper Leg, R Upper Leg, L Lower Leg (including foot), R Lower Leg (including foot), Chest, Abdomen, Perineal Area Shower/Bathe Self (QC): 6 Upper Body Dressing (QC): 5 Lower Body Dressing (QC): 5 On/Off Footwear (QC): 5 Toileting Hygiene (QC): 4 Toilet Transfer (QC): 4 Assessment/Plan Assessment and Plan Assess & Plan/Chief Complaint Assessment: COVID-19 PNA myopathy Severe poor lung reserve Obesity New onset DM AF? Psoriasis of buttocks Shingles right flank 08/02/2020 Plan: Insulin Monitor lung function Cardiology consult 07/16/20: UA Replace potassium Slow recovery 07/17/20: IV abx Suspect resistant UTI 07/18/20: Monitor closely Await Ucx 07/19/20: Reviewed UCx DC Cefepime Irritated with IV's and lab checks 07/20/20: Monitor closely Sugars good 07/21/20: DC Heplock 07/22/20: Monitored closely BP ok 07/23/20: Monitor O2 Improved status now 07/24/2020: Continue limitation of carbs to decrease sugar Monitor oxygen level 07/25/2020 Check labs in the morning Monitor closely 07/26/2020: Discharge planned after review on Sunday Dramatic improvement Wean oxygen 07/27/20: Improved Weaned O2 07/28/20: Steroid cream for psoriasis Doing much better 07/30/2020: Chest x-ray reviewed Continue aggressive therapy 07/31/2020: Monitor closely Maintain oxygen 08/01/2020: Psoriasis treatment Monitor blood pressure Check labs in the morning 08/02/2020: Shingles treatment Monitor closely 08/03/2020: Continue shingles treatment Monitor closely Improved 08/04/2020: Valtrex to complete treatment for shingles Monitor closely 08/05/2020: Complete Valtrex Dramatic improvement now ambulating 08/06/2020: Dramatically improved Ambulating well Monitor closely 08/07/2020: Dramatic improvement Increased ambulation 08/08/2020: Improved status Monitor closely 08/09/2020: Continue shingles treatment for full 10 days Monitor oxygen 08/10/2020: Continue aggressive therapy Build stamina 08/11/20: DC 08/19/20 Monitor closely Dramatic improvement 08/12/2020: No major issues Continue monitoring 08/13/2020: DC isolation Discontinue Valtrex 08/14/2020: Continue aggressive therapy Discharge next week 08/15/2020: Continue aggressive therapy 08/16/2020: Stop Levemir Monitor closely Discharge on 08/17/2020: Start Metformin Evaluate medication profile for an "allergic reaction 08/18/2020: Ready for discharge tomorrow Continue aggressive therapy (1) Myopathy (2) COVID-19 (3) Obesity (4) Diabetes mellitus NATHANAEL HOWE DO Aug 18, 2020 09:49
--- NOTE | 2020-08-18 10:16 | Occupational Ther Daily Note ---
OT Current Status-Daily Note Subjective Pt alert, lying in bed. Pt agrees to therapy. No c/o pain at this time. Mental Status/Objective Patient Orientation: Person, Place, Time, Situation ADL-Treatment Pt agrees to shower. Pt ambulates to bathroom using FWW and transfers into shower independently. Standing to cleanse buttocks and kasi area using hand held shower and grabbars to stabilize, pt completes independently. Sitting on shower chair, pt able to complete all other areas using hand held shower and LH sponge independently. After set up, pt able to complete all dressing by self. Sitting at sink, pt able to complete oral care and grooming independently. Per clinical judgment and pt report, pt able to complete toileting hygiene and clothing manipulation independently using grabbars, FWW and elevated BSC. Therapy Code Descriptions/Definitions Functional [place] Measure: 0=Not Assessed/NA 4=Minimal Assistance 1=Total Assistance 5=Supervision or Setup 2=Maximal Assistance 6=Modified [place] 3=Moderate Assistance 7=Complete IndependenceSCALE: Activities may be completed with or without assistive devices. 5-Jvkgbxdcfx-eodmmtz completes the activity by him/herself with no assistance from a helper. 5-Set-up or Clean-up Assistance-helper sets up or cleans up; patient completes activity. [place] assists only prior to or following the activity. 4-Supervision or Touching Assistance-helper provides verbal cues and/or touching/steadying and/or contact guard assistance as patient completes activity. Assistance may be provided throughout the activity or intermittently. 3-Partial/Moderate Assistance-helper does LESS THAN HALF the effort. [place] lifts, holds or supports trunk or limbs, but provides less than half the effort. 2-Substantial/Maximal Assistance-helper does MORE THAN HALF the effort. [place] lifts or holds trunk or limbs and provides more than half the effort. 4-Tepmwnacm-jusyav does ALL the effort. Patient does none of the effort to complete the activity. Or, the assistance of 2 or more helpers is required for the patient to complete the activity. If activity was not attempted, code reason: 7-Patient Refused. 9-Not Applicable-not attempted and the patient did not perform the activity before the current illness, exacerbation or injury. 10-Not Attempted due to Environmental Limitations-(lack of equipment, weather restraints, etc.). 88-Not Attempted due to Medical Conditions or Safety Concerns. Eating (QC): 6 (per clinical judgment) Oral Hygiene (QC): 6 Shower/Bathe Self (QC): 6 Upper Body Dressing (QC): 5 Lower Body Dressing (QC): 5 On/Off Footwear: 5 Toileting Hygiene (QC): 6 Toilet Transfer (QC): 6 Other Treatment Pt propels w/c independently to therapy gym and back to room to work on B UE strengthening and increasing activity tolerance. Arm bike completed for 10 min at 30 white resistance rotating forward and heavy resistance rotating backward to increase strength and activity tolerance for daily functional tasks. After session, pt sitting EOB with call light/phone in reach. All needs met in room. OT Short Term Goals Short Term Goals Time Frame: Aug 05, 2020 Toileting hygiene: 2 Upper body dressin Lower body dressin Putting on/taking off footwear: 2 OT Intermediate Goals Cloth Boil Off Machine Operator Goals Time Frame: Aug 20, 2020 Eating (QC): 6 (met) Oral Hygiene (QC): 6 (met) Toileting Hygiene (QC): 6 (met) Shower/Bathe Self (QC): 6 (met) Upper Body Dressing (QC): 6 (not met) Lower Body Dressing (QC): 6 (not met) On/Off Footwear (QC): 6 (not met) Additional Goals: 1-Demonstrate ADL Tasks, 2-Verbalize Understanding, 3-Imp roveStrength/Cierra 1=Demonstrate adherence to instructed precautions during ADL tasks. 2=Patient will verbalize/demonstrate understanding of assistive devices/modifications for ADL. 3=Patient will improve strength/tolerance for activity to enable patient to perform ADL's. OT Education/Plan Problem List/Assessment Assessment: Decreased Activ Tolerance, Decreased UE Strength, Impaired Funct Balance, Impaired Self-Care Skills Discharge Recommendations Plan/Recommendations: Continue POC Therapy Discharge Recommendati: Post Acute OT Equpiment Recommendations-D/C: Bath Chair, Battery Mechanic, Bedside Commode, Elastic Shoe Laces Treatment Plan/Plan of Care Patient would benefit from OT for education, treatment and training to promote independence in ADL's, mobility, safety and/or upper extremity function for ADL's. Plan of Care: ADL Retraining, Functional Mobility, Group Exercise/Act as Ind, UE Funct Exercise/Act Treatment Duration: Aug 13, 2020 Frequency: Modified Program (IRF) Estimated Hrs Per Day: 1 hour per day Agreement: Yes Rehab Potential: Good Time/GCodes Start Time: 09:00 Stop Time: 10:15 Total Time Billed (hr/min): 75 Billed Treatment Time 1 visit-ADL 4 (60 min) EX 1 (15 min) TYSON FISHER Aug 18, 2020 10:16
--- NOTE | 2020-08-18 11:27 | Physical Therapy Daily Note ---
PT Daily Note-Current Subjective Pt. agrees to Rx, so determined and excited to DC tomorrow "I'm going home as soon as I get up tomorrow" No c/o pain Pain Location: No Pain Reported Mental Status Patient Orientation: Normal For Age Attachments: Other-See Comments (AFO left) Transfers SCALE: Activities may be completed with or without assistive devices. 0-Tktmdmonfy-gixtuxz completes the activity by him/herself with no assistance from a helper. 5-Set-up or Clean-up Assistance-helper sets up or cleans up; patient completes activity. [place] assists only prior to or following the activity. 4-Supervision or Touching Assistance-helper provides verbal cues and/or touching/steadying and/or contact guard assistance as patient completes activity. Assistance may be provided throughout the activity or intermittently. 3-Partial/Moderate Assistance-helper does LESS THAN HALF the effort. [place] lifts, holds or supports trunk or limbs, but provides less than half the effort. 2-Substantial/Maximal Assistance-helper does MORE THAN HALF the effort. [place] lifts or holds trunk or limbs and provides more than half the effort. 1-Bhzcijevc-rylazr does ALL the effort. Patient does none of the effort to complete the activity. Or, the assistance of 2 or more helpers is required for the patient to complete the activity. If activity was not attempted, code reason: 7-Patient Refused. 9-Not Applicable-not attempted and the patient did not perform the activity before the current illness, exacerbation or injury. 10-Not Attempted due to Environmental Limitations-(lack of equipment, weather restraints, etc.). 88-Not Attempted due to Medical Conditions or Safety Concerns. Roll Left & Right (QC): 6 Sit to Lying (QC): 6 Lying to Sitting/Side of Bed(Q: 6 Sit to Stand (QC): 6 Chair/Tfi-rx-Fhjeq Xfer(QC): 6 Toilet Transfer (QC): 6 Car Transfer (QC): 6 Weight Bearing Full Weight Bearing Full Weight Bearing Gait Training Does the Patient Walk?: Yes Walk 10 feet (QC): 6 Walk 50 ft with 2 Turns(QC): 6 Walk 150 ft (QC): 6 Walking 10ft/uneven surface-QC: 5 Gait Persons Needed: 1 Gait Assistive Device: FWW Pt. ambulates with fast velocity , states he has always walked quickly and feels normal. moderate amount of weight on FWW. Stair Training Stair Training: Handrails/: 2 handrails #of Steps: 4 1 Step (curb) (QC): 4 4 Steps (QC): 4 12 Steps (QC): 88 Stairs: Pattern: Step to Pt. gives full effort and determination, grateful he has survived this virus and ready to try to be a healthier person. Balance Picking up an Object (QC): 88 Exercises Supine Ex: Bridging, Ankle pumps, Quad Set, Rolling, Glut sets, Heel Slides, Short Arc Quads, Scooting, Straight leg raise, Hip abd/add Supine Reps: 15 Seated Therapy Exercises: Ankle pumps, Sit to stand, Long arc quads, Hip flexion, Hip abd/add Seated Reps: 15 Assessment Current Status: Good Progress pt. has arrangements and plan for safe DC to home woth assist of GF and children PT Short Term Goals Short Term Goals Time Frame: July 22, 2020 Roll Left & Right: 4 Sit to lyin Lying to sitting on side of be: 3 PT Jail Goals Grainer Machine Goals PT Grainer Machine Goals Time Frame: Aug 19, 2020 Roll Left & Right (QC): 6 Sit to Lying (QC): 6 Lying-Sitting on Side/Bed(QC): 6 Sit to Stand (QC): 4 Chair/Pbi-rw-Ratly Xfer(QC): 4 Toilet Transfer (QC): 4 Car Transfer (QC): 4 Does the Patient Walk: Yes Walk 10 feet (QC): 4 Walk 50ft with 2 Turns (QC): 4 Walk 150 ft (QC): 4 Walking 10ft on Uneven Surface: 4 1 Step (curb) (QC): 88 4 Steps (QC): 88 12 Steps (QC): 88 Picking up an Object (QC): 88 Wheel 50 feet with 2 turns (QC: 6 Wheel 150 feet: 6 PT Plan Treatment/Plan Treatment Plan: Continue Plan of Care Treatment Plan: Bed Mobility, Education, Functional Activity [place], Functional Strength, Group Therapy, Gait, Safety, Therapeutic Exercise, Transfers Treatment Duration: Aug 05, 2020 Frequency: Modified Program (IRF) Estimated Hrs Per Day: 1 hour per day Patient and/or Family Agrees t: Yes Safety Risks/Education Patient Education: Gait Training, Transfer Techniques, Steps, Correct Positioning, Disease Process, Safety Issues Teaching Recipient: Patient Teaching Methods: Demonstration, Discussion Response to Teaching: Verbalize Understanding, Return Demonstration, Reinforcement Needed Time/GCodes Time In: 1030 Time Out: 1130 Total Billed Treatment Time: 60 Total Billed Treatment 1,EX20m,FA25m,GT15m NALDO SHERMAN INFORMATION TECHNOLOGY SPECIALIST Aug 18, 2020 11:27
--- NOTE | 2020-08-18 14:33 | Therapy Group Daily Note ---
Therapy Daily Group Note Patient Education Topic Exercises, Other List Below (anticipating DC) Exercises LE Seated Exercise, UE Exercise Session Ratio (pt:therapist): 3:1 Goal of Session: UE/LE Strengthing, Other (list) (benefits of exercise) Goal Met for this Session: Yes Pt Benefit of Group: Contributions to Others, F/U Use of Strategies @Home, Increased Functional Strength, Recognition of Peers, Socialization Other/Notes Pt. participated in group PT OT session. Pt. came and went in w/c he propelled himself. Pts all introduced themselves and shared briefly. Pts were educated on the benefits of exercise and all participated in seated U&L extremity exercises . Pts also participated in game of word association and used large foam rolling dice for this activity. Pts. were all supportive of one another and discussed staying focused on their goals and staying positive and driven. Pt. to room after Rx with melo at hand and al needs met Start Time: 13:00 Stop Time: 14:00 Total Billed Treatment Time: 60 Total Billed Treatment 1,GRP NALDO SHERMAN BODY BUILDER Aug 18, 2020 14:33
[2020-08-18 19:25] VITALS: BP 139/87
[2020-08-18] MEDS: MELATONIN 10 MG TABLET PO SCH (21:30)
[2020-08-19] MEDS: metFORMIN 500 MG (GLUCOPHAGE) TAB PO SCH (06:43)
[2020-08-19 07:51] VITALS: BP 120/74
[2020-08-19] MEDS: amLODIPine 10 MG (NORVASC) TAB PO SCH (08:20)
[2020-08-19] MEDS: APIXABAN 5 MG (ELIQUIS) TABLET PO SCH (08:20)
[2020-08-19] MEDS: VITAMIN D3 125 MCG (5,000 UNITS) CAPSULE PO SCH (08:20)
[2020-08-19] MEDS: lisINopril 20 MG (PRINIVIL) TABLET PO SCH (08:20)
[2020-08-19] MEDS: LACTOBACILLUS ACIDOPHILUS (PROBIOTIC) CAPSULE PO SCH (08:20)
[2020-08-19] MEDS: KCL 10 MEQ TAB (MICRO K) PO SCH (08:20)
[2020-08-19] MEDS: ASCORBIC ACID (VIT C) 500 MG TABLET PO SCH (08:20)
[2020-08-19] MEDS: PANTOPRAZOLE 40 MG (PROTONIX) TAB PO SCH (08:20)
[2020-08-19] MEDS: SENNA W/DOCUSATE (SENOKOT S) TABLET PO SCH (08:21)
[2020-08-19] MEDS: DOCUSATE SODIUM 100 MG (COLACE) CAP PO SCH (08:21)
[2020-08-19] MEDS: polyethylene glycoL POWDER 17 GM (MIRALAX) PACK PO SCH (08:21)
[2020-08-19] MEDS: TRIAMCINOLONE 0.1% CR (KENALOG) 15 GM TUBE TOP SCH (08:22)
[2020-08-19] MEDS ORDERED: AMLO10TA4 PO (08:28)
[2020-08-19] MEDS ORDERED: POTA10TA6 PO (08:28)
[2020-08-19] MEDS ORDERED: LISI20TA26 PO (08:28)
[2020-08-19] MEDS ORDERED: PANT40TA52 PO (08:28)
[2020-08-19] MEDS ORDERED: APIX5TAB PO (08:28)
[2020-08-19] MEDS ORDERED: ATOR20TA66 PO (08:28)
[2020-08-19] MEDS ORDERED: METF-397 PO (08:28)
--- NOTE | 2020-08-19 08:30 | Discharge Summary ---
Diagnosis/Chief Complaint Date of Admission July 15, 2020 at 13:02 Date of Discharge Discharge Date: Aug 19, 2020 Discharge Diagnosis Assessment: COVID-19 PNA myopathy Severe poor lung reserve Obesity New onset DM AF? Psoriasis of buttocks Shingles right flank 08/02/2020 Plan: Insulin Monitor lung function Cardiology consult 07/16/20: UA Replace potassium Slow recovery 07/17/20: IV abx Suspect resistant UTI 07/18/20: Monitor closely Await Ucx 07/19/20: Reviewed UCx DC Cefepime Irritated with IV's and lab checks 07/20/20: Monitor closely Sugars good 07/21/20: DC Heplock 07/22/20: Monitored closely BP ok 07/23/20: Monitor O2 Improved status now 07/24/2020: Continue limitation of carbs to decrease sugar Monitor oxygen level 07/25/2020 Check labs in the morning Monitor closely 07/26/2020: Discharge planned after review on Sunday Dramatic improvement Wean oxygen 07/27/20: Improved Weaned O2 07/28/20: Steroid cream for psoriasis Doing much better 07/30/2020: Chest x-ray reviewed Continue aggressive therapy 07/31/2020: Monitor closely Maintain oxygen 08/01/2020: Psoriasis treatment Monitor blood pressure Check labs in the morning 08/02/2020: Shingles treatment Monitor closely 08/03/2020: Continue shingles treatment Monitor closely Improved 08/04/2020: Valtrex to complete treatment for shingles Monitor closely 08/05/2020: Complete Valtrex Dramatic improvement now ambulating 08/06/2020: Dramatically improved Ambulating well Monitor closely 08/07/2020: Dramatic improvement Increased ambulation 08/08/2020: Improved status Monitor closely 08/09/2020: Continue shingles treatment for full 10 days Monitor oxygen 08/10/2020: Continue aggressive therapy Build stamina 08/11/20: DC 08/19/20 Monitor closely Dramatic improvement 08/12/2020: No major issues Continue monitoring 08/13/2020: DC isolation Discontinue Valtrex 08/14/2020: Continue aggressive therapy Discharge next week 08/15/2020: Continue aggressive therapy 08/16/2020: Stop Levemir Monitor closely Discharge on 08/17/2020: Start Metformin Evaluate medication profile for an "allergic reaction 08/18/2020: Ready for discharge tomorrow Continue aggressive therapy (1) Myopathy (2) COVID-19 (3) Obesity (4) Diabetes mellitus Discharge Summary Discharge Physical Examination Allergies: Coded Allergies: No Known Drug Allergies (Unverified , 07/15/20) Vitals & I&Os Vital Signs Date Time Temp Pulse Resp B/P (MAP) Pulse Ox O2 Delivery O2 Flow Rate FiO2 08/19/20 10:48 36.2 89 18 120/74 96 Room Air 08/18/20 16:27 1.50 General Appearance: Alert, Oriented X3, Cooperative Respiratory: Clear to Auscultation Cardiovascular: Regular Rate Neuro: Normal Gait, Normal Speech, Strength at 5/ X4 Ext Psych/Mental Status: Mental Status NL Hospital Course Was the Problem List Reviewed?: Yes Patient had a lengthy course for a total of 36 days in inpatient rehab following COVID-19 and a complicated hospital course at [facility] requiring trach and long- term ventilation. He had a very slow recovery typical for COVID-19. He did have a UTI managed with antibiotics and no other issues following that. Labs remained stable. He did have a diagnosis of shingles of the right flank that I managed with Valtrex with good results. No evidence of any postherpetic neuralgia. Blood pressure was monitored and cardiology was consulted. Aggressive therapy was required in order to regain enough baseline function for independent ADLs and ambulatory skills. Bowel regimen maintained with return of good bowel function. Overall he improved each and every day without major decline in status or decompensation. Labs (last 24 hrs) Laboratory Tests 07/15/20 13:02: Lab Scanned Report Referred Lab Report 07/15/20 15:45: Glucometer 191H 07/15/20 20:20: Glucometer 192H 07/16/20 04:57: Glucometer 130H 07/16/20 05:12: White Blood Count 8.3, Red Blood Count 4.62, Hemoglobin 13.4, Hematocrit 42, Mean Corpuscular Volume 90, Mean Corpuscular Hemoglobin 29, Mean Corpuscular Hemoglobin Concent 32, Red Cell Distribution Width 16.7H, Platelet Count 237, Mean Platelet Volume 10.6, Immature Granulocyte % (Auto) 1, Neutrophils (%) (Auto) 74, Lymphocytes (%) (Auto) 16, Monocytes (%) (Auto) 7, Eosinophils (%) (Auto) 1, Basophils (%) (Auto) 0, Neutrophils # (Auto) 6.2, Lymphocytes # (Auto) 1.4, Monocytes # (Auto) 0.6, Eosinophils # (Auto) 0.1, Basophils # (Auto) 0.0, Immature Granulocyte # (Auto) 0.1, Sodium Level 145, Potassium Level 2.7L, Chloride Level 105, Carbon Dioxide Level 27, Anion Gap 13, Blood Urea Nitrogen 21H, Creatinine 0.61, Estimat Glomerular Filtration Rate > 60, BUN/Creatinine Ratio 34, Glucose Level 125H, Calcium Level 8.9, Corrected Calcium 9.5, Total Bilirubin 0.9, Aspartate Amino Transf (AST/SGOT) 32, Alanine Aminotransferase (ALT/SGPT) 81H, Alkaline Phosphatase 101, Total Protein 5.6L, Albumin 3.2 07/16/20 05:15: Mean Blood Glucose 137H, Hemoglobin A1c 6.4H 07/16/20 10:53: Glucometer 149H 07/16/20 15:50: Glucometer 172H 07/16/20 20:35: Glucometer 148H 07/17/20 05:57: Glucometer 141H 07/17/20 08:03: Urine Color ORANGE, Urine Clarity CLOUDY, Urine pH 6.0, Urine Specific Edwards 1.025H, Urine Protein 3+H, Urine Glucose (UA) TRACEH, Urine Ketones NEGATIVE, Urine Nitrite POSITIVEH, Urine Bilirubin 1+H, Urine Urobilinogen >=8.0, Urine Leukocyte Esterase 3+H, Urine RBC (Auto) 3+H, Urine RBC 5-10H, Urine WBC TNTCH, Urine Squamous Epithelial Cells NONE, Urine Crystals NONE, Urine Bacteria TRACE, Urine Casts NONE, Urine Mucus NEGATIVE, Urine Culture Indicated YES 07/17/20 09:29: White Blood Count 8.1, Red Blood Count 4.43, Hemoglobin 12.6L, Hematocrit 40, Mean Corpuscular Volume 91, Mean Corpuscular Hemoglobin 28, Mean Corpuscular Hemoglobin Concent 31L, Red Cell Distribution Width 16.3H, Platelet Count 234, Mean Platelet Volume 10.4, Immature Granulocyte % (Auto) 1, Neutrophils (%) (Auto) 79H, Lymphocytes (%) (Auto) 12, Monocytes (%) (Auto) 6, Eosinophils (%) (Auto) 1, Basophils (%) (Auto) 0, Neutrophils # (Auto) 6.4, Lymphocytes # (Auto) 1.0, Monocytes # (Auto) 0.5, Eosinophils # (Auto) 0.1, Basophils # (Auto) 0.0, Immature Granulocyte # (Auto) 0.1, Sodium Level 145, Potassium Level 2.9L, Chloride Level 106, Carbon Dioxide Level 30, Anion Gap 9, Blood Urea Nitrogen 16, Creatinine 0.61, Estimat Glomerular Filtration Rate > 60, BUN/Creatinine Ratio 26, Glucose Level 152H, Lactic Acid Level 1.61, Calcium Level 8.8, Corrected Calcium 9.5, Magnesium Level 1.6, Total Bilirubin 0.8, Aspartate Amino Transf (AST/SGOT) 24, Alanine Aminotransferase (ALT/SGPT) 70H, Alkaline Phosphatase 94, Total Protein 5.4L, Albumin 3.1L, Procalcitonin 0.07 07/17/20 10:42: Glucometer 137H 07/17/20 15:41: Glucometer 151H 07/17/20 20:41: Glucometer 166H 07/18/20 06:16: Glucometer 141H 07/18/20 11:00: Glucometer 122H 07/18/20 15:32: Glucometer 173H 07/18/20 20:14: Glucometer 165H 07/19/20 05:26: White Blood Count 6.8, Red Blood Count 4.45, Hemoglobin 12.6L, Hematocrit 40, Mean Corpuscular Volume 91, Mean Corpuscular Hemoglobin 28, Mean Corpuscular Hemoglobin Concent 31L, Red Cell Distribution Width 15.9H, Platelet Count 224, Mean Platelet Volume 10.7, Immature Granulocyte % (Auto) 2, Neutrophils (%) (Auto) 74, Lymphocytes (%) (Auto) 15, Monocytes (%) (Auto) 7, Eosinophils (%) (Auto) 2, Basophils (%) (Auto) 1, Neutrophils # (Auto) 5.1, Lymphocytes # (Auto) 1.0, Monocytes # (Auto) 0.5, Eosinophils # (Auto) 0.1, Basophils # (Auto) 0.0, Immature Granulocyte # (Auto) 0.1, Sodium Level 145, Potassium Level 3.0L, Chloride Level 107, Carbon Dioxide Level 29, Anion Gap 9, Blood Urea Nitrogen 16, Creatinine 0.63, Estimat Glomerular Filtration Rate > 60, BUN/Creatinine Ratio 25, Glucose Level 134H, Calcium Level 8.5, Corrected Calcium 9.3, Total Bilirubin 0.7, Aspartate Amino Transf (AST/SGOT) 19, Alanine Aminotransferase (ALT/SGPT) 50, Alkaline Phosphatase 101, Total Protein 5.4L, Albumin 3.0L 07/19/20 11:28: Glucometer 143H 07/19/20 16:45: Glucometer 126H 07/19/20 20:57: Glucometer 133H 07/20/20 05:09: Glucometer 134H 07/20/20 10:47: Glucometer 127H 07/20/20 15:48: Glucometer 116H 07/20/20 20:20: Glucometer 141H 07/21/20 05:52: Glucometer 124H 07/21/20 15:55: Glucometer 153H 07/22/20 06:14: Glucometer 128H 07/22/20 15:19: Glucometer 131H 07/23/20 05:51: Glucometer 141H 07/23/20 15:42: Glucometer 113H 07/24/20 06:48: Glucometer 131H 07/24/20 18:50: Glucometer 170H 07/25/20 06:42: Glucometer 121H 07/25/20 15:31: Glucometer 158H 07/26/20 05:14: Glucometer 138H 07/26/20 05:25: White Blood Count 8.0, Red Blood Count 4.67, Hemoglobin 13.3, Hematocrit 43, Mean Corpuscular Volume 91, Mean Corpuscular Hemoglobin 29, Mean Corpuscular Hemoglobin Concent 31L, Red Cell Distribution Width 15.6H, Platelet Count 283, Mean Platelet Volume 10.6, Immature Granulocyte % (Auto) 1, Neutrophils (%) (Auto) 69, Lymphocytes (%) (Auto) 19, Monocytes (%) (Auto) 7, Eosinophils (%) (Auto) 2, Basophils (%) (Auto) 1, Neutrophils # (Auto) 5.5, Lymphocytes # (Auto) 1.5, Monocytes # (Auto) 0.6, Eosinophils # (Auto) 0.2, Basophils # (Auto) 0.1, Immature Granulocyte # (Auto) 0.1, Sodium Level 145, Potassium Level 3.5L, Chloride Level 107, Carbon Dioxide Level 25, Anion Gap 13, Blood Urea Nitrogen 13, Creatinine 0.62, Estimat Glomerular Filtration Rate > 60, BUN/Creatinine Ratio 21, Glucose Level 139H, Calcium Level 9.0, Corrected Calcium 9.6, Total Bilirubin 0.5, Aspartate Amino Transf (AST/SGOT) 21, Alanine Aminotransferase (ALT/SGPT) 42, Alkaline Phosphatase 100, Total Protein 5.7L, Albumin 3.2 07/26/20 16:24: Glucometer 139H 07/27/20 06:12: Glucometer 139H 07/27/20 17:08: Glucometer 136H 07/28/20 06:38: Glucometer 144H 07/28/20 16:49: Glucometer 130H 07/29/20 06:20: Glucometer 127H 07/29/20 17:05: Glucometer 121H 07/30/20 05:37: Glucometer 122H 07/30/20 15:47: Glucometer 130H 07/31/20 05:06: Glucometer 129H 07/31/20 15:29: Glucometer 144H 08/01/20 05:24: Glucometer 126H 08/01/20 15:49: Glucometer 140H 08/02/20 05:22: White Blood Count 7.5, Red Blood Count 4.89, Hemoglobin 14.1, Hematocrit 44, Mean Corpuscular Volume 89, Mean Corpuscular Hemoglobin 29, Mean Corpuscular Hemoglobin Concent 32, Red Cell Distribution Width 15.3H, Platelet Count 265, Mean Platelet Volume 10.5, Immature Granulocyte % (Auto) 2, Neutrophils (%) (Auto) 68, Lymphocytes (%) (Auto) 19, Monocytes (%) (Auto) 7, Eosinophils (%) (Auto) 4, Basophils (%) (Auto) 1, Neutrophils # (Auto) 5.1, Lymphocytes # (Auto) 1.4, Monocytes # (Auto) 0.5, Eosinophils # (Auto) 0.3, Basophils # (Auto) 0.1, Immature Granulocyte # (Auto) 0.1, Sodium Level 143, Potassium Level 3.6, Chloride Level 107, Carbon Dioxide Level 25, Anion Gap 11, Blood Urea Nitrogen 14, Creatinine 0.68, Estimat Glomerular Filtration Rate > 60, BUN/Creatinine Ratio 21, Glucose Level 140H, Calcium Level 9.0, Corrected Calcium 9.5, Total Bilirubin 0.5, Aspartate Amino Transf (AST/SGOT) 13, Alanine Aminotransferase (ALT/SGPT) 26, Alkaline Phosphatase 94, Total Protein 6.2L, Albumin 3.4 08/02/20 15:26: Glucometer 123H 08/03/20 05:58: Glucometer 128H 08/03/20 15:54: Glucometer 126H 08/04/20 05:43: Glucometer 139H 08/04/20 15:35: Glucometer 159H 08/05/20 05:57: Glucometer 124H 08/05/20 15:49: Glucometer 118H 08/06/20 06:49: Glucometer 126H 08/06/20 15:39: Glucometer 128H 08/07/20 05:16: Glucometer 118H 08/07/20 15:55: Glucometer 136H 08/08/20 06:53: Glucometer 115H 08/08/20 15:52: Glucometer 122H 08/09/20 05:08: Sodium Level 144, Potassium Level 4.1, Chloride Level 109H, Carbon Dioxide Level 21, Anion Gap 14, Blood Urea Nitrogen 13, Creatinine 0.65, Estimat Glomerular Filtration Rate > 60, BUN/Creatinine Ratio 20, Glucose Level 122H, Calcium Level 8.6, Corrected Calcium 9.2, Total Bilirubin 0.3, Aspartate Amino Transf (AST/SGOT) 29, Alanine Aminotransferase (ALT/SGPT) 24, Alkaline Phosphatase 92, Total Protein 6.0L, Albumin 3.3 08/09/20 06:11: Glucometer 126H 08/09/20 16:28: Glucometer 109 08/10/20 05:57: Glucometer 109 08/10/20 16:29: Glucometer 108 08/11/20 05:41: Glucometer 118H 08/11/20 15:42: Glucometer 114H 08/12/20 05:32: Glucometer 121H 08/12/20 15:38: Glucometer 141H 08/13/20 05:48: Glucometer 109 08/13/20 15:41: Glucometer 116H 08/13/20 20:45: Glucometer 124H 08/14/20 06:39: Glucometer 113H 08/14/20 15:23: Glucometer 121H 08/15/20 06:29: Glucometer 120H 08/15/20 15:55: Glucometer 185H 08/16/20 06:14: Glucometer 125H 08/16/20 06:20: White Blood Count 9.3, Red Blood Count 4.87, Hemoglobin 13.8, Hematocrit 44, Mean Corpuscular Volume 90, Mean Corpuscular Hemoglobin 28, Mean Corpuscular Hemoglobin Concent 32, Red Cell Distribution Width 14.9H, Platelet Count 248, Mean Platelet Volume 10.3, Immature Granulocyte % (Auto) 1, Neutrophils (%) (Auto) 71, Lymphocytes (%) (Auto) 18, Monocytes (%) (Auto) 6, Eosinophils (%) (Auto) 4, Basophils (%) (Auto) 0, Neutrophils # (Auto) 6.6, Lymphocytes # (Auto) 1.7, Monocytes # (Auto) 0.5, Eosinophils # (Auto) 0.3, Basophils # (Auto) 0.0, Immature Granulocyte # (Auto) 0.1, Sodium Level 145, Potassium Level 3.2L, Chloride Level 108H, Carbon Dioxide Level 25, Anion Gap 12, Blood Urea Nitrogen 14, Creatinine 0.69, Estimat Glomerular Filtration Rate > 60, BUN/Creatinine Ratio 20, Glucose Level 129H, Calcium Level 8.6, Corrected Calcium 9.1, Total Bilirubin 0.3, Aspartate Amino Transf (AST/SGOT) 12, Alanine Aminotransferase (ALT/SGPT) 20, Alkaline Phosphatase 91, Total Protein 5.8L, Albumin 3.4 08/16/20 16:15: Glucometer 114H 08/17/20 06:04: Glucometer 116H 08/17/20 15:37: Glucometer 152H 08/18/20 06:25: Glucometer 136H 08/18/20 15:19: Glucometer 118H 08/19/20 06:17: Glucometer 113H Microbiology 07/17/20 Urine Culture - Final, Complete Proteus mirabilis Proteus mirabilis#2 Pending Labs Microbiology Date/Time Source Procedure Growth Status 07/17/20 08:03 Urine Clean Catch Urine Culture - Final Proteus mirabilis Proteus mirabilis#2 Complete Laboratory Tests 07/15/20 13:02: Lab Scanned Report Referred Lab Report 07/15/20 15:45: Glucometer 191 07/15/20 20:20: Glucometer 192 07/16/20 04:57: Glucometer 130 07/16/20 05:12: White Blood Count 8.3, Red Blood Count 4.62, Hemoglobin 13.4, Hematocrit 42, Mean Corpuscular Volume 90, Mean Corpuscular Hemoglobin 29, Mean Corpuscular Hemoglobin Concent 32, Red Cell Distribution Width 16.7, Platelet Count 237, Mean Platelet Volume 10.6, Immature Granulocyte % (Auto) 1, Neutrophils (%) (Auto) 74, Lymphocytes (%) (Auto) 16, Monocytes (%) (Auto) 7, Eosinophils (%) (Auto) 1, Basophils (%) (Auto) 0, Neutrophils # (Auto) 6.2, Lymphocytes # (Auto) 1.4, Monocytes # (Auto) 0.6, Eosinophils # (Auto) 0.1, Basophils # (Auto) 0.0, I mmature Granulocyte # (Auto) 0.1, Sodium Level 145, Potassium Level 2.7, Chloride Level 105, Carbon Dioxide Level 27, Anion Gap 13, Blood Urea Nitrogen 21, Creatinine 0.61, Estimat Glomerular Filtration Rate > 60, BUN/Creatinine Ratio 34, Glucose Level 125, Calcium Level 8.9, Corrected Calcium 9.5, Total Bilirubin 0.9, Aspartate Amino Transf (AST/SGOT) 32, Alanine Aminotransferase (ALT/SGPT) 81, Alkaline Phosphatase 101, Total Protein 5.6, Albumin 3.2 07/16/20 05:15: Mean Blood Glucose 137, Hemoglobin A1c 6.4 07/16/20 10:53: Glucometer 149 07/16/20 15:50: Glucometer 172 07/16/20 20:35: Glucometer 148 07/17/20 05:57: Glucometer 141 07/17/20 08:03: Urine Color ORANGE, Urine Clarity CLOUDY, Urine pH 6.0, Urine Specific Edwards 1.025, Urine Protein 3+, Urine Glucose (UA) TRACE, Urine Ketones NEGATIVE, Urine Nitrite POSITIVE, Urine Bilirubin 1+, Urine Urobilinogen >=8.0, Urine Leukocyte Esterase 3+, Urine RBC (Auto) 3+, Urine RBC 5-10, Urine WBC TNTC, Urine Squamous Epithelial Cells NONE, Urine Crystals NONE, Urine Bacteria TRACE, Urine Casts NONE, Urine Mucus NEGATIVE, Urine Culture Indicated YES 07/17/20 09:29: White Blood Count 8.1, Red Blood Count 4.43, Hemoglobin 12.6, Hematocrit 40, Mean Corpuscular Volume 91, Mean Corpuscular Hemoglobin 28, Mean Corpuscular Hemoglobin Concent 31, Red Cell Distribution Width 16.3, Platelet Count 234, Mean Platelet Volume 10.4, Immature Granulocyte % (Auto) 1, Neutrophils (%) (Auto) 79, Lymphocytes (%) (Auto) 12, Monocytes (%) (Auto) 6, Eosinophils (%) (Auto) 1, Basophils (%) (Auto) 0, Neutrophils # (Auto) 6.4, Lymphocytes # (Auto) 1.0, Monocytes # (Auto) 0.5, Eosinophils # (Auto) 0.1, Basophils # (Auto) 0.0, Immature Granulocyte # (Auto) 0.1, Sodium Level 145, Potassium Level 2.9, Chloride Level 106, Carbon Dioxide Level 30, Anion Gap 9, Blood Urea Nitrogen 16, Creatinine 0.61, Estimat Glomerular Filtration Rate > 60, BUN/Creatinine Ratio 26, Glucose Level 152, Lactic Acid Level 1.61, Calcium Level 8.8, Corrected Calcium 9.5, Magnesium Level 1.6, Total Bilirubin 0.8, Aspartate Amino Transf (AST/SGOT) 24, Alanine Aminotransferase (ALT/SGPT) 70, Alkaline Phosphatase 94, Total Protein 5.4, Albumin 3.1, Procalcitonin 0.07 07/17/20 10:42: Glucometer 137 07/17/20 15:41: Glucometer 151 07/17/20 20:41: Glucometer 166 07/18/20 06:16: Glucometer 141 07/18/20 11:00: Glucometer 122 07/18/20 15:32: Glucometer 173 07/18/20 20:14: Glucometer 165 07/19/20 05:26: White Blood Count 6.8, Red Blood Count 4.45, Hemoglobin 12.6, Hematocrit 40, Mean Corpuscular Volume 91, Mean Corpuscular Hemoglobin 28, Mean Corpuscular Hemoglobin Concent 31, Red Cell Distribution Width 15.9, Platelet Count 224, Mean Platelet Volume 10.7, Immature Granulocyte % (Auto) 2, Neutrophils (%) (Auto) 74, Lymphocytes (%) (Auto) 15, Monocytes (%) (Auto) 7, Eosinophils (%) (Auto) 2, Basophils (%) (Auto) 1, Neutrophils # (Auto) 5.1, Lymphocytes # (Auto) 1.0, Monocytes # (Auto) 0.5, Eosinophils # (Auto) 0.1, Basophils # (Auto) 0.0, Immature Granulocyte # (Auto) 0.1, Sodium Level 145, Potassium Level 3.0, Chloride Level 107, Carbon Dioxide Level 29, Anion Gap 9, Blood Urea Nitrogen 16, Creatinine 0.63, Estimat Glomerular Filtration Rate > 60, BUN/Creatinine Ratio 25, Glucose Level 134, Calcium Level 8.5, Corrected Calcium 9.3, Total Bilirubin 0.7, Aspartate Amino Transf (AST/SGOT) 19, Alanine Aminotransferase (ALT/SGPT) 50, Alkaline Phosphatase 101, Total Protein 5.4, Albumin 3.0 07/19/20 11:28: Glucometer 143 07/19/20 16:45: Glucometer 126 07/19/20 20:57: Glucometer 133 07/20/20 05:09: Glucometer 134 07/20/20 10:47: Glucometer 127 07/20/20 15:48: Glucometer 116 07/20/20 20:20: Glucometer 141 07/21/20 05:52: Glucometer 124 07/21/20 15:55: Glucometer 153 07/22/20 06:14: Glucometer 128 07/22/20 15:19: Glucometer 131 07/23/20 05:51: Glucometer 141 07/23/20 15:42: Glucometer 113 07/24/20 06:48: Glucometer 131 07/24/20 18:50: Glucometer 170 07/25/20 06:42: Glucometer 121 07/25/20 15:31: Glucometer 158 07/26/20 05:14: Glucometer 138 07/26/20 05:25: White Blood Count 8.0, Red Blood Count 4.67, Hemoglobin 13.3, Hematocrit 43, Mean Corpuscular Volume 91, Mean Corpuscular Hemoglobin 29, Mean Corpuscular Hemoglobin Concent 31, Red Cell Distribution Width 15.6, Platelet Count 283, Mean Platelet Volume 10.6, Immature Granulocyte % (Auto) 1, Neutrophils (%) ( Auto) 69, Lymphocytes (%) (Auto) 19, Monocytes (%) (Auto) 7, Eosinophils (%) (Auto) 2, Basophils (%) (Auto) 1, Neutrophils # (Auto) 5.5, Lymphocytes # (Auto) 1.5, Monocytes # (Auto) 0.6, Eosinophils # (Auto) 0.2, Basophils # (Auto) 0.1, Immature Granulocyte # (Auto) 0.1, Sodium Level 145, Potassium Level 3.5, Chloride Level 107, Carbon Dioxide Level 25, Anion Gap 13, Blood Urea Nitrogen 13, Creatinine 0.62, Estimat Glomerular Filtration Rate > 60, BUN/Creatinine Ratio 21, Glucose Level 139, Calcium Level 9.0, Corrected Calcium 9.6, Total Bilirubin 0.5, Aspartate Amino Transf (AST/SGOT) 21, Alanine Aminotransferase (ALT/SGPT) 42, Alkaline Phosphatase 100, Total Protein 5.7, Albumin 3.2 07/26/20 16:24: Glucometer 139 07/27/20 06:12: Glucometer 139 07/27/20 17:08: Glucometer 136 07/28/20 06:38: Glucometer 144 07/28/20 16:49: Glucometer 130 07/29/20 06:20: Glucometer 127 07/29/20 17:05: Glucometer 121 07/30/20 05:37: Glucometer 122 07/30/20 15:47: Glucometer 130 07/31/20 05:06: Glucometer 129 07/31/20 15:29: Glucometer 144 08/01/20 05:24: Glucometer 126 08/01/20 15:49: Glucometer 140 08/02/20 05:22: White Blood Count 7.5, Red Blood Count 4.89, Hemoglobin 14.1, Hematocrit 44, Mean Corpuscular Volume 89, Mean Corpuscular Hemoglobin 29, Mean Corpuscular H emoglobin Concent 32, Red Cell Distribution Width 15.3, Platelet Count 265, Mean Platelet Volume 10.5, Immature Granulocyte % (Auto) 2, Neutrophils (%) (Auto) 68, Lymphocytes (%) (Auto) 19, Monocytes (%) (Auto) 7, Eosinophils (%) (Auto) 4, Basophils (%) (Auto) 1, Neutrophils # (Auto) 5.1, Lymphocytes # (Auto) 1.4, Monocytes # (Auto) 0.5, Eosinophils # (Auto) 0.3, Basophils # (Auto) 0.1, Immature Granulocyte # (Auto) 0.1, Sodium Level 143, Potassium Level 3.6, Chloride Level 107, Carbon Dioxide Level 25, Anion Gap 11, Blood Urea Nitrogen 14, Creatinine 0.68, Estimat Glomerular Filtration Rate > 60, BUN/Creatinine Ratio 21, Glucose Level 140, Calcium Level 9.0, Corrected Calcium 9.5, Total Bilirubin 0.5, Aspartate Amino Transf (AST/SGOT) 13, Alanine Aminotransferase (ALT/SGPT) 26, Alkaline Phosphatase 94, Total Protein 6.2, Albumin 3.4 08/02/20 15:26: Glucometer 123 08/03/20 05:58: Glucometer 128 08/03/20 15:54: Glucometer 126 08/04/20 05:43: Glucometer 139 08/04/20 15:35: Glucometer 159 08/05/20 05:57: Glucometer 124 08/05/20 15:49: Glucometer 118 08/06/20 06:49: Glucometer 126 08/06/20 15:39: Glucometer 128 08/07/20 05:16: Glucometer 118 08/07/20 15:55: Glucometer 136 08/08/20 06:53: Glucometer 115 08/08/20 15:52: Glucometer 122 08/09/20 05:08: Sodium Level 144, Potassium Level 4.1, Chloride Level 109, Carbon Dioxide Level 21, Anion Gap 14, Blood Urea Nitrogen 13, Creatinine 0.65, Estimat Glomerular Filtration Rate > 60, BUN/Creatinine Ratio 20, Glucose Level 122, Calcium Level 8.6, Corrected Calcium 9.2, Total Bilirubin 0.3, Aspartate Amino Transf (AST/SGOT) 29, Alanine Aminotransferase (ALT/SGPT) 24, Alkaline Phosphatase 92, Total Protein 6.0, Albumin 3.3 08/09/20 06:11: Glucometer 126 08/09/20 16:28: Glucometer 109 08/10/20 05:57: Glucometer 109 08/10/20 16:29: Glucometer 108 08/11/20 05:41: Glucometer 118 08/11/20 15:42: Glucometer 114 08/12/20 05:32: Glucometer 121 08/12/20 15:38: Glucometer 141 08/13/20 05:48: Glucometer 109 08/13/20 15:41: Glucometer 116 08/13/20 20:45: Glucometer 124 08/14/20 06:39: Glucometer 113 08/14/20 15:23: Glucometer 121 08/15/20 06:29: Glucometer 120 08/15/20 15:55: Glucometer 185 08/16/20 06:14: Glucometer 125 08/16/20 06:20: White Blood Count 9.3, Red Blood Count 4.87, Hemoglobin 13.8, Hematocrit 44, Mean Corpuscular Volume 90, Mean Corpuscular Hemoglobin 28, Mean Corpuscular Hemoglobin Concent 32, Red Cell Distribution Width 14.9, Platelet Count 248, Mean Platelet Volume 10.3, Immature Granulocyte % (Auto) 1, Neutrophils (%) (Auto) 71, Lymphocytes (%) (Auto) 18, Monocytes (%) (Auto) 6, Eosinophils (%) (Auto) 4, Basophils (%) (Auto) 0, Neutrophils # (Auto) 6.6, Lymphocytes # (Auto) 1.7, Monocytes # (Auto) 0.5, Eosinophils # (Auto) 0.3, Basophils # (Auto) 0.0, Immature Granulocyte # (Auto) 0.1, Sodium Level 145, Potassium Level 3.2, Chloride Level 108, Carbon Dioxide Level 25, Anion Gap 12, Blood Urea Nitrogen 14, Creatinine 0.69, Estimat Glomerular Filtration Rate > 60, BUN/Creatinine Ratio 20, Glucose Level 129, Calcium Level 8.6, Corrected Calcium 9.1, Total Bilirubin 0.3, Aspartate Amino Transf (AST/SGOT) 12, Alanine Aminotransferase (ALT/SGPT) 20, Alkaline Phosphatase 91, Total Protein 5.8, Albumin 3.4 08/16/20 16:15: Glucometer 114 08/17/20 06:04: Glucometer 116 08/17/20 15:37: Glucometer 152 08/18/20 06:25: Glucometer 136 08/18/20 15:19: Glucometer 118 08/19/20 06:17: Glucometer 113 Discharge Home Medications: Active Scripts Active Metformin HCl 500 Mg Tablet 500 Mg PO BID@07,17 Pantoprazole Sodium 40 Mg Tablet.dr 40 Mg PO DAILY Klor-Con 10 (Potassium Chloride) 10 Meq Tablet.er 20 Meq PO TIDWM Lisinopril 20 Mg Tablet 20 Mg PO DAILY Atorvastatin Calcium 20 Mg Tablet 20 Mg PO HS Eliquis (Apixaban) 5 Mg Tablet 5 Mg PO BID Norvasc (Amlodipine Besylate) 10 Mg Tablet 10 Mg PO DAILY Reported Hydrochlorothiazide 25 Mg Tablet 25 Mg PO DAILY PRN Tylenol Arthritis (Acetaminophen) 650 Mg Tablet.er 650 Mg PO Q6H PRN Instructions to patient/family Please see electronic discharge instructions given to patient. Diagnosis/Problems Diagnosis/Problems (1) Myopathy (2) COVID-19 (3) Obesity (4) Diabetes mellitus NATHANAEL HOWE DO Aug 19, 2020 08:30
[2020-08-19 10:48] VITALS: BP 120/74
--- NOTE | 2020-08-19 11:59 | Therapy Team Discharge Summary ---
Therapy Discharge Summary Discharge Recommendations Date of Discharge Aug 19, 2020 at 10:45 Occupational Therapy Pt admitted to ARU with critical illness myopathy. 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 Upon initial evaluation, pt required set up assistance with eating and oral care, max A upper body dressing, and total assist with showering, lower body dressing, footwear and toileting. OT txs focused on increasing BUE strength and activity tolerance, and increasing safety and independence with ADLs and functional mobility. At discharge, pt was independent with eating, oral care, showering, and toileting, requiring set up assistance with upper/lower body dressing and footwear. Pt made good functional progress towards goals, meeting all LTGs except upper/lower body dressing and footwear. OT recommends outpatient OT at discharge. Pt discharged from facility, d/c from OT Decreased Activ Tolerance, Decreased UE Strength, Impaired Funct Balance, Impaired Self-Care Skills PT Group Home Goals Group Home Goals PT Group Home Goals Time Frame: Aug 19, 2020 Roll Left to Right (QC): 6 Sit to Lying (QC): 6 Lying-Sitting on Side/Bed(QC): 6 Sit to Stand (QC): 4 Chair/Hil-ld-Xtxez Xfer(QC): 4 Car Transfer (QC): 4 Does the Patient Walk: Yes Walk 10 feet (QC): 4 Walk 10ft-Uneven Surface(QC): 4 Walk 50ft with 2 Turns (QC): 4 Walk 150 ft (QC): 4 Wheel 50 feet with 2 turns (QC: 6 1 Step (curb) (QC): 88 4 Steps (QC): 88 12 Steps (QC): 88 Picking up an Object (QC): 88 OT Marketing Support Assistant Goals Group Home Goals Time Frame: Aug 20, 2020 Eating (QC): 6 (met) Oral Hygiene (QC): 6 (met) Shower/Bathe Self (QC): 6 (met) Upper Body Dressing (QC): 6 (not met) Lower Body Dressing (QC): 6 (not met) On/Off Footwear (QC): 6 (not met) Toileting Hygiene (QC): 6 (met) Toilet/Commode Transfer (QC): 4 Additional Goals: 1-Demonstrate ADL Tasks, 2-Verbalize Understanding, 3- ImproveStrength/Cierra 1=Demonstrate adherence to instructed precautions during ADL tasks. 2=Patient will verbalize/demonstrate understanding of assistive devices/modifications for ADL. 3=Patient will improve strength/tolerance for activity to enable patient to perform ADL's. HEAVENLY MARQUEZ OT Aug 19, 2020 11:59
--- NOTE | 2020-08-19 14:47 | Therapy Team Discharge Summary ---
Therapy Discharge Summary Discharge Recommendations Date of Discharge Aug 19, 2020 at 10:45 Physical Therapy Patient came to rehab with covid 19 PNA myopathy. Upon evaluation patient performed bed mobility with mod assist, supine <-> sit max assist, dependent with sit to stand and transfers using a sit to stand machine, and propelled a manual WC 80' with min assist. Patient has been performing bed mobility and transfer training, balance and endurance training, functional strengthening, stair training, gait training, and education. Patient has made good progress and has met all of his terminal gauger goals as stated on his reassessment. Now, patient performs bed mobility and supine <-> sit with independence, sit <-> stand and transfers with independence, independent with car transfer, ambulates at least 150' with a rolling walker with independence (including 50' with at least 2 turns of 90 degrees but needs setup for 10' over an uneven surface), is independent with WC mobility and can go up and down 4 steps using 2 handrails with CGA. Patient has been discharged from this facility today and will be discharged from PT at this time. Occupational Therapy Decreased Activ Tolerance, Decreased UE Strength, Impaired Funct Balance, Impaired Self-Care Skills PT Help Desk Representative Goals Help Desk Representative Goals PT Group Home Goals Time Frame: Aug 19, 2020 Roll Left to Right (QC): 6 Sit to Lying (QC): 6 Lying-Sitting on Side/Bed(QC): 6 Sit to Stand (QC): 4 Chair/Muy-vp-Peigp Xfer(QC): 4 Car Transfer (QC): 4 Does the Patient Walk: Yes Walk 10 feet (QC): 4 Walk 10ft-Uneven Surface(QC): 4 Walk 50ft with 2 Turns (QC): 4 Walk 150 ft (QC): 4 Wheel 50 feet with 2 turns (QC: 6 1 Step (curb) (QC): 88 4 Steps (QC): 88 12 Steps (QC): 88 Picking up an Object (QC): 88 OT Group Home Goals Group Home Goals Time Frame: Aug 20, 2020 Eating (QC): 6 (met) Oral Hygiene (QC): 6 (met) Shower/Bathe Self (QC): 6 (met) Upper Body Dressing (QC): 6 (not met) Lower Body Dressing (QC): 6 (not met) On/Off Footwear (QC): 6 (not met) Toileting Hygiene (QC): 6 (met) Toilet/Commode Transfer (QC): 4 Additional Goals: 1-Demonstrate ADL Tasks, 2-Verbalize Understanding, 3- ImproveStrength/Cierra 1=Demonstrate adherence to instructed precautions during ADL tasks. 2=Patient will verbalize/demonstrate understanding of assistive devices/modifications for ADL. 3=Patient will improve strength/tolerance for activity to enable patient to perform ADL's. LIZ MI PT Aug 19, 2020 14:47
== END 2020-08-19 10:45 | disposition home or self-care (01) | DRG 92 ==
LOC: EDBD 13:02
PROVIDERS: ADMIT Internal Medicine; ATTEND Internal Medicine
DX: G72.89 Other specified myopathies (principal); N39.0 Urinary tract infection, site not specified; Z68.41 Body mass index [BMI] 40.0-44.9, adult; B94.8 Sequelae of other specified infectious and parasitic diseases; M21.372 Foot drop, left foot; I48.0 Paroxysmal atrial fibrillation; J44.9 Chronic obstructive pulmonary disease, unspecified; E87.6 Hypokalemia; G47.33 Obstructive sleep apnea (adult) (pediatric); E11.9 Type 2 diabetes mellitus without complications; B02.9 Zoster without complications; L40.9 Psoriasis, unspecified; E78.00 Pure hypercholesterolemia, unspecified; I10 Essential (primary) hypertension; E66.9 Obesity, unspecified; Z87.01 Personal history of pneumonia (recurrent); Z79.01 Long term (current) use of anticoagulants; Z79.4 Long term (current) use of insulin
CPT/HCPCS: 36415; 71045; 71046; 80053; 81000; 82947; 83036; 83605; 83735; 84145; 85025; 87077; 87088; 87186; 93005; 94760